=== PATIENT | female | born 1990 | race Two or more races ===

== ENCOUNTER 2020-03-03 06:37 | Outpatient (REF) | payer OTHER, SELFPAY | END 2020-03-03 06:38 | disposition home or self-care (01) | LOC: HO.LAB 06:37 | PROVIDERS: Visit Provider Internal Medicine | DX: Z20.828 Contact with and (suspected) exposure to other viral communicable diseases (principal) | CPT/HCPCS: C9803; U0003 ==

== ENCOUNTER 2020-03-18 21:46 | Emergency (ER) | payer OTHER, SELFPAY ==
[2020-03-18 21:47] VITALS: BP 175/100; PULSE 94; RESP 16; TEMP 37; O2SAT 99; BMI 45.8
--- NOTE | 2020-03-18 22:02 | PC.NURSE ---
PT HAS NO FACIAL DROOPING, SPEACH CLEAR, AND PT A+OX 3.
--- NOTE | 2020-03-18 22:12 | CT_ITS ---
EXAMINATION: CT CERVICAL SPINE WITHOUT CONTRAST CLINICAL INFORMATION: neck pain. arthritis? COMPARISON: None TECHNIQUE: Multidetector volumetric imaging was obtained through the cervical spine without contrast. Multiplanar reformatted images in coronal and sagittal orientations were submitted. This CT examination was performed using dose optimization techniques as appropriate, variously including the following: *Automated exposure control *Adjustment of mA and/or kV according to patient size (this includes techniques or standardized protocols for targeted exams where dose is matched to indication/reason for exam; i.e. extremities or head) *Use of iterative reconstruction technique DLP: 607 mGy-cm FINDINGS: No acute fracture or spondylolisthesis. Vertebral body heights are normal. There is slight reversal of the normal cervical lordosis which may be positional in nature. Atlantooccipital and craniocervical alignment appears normal. The vertebral disc heights appear well-preserved. No significant degenerative spondylosis. Facet joints are unremarkable. The central canal appears patent throughout the cervical spine without appreciable stenoses by CT. No evidence of epidural hematoma. No neural foraminal encroachment is identified. Paraspinal soft tissues are unremarkable. Thyroid gland is normal in appearance. No adenopathy. Imaged portions of the lung apices are normal. Imaged portion of the posterior fossa is unremarkable. CT/CT cervical spine wo con IMPRESSION: No acute abnormalities are identified in the cervical spine. The cervical spine appears relatively well-preserved without significant degenerative spondylosis.
[2020-03-18] MEDS: Ketorolac Tromethamine 30 MG/ML VIAL IM (22:24)
[2020-03-18] MEDS: Cyclobenzaprine HCl 10 MG TABLET PO (22:24)
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
[2020-03-18 23:17] VITALS: BP 135/73; PULSE 77; RESP 16; TEMP 37.2; O2SAT 98
== END 2020-03-18 23:45 | disposition home or self-care (01) ==
PROVIDERS: Emergency Provider Emergency Medicine Emergency Medical Services
DX: M62.830 Muscle spasm of back (principal); E11.9 Type 2 diabetes mellitus without complications
CPT/HCPCS: 72125; 99284; J1885

== ENCOUNTER 2020-06-08 10:02 | Outpatient (REF) | payer OTHER, SELFPAY | END 2020-06-08 10:03 | disposition home or self-care (01) | LOC: HO.LAB 10:02 | PROVIDERS: Visit Provider Internal Medicine | DX: Z20.822 Contact with and (suspected) exposure to COVID-19 (principal) | CPT/HCPCS: 36415; C9803; U0003; U0005 ==

== ENCOUNTER 2020-08-18 11:27 | Emergency (ER) | payer OTHER, SELFPAY ==
--- NOTE | ~2020-08-18 | CT_ITS ---
EXAMINATION: CT ABDOMEN AND PELVIS WITHOUT CONTRAST CLINICAL INFORMATION: Left flank pain. COMPARISON: CT abdomen and pelvis noncontrast 11/03/2017 TECHNIQUE: Multidetector volumetric imaging was performed from the superior aspect of the liver through the pubic symphysis. Sagittal and coronal reformatted images were obtained on the technologist's workstation. This CT examination was performed using dose optimization techniques as appropriate, variously including the following: *Automated exposure control *Adjustment of mA and/or kV according to patient size (this includes techniques or standardized protocols for targeted exams where dose is matched to indication/reason for exam; i.e. extremities or head) *Use of iterative reconstruction technique DLP: 1221 mGy-cm FINDINGS: LUNG BASES: The visualized lung bases are unremarkable. LIVER, GALLBLADDER, AND BILIARY TREE: The liver is normal in size, shape, and attenuation. No focal hepatic lesion or biliary ductal dilatation is present. The gallbladder is unremarkable with no evidence of radiopaque gallstones, gallbladder wall thickening, or obvious pericholecystic inflammatory changes. PANCREAS: Unremarkable. SPLEEN: Spleen is mildly enlarged similar to prior study, measuring 14.9 cm sagittal dimension. ADRENAL GLANDS: Unremarkable. KIDNEYS AND URETERS: There is mild left hydronephrosis secondary to a proximal ureteral calculus immediately beyond the ureterovesical junction at level L2-L3, measuring only 3 mm in diameter. There is no perinephric stranding. No other left urinary tract calculi are demonstrated. The right kidney has punctate nonobstructing calculus upper pole under 3 mm. No right hydronephrosis, hydroureter, or perinephric stranding. BLADDER: Unremarkable. GASTROINTESTINAL TRACT: No bowel obstruction or inflammatory changes in the bowel. The appendix is normal. There is no ascites or fluid collection. ABDOMINAL WALL: Small stable fat-containing umbilical hernia under 3 cm. LYMPH NODES: There are some stable right lower quadrant mesenteric nodes medial to the cecum measuring up to 0.7 cm short axis similar to prior CT. No retroperitoneal or pelvic or interval lymphadenopathy. VASCULAR: Unremarkable. PELVIC VISCERA: Unremarkable. OSSEOUS STRUCTURES: Unremarkable. CT/CT abdomen pelvis wo con IMPRESSION: 1. Mild left hydronephrosis secondary to a 3 mm calculus proximal ureter immediately beyond the ureterovesical junction at level L2-L3. No perinephric stranding. 2. Punctate nonobstructing right upper pole calculus under 3 mm. No right hydronephrosis. 3. Stable borderline splenomegaly and some stable right mesenteric nodes similar to CT 2018.
[2020-08-18 11:31] VITALS: PULSE 92; RESP 18; TEMP 36.7; O2SAT 98; BMI 45.4
[2020-08-18 11:37] VITALS: BP 174/115
[2020-08-18] MEDS: ondansetron HCL 4 MG/2 ML VIAL IVPUSH (12:26)
[2020-08-18] MEDS: 0.9 % Sodium Chloride 1,000 ML 999 ML IVCONT (12:26)
[2020-08-18] MEDS: Ketorolac Tromethamine 15 MG/ML VIAL 30 MG IV (12:26)
[2020-08-18] MEDS: Morphine Sulfate 4 MG/ML CARTRIDGE IVPUSH (12:26)
[2020-08-18 12:39] LABS: MANUAL DIFF FLAG NO
[2020-08-18 12:45] LABS: Basophils Percent Auto 0.2 % (0-2); Eosinophils Absolute Auto 0.2 X10*3/uL (0.0-0.4); Eosinophils Percent Auto 1.4 % (0-4); Imm Gran Abs Auto 0.04 X10*3/uL (0.00-0.03); Imm Gran Pct Auto 0.3 % (0.0-0.4); Lymphocytes Absolute Auto 1.6 X10*3/uL (1.2-4.9); Lymphocytes Percent Auto 12.6 % (20-40); Mean Corpuscular HGB Conc 32.5 g/dl (31.0-35.0); Mean Corpuscular Volume 83.2 fL (80-98); Mean Platelet Volume 11.3 fL (9.4-12.3); Monocytes Absolute Auto 0.5 X10*3/uL (0.1-1.2); Monocytes Percent Auto 4.1 % (2-11); Neutrophils Absolute Auto 10.4 X10*3/uL (2.0-8.3); Neutrophils Percent Auto 81.4 % (45-73); Platelet Count 370 X10*3/uL (160-400); Red Blood Count 4.81 X10*6/uL (4.20-5.50); White Blood Count 12.8 X10*3/uL (4.8-10.8)
[2020-08-18 12:50] LABS: INTERNATIONAL NORM RATIO 1.1 (0.9-1.1); Prothrombin Time 13.3 SEC (10.8-13.0)
[2020-08-18] MEDS: diphenhydrAMINE HCL 50 MG/ML VIAL IVPUSH (13:04)
[2020-08-18] MEDS: Metoclopramide HCl 10 MG/2 ML VIAL IVPUSH (13:04)
[2020-08-18] MEDS: HYDROmorphone HCl 0.5 MG/0.5 ML SYRINGE IVPUSH (13:07)
[2020-08-18 13:11] VITALS: BP 161/84; PULSE 74; RESP 19; O2SAT 99
[2020-08-18 13:20] LABS: Influenza A PCR NEGATIVE (Negative); Influenza B PCR NEGATIVE (Negative); Resp Syncy Virus RNA Qual PCR NEGATIVE (Negative); SARS COV2 PCR INHOUSE NEGATIVE (Negative)
[2020-08-18 13:27] VITALS: BP 151/83; PULSE 68; RESP 16
[2020-08-18 13:32] LABS: Alanine Aminotransferase 24 U/L (0-31); Albumin Level 4.4 g/dL (3.5-5.0); Alkaline Phosphatase 90 U/L (39-117); Anion Gap 17 (12-20); Aspartate Amino Transferase 19 U/L (5-31); Bilirubin Total 0.5 mg/dL (0.0-1.0); Blood Urea Nitrogen 15 mg/dL (9-16); Calcium 9.7 mg/dL (8.4-10.2); Carbon Dioxide 23 mmol/L (22-29); Chloride 105 mmol/L (96-108); Creatinine Clr Calc Pharmacy 142.6; Estimated Glomerular Filt Rate > 60; Glucose Random 176 mg/dL (60-115); Magnesium 1.6 mg/dL (1.6-2.6); Potassium 3.9 mmol/L (3.3-5.1); Sodium 141 mmol/L (135-145); Total Protein 7.2 g/dL (6.5-8.0)
[2020-08-18 13:34] LABS: HCG Quantitative < 2 mIU/mL
--- NOTE | 2020-08-18 13:47 | ED_ITS ---
HPI - Abdominal Pain General Chief Complaint: Abdominal Pain Stated Complaint: flank pain abd pain Time Seen by Provider: 08/18/20 12:09 Source: patient and family Mode of arrival: ambulatory Limitations: no limitations History of Present Illness HPI narrative: 30-year-old female with a past medical history of diabetes presenting to the ED with complaints of left back/flank pain with associated nausea/vomiting that started this morning. Reports she has never had this in the past. Denies any fevers, chills, dizziness, headaches, lightheadedness, black or bloody emesis, chest pain, shortness of breath, radiation of the abdominal pain, diarrhea, constipation, hematuria, abnormal vaginal discharge, dysuria or any other symptoms complaints or concerns at this time. Denies recent travel or sick contacts or bad food exposure. Denies being on any blood thinners. MD elicited complaint: abdominal pain and flank pain Onset (ago): hour(s) Pain Consistency: constant Location: L flank and other (Left back) Severity: severe Pain scale (0-10): 10 Quality: sharp Radiation: none Migration to: no migration Exacerbating factors: nothing Relieving factors: nothing Associated symptoms: nausea and vomiting Related Data Previous Rx's Medication Instructions Recorded cyclobenzaprine 10 mg PO TID PRN #15 tab 03/18/20 naproxen 500 mg PO BID PRN #20 tab 03/18/20 acetaminophen [Tylenol Extra 1,000 mg PO QID PRN #14 tab 08/18/20 Strength] ketorolac 10 mg PO Q8H PRN #15 tab 08/18/20 oxycodone 5 mg PO BID PRN #15 tab 08/18/20 prednisone 40 mg PO DAILY 5 Days #10 tab 08/18/20 tamsulosin [Flomax] 0.4 mg PO DAILY 5 Days #5 cap 08/18/20 Allergies Allergy/AdvReac Type Severity Reaction Status Date / Time No Known Allergies Allergy Verified 03/18/20 21:54 Review of Systems Review of Systems Constitutional : No Fever, No Chills, No Night Sweats, No Fatigue, No Malaise Cardiovascular : No Chest Pain, No SOB Respiratory : No Cough, No Sputum, No Wheezing, No Dyspnea Gastrointestinal : + Nausea, + Vomiting, No Diarrhea, + abdominal Pain, No He matochezia, No Melena Genitourinary : No irregular bleeding, No Dysuria, No Urinary Frequency, No He maturia,No Urinary Incontinence, No Urgency, No Flank Pain Musculoskeletal : No joint pain, No Myalgias, No Joint Swelling Skin : No Skin Lesions, No rash Neuro : No Weakness, No Numbness, No Paresthesias, No Loss of Consciousness, No Dizziness, No Headache Heme/Lymph: No Lymphadenopathy Endocrine : No Temperature Intolerance Yes all other systems are reviewed and are negative Physical Exam Vital Signs: Vital Signs: Last Vital Signs Temp 98.0 F 08/18/20 11:31 Pulse 68 08/18/20 13:27 Resp 16 08/18/20 13:27 BP 151/83 H 08/18/20 13:27 Pulse Ox 99 08/18/20 13:11 Body Mass Index 45.4 vital signs have been reviewed as normal and appeared to be correct. Blood pressure normal. Heart rate hypertensive at 174/115. Respiration rate normal. Temperature normal. Oxygen saturation normal. Appearance: Alert. Oriented X3. In severe pain with anxiety otherwise other No acute distress. Head: Normal external exam. Normocephalic. Eyes: PERRLA. EOMI. Conjunctiva and sclera normal. Eyelids normal. ENT: Pharynx normal. Uvula midline. Moist mucous membranes. No trismus noted. No drooling noted. No muffled voice noted. Neck: Normal inspection. Neck supple. FROM. No adenopathy. No meningeal signs. CVS: Normal heart rate and rhythm. Heart sound normal. No murmurs noted. Pulses normal throughout. Respiratory: No respiratory distress. Painless inspiration. Breath sounds normal. No wheezes/rales/rhonchi noted. Chest nontender. No accessory muscle usage noted or decreased air movement noted. Abdomen: Soft and moderate tenderness to palpation to left flank with guarding. Nondistended. No rigidity. Bowel sounds normal in all 4 quadrants. No distention noted. No organomegaly noted. No visible injury noted. No rebound tenderness. Negative Rovsing sign. Negative obturator's sign. Negative psoas sign. Negative Calix sign. Back: Positive left CVA tenderness. No right CVA tenderness Full range of motion noted. Skin: Skin warm and dry. Normal skin color. Normal skin turgor. No rashes/lesions/lacerations noted. Extremities: Extremities exhibit normal range of motion. Extremities nontender. Neuro: Oriented X 3. No motor deficit. No sensory deficit. Reflexes normal. Normal steady gait. Course Course Course Narrative: 15pm - labs reviewed and [place] [address]. Random glucose 176. Serum quant negative for . Otherwise all other labs are within normal limits. COVID/RSV/flu negative. - patient more comfortable with pain at this time. - patient is currently awaiting CT scan of abdomen and pelvis without contrast will continue to monitor. Reevaluation(s) Reevaluation #1: - CT scan of abdomen and pelvis revealed mild left hydr onephrosis with 3 mm calculus proximal ureter immediately beyond the UVJ. Patient also noted to have stable borderline splenomegaly and some stable right mesenteric nodes similar to CT scan in 2018. Therefore I printed this out and instructed her to follow up with her primary care provider regarding this. - otherwise patient is tolerating p.o. fluids/solid and her pain is controlled. Will DC home with symptomatic treatment antinausea medication with instructions follow-up with Urology and to return if any new or worsening symptoms. Patient and mother at bedside understand and agree with this plan. Time: 16:48 MDM - Abdominal Pain MDM Narrative Medical decision making narrative: 12:10am - 30-year-old female with a past medical history of diabetes presenting to the ED with complaints of left back/flank pain with associated nausea/vomiting that started this morning. - Plan: Labs, UA, UHCG, CT scan of abdomen and pelvis without contrast, COVID/RSV/flu swab. Provide a L of IV fluids with 30 mg of Toradol IV, 4 mg of Zofran and 4 mg of morphine then re-evaluate. Medical Records Attestation: I reviewed the patient's medical records. Lab Data Attestation: I reviewed the patient's lab results. Result diagrams: 08/18/20 12:30 08/18/20 12:30 Labs: Lab Results 08/18/20 08/18/20 08/18/20 Range/Units 12:30 12:30 12:30 WBC 12.8 H (4.8-10.8) X10*3/uL RBC 4.81 (4.20-5.50) X10*6/uL Hgb 13.0 (12.0-16.0) g/dl Hct 40.0 (37-47) % MCV 83.2 (80-98) fL MCH 27.0 (27.0-33.0) pg MCHC 32.5 (31.0-35.0) g/dl RDW 13.0 (11.0-16.0) % Plt Count 370 (160-400) X10*3/uL MPV 11.3 (9.4-12.3) fL Immature Gran % (Auto) 0.3 (0.0-0.4) % Neut % (Auto) 81.4 H (45-73) % Lymph % (Auto) 12.6 L (20-40) % [place] % (Auto) 4.1 (2-11) % Eos % (Auto) 1.4 (0-4) % Baso % (Auto) 0.2 (0-2) % Lymph # (Auto) 1.6 (1.2-4.9) X10*3/uL [place] # (Auto) 0.5 (0.1-1.2) X10*3/uL Eos # (Auto) 0.2 (0.0-0.4) X10*3/uL Baso # (Auto) 0.0 (0.0-0.2) X10*3/uL Abs Immat Gran (auto) 0.04 H (0.00-0.03) X10*3/uL Absolute Neuts (auto) 10.4 H (2.0-8.3) X10*3/uL Absolute Nucleated RBC 0.000 (0.0-0.012) X10*3/uL Nucleated RBC % (auto) 0.0 (0.0-0.2) /100WBC PT 13.3 H (10.8-13.0) SEC INR 1.1 (0.9-1.1) Sodium 141 (135-145) mmol/L Potassium 3.9 (3.3-5.1) mmol/L Chloride 105 (96-108) mmol/L Carbon Dioxide 23 (22-29) mmol/L Anion Gap 17 (12-20) BUN 15 (9-16) mg/dL Creatinine 0.83 (0.5-1.4) mg/dL Estim Creat Clear Calc 142.6 Estimated GFR > 60 Random Glucose 176 H (60-115) mg/dL Calcium 9.7 (8.4-10.2) mg/dL Magnesium 1.6 (1.6-2.6) mg/dL Total Bilirubin 0.5 (0.0-1.0) mg/dL AST 19 (5-31) U/L ALT 24 (0-31) U/L Alkaline Phosphatase 90 (39-117) U/L Total Protein 7.2 (6.5-8.0) g/dL Albumin 4.4 (3.5-5.0) g/dL Beta HCG, Quant < 2 mIU/mL Coronavirus (PCR) (Negative) Influenza Type A (PCR) (Negative) Influenza Type B (PCR) (Negative) RSV RNA Qual (PCR) (Negative) 08/18/20 Range/Units 12:32 WBC (4.8-10.8) X10*3/uL RBC (4.20-5.50) X10*6/uL Hgb (12.0-16.0) g/dl Hct (37-47) % MCV (80-98) fL MCH (27.0-33.0) pg MCHC (31.0-35.0) g/dl RDW (11.0-16.0) % Plt Count (160-400) X10*3/uL MPV (9.4-12.3) fL Immature Gran % (Auto) (0.0-0.4) % Neut % (Auto) (45-73) % Lymph % (Auto) (20-40) % [place] % (Auto) (2-11) % Eos % (Auto) (0-4) % Baso % (Auto) (0-2) % Lymph # (Auto) (1.2-4.9) X10*3/uL [place] # (Auto) (0.1-1.2) X10*3/uL Eos # (Auto) (0.0-0.4) X10*3/uL Baso # (Auto) (0.0-0.2) X10*3/uL Abs Immat Gran (auto) (0.00-0.03) X10*3/uL Absolute Neuts (auto) (2.0-8.3) X10*3/uL Absolute Nucleated RBC (0.0-0.012) X10*3/uL Nucleated RBC % (auto) (0.0-0.2) /100WBC PT (10.8-13.0) SEC INR (0.9-1.1) Sodium (135-145) mmol/L Potassium (3.3-5.1) mmol/L Chloride (96-108) mmol/L Carbon Dioxide (22-29) mmol/L Anion Gap (12-20) BUN (9-16) mg/dL Creatinine (0.5-1.4) mg/dL Estim Creat Clear Calc Estimated GFR Random Glucose (60-115) mg/dL Calcium (8.4-10.2) mg/dL Magnesium (1.6-2.6) mg/dL Total Bilirubin (0.0-1.0) mg/dL AST (5-31) U/L ALT (0-31) U/L Alkaline Phosphatase (39-117) U/L Total Protein (6.5-8.0) g/dL Albumin (3.5-5.0) g/dL Beta HCG, Quant mIU/mL Coronavirus (PCR) NEGATIVE (Negative) Influenza Type A (PCR) NEGATIVE (Negative) Influenza Type B (PCR) NEGATIVE (Negative) RSV RNA Qual (PCR) NEGATIVE (Negative) Imaging Data CT scan of abdomen and pelvis without IV contrast: Attestation: I personally reviewed and interpreted this imaging study as follows: Radiologist's impression: FINDINGS: LUNG BASES: The visualized lung bases are unremarkable. LIVER, GALLBLADDER, AND BILIARY TREE: The liver is normal in size, shape, and attenuation. No focal hepatic lesion or biliary ductal dilatation is present. The gallbladder is unremarkable with no evidence of radiopaque gallstones, gallbladder wall thickening, or obvious pericholecystic inflammatory changes. PANCREAS: Unremarkable. SPLEEN: Spleen is mildly enlarged similar to prior study, measuring 14.9 cm sagittal dimension. ADRENAL GLANDS: Unremarkable. KIDNEYS AND URETERS: There is mild left hydronephrosis secondary to a proximal ureteral calculus immediately beyond the ureterovesical junction at level L2-L3, measuring only 3 mm in diameter. There is no perinephric stranding. No other left urinary tract calculi are demonstrated. The right kidney has punctate nonobstructing calculus upper pole under 3 mm. No right hydronephrosis, hydroureter, or perinephric stranding. BLADDER: Unremarkable. GASTROINTESTINAL TRACT: No bowel obstruction or inflammatory changes in the bowel. The appendix is normal. There is no ascites or fluid collection. ABDOMINAL WALL: Small stable fat-containing umbilical hernia under 3 cm. LYMPH NODES: There are some stable right lower quadrant mesenteric nodes medial to the cecum measuring up to 0.7 cm short axis similar to prior CT. No retroperitoneal or pelvic or interval lymphadenopathy. VASCULAR: Unremarkable. PELVIC VISCERA: Unremarkable. OSSEOUS STRUCTURES: Unremarkable. CT/CT abdomen pelvis wo con IMPRESSION: 1. Mild left hydronephrosis secondary to a 3 mm calculus proximal ureter immediately beyond the ureterovesical junction at level L2-L3. No perinephric stranding. 2. Punctate nonobstructing right upper pole calculus under 3 mm. No right hydronephrosis. 3. Stable borderline splenomegaly and some stable right mesenteric nodes similar to CT 2018. Critical Care Time Critical Care Time Critical Care Time: Yes Total Critical Care Time: 60 Attestation: I personally attest to this time spent taking care of the patient Discharge Plan Discharge Clinical Impression: Ureterolithiasis, Hydronephrosis, Splenomegaly Patient Disposition: Home, Self-Care Instructions: Kidney Stones (ED), Ureteral Stones (ED) Prescriptions: New tamsulosin [Flomax] 0.4 mg capsule 0.4 mg PO DAILY 5 Days Qty: 5 RF: 0 prednisone 20 mg tablet 40 mg PO DAILY 5 Days Qty: 10 RF: 0 acetaminophen [Tylenol Extra Strength] 500 mg tablet 1,000 mg PO QID PRN (Reason: fever or pain) Qty: 14 RF: 0 ketorolac 10 mg tablet 10 mg PO Q8H PRN (Reason: pain) Qty: 15 RF: 0 oxycodone 5 mg tablet 5 mg PO BID PRN (Reason: pain) Qty: 15 RF: 0 No Action naproxen 500 mg tablet 500 mg PO BID PRN (Reason: pain) Qty: 20 RF: 0 cyclobenzaprine 10 mg tablet 10 mg PO TID PRN (Reason: muscle spasm) Qty: 15 RF: 0 Referrals: Simeon Palafox MD [Physician] - 2 days Benitez Stevens III, MD [Physician] - 2 days Stand Alone Forms: Work/School Release Print Language: [place] [facility] Past Medical History Attestation statement: The following information was validated with the patient. Medical History Diabetes Social History Social History Advance Directives: No Advance Directives Information Provided: No Patient : No
[2020-08-18] MEDS: Ibuprofen 800 MG TABLET PO (17:17)
[2020-08-18] MEDS: Acetaminophen 325 MG TABLET 975 MG PO (17:17)
[2020-08-18] MEDS: oxyCODONE HCl Immed Release 5 MG TABLET PO (17:17)
== END 2020-08-18 17:26 | disposition home or self-care (01) ==
PROVIDERS: Physician Assistant Medical; Emergency Provider Emergency Medicine Emergency Medical Services
DX: N20.1 Calculus of ureter (principal); N13.30 Unspecified hydronephrosis; R16.1 Splenomegaly, not elsewhere classified; Z20.822 Contact with and (suspected) exposure to COVID-19; Z79.899 Other long term (current) drug therapy
CPT/HCPCS: 0241U; 36415; 74176; 80053; 83735; 84702; 85025; 85610; 96365; 96375; 99284; J1170; J1200; J1885; J2270; J2405; J2765

== ENCOUNTER → 2020-08-25 14:03 | Outpatient (BNVA) | payer OTHER, SELFPAY | PROVIDERS: PCP Nurse Practitioner Family; Visit Provider Urology ==

== ENCOUNTER 2021-03-25 14:35 | Outpatient (REF) | payer OTHER, SELFPAY ==
--- NOTE | ~2021-03-25 | US_ITS ---
EXAMINATION: US RETROPERITONEAL LIMITED (RENAL ONLY) CLINICAL INFORMATION: Calculus of kidney. COMPARISON: CT abdomen and pelvis without contrast dated 08/18/2020. KUB dated 11/03/2017. TECHNIQUE: Real-time imaging of the kidneys. FINDINGS: RIGHT KIDNEY: 12.0 x 4.2 x 5.2 cm (SAG x AP x TRV). The kidney is normal in size, contour, and echogenicity. Renal cortical thickness is normal. No calculi or focal parenchymal lesions. No hydronephrosis. LEFT KIDNEY: 12.2 x 4.6 x 5.1 cm (SAG x AP x TRV). The kidney is normal in size, contour, and echogenicity. Renal cortical thickness is normal. No calculi or focal parenchymal lesions. No hydronephrosis. US/US renal BI IMPRESSION: Normal examination. No calculi demonstrated. No hydronephrosis.
== END 2021-03-25 14:36 | disposition home or self-care (01) ==
LOC: HO.HMGCX 14:35
PROVIDERS: Visit Provider Urology
DX: N20.0 Calculus of kidney (principal)
CPT/HCPCS: 76775

== ENCOUNTER 2022-08-30 18:49 | Emergency (ER) | payer OTHER, MEDICAID, SELFPAY ==
--- NOTE | ~2022-08-30 | CT_ITS ---
EXAMINATION: CT ABDOMEN AND PELVIS WITHOUT CONTRAST CLINICAL INFORMATION: Right flank pain and right lower quadrant pain, hematuria. COMPARISON: Renal ultrasound 03/25/2021. CT abdomen/pelvis 08/18/2020. TECHNIQUE: Multidetector volumetric imaging was performed from the superior aspect of the liver through the pubic symphysis. Sagittal and coronal reformatted images were obtained on the technologist's workstation. This CT examination was performed using dose optimization techniques as appropriate, variously including the following: *Automated exposure control *Adjustment of mA and/or kV according to patient size (this includes techniques or standardized protocols for targeted exams where dose is matched to indication/reason for exam; i.e. extremities or head) *Use of iterative reconstruction technique DLP: 984 mGy-cm FINDINGS: The lack of intravenous contrast limits evaluation of the solid visceral organs including the liver, spleen, pancreas, and kidneys. LUNG BASES: The visualized lung bases are unremarkable. LIVER, GALLBLADDER, AND BILIARY TREE: The liver is normal in size, shape, and attenuation. No focal hepatic lesion or biliary ductal dilatation is present. The gallbladder is unremarkable with no evidence of radiopaque gallstones, gallbladder wall thickening, or obvious pericholecystic inflammatory changes. PANCREAS: Limited noncontrast examination. Equivocal very subtle proximal peripancreatic fat stranding. SPLEEN: Unchanged mild splenomegaly. ADRENAL GLANDS: Unremarkable. KIDNEYS AND URETERS: Punctate nonobstructive calculus in the mid right kidney (6:55). No hydronephrosis. No significant perinephric fat stranding. BLADDER: Underdistended limiting its evaluation. No significant perivesical fat stranding. GASTROINTESTINAL TRACT: The stomach is mildly prominent with heterogeneous content, likely related with postprandial state. The small bowel is nondilated. Normal appendix. Mild colonic diverticulosis. No pericolonic fat stranding. No evidence of bowel obstruction. Moderate degree of stool in the colon and rectum. ABDOMINAL WALL: No significant hernia is appreciated. LYMPH NODES: Prominent sub-7 mm short axis right lower quadrant mesenteric lymph nodes, stable compared to 08/18/2020. VASCULAR: Normal caliber of the abdominal aorta. PELVIC VISCERA: No pelvic mass. OSSEOUS STRUCTURES: No acute or aggressive appearing osseous abnormalities. CT/CT abdomen pelvis wo IV con IMPRESSION: 1. Punctate nonobstructive calculus in the mid right kidney. 2. Equivocal very subtle proximal peripancreatic fat stranding, correlate with lipase/amylase for acute pancreatitis. 3. Mild colonic diverticulosis but no evidence of acute diverticulitis. 4. Moderate degree of stool burden in the colon and rectum suggesting constipation. 5. Unchanged mild splenomegaly. 6. Stable mildly prominent right lower quadrant mesenteric lymph nodes.
[2022-08-30 18:53] VITALS: BP 159/80; PULSE 89; RESP 18; TEMP 35.9; O2SAT 99; BMI 31.3
--- NOTE | 2022-08-30 18:54 | ED.ABDPAIN ---
HPI - Abdominal Pain General Chief Complaint: Urogenital-Female Stated Complaint: Back pain to stomach. Appendicitis? Kidney Stones? Time Seen by Provider: 08/30/22 21:00 Source: patient Mode of arrival: ambulatory Limitations: no limitations History of Present Illness HPI narrative: Patient history of kidney stone last attack was 2021 in which the stone came out of its own comes here for dull pain the right flank area for last 4 days now rated front nausea no vomiting patient noticed or slight blood in the urine also. Related Data Home Medications Medication Instructions Recorded Confirmed pen needle, diabetic 32 gauge x #50 ea 08/25/20 Previous Rx's Medication Instructions Recorded cyclobenzaprine 10 mg tablet 10 mg PO TID PRN muscle spasm #15 03/18/20 tabs naproxen 500 mg tablet 500 mg PO BID PRN pain #20 tabs 03/18/20 acetaminophen 500 mg tablet 1,000 mg PO QID PRN fever or pain 08/18/20 (Tylenol Extra Strength) #14 tabs ketorolac 10 mg tablet 10 mg PO Q8H PRN pain #15 tabs 08/18/20 oxycodone 5 mg tablet 5 mg PO BID PRN pain #15 tabs 08/18/20 prednisone 20 mg tablet 40 mg PO DAILY rash 5 days #10 tabs 08/18/20 tamsulosin 0.4 mg capsule (Flomax) 0.4 mg PO DAILY 5 days #5 caps 08/18/20 cefuroxime axetil 250 mg tablet 250 mg PO BID 7 days #14 tabs 08/31/22 tramadol 50 mg tablet 50 mg PO Q6H PRN pain #20 tabs 08/31/22 Allergies Allergy/AdvReac Type Severity Reaction Status Date / Time No Known Allergies Allergy Verified 08/25/20 13:01 Review of Systems Review of Systems Yes all other systems are reviewed and are negative [facility] Past Medical History Medical History Diabetes Social History Social History Advance Directives: No Advance Directives Information Provided: No Physical Exam ED Vital Signs: Vital Signs - 24 hr 08/30/22 18:53 08/30/22 21:44 08/30/22 22:29 Temperature 96.7 F L 98.3 F Pulse Rate 89 81 Respiratory Rate 18 18 14 Blood Pressure 159/80 H 136/76 Pulse Oximetry 99 98 Oxygen Delivery Method Room Air Room Air BMI result Body Mass Index 31.3 Appearance: Alert. Oriented X3. No acute distress. Eyes: PERRLA, No Nystagmus ENT: Pharynx normal. Oral Mucosa moist Neck: Normal inspection. Neck supple. CVS: Normal heart rate and rhythm. Pulses normal. Respiratory: No respiratory distress. Equal air entry bilateral, no wheezing/rales/rhonchi Abdomen: Soft and nontender. Bowel sounds are present, no mass palpable, R CVA tenderness Skin: Skin warm and dry. Normal skin color. Normal skin turgor. Extremities: No lower extremity edema. No calf tenderness Neuro: Oriented X 3. No motor deficit. No sensory deficit.No cerebellar signs , cranial nerves II-XII intact Course Course Course Narrative: RME: 32yo F w/PMHx renal stones, DM, sent at [employer] [employer], told had UTI and hematuria sent to ED to r/o appendicitis, pt c/o intermittent R sided low back pain radiating to lower abdomen x yesterday. Reports dysuria, urinary frequency. denies N/V, fever, chills +R CVAT noted with RUQ/RLQ ttp, no rebound labs, UA, CTAP ordered Full HPI, ROS and PE to be performed by primary ED provider. Medical Decision Making Medical Decision Making MDM Narrative: CT scan negative for kidney stone discharge patient home on [facility] Lab Data [facility] Lab Attestation statement: I reviewed the patient's lab results. 08/30/22 20:45 08/30/22 20:45 Labs: Lab Results 08/30/22 08/30/22 08/30/22 Range/Units 20:45 20:45 21:48 WBC 11.6 H (4.8-10.8) X10*3/uL RBC 4.56 (4.20-5.50) X10*6/uL Hgb 12.8 (12.0-16.0) g/dl Hct 39.3 (37.0-47.0) % MCV 86.2 (80.0-98.0) fL MCH 28.1 (27.0-33.0) pg MCHC 32.6 (31.0-35.0) g/dl RDW 13.2 (11.0-16.0) % Plt Count 349 (160-400) X10*3/uL MPV 10.9 (9.4-12.3) fL Immature Gran % (Auto) 0.3 (0.0-0.4) % Neut % (Auto) 69.0 (45-73) % Lymph % (Auto) 22.4 (20-40) % [place] % (Auto) 5.2 (2-11) % Eos % (Auto) 2.7 (0-4) % Baso % (Auto) 0.4 (0-2) % Lymph # (Auto) 2.6 (1.2-4.9) X10*3/uL [place] # (Auto) 0.6 (0.1-1.2) X10*3/uL Eos # (Auto) 0.3 (0.0-0.4) X10*3/uL Baso # (Auto) 0.1 (0.0-0.2) X10*3/uL Abs Immat Gran (auto) 0.03 (0.00-0.03) X10*3/uL Absolute Neuts (auto) 8.0 (2.0-8.3) x10*3/uL Absolute Nucleated RBC 0.000 (0.0-0.012) X10*3/uL Nucleated RBC % (auto) 0.0 (0.0-0.2) /100WBC Sodium 142 (135-145) mmol/L Potassium 4.2 (3.3-5.1) mmol/L Chloride 106 (96-108) mmol/L Carbon Dioxide 26 (22-29) mmol/L Anion Gap 14 (12-20) BUN 13 (9-16) mg/dL Creatinine 1.25 (0.5-1.4) mg/dL Estim Creat Clear Calc 76.1 Estimated GFR 50 Random Glucose 136 H (60-115) mg/dL Calcium 9.4 (8.4-10.2) mg/dL Magnesium 1.7 (1.6-2.6) mg/dL Total Bilirubin 0.3 (0.0-1.0) mg/dL Direct Bilirubin 0.1 (0.0-0.5) mg/dL AST 14 (5-31) U/L ALT 15 (0-31) U/L Alkaline Phosphatase 94 (39-117) U/L Total Protein 7.0 (6.5-8.0) g/dL Albumin 4.2 (3.5-5.0) g/dL Lipase 20 (8-78) U/L Beta HCG, Quant < 2 mIU/mL Urine Color Yellow Urine Appearance Cloudy Urine pH 7.5 (5.0-9.0) Ur Specific [place] >= 1.030 H (1.005-1.025) Urine Protein Trace (Neg-Trace) mg/dL Urine Glucose (UA) Negative (Negative) mg/dL Urine Ketones Trace (Negative) mg/dL Urine Blood Small (1+) H (Negative) Urine Nitrite Negative (Negative) Ur Leukocyte Esterase Moderate (2+) H (Negative) Urine RBC 0-2 (0-2) /HPF Urine WBC 21-50 H (0-5) /HPF Ur Squamous Epith Cells 11-20 (0-2) /HPF Urine Bacteria 4+ (None Seen) Hyaline Casts 0-2 (0-2) /LPF Medications Administered Discontinued Medications Generic Name Dose Route Start Last Admin Trade Name Freq PRN Reason Stop Dose Admin Sodium Chloride 1,000 mls @ 999 mls/hr 08/30/22 21:15 08/30/22 22:27 Ns IV 08/30/22 22:15 999 mls/hr .Q1H1M ONE Administration Ceftriaxone Sodium 1 gm/ 50 mls @ 100 mls/hr 08/30/22 22:58 08/30/22 23:08 Sodium Chloride IV 08/30/22 23:27 100 mls/hr ONCE ONE Administration Ketorolac Tromethamine 30 mg 08/30/22 21:15 08/30/22 22:29 Ketorolac Tromethamine 30 Mg/Ml Vial IVPUSH 08/30/22 21:16 30 mg ONCE ONE Administration Morphine Sulfate 4 mg 08/30/22 21:15 08/30/22 22:29 Morphine Sulfate 4 Mg/Ml Cartridge IVPUSH 08/30/22 21:16 4 mg ONCE ONE Administration Protocol Ondansetron HCl 4 mg 08/30/22 21:15 08/30/22 22:29 Ondansetron Hcl 4 Mg/2 Ml Vial IVPUSH 08/30/22 21:16 4 mg ONCE ONE Administration Discharge Plan Discharge Clinical Impression: Urinary tract infection Patient Disposition: Home, Self-Care Instructions: Urinary Tract Infection in Women (ED) Additional Instructions: Drink plenty of fluids No kidney stone seen at this time Pain in the flank areas likely from infection Take antibiotics and pain medication as prescribed Prescriptions: New cefuroxime axetil 250 mg tablet 250 mg PO BID 7 Days Qty: 14 0RF tramadol 50 mg tablet 50 mg PO Q6H PRN (Reason: pain) Qty: 20 0RF No Action naproxen 500 mg tablet 500 mg PO BID PRN (Reason: pain) Qty: 20 0RF cyclobenzaprine 10 mg tablet 10 mg PO TID PRN (Reason: muscle spasm) Qty: 15 0RF Rx Instructions: Side-effect his drowsiness. Do not take at work or driving. tamsulosin [Flomax] 0.4 mg capsule 0.4 mg PO DAILY 5 Days Qty: 5 0RF prednisone 20 mg tablet 40 mg PO DAILY 5 Days Qty: 10 0RF acetaminophen [Tylenol Extra Strength] 500 mg tablet 1,000 mg PO QID PRN (Reason: fever or pain) Qty: 14 0RF ketorolac 10 mg tablet 10 mg PO Q8H PRN (Reason: pain) Qty: 15 0RF Rx Instructions: Given 1st dose in the ED oxycodone 5 mg tablet 5 mg PO BID PRN (Reason: pain) Qty: 15 0RF Interventions: ED Discharge Assessment Last Done: 08/31/22 00:13 Discharge Date/Time: 08/31/22 00:19
[2022-08-30 20:49] LABS: MANUAL DIFF FLAG NO
[2022-08-30 20:51] LABS: Basophils Absolute Auto 0.1 X10*3/uL (0.0-0.2); Basophils Percent Auto 0.4 % (0-2); Eosinophils Absolute Auto 0.3 X10*3/uL (0.0-0.4); Eosinophils Percent Auto 2.7 % (0-4); Hematocrit 39.3 % (37.0-47.0); Hemoglobin 12.8 g/dl (12.0-16.0); Imm Gran Abs Auto 0.03 X10*3/uL (0.00-0.03); Imm Gran Pct Auto 0.3 % (0.0-0.4); Lymphocytes Absolute Auto 2.6 X10*3/uL (1.2-4.9); Lymphocytes Percent Auto 22.4 % (20-40); Mean Corpuscular HGB Conc 32.6 g/dl (31.0-35.0); Mean Corpuscular Hemoglobin 28.1 pg (27.0-33.0); Mean Corpuscular Volume 86.2 fL (80.0-98.0); Mean Platelet Volume 10.9 fL (9.4-12.3); Monocytes Absolute Auto 0.6 X10*3/uL (0.1-1.2); Monocytes Percent Auto 5.2 % (2-11); Platelet Count 349 X10*3/uL (160-400); Red Blood Count 4.56 X10*6/uL (4.20-5.50); Red Cell Distribution Width 13.2 % (11.0-16.0); White Blood Count 11.6 X10*3/uL (4.8-10.8)
[2022-08-30 21:19] LABS: Alanine Aminotransferase 15 U/L (0-31); Albumin Level 4.2 g/dL (3.5-5.0); Alkaline Phosphatase 94 U/L (39-117); Anion Gap 14 (12-20); Aspartate Amino Transferase 14 U/L (5-31); Bilirubin Direct 0.1 mg/dL (0.0-0.5); Bilirubin Total 0.3 mg/dL (0.0-1.0); Blood Urea Nitrogen 13 mg/dL (9-16); Calcium 9.4 mg/dL (8.4-10.2); Carbon Dioxide 26 mmol/L (22-29); Chloride 106 mmol/L (96-108); Creatinine Clr Calc Pharmacy 76.1; Estimated Glomerular Filt Rate 50; Glucose Random 136 mg/dL (60-115); Lipase 20 U/L (8-78); Magnesium 1.7 mg/dL (1.6-2.6); Potassium 4.2 mmol/L (3.3-5.1); Sodium 142 mmol/L (135-145)
[2022-08-30 21:21] LABS: HCG Quantitative < 2 mIU/mL
[2022-08-30 21:44] VITALS: BP 136/76; PULSE 81; RESP 18; TEMP 36.8; O2SAT 98
[2022-08-30 21:59] LABS: Appearance Urine Cloudy; Color Urine Yellow; Glucose Urine UA Negative (Negative); Leukocyte Esterase Urine Moderate (2+) (Negative); Nitrite Urine Negative (Negative); PH 7.5 (5.0-9.0); Specific Gravity - Urine >= 1.030 (1.005-1.025); UMIC TRIGGER UACC YES; Urine Blood Small (1+) (Negative); Urine Ketones Trace mg/dL (Negative); Urine Protein Trace mg/dL (Neg-Trace)
[2022-08-30 22:10] LABS: Bacteria Urine 4+ (None Seen); Hyaline Casts Urine 0-2 /LPF (0-2); RBC Urine 0-2 /HPF (0-2); UACC Culture Trigger YES; WBC Urine 21-50 /HPF (0-5)
--- OUTSIDE RECORDS SUMMARY | 2022-08-30 22:24 | XMS_ITS | Continuity of Care Document ---
Author Name Unknown Organization [facility] Address [address] [place] [id number]- Care Team Providers Care Research Leader Name Role Phone Jennifer No NP Primary Care Physician Encounter [facility] [place] Date(s): 07/27/20 - 08/26/20 [facility] [address] [place] [id number] Allergies, Adverse Reactions, Alerts Substance Reaction Severity Status NKA Active Immunizations Given and Recorded Vaccine Date Status Refusal Reason SARS-CoV-2 (COVID-19) mRNA BNT-162b2 vac 05/31/20 Recorded SARS-CoV-2 (COVID-19) mRNA BNT-162b2 vac 05/10/20 Recorded Influenza Virus Vaccine (oldterm) 1 01/25/20 Recor ded influenza virus vaccine, inactivated 03/06/18 Give n Hepatitis B Vaccine (old term) 2 11/04/09 Given Hepatitis B Vaccine (old term) 3 92 Given Hepatitis B Vaccine (old term) 4 92 Given Hepatitis B Vaccine (old term) 5 92 Given Varicella Virus Vaccine 6 10/25/09 Given Varicella Virus Vaccine 7 10/06/93 Given Meningococcal Conjugate Vaccine 8 10/15/09 Given Tet/Diphth/Acel, Pertussis (oldterm) 9 10/22/08 Gi tom Human Papillomavirus Vaccine 10 10/21/07 Given Human Papillomavirus Vaccine 11 06/21/07 Given Human Papillomavirus Vaccine 12 04/22/07 Given Miscellaneous Vaccine 13 01/27/98 Given Miscellaneous Vaccine 14 08/06/93 Given Miscellaneous Vaccine 15 92 Given Miscellaneous Vaccine 16 92 Given Diphth/Pertussis,Acel/Tetanus (oldterm) 01/27/98 G iven Diphth/Pertussis,Acel/Tetanus (oldterm) 17 08/06/93 Given Diphth/Pertussis,Acel/Tetanus (oldterm) 18 92 Given Diphth/Pertussis,Acel/Tetanus (oldterm) 19 92 Given Diphth/Pertussis,Acel/Tetanus (oldterm) 20 92 Given Measles/Mumps/Rubella Virus Vaccine 21 01/06/97 Gi tom Measles/Mumps/Rubella Virus Vaccine 22 04/07/93 Gi tom Haemophilus B Conj Vaccine (oldterm) 23 08/06/93 G iven Haemophilus B Conj Vaccine (oldterm) 24 92 G iven Haemophilus B Conj Vaccine (oldterm) 25 92 G iven Haemophilus B Conj Vaccine (oldterm) 26 92 G iven Not Given Vaccine Date Status Refusal Reason pneumococcal 23-valent vaccine 01/25/19 Not Given Parent Or Guardian Refuses 1Result Comment: von 2Admin Note: vis 10/24/2006 3Admin Note: DAY UNKNOWN 4Admin Note: DAY UNKNOWN 5Admin Note: DAY UNKNOWN 6Admin Note: VIS DATED 06/20/2007 GIVEN. 7Admin Note: DAY UNKNOWN 8Admin Note: VIS DATED 05/06/2007 9Admin Note: vis 11.18.08 given 10Admin Note: GARDASIL VIS 05/11/06 11Admin Note: BILL #2 VIS 05/11/06 12Admin Note: GARDASIL #1 13Admin Note: oral polio 14Admin Note: oral polio, DAY UNKNOWN 15Admin Note: oral polio, DAY UNKNOWN 16Admin Note: oral polio, DAY UNKNOWN 17Admin Note: DAY UNKNOWN 18Admin Note: DAY UNKNOWN 19Admin Note: DAY UNKNOWN 20Admin Note: DAY UNKNOWN 21Admin Note: DAY UNKNOWN 22Admin Note: DAY UNKNOWN 23Admin Note: DAY UNKNOWN 24Admin Note: DAY UNKNOWN 25Admin Note: DAY UNKNOWN 26Admin Note: DAY UNKNOWN Medications acetaminophen 500 mg oral capsule 2 capsule = 1,000 mg, By Mouth, Every 4 hours, PRN for fever, # 120 capsule, 0 Refills, Maintenance, 08/23/20 7:35:00 EDT, Capsule, Partial fill upon patient request if the prescription is for a schedule II opioid drug. Start Date: 08/23/20 Status: Ordered cyclobenzaprine 5 mg oral tablet See Instructions, Take 1 tablet every 8 hours as needed for muscle spasm, # 21 capsule, 0 Refills, Maintenance, 07/21/20 8:06:00 EDT, Tablet, [facility] #[id number], Partial fill upon patient request if the prescription is for a schedule II opioi... Start Date: 07/21/20 Status: Ordered Flomax 0.4 mg oral capsule 0.4 mg, 1, capsule, By Mouth, Daily, # 30 capsule, Refills 0, Tot. Refills 0, Maintenance, 217:54:00 EDT, Route to Pharmacy Electronically, [facility] #[id number], Partial fill upon patient request if the prescription is for a schedule II... Start Date: 08/23/20 Status: Ordered Free Style Lite Lancets Free Style Lite Lancets, See Instructions, # 1 each, Refills 50, Tot. Refills 50, Maintenance, Use to test 1 time daily and as needed. Dx: E11.9, 01/25/19 12:08:17 EDT, Compound Start Date: 01/25/19 Status: Ordered Freestyle Lite Monitor See Instructions, # 1 each, Maintenance, Check blood sugar in the morning, hold insulin if lower than 70, 01/25/19 12:27:01 EDT, Compound Start Date: 01/25/19 Status: Ordered Freestyle Lite Test Strips Freestyle Lite Test Strips, See Instructions, # 1 each, Refills 50, Tot. Refills 50, Maintenance, Use to test 1 time daily and as needed. Dx: E11.9, 01/25/19 12:08:17 EDT, Compound Start Date: 01/25/19 Status: Ordered Glucometer one device. Glucometer one device., See Instructions, # 1 box, Refills 0, Tot. Refills 0, Maintenance, Glucometer one device. Use the test 4 times a day. Free to change between brands., 01/25/19 12:09:16 EDT, Compound Start Date: 01/25/19 Status: Ordered ketorolac 10 mg oral tablet 1 tablet = 10 mg, By Mouth, 4 times a day, 0 Refills, Maintenance, 08/23/20 7:37:00 EDT, Partial fill upon patient request if the prescription is for a schedule II opioid drug. Start Date: 08/23/20 Status: Ordered Lantus Solostar Pen 100 units/mL subcutaneous solution = 20 units, Subcutaneous Injection, Daily, # 3 mL, 6 Refills, Maintenance, 11/24/20 8:17:00 EDT, Solution, [facility] #[id number], 170.18, cm, 08/23/20 7:31:00 EDT, Height, 129.7, kg, 01/24/19 18:43:00 EDT, Dry Weight Start Date: 11/24/20 Stop Date: 06/22/21 Status: Ordered Lantus Solostar Pen 100 units/mL subcutaneous solution = 20 units, Subcutaneous Injection, Daily, for 30 days, # 3 mL, 6 Refills, Hard Stop 11/24/20 8:17:00 EDT, 04/28/20 8:17:00 EST, Solution, [facility] #[id number], 170.18, cm, 03/17/20 15:55:00 EST, Height, 129.7, kg, 01/24/19 18:43:00 EDT, Dry We... Start Date: 04/28/20 Stop Date: 11/24/20 Status: Ordered MetFORMIN (Eqv-Glucophage XR) 500 mg oral tablet, extended release 1 tablet = 500 mg, By Mouth, 2 times a day, # 180 tablet, 1 Refills, Maintenance, 04/27/20 14:54:00EST, ER Tablet, [facility] #[id number], Partial fill upon patient request if the prescription is for a schedule II opioid drug., 170.18, cm, 03/17... Start Date: 04/27/20 Status: Ordered omeprazole 40 mg oral enteric coated capsule 1 capsule = 40 mg, By Mouth, Daily, # 30 capsule, 3 Refills, Maintenance, 05/18/20 9:41:00 EST, EC Capsule, [facility] #[id number], Partial fill upon patient request if the prescription is for aschedule II opioid drug., 170.18, cm, 05/10/20 9:01... Start Date: 05/18/20 Status: Ordered oxyCODONE 5 mg oral capsule 1 capsule = 5 mg, By Mouth, Every 6 hours, PRN as needed for pain, 0 Refills, Maintenance, :36:00 EDT, Capsule, Partial fill upon patient request if the prescription is for a schedule II opioid drug. Start Date: 08/23/20 Status: Ordered predniSONE 20 mg oral tablet 2 tablet = 40 mg, By Mouth, Once, # 2 tablet, 0 Refills, Maintenance, 08/23/20 7:35:00 EDT, Tablet,Partial fill upon patient request if the prescription is for a schedule II opioid drug. Start Date: 08/23/20 Status: Ordered riboflavin 400 mg oral capsule 1 capsule = 400 mg, By Mouth, Daily, # 100 capsule, 0 Refills, Maintenance, 07/22/20 12:07:00 EDT, Capsule, [facility] #[id number], Partial fill upon patient request, 170.18, cm, 07/21/20 7:47:00 EDT, Height, 129.7, kg, 01/24/19 18:43:00 EDT, Dry... Start Date: 07/22/20 Status: Ordered SUMAtriptan 25 mg oral tablet 1 tablet = 25 mg, By Mouth, Once, At onset of headache. May repeat in 2 hours, # 1 tablet, 0 Refills, Soft Stop, 03/08/20 14:57:00 EST, Tablet, [facility] #[id number], Partial fill upon patient request, 170.18, cm, 03/08/20 14:41:00 EST, Height,... Start Date: 03/08/20 Status: Ordered tamsulosin 0.4 mg oral capsule 0.4 mg, 1, capsule, By Mouth, Daily, # 30 capsule, Refills 0, Maintenance, 08/23/20 7:36:00 EDT, Partial fill upon patient request if the prescription is for a schedule II opioid drug. Start Date: 08/23/20 Status: Ordered Test strips 100 Test strips 100, See Instructions, # 1 box, Refills 0, Tot. Refills 0, Maintenance, Test strips 100test blood sugar 4 times a day change as need the device type, 01/25/19 12:10:59 EDT, Compound Start Date: 01/25/19 Status: Ordered Problem List Condition Effective Dates Status Health Status Inform ant Acne vulgaris(Confirmed) Active Acute low back pain(Confirmed) Active Anxiety(Confirmed) Active Morbid obesity with BMI of 4 5.0-49.9, adult(Confirmed) Active DKA (diabetic ketoacidosis)(Confirmed) Active Exogenous obesity(Confirmed)(Worsening) Active Migraine - infrequent(Confirmed)(Improving) Active Migraine headache(Confirmed) Active Myopia(Confirmed) 10/22/04 Active Cervicalgia(Confirmed) Active Neck pain(Confirmed) Active Encounter to establish care(Confirmed) Active Immunization counseling(Confirmed) Active Seasonal allergic conjunctiv itis and rhinitis(Confirmed) 10/07/08 Active Right shoulder pain(Confirmed) Active Type 2 diabetes mellitus(Confirmed) Active T2DM (type 2 diabetes mellitus)(Confirmed) Active Social History Social History Type Response Smoking Status Never smoker entered on: 08/23/15 Sex
--- OUTSIDE RECORDS SUMMARY | 2022-08-30 22:24 | XMS_ITS | Continuity of Care Document ---
Author Name Unknown Organization [facility] Address [address] [place] [address]- Care Team Providers Care Detector Car Operator Name Role Phone Jennifer No NP Primary Care Physician [phone] Encounter [facility] Date(s): 06/24/20 - 07/24/20 [facility] [address] [place] [address]- Allergies, Adverse Reactions, Alerts Substance Reaction Severity Status NKA Active Immunizations Given and Recorded Vaccine Date Status Refusal Reason Influenza Virus Vaccine (oldterm) 1 01/25/20 Recor [...] DAY UNKNOWN 26Admin Note: DAY UNKNOWN Medications cyclobenzaprine 5 mg oral tablet See Instructions, Take 1 tablet every 8 hours as needed for muscle spasm, # 21 capsule, 0 Refills, Maintenance, 07/21/20 8:06:00 EDT, Tablet, [facility] #[id number], Partial fill upon patient request if the prescription is for a schedule II opioi... Start Date: 07/21/20 Status: Ordered Free Style Lite Lancets Free [...] EDT, Compound Start Date: 01/25/19 Status: Ordered Lantus Solostar Pen 100 units/mL subcutaneous solution = 20 units, Subcutaneous Injection, Daily, # 3 mL, 6 Refills, Maintenance, 04/28/20 8:17:00 EST, Solution, [facility] #[id number], 170.18, cm, 03/17/20 15:55:00 EST, Height, 129.7, kg, 01/24/19 18:43:00 EDT, Dry Weight Start Date: 04/28/20 Stop Date: 11/24/20 Status: Ordered MetFORMIN (Eqv-Glucophage XR) 500 mg oral tablet, extended release 1 tablet = 500 mg, By Mouth, 2 times a day, # 180 tablet, 1 Refills, Maintenance, 04/27/20 14:54:00EST, ER Tablet, [facility] #[id number], Partial fill upon patient request if the prescription is for a schedule II opioid drug., 170.18, cm, 03/17... Start Date: 04/27/20 Status: Ordered omeprazole 40 mg oral enteric coated capsule 1 capsule = 40 mg, By Mouth, Daily, # 30 capsule, 3 Refills, Maintenance, 05/18/20 9:41:00 EST, EC Capsule, [facility] #[id number], Partial fill upon patient request if the prescription is for aschedule II opioid drug., 170.18, cm, 05/10/20 9:01... Start Date: 05/18/20 Status: Ordered riboflavin 400 mg oral capsule 1 capsule = 400 mg, By Mouth, Daily, # 100 capsule, 0 Refills, Maintenance, 07/22/20 12:07:00 EDT, Capsule, [facility] #[id number], Partial fill upon patient request, 170.18, cm, 07/21/20 7:47:00 EDT, Height, 129.7, kg, 01/24/19 18:43:00 EDT, Dry... Start Date: 07/22/20 Status: Ordered SUMAtriptan 25 mg oral tablet 1 tablet = 25 mg, By Mouth, Once, At onset of headache. May repeat in 2 hours, # 1 tablet, 0 Refills, Soft Stop, 03/08/20 14:57:00 EST, Tablet, [facility] #[id number], Partial fill upon patient request, 170.18, cm, 03/08/20 14:41:00 EST, Height,... Start Date: 03/08/20 Status: Ordered Test strips 100 Test strips [...]
--- OUTSIDE RECORDS SUMMARY | 2022-08-30 22:24 | XMS_ITS | Continuity of Care Document ---
Author Name Unknown Organization [facility] Cristofer lt Address [address] [place] [address]- Care Team Providers Care Breakfast Hostess Name Role Phone Marybel ONEAL, Jennifer Primary Care Physician Encounter [facility] Date(s): 02/23/21 - 03/25/21 [facility] Adult [address] [place] [address]- Allergies, Adverse Reactions, Alerts Substance Reaction Severity Status NKA Active Immunizations Given and Recorded Vaccine Date Status Refusal Reason tetanus/diphtheria/pertussis, acel(Tdap) 1 10/15/20 Given SARS-CoV-2 (COVID-19) mRNA BNT-162b2 vac 05/31/20 Recorded SARS-CoV-2 (COVID-19) mRNA BNT-162b2 vac 05/10/20 Recorded Influenza Virus Vaccine (oldterm) 2 01/25/20 Recor ded influenza virus vaccine, inactivated 03/06/18 Give n Hepatitis B Vaccine (old term) 3 11/04/09 Given Hepatitis B Vaccine (old term) 4 92 Given Hepatitis B Vaccine (old term) 5 92 Given Hepatitis B Vaccine (old term) 6 92 Given Varicella Virus Vaccine 7 10/25/09 Given Varicella Virus Vaccine 8 10/06/93 Given Meningococcal Conjugate Vaccine 9 10/15/09 Given Tet/Diphth/Acel, Pertussis (oldterm) 10 10/22/08 G iven Human Papillomavirus Vaccine 11 10/21/07 Given Human Papillomavirus Vaccine 12 06/21/07 Given Human Papillomavirus Vaccine 13 04/22/07 Given Miscellaneous Vaccine 14 01/27/98 Given Miscellaneous Vaccine 15 08/06/93 Given Miscellaneous Vaccine 16 92 Given Miscellaneous Vaccine 17 92 Given Diphth/Pertussis,Acel/Tetanus (oldterm) 01/27/98 G iven Diphth/Pertussis,Acel/Tetanus (oldterm) 18 08/06/93 Given Diphth/Pertussis,Acel/Tetanus (oldterm) 19 92 Given Diphth/Pertussis,Acel/Tetanus (oldterm) 20 92 Given Diphth/Pertussis,Acel/Tetanus (oldterm) 21 92 Given Measles/Mumps/Rubella Virus Vaccine 22 01/06/97 Gi tom Measles/Mumps/Rubella Virus Vaccine 23 04/07/93 Gi tom Haemophilus B Conj Vaccine (oldterm) 24 08/06/93 G iven Haemophilus B Conj Vaccine (oldterm) 25 92 G iven Haemophilus B Conj Vaccine (oldterm) 26 92 G iven Haemophilus B Conj Vaccine (oldterm) 27 92 G iven Not Given Vaccine Date Status Refusal Reason pneumococcal 23-valent vaccine 01/25/19 Not Given Parent Or Guardian Refuses 1Result Comment: [facility]: [id number] 2Result Comment: von 3Admin Note: vis 10/24/2006 4Admin Note: DAY UNKNOWN 5Admin Note: DAY UNKNOWN 6Admin Note: DAY UNKNOWN 7Admin Note: VIS DATED 06/20/2007 GIVEN. 8Admin Note: DAY UNKNOWN 9Admin Note: VIS DATED 05/06/2007 10Admin Note: vis 11.18.08 given 11Admin Note: GARDASIL VIS 05/11/06 12Admin Note: BILL #2 VIS 05/11/06 13Admin Note: GARDASIL #1 14Admin Note: oral polio 15Admin Note: oral polio, DAY UNKNOWN 16Admin Note: oral polio, DAY UNKNOWN 17Admin Note: oral polio, DAY UNKNOWN 18Admin Note: DAY UNKNOWN 19Admin Note: DAY UNKNOWN 20Admin Note: DAY UNKNOWN 21Admin Note: DAY UNKNOWN 22Admin Note: DAY UNKNOWN 23Admin Note: DAY UNKNOWN 24Admin Note: DAY UNKNOWN 25Admin Note: DAY UNKNOWN 26Admin Note: DAY UNKNOWN 27Admin Note: DAY UNKNOWN Medications acetaminophen 500 mg oral capsule 2 capsule = 1,000 mg, By Mouth, Every 4 hours, PRN for fever, # 120 capsule, 0 Refills, Maintenance, 08/23/20 7:35:00 EDT, Capsule, Partial fill upon patient request if the prescription is for a schedule II opioid drug. Start Date: 08/23/20 Status: Ordered betamethasone topical dipropionate 0.05% ointment 1 application, Topically, 2 times a day, # 15 Gm, 0 Refills, Maintenance, 12/22/20 9:42:00 EDT, [id number] Partial fill upon patient request if the prescription is for a schedule II opioid drug., 1 application Topically 2 t... Start Date: 12/22/20 Status: Ordered Free Style Lite Lancets Free Style Lite Lancets, See Instructions, # 1 each, Refills 50, Tot. Refills 50, Maintenance, Use to test 1 time daily and as needed. Dx: E11.9, 01/25/19 12:08:17 EDT, Compound Start Date: 01/25/19 Status: Ordered Freestyle Amrita 14 day sensor Freestyle Amrita 14 day sensor, See Instructions, # 2 each, Refills 11, Tot. Refills 11, Maintenance, Freestyle Amrita 14 day sensor, 10/22/20 11:37:00 EDT, Compound, 170.18, cm, 10/15/20 7:06:00 EDT, Height, 132.5, kg, 09/01/20 13:04:00 EDT, Dry Weight Start Date: 10/22/20 Status: Ordered Freestyle Lite Monitor See Instructions, [...] 6 Refills, Maintenance, 11/24/20 8:17:00 EDT, Solution, [facility] #[id number], 170.18, cm, 08/23/20 7:31:00 EDT, Height, 129.7, kg, 01/24/19 18:43:00 EDT, Dry Weight Start Date: 11/24/20 Stop Date: 06/22/21 Status: Ordered MetFORMIN (Eqv-Glucophage XR) 500 mg oral tablet, extended release 1 tablet = 500 mg, By Mouth, 2 times a day, # 180 tablet, 1 Refills, Maintenance, 11/09/20 14:32:00EDT, ER Tablet, [facility] #[id number], Partial fill upon patient request if the prescription is for a schedule II opioid drug., 170.18, cm, 10/15... Start Date: 11/09/20 Status: Ordered omeprazole 40 mg oral enteric coated capsule 1 capsule = 40 mg, By Mouth, Daily, further refills require an office visit. please call to schedule, # 30 capsule, 0 Refills, Maintenance, 10/04/20 15:49:00 EDT, EC Capsule, [facility] #[id number], Partial fill upon patient request if the prescr... Start Date: 10/04/20 Status: Ordered Ozempic 2 mg/1.5 mL (0.25 mg or 0.5 mg dose) subcutaneous solution See Instructions, Inject 0.5 mg once a week subquateneously, # 1 pack/packet, 1 Refills, Maintenance, 01/18/21 9:44:00 EDT, [facility] #[id number], Partial fill upon patient request if the prescription is for a schedule II opioid drug., Inject 0.... Start Date: 01/18/21 Status: Ordered riboflavin 400 mg oral capsule 1 capsule = 400 mg, By Mouth, Daily, # 100 capsule, 0 Refills, Maintenance, 07/22/20 12:07:00 EDT, Capsule, [facility] #[id number], Partial fill upon patient request, 170.18, cm, 07/21/20 7:47:00 EDT, Height, 129.7, kg, 01/24/19 18:43:00 EDT, Dry... Start Date: 07/22/20 Status: Ordered sertraline 25 mg oral tablet 1 tablet = 25 mg, By Mouth, Daily, # 30 tablet, 0 Refills, Maintenance, 12/22/20 8:00:00 EDT, Tablet, [facility] #[id number], Partial fill upon patient request if the prescription is for a schedule II opioid drug., 170.18, cm, 12/22/20 7:35:00 ED... Start Date: 12/22/20 Status: Ordered SUMAtriptan 25 mg oral tablet 1 tablet = 25 mg, By Mouth, Once, At onset of headache. May repeat in 2 hours, # 1 tablet, 0 Refills, Soft Stop, 03/08/20 14:57:00 EST, Tablet, [facility] #[id number], Partial fill upon patient request, 170.18, cm, [...] 5.0-49.9, adult(Confirmed) Active DKA (diabetic ketoacidosis)(Confirmed) Active Rash(Confirmed) Active Exogenous obesity(Confirmed)(Worsening) Active Heartburn symptom(Confirmed) Active Migraine - infrequent(Confirmed)(Improving) Active Migraine headache(Confirmed) Active Mild depression(Confirmed) Active Myopia(Confirmed) 10/22/04 Active Cervicalgia(Confirmed) Active Neck pain(Confirmed) Active Annual physical exam(Confirmed) Active Seasonal allergic conjunctiv itis and rhinitis(Confirmed) 10/07/08 Active Right shoulder pain(Confirmed) Active Type 2 diabetes mellitus(Confirmed) Active T2DM (type 2 diabetes mellitus)(Confirmed) Active Social History Social History Type Response Smoking Status Never smoker entered on: 08/23/15 Sex
--- OUTSIDE RECORDS SUMMARY | 2022-08-30 22:24 | XMS_ITS | Continuity of Care Document ---
Author Name Unknown Organization [facility] Address [address] [place] [address]- Care Team Providers Care Molder Offbearer Name Role Phone Art ONEAL, Fidelia Good Primary Care Physician [phone] Encounter [facility] Date(s): 06/09/22 - 07/09/22 [facility] [address] [place] [address] Allergies, Adverse Reactions, Alerts No Known Allergies Immunizations Given and Recorded Vaccine Date Status Refusal Reason [id number] 12y+ bivalent booster vax 12/16/21 Recorded influenza virus vaccine, inactivated 04/05/21 Keyur rded influenza virus vaccine, inactivated 03/06/18 Give n SARS-CoV-2 (COVID-19) mRNA BNT-162b2 vac 01/17/21 Recorded SARS-CoV-2 (COVID-19) mRNA BNT-162b2 vac 05/31/20 Recorded SARS-CoV-2 (COVID-19) mRNA BNT-162b2 vac 05/10/20 Recorded tetanus/diphtheria/pertussis, acel(Tdap) 1 10/15/20 Given tetanus/diphtheria/pertussis, acel(Tdap) 11/11/18 Recorded Influenza Virus Vaccine (oldterm) 2 01/25/20 Recor ded pneumococcal 23-valent vaccine 04/01/19 Recorded Hepatitis B Vaccine (old term) 3 11/04/09 [...] Given Parent Or Guardian Refuses 1Result Comment: [facility]: [id number] 2Result Comment: von 3Admin Note: vis 10/24/2006 [...] Note: DAY UNKNOWN 19Admin Note: DAY UNKNOWN Admin Note: DAY UNKNOWN Admin Note: DAY UNKNOWN Admin Note: DAY UNKNOWN Admin Note: DAY UNKNOWN Admin Note: DAY UNKNOWN Admin Note: DAY UNKNOWN Admin Note: DAY UNKNOWN Admin Note: DAY UNKNOWN Medications acetaminophen 500 mg oral capsule 2 capsule = 1,000 mg, By Mouth, Every 4 hours, PRN for fever, # 120 capsule, 0 Refills, Maintenance, 08/23/20 7:35:00 EDT, Capsule, Partial fill upon patient request if the prescription is for a schedule II opioid drug. Start Date: 08/23/20 Status: Ordered azithromycin 250 mg oral tablet See Instructions, Take 2 tablets on day 1 and 1 tablet daily for next 4 days, # 6 tablet, 0 Refills, Maintenance, 01/17/22 7:35:00 EDT, Tablet, [facility]/pharmacy #[id number], Partial fill upon patient request if the prescription is for a schedule II opioid drug.... Start Date: 01/17/22 Status: Ordered betamethasone topical dipropionate 0.05% ointment 1 application, Topically, 2 times a day, # 15 Gm, 0 Refills, Maintenance, 07/03/22 11:45:00 EDT, Ointment, [facility]/pharmacy #[id number], Partial fill upon patient request if the prescription is for a schedule II opioid drug., 1 application Topically 2 times a d... Start Date: 07/03/22 Status: Ordered escitalopram 5 mg oral tablet 1 tablet = 5 mg, By Mouth, Daily, # 30 tablet, 5 Refills, Maintenance, 08/22/21 7:58:00 EDT, Tablet, [facility]/pharmacy #[id number], Partial fill upon patient request if the prescription is for a schedule II opioid drug., 170.18, cm, 08/22/21 7:33:00 EDT, Height,... Start Date: 08/22/21 Status: Ordered Free Style Lite Lancets Free [...] 11, Maintenance, Freestyle Amrita 14 day sensor, 04/12/21 9:34:00 EST, Compound, 170.18, cm, 03/31/21 7:48:00 EST, Height, 132.5, kg, 09/01/20 13:04:00 EDT, Dry Weight Start Date: 04/12/21 Status: Ordered Freestyle amrita 2 CGM Freestyle amrita 2 CGM, See Instructions, # 1 pack/packet, Refills 0, Tot. Refills 0, Maintenance, Freestyle amrita 2 CGM reader, 10/27/21 13:59:00 EDT, Supply, 170.18, cm, 10/27/21 13:36:00 EDT, Height, 132.5, kg, 09/01/20 13:04:00 EDT, Dry Weight Start Date: 10/27/21 Status: Ordered Freestyle amrita 2 sensors Freestyle amrita 2 sensors, See Instructions, # 2 pack/packet, Refills 6, Tot. Refills 6, Maintenance, Please provide 30 days supple freestyle amrita 2 sensors to be changed every 14 days, 10/27/21 13:59:00 EDT, Supply, 170.18, cm, 10/27/21 13:36:00 EDT... Start Date: 10/27/21 Status: Ordered Freestyle Lite Monitor See Instructions, [...] EDT, Compound Start Date: 01/25/19 Status: Ordered MetFORMIN (Eqv-Glucophage XR) 500 mg oral tablet, extended release See Instructions, 1 tablet By Mouth 3 times a day 90 days supply, # 270 tablet, 3 Refills, Maintenance, 05/19/22 12:00:00 EST, ER Tablet, [facility]/pharmacy #[id number], Partial fill upon patient request if the prescription is for a schedule II opioid drug., 170.... Start Date: 05/19/22 Status: Ordered omeprazole 40 mg oral enteric coated capsule 1 capsule = 40 mg, By Mouth, Daily, # 30 capsule, 2 Refills, Maintenance, 12/09/21 12:05:00 EDT, ECCapsule, [facility]/pharmacy #[id number], Partial fill upon patient request if the prescription is for a schedule II opioid drug., 170.18, cm, 11/28/21 7:49:00 EDT,... Start Date: 12/09/21 Status: Ordered Ozempic (1 mg dose) 4 mg/3 mL subcutaneous solution = 1 mg, Subcutaneous Infusion, Every 7 days, rotate injection sites, # 3 mL, 6 Refills, Maintenance, 03/29/22 11:02:00 EST, [facility]/pharmacy #[id number], Partial fill upon patient request if the prescription is for a schedule II opioid drug., 170.18, cm, ... Start Date: 03/29/22 Stop Date: 10/11/22 Status: Ordered predniSONE 10 mg oral tablet 1 tablet = 10 mg, By Mouth, 2 times a day, # 10 tablet, 0 Refills, Maintenance, 01/17/22 7:35:00 EDT, Tablet, [facility]/pharmacy #[id number], Partial fill upon patient request if the prescription is for a schedule II opioid drug., 170.18, cm, 11/28/21 7:49:00 EDT... Start Date: 01/17/22 Status: Ordered propranolol 80 mg oral capsule, extended release 80 mg, 1, capsule, By Mouth, Daily, # 30 capsule, Refills 5, Tot. Refills 5, Maintenance, 08/22/21 8:04:00 EDT, Route to Pharmacy Electronically, [facility]/pharmacy #[id number], Partial fill upon patient requestif the prescription is for a schedule II opioid darian... Start Date: 08/22/21 Status: Ordered riboflavin 400 mg oral capsule 1 capsule = 400 mg, By Mouth, Daily, # 100 capsule, 0 Refills, Maintenance, 06/19/21 17:00:00 EDT, Capsule, [email or web address] #[id number], Partial fill upon patient request, 170.18, cm, 05/24/21 8:16:00 EST, Height, 132.5, kg, 09/01/20 13:04:00 EDT, Dry... Start Date: 06/19/21 Status: Ordered Test strips 100 Test strips 100, See Instructions, # 1 box, Refills 0, Tot. Refills 0, Maintenance, Test strips 100test blood sugar 4 times a day change as need the device type, 01/25/19 12:10:59 EDT, Compound Start Date: 01/25/19 Status: Ordered Trulicity Pen 1.5 mg/0.5 mL subcutaneous solution 0.5 mL = 1.5 mg, Subcutaneous Injection, Every week, rotate injection sites Dx E11.9, # 6.5 mL, 4 Refills, Maintenance, 06/13/22 16:46:00 EST, Solution, [facility] #[id number], Partial fill upon patient request if the prescription is for a schedule II... Start Date: 06/13/22 Stop Date: 09/06/23 Status: Ordered Problem List Condition Confirmation Course Effective Dates Status Health Status Informant Acne vulgaris Confirmed Active Acute low back pain Confirmed Active Anxiety Confirmed Active Morbid obesity with BMI of 45.0-49.9, adult Confirmed Active Carpal tunnel syndrome Confirmed Active DKA (diabetic ketoacidosis) Confirmed Active Rash Confirmed Active Exogenous obesity Confirmed Worsening Active Heartburn symptom Confirmed Active Migraine - infrequent Confirmed Improving Active Migraine headache Confirmed Active Mild depression Confirmed Active Myopia Confirmed 10/22/04 Active Cervicalgia Confirmed Active Neck pain Confirmed Active Annual physical exam Confirmed Active Seasonal allergic conjunctivitis and rhinitis Confirmed 10/07/08 Active Severe obesity Confirmed Active Right shoulder pain Confirmed Active Type 2 diabetes mellitus Confirmed Active T2DM (type 2 diabetes mellitus) Confirmed Active Social History Social History Type Response Smoking Status Never smoker entered on: 08/23/15 Sex Patient Care team information Care Team Personnel Name: Dru Bonilla RN Position: [facility] RN Member Role: Primary Care Nurse Name: Fidelia Cordova NP Position: [facility] PCO Associate Professional Member Role: PCP Address: Address: [address] [place] [address]- Care Team Related Persons Name: JUAN CARLOS RAYMOND Address: home [address] [place] [id number] Name: MEL RAYMOND Address: home [address] [place] [address]
--- OUTSIDE RECORDS SUMMARY | 2022-08-30 22:24 | XMS_ITS | Continuity of Care Document ---
Author Name Unknown Organization [facility] Ezio Cristofer lt Address [address] [place] [address]- Care Team Providers Care Weekend Caregiver Name Role Phone Fidelia Cordova NP Primary Care Physician Encounter [facility] Date(s): 03/22/22 - 04/21/22 [facility] Adult [address] [place] [address]- Attending Physician: Admtr, [id number] Admitting Physician: Admtr, ArLaurie Referring Physician: Admtr, [id number] Allergies, Adverse Reactions, Alerts No Known Allergies Immunizations Given and Recorded Vaccine Date Status Refusal Reason [id number] 12y+ bivalent booster vax 12/16/21 Recorded influenza [...] Given Parent Or Guardian Refuses 1Result Comment: [facility]: [id number] 2Result Comment: von 3Admin Note: vis 10/24/2006 [...] 0 Refills, Maintenance, 01/17/22 7:35:00 EDT, Tablet, [facility]/pharmacy #[id number], Partial fill upon patient request if the prescription is for a schedule II opioid drug.... Start Date: 01/17/22 Status: Ordered betamethasone topical dipropionate 0.05% ointment 1 application, Topically, 2 times a day, # 15 Gm, 0 Refills, Maintenance, 03/14/22 14:03:00 EST, Ointment, [facility]/pharmacy #[id number], Partial fill upon patient request if the prescription is for a schedule II opioid drug., 1 application Topically 2 times a d... Start Date: 03/14/22 Status: Ordered escitalopram 5 mg oral tablet 1 tablet = 5 mg, By Mouth, Daily, # 30 tablet, 5 Refills, Maintenance, 08/22/21 7:58:00 EDT, Tablet, [facility]/pharmacy #[id number], Partial fill upon patient request if the [...] supply, # 270 tablet, 3 Refills, Maintenance, 08/04/21 10:40:00 EDT, ER Tablet, [id number], Partial fill upon patient request if the prescription is for a schedule II opioid drug., 170.... Start Date: 08/04/21 Status: Ordered omeprazole 40 mg oral enteric coated capsule 1 capsule = 40 mg, By Mouth, Daily, # 30 capsule, 2 Refills, Maintenance, 12/09/21 12:05:00 EDT, ECCapsule, [id number], Partial fill upon patient request if the prescription is for a schedule II opioid drug., 170.18, cm, 11/28/21 7:49:00 EDT,... Start Date: 12/09/21 Status: Ordered Ozempic (1 mg dose) 4 mg/3 mL subcutaneous solution = 1 mg, Subcutaneous Infusion, Every 7 days, rotate injection sites, # 3 mL, 6 Refills, Maintenance, 03/29/22 11:02:00 EST, [id number], Partial fill upon patient request if the prescription is for a schedule II opioid drug., 170.18, cm, ... Start Date: 03/29/22 Stop Date: 10/11/22 Status: Ordered predniSONE 10 mg oral tablet 1 tablet = 10 mg, By Mouth, 2 times a day, # 10 tablet, 0 Refills, Maintenance, 01/17/22 7:35:00 EDT, Tablet, [id number], Partial fill upon patient request if the prescription is for a schedule II opioid drug., 170.18, cm, 11/28/21 7:49:00 EDT... Start Date: 01/17/22 Status: Ordered propranolol 80 mg oral capsule, extended release 80 mg, 1, capsule, By Mouth, Daily, # 30 capsule, Refills 5, Tot. Refills 5, Maintenance, 08/22/21 8:04:00 EDT, Route to Pharmacy Electronically, [facility]/pharmacy #[id number], Partial fill upon patient requestif the prescription is for a schedule II opioid darian... Start Date: 08/22/21 Status: Ordered riboflavin 400 mg oral capsule 1 capsule = 400 mg, By Mouth, Daily, # 100 capsule, 0 Refills, Maintenance, 06/19/21 17:00:00 EDT, Capsule, [facility] #[id number], Partial fill upon patient request, 170.18, cm, [...] week, rotate injection sites Dx E11.9, # 2 mL, 3 Refills, Maintenance, 04/06/22 16:00:00 EST, Solution, [facility]/pharmacy #[id number], Partial fill upon patient request if the prescription is for a schedule II op... Start Date: 04/06/22 Status: Ordered Problem List Condition Confirmation Course [...] Status Never smoker entered on: 08/23/15 Sex Note * Event Display: CT Scan Abdomen, Non- BH Authored Date: * Event Display: Ultrasound Pelvis, Non-BH Authored Date: * Event Display: Non BH Lab Results Authored Date: * Event Display: Non BH Lab Results Authored Date: Patient Care team information Care Team Personnel Name: Irene RNDru Position: S RN Member Role: Primary Care Nurse Name: Fidelia Cordova NP Position: [facility] PCO Associate Professional Member Role: PCP Address: Address: [address] [place] [address]- Care Team Related Persons Name: JUAN CARLOS RAYMOND Address: home [address] [place] [id number] Name: MEL RAMYOND Address: home [address] [place] [address]
--- OUTSIDE RECORDS SUMMARY | 2022-08-30 22:24 | XMS_ITS | Continuity of Care Document ---
Author Name Unknown Organization [facility] Shabbir Holguin Cristofer lt Address [address] [place] [address]- Care Team Providers Care Blueprint Reproducer Name Role Phone Jennifer No NP Primary Care Physician Encounter [facility] Date(s): 04/14/20 - 05/14/20 [facility] Adult [address] [place] [address]- Allergies, Adverse Reactions, Alerts Substance Reaction Severity [...] DAY UNKNOWN 26Admin Note: DAY UNKNOWN Medications Free Style Lite Lancets Free Style Lite [...] 6 Refills, Maintenance, 04/28/20 8:17:00 EST, Solution, [facility] #[id number], 170.18, cm, 03/17/20 15:55:00 EST, Height, 129.7, kg, 01/24/19 18:43:00 EDT, Dry Weight Start Date: 04/28/20 Stop Date: 11/24/20 Status: Ordered MetFORMIN (Eqv-Glucophage XR) 500 mg oral tablet, extended release 1 tablet = 500 mg, By Mouth, 2 times a day, # 180 tablet, 1 Refills, Maintenance, 04/27/20 14:54:00EST, ER Tablet, [facility] #[id number], Partial fill upon patient request if the prescription is for a schedule II opioid drug., 170.18, cm, 03/17... Start Date: 04/27/20 Status: Ordered omeprazole 40 mg oral enteric coated capsule 1 capsule = 40 mg, By Mouth, Daily, # 30 capsule, 0 Refills, Maintenance, 04/15/20 14:16:00 EST, ECCapsule, [facility] #[id number], Partial fill upon patient request if the prescription is for a schedule II opioid drug., 170.18, cm, 03/17/20 15:... Start Date: 04/15/20 Status: Ordered riboflavin 400 mg oral capsule 1 capsule = 400 mg, By Mouth, Daily, # 100 capsule, 0 Refills, Maintenance, 04/13/20 11:39:00 EST, Capsule, [facility] #[id number], Partial fill upon patient request, 170.18, cm, 03/17/20 15:55:00 EST, Height, 129.7, kg, 01/24/19 18:43:00 EDT, Start Date: 04/13/20 Status: Ordered SUMAtriptan 25 mg oral tablet 1 tablet = 25 mg, By Mouth, Once, At onset of headache. May repeat in 2 hours, # 1 tablet, 0 Refills, Soft Stop, 03/08/20 14:57:00 EST, Tablet, [facility] #[id number], Partial fill upon patient request, 170.18, cm, [...] Health Status Inform ant Acne vulgaris(Confirmed) Active Anxiety(Confirmed) Active Morbid obesity with BMI of 4 5.0-49.9, adult(Confirmed) Active DKA (diabetic ketoacidosis)(Confirmed) Active Exogenous obesity(Confirmed)(Worsening) Active Migraine - infrequent(Confirmed)(Improving) Active Migraine headache(Confirmed) Active Myopia(Confirmed) 10/22/04 Active Cervicalgia(Confirmed) Active Encounter to establish care(Confirmed) Active Immunization counseling(Confirmed) Active Seasonal allergic conjunctiv itis and rhinitis(Confirmed) 10/07/08 Active Right shoulder pain(Confirmed) Active Type 2 diabetes mellitus(Confirmed) Active T2DM (type 2 diabetes mellitus)(Confirmed) Active Social History Social History Type Response Smoking Status Never smoker entered on: 08/23/15 Sex
--- OUTSIDE RECORDS SUMMARY | 2022-08-30 22:24 | XMS_ITS | Continuity of Care Document ---
Author Name Unknown Organization [facility] Address [address] [facility] [place] [address]- Care Team Providers Care Tire Service Technician Name Role Phone Jennifer No NP Primary Care Physician Encounter [facility] Date(s): 09/01/20 - 10/01/20 [facility] [address] [place] [address]- Attending Physician: Katie Pineda Admitting Physician: AdmtrKatie Referring Physician: Admtr, Ar8 Allergies, Adverse Reactions, Alerts Substance Reaction Severity [...] 0 Refills, Maintenance, 07/21/20 8:06:00 EDT, Tablet, [facility] #[id number], Partial fill upon patient request if the prescription is for a schedule II opioi... Start Date: 07/21/20 Status: Ordered Flomax 0.4 mg oral capsule 0.4 mg, 1, capsule, By Mouth, Daily, # 30 capsule, Refills 1, Tot. Refills 1, Maintenance, 09/21/2113:27:00 EDT, Route to Pharmacy Electronically, [facility] #[id number], Partial fill upon patient request if the prescription is for a schedule II... Start Date: 09/21/20 Status: Ordered Free Style Lite Lancets Free [...] 6 Refills, Maintenance, 11/24/20 8:17:00 EDT, Solution, [facility] #[id number], 170.18, cm, 08/23/20 7:31:00 EDT, Height, 129.7, kg, 01/24/19 18:43:00 EDT, Dry Weight Start Date: 11/24/20 Stop Date: 06/22/21 Status: Ordered Lantus Solostar Pen 100 units/mL subcutaneous solution = 20 units, Subcutaneous Injection, Daily, for 30 days, # 3 mL, 6 Refills, Hard Stop 11/24/20 8:17:00 EDT, 04/28/20 8:17:00 EST, Solution, [facility] #[id number], 170.18, cm, 03/17/20 15:55:00 EST, Height, 129.7, kg, 01/24/19 18:43:00 EDT, Dry We... Start Date: 04/28/20 Stop Date: 11/24/20 Status: Ordered MetFORMIN (Eqv-Glucophage XR) 500 mg oral tablet, extended release 1 tablet = 500 mg, By Mouth, 2 times a day, # 180 tablet, 1 Refills, Maintenance, 04/27/20 14:54:00EST, ER Tablet, [facility] #[id number], Partial fill upon patient request if the prescription is for a schedule II opioid drug., 170.18, cm, 03/17... Start Date: 04/27/20 Status: Ordered omeprazole 40 mg oral enteric coated capsule 1 capsule = 40 mg, By Mouth, Daily, # 30 capsule, 3 Refills, Maintenance, 05/18/20 9:41:00 EST, EC Capsule, [facility] #[id number], Partial fill upon patient request if the prescription is for aschedule II opioid drug., 170.18, cm, 05/10/20 9:01... Start Date: 05/18/20 Status: Ordered oxyCODONE 5 mg oral capsule 1 capsule = 5 mg, By Mouth, Every 6 hours, PRN as needed for pain, 0 Refills, Maintenance, 217:36:00 EDT, Capsule, Partial fill upon patient request [...] 0 Refills, Maintenance, 07/22/20 12:07:00 EDT, Capsule, [facility] #[id number], Partial fill upon patient request, 170.18, cm, 07/21/20 7:47:00 EDT, Height, 129.7, kg, 01/24/19 18:43:00 EDT, Dry... Start Date: 07/22/20 Status: Ordered SUMAtriptan 25 mg oral tablet 1 tablet = 25 mg, By Mouth, Once, At onset of headache. May repeat in 2 hours, # 1 tablet, 0 Refills, Soft Stop, 03/08/20 14:57:00 EST, Tablet, [facility] #[id number], Partial fill upon patient request, 170.18, cm, [...]
--- OUTSIDE RECORDS SUMMARY | 2022-08-30 22:24 | XMS_ITS | Continuity of Care Document ---
Author Name Unknown Organization [facility] Address [address] [place] [address]- Care Team Providers Care Final Application Reviewer Name Role Phone Art ONEAL, Fidelia Good Primary Care Physician Encounter [facility] Date(s): 05/18/22 - 06/17/22 [facility] [address] [place] [address]- Allergies, Adverse Reactions, Alerts No Known Allergies Immunizations Given and Recorded Vaccine Date Status Refusal Reason [id number] 12y+ bivalent booster vax 12/16/21 Recorded influenza [...] Given Parent Or Guardian Refuses 1Result Comment: [facility]: [id number] 2Result Comment: von 3Admin Note: vis 10/24/2006 [...] Note: DAY UNKNOWN 22Admin Note: DAY UNKNOWN Admin Note: DAY UNKNOWN [...] 0 Refills, Maintenance, 01/17/22 7:35:00 EDT, Tablet, [facility]/pharmacy #[id number], Partial fill upon patient request if the prescription is for a schedule II opioid drug.... Start Date: 01/17/22 Status: Ordered betamethasone topical dipropionate 0.05% ointment 1 application, Topically, 2 times a day, # 15 Gm, 0 Refills, Maintenance, 03/14/22 14:03:00 EST, Ointment, [facility]/pharmacy #[id number], Partial fill upon patient request if the prescription is for a schedule II opioid drug., 1 application Topically 2 times a d... Start Date: 03/14/22 Status: Ordered escitalopram 5 mg oral tablet 1 tablet = 5 mg, By Mouth, Daily, # 30 tablet, 5 Refills, Maintenance, 08/22/21 7:58:00 EDT, Tablet, [facility]/pharmacy #[id number], Partial fill upon patient request if the [...] Refills, Maintenance, 05/19/22 12:00:00 EST, ER Tablet, [facility]/pharmacy #[id number], Partial fill upon patient request if the prescription is for a schedule II opioid drug., 170.... Start Date: 05/19/22 Status: Ordered omeprazole 40 mg oral enteric coated capsule 1 capsule = 40 mg, By Mouth, Daily, # 30 capsule, 2 Refills, Maintenance, 12/09/21 12:05:00 EDT, ECCapsule, [facility]/pharmacy #[id number], Partial fill upon patient request if the prescription is for a schedule II opioid drug., 170.18, cm, 11/28/21 7:49:00 EDT,... Start Date: 12/09/21 Status: Ordered Ozempic (1 mg dose) 4 mg/3 mL subcutaneous solution = 1 mg, Subcutaneous Infusion, Every 7 days, rotate injection sites, # 3 mL, 6 Refills, Maintenance, 03/29/22 11:02:00 EST, [facility]/pharmacy #[id number], Partial fill upon patient request if the prescription is for a schedule II opioid drug., 170.18, cm, ... Start Date: 03/29/22 Stop Date: 10/11/22 Status: Ordered predniSONE 10 mg oral tablet 1 tablet = 10 mg, By Mouth, 2 times a day, # 10 tablet, 0 Refills, Maintenance, 01/17/22 7:35:00 EDT, Tablet, [facility]/pharmacy #[id number], Partial fill upon patient request if the prescription is for a schedule II opioid drug., 170.18, cm, 11/28/21 7:49:00 EDT... Start Date: 01/17/22 Status: Ordered propranolol 80 mg oral capsule, extended release 80 mg, 1, capsule, By Mouth, Daily, # 30 capsule, Refills 5, Tot. Refills 5, Maintenance, 08/22/21 8:04:00 EDT, Route to Pharmacy Electronically, [facility]/pharmacy #[id number], Partial fill upon patient requestif the prescription is for a schedule II opioid darian... Start Date: 08/22/21 Status: Ordered riboflavin 400 mg oral capsule 1 capsule = 400 mg, By Mouth, Daily, # 100 capsule, 0 Refills, Maintenance, 06/19/21 17:00:00 EDT, Capsule, [facility] #[id number], Partial fill upon patient request, 170.18, cm, [...] Associate Professional Member Role: PCP Address: Address: [address] [place] [address]- Care Team Related Persons Name: JUAN CARLOS RAYMOND Address: home [address] [place] [id number] Name: MEL RAYMOND Address: home [address] [place] [address]
--- OUTSIDE RECORDS SUMMARY | 2022-08-30 22:24 | XMS_ITS | Continuity of Care Document ---
Author Name Unknown Organization [facility] Address [address] [place] [address]- Care Team Providers Care Metal Sprayer Protective Coating Name Role Phone Marybel ONEAL, Jennifer Primary Care Physician Encounter [facility] Date(s): 04/06/21 - 05/06/21 [facility] Adult [address] [place] [address]- Allergies, Adverse Reactions, Alerts No Known Allergies [...] Given Parent Or Guardian Refuses 1Result Comment: [facility]: [id number] 2Result Comment: von 3Admin Note: vis 10/24/2006 [...] 0 Refills, Maintenance, 12/22/20 9:42:00 EDT, Ointment, [facility] #[id number], Partial fill upon patient request if the [...] Weight Start Date: 04/12/21 Status: Ordered Freestyle Lite Monitor See Instructions, [...] 6 Refills, Maintenance, 11/24/20 8:17:00 EDT, Solution, [facility] #[id number], 170.18, cm, 08/23/20 7:31:00 EDT, Height, 129.7, kg, 01/24/19 18:43:00 EDT, Dry Weight Start Date: 11/24/20 Stop Date: 06/22/21 Status: Ordered MetFORMIN (Eqv-Glucophage XR) 500 mg oral tablet, extended release 1 tablet = 500 mg, By Mouth, 2 times a day, # 180 tablet, 1 Refills, Maintenance, 04/15/21 19:59:00EST, ER Tablet, [facility] #[id number], Partial fill upon patient request if the prescription is for a schedule II opioid drug., 170.18, cm, 03/31... Start Date: 04/15/21 Status: Ordered omeprazole 40 mg oral enteric coated capsule 1 capsule = 40 mg, By Mouth, Daily, # 30 capsule, 1 Refills, Maintenance, 04/07/21 10:58:00 EST, ECCapsule, [facility] #[id number], Partial fill upon patient request if the prescription is for a schedule II opioid drug., 170.18, cm, 03/31/21 7:4... Start Date: 04/07/21 Status: Ordered Ozempic 2 mg/1.5 mL (0.25 mg or 0.5 mg dose) subcutaneous solution See Instructions, Inject 0.5 mg once a week subquateneously, # 1 pack/packet, 1 Refills, Maintenance, 01/18/21 9:44:00 EDT, [facility] #[id number], Partial fill upon patient request if the prescription is for a schedule II opioid drug., Inject 0.... Start Date: 01/18/21 Status: Ordered riboflavin 400 mg oral capsule 1 capsule = 400 mg, By Mouth, Daily, # 100 capsule, 0 Refills, Maintenance, 07/22/20 12:07:00 EDT, Capsule, [facility] #[id number], Partial fill upon patient request, 170.18, cm, 07/21/20 7:47:00 EDT, Height, 129.7, kg, 01/24/19 18:43:00 EDT, Dry... Start Date: 07/22/20 Status: Ordered sertraline 25 mg oral tablet 1 tablet = 25 mg, By Mouth, Daily, # 30 tablet, 0 Refills, Maintenance, 12/22/20 8:00:00 EDT, Tablet, [facility] #[id number], Partial fill upon patient request if the prescription is for a schedule II opioid drug., 170.18, cm, 12/22/20 7:35:00 ED... Start Date: 12/22/20 Status: Ordered SUMAtriptan 25 mg oral tablet 1 tablet = 25 mg, By Mouth, Once, At onset of headache. May repeat in 2 hours, # 1 tablet, 0 Refills, Soft Stop, 03/08/20 14:57:00 EST, Tablet, [facility] #[id number], Partial fill upon patient request, 170.18, cm, [...] allergic conjunctiv itis and rhinitis(Confirmed) 10/07/08 Active Severe obesity(Confirmed) Active Right shoulder pain(Confirmed) Active Type 2 diabetes mellitus(Confirmed) Active T2DM (type 2 diabetes mellitus)(Confirmed) Active Social History Social History Type Response Smoking Status Never smoker entered on: 08/23/15 Sex
--- OUTSIDE RECORDS SUMMARY | 2022-08-30 22:25 | XMS_ITS | Continuity of Care Document ---
Author Name Unknown Organization [facility] Address [address] [place] [address]- Care Team Providers Care Survey Rodman Name Role Phone Fidelia Cordova NP Primary Care Physician [phone] Encounter [facility] Date(s): 05/24/21 - 06/23/21 [facility] [address] [place] [id number] Allergies, Adverse Reactions, Alerts No Known Allergies [...] Given Parent Or Guardian Refuses 1Result Comment: [facility]: [id number] 2Result Comment: von 3Admin Note: vis 10/24/2006 [...] day, # 15 Gm, 0 Refills, Maintenance, 05/11/21 10:06:00 EST, Ointment, [facility] #[id number], Partial fill upon patient request if the prescription is for a schedule II opioid drug., 1 application Topically 2... Start Date: 05/11/21 Status: Ordered Free Style Lite Lancets Free [...] 0, Maintenance, Freestyle amrita 2 CGM reader, 05/13/21 8:16:00 EST, Supply, 170.18, cm, 03/31/21 7:48:00 EST, Height,132.5, kg, 09/01/20 13:04:00 EDT, Dry Weight Start Date: 05/13/21 Status: Ordered Freestyle amrita 2 sensors Freestyle amrita 2 sensors, See Instructions, # 2 pack/packet, Refills 6, Tot. Refills 6, Maintenance, Please provide 30 days supple freestyle amrita 2 sensors to be changed every 14 days, 05/13/21 8:16:00 EST, Supply, 170.18, cm, 03/31/21 7:48:00 EST,... Start Date: 05/13/21 Status: Ordered Freestyle Lite Monitor See Instructions, [...] 1 Refills, Maintenance, 04/15/21 19:59:00EST, ER Tablet, [facility] #[id number], Partial fill upon patient request if the prescription is for a schedule II opioid drug., 170.18, cm, 03/31... Start Date: 04/15/21 Status: Ordered omeprazole 40 mg oral enteric coated capsule 1 capsule = 40 mg, By Mouth, Daily, # 30 capsule, 2 Refills, Maintenance, 05/31/21 14:22:00 EST, ECCapsule, [facility] #[id number], Partial fill upon patient request if the prescription is for a schedule II opioid drug., 170.18, cm, 05/24/21 8:1... Start Date: 05/31/21 Status: Ordered Ozempic (1 mg dose) 4 mg/3 mL subcutaneous solution = 1 mg, Subcutaneous Infusion, Every 7 days, # 1 pack/packet, 6 Refills, Maintenance, 05/13/21 15:01:00 EST, [facility] #[id number], Partial fill upon patient request if the prescription is for a schedule II opioid drug., 170.18, cm, 03/31/21 7:4... Start Date: 05/13/21 Stop Date: 11/25/21 Status: Ordered riboflavin 400 mg oral capsule 1 capsule = 400 mg, By Mouth, Daily, # 100 capsule, 0 Refills, Maintenance, 06/19/21 17:00:00 EDT, Capsule, [facility] #[id number], Partial fill upon patient request, 170.18, cm, 05/24/21 8:16:00 EST, Height, 132.5, kg, 09/01/20 13:04:00 EDT, Dry... Start Date: 06/19/21 Status: Ordered sertraline 25 mg oral tablet 1 tablet = 25 mg, By Mouth, Daily, # 90 tablet, 0 Refills, Maintenance, 05/24/21 8:33:00 EST, Tablet, [facility] #[id number], Partial fill upon patient request if the prescription is for a schedule II opioid drug., 170.18, cm, 05/24/21 8:16:00 ES... Start Date: 05/24/21 Status: Ordered SUMAtriptan 25 mg oral tablet 1 tablet = 25 mg, By Mouth, Once, At onset of headache. May repeat in 2 hours, # 1 tablet, 0 Refills, Soft Stop, 03/08/20 14:57:00 EST, Tablet, [facility] #[id number], Partial fill upon patient request, 170.18, cm, [...] with BMI of 4 5.0-49.9, adult(Confirmed) Active Carpal tunnel syndrome(Confirmed) Active DKA (diabetic ketoacidosis)(Confirmed) Active Rash(Confirmed) Active [...]
--- OUTSIDE RECORDS SUMMARY | 2022-08-30 22:25 | XMS_ITS | Continuity of Care Document ---
Author Name Unknown Organization [facility] Address [address] [place] [address]- Care Team Providers Care Cardiovascular Physician Assistant Name Role Phone Fidelia Cordova NP Primary Care Physician [phone] Encounter [facility] Date(s): 06/16/22 - 07/16/22 [facility] [address] [place] [id number] Attending Physician: AdmKatie vickers Admitting Physician: Admtr, Katie Referring Physician: Admtr, Ar8 Allergies, Adverse Reactions, Alerts No Known Allergies Immunizations Given and Recorded Vaccine Date Status Refusal Reason [id number] 12y+ bivalent booster vax 12/16/21 Recorded influenza [...] Given Measles/Mumps/Rubella Virus Vaccine 22 01/06/97 Gi otm Measles/Mumps/Rubella Virus Vaccine 23 04/07/93 Gi tom Haemophilus B Conj Vaccine (oldterm) 24 08/06/93 G iven Haemophilus B Conj Vaccine (oldterm) 25 92 G iven Haemophilus B Conj Vaccine (oldterm) 26 92 G iven Haemophilus B Conj Vaccine (oldterm) 27 92 G iven Not Given Vaccine Date Status Refusal Reason pneumococcal 23-valent vaccine 01/25/19 Not Given Parent Or Guardian Refuses 1Result Comment: [facility]: [id number] 2Result Comment: von 3Admin Note: vis 10/24/2006 [...] 0 Refills, Maintenance, 01/17/22 7:35:00 EDT, Tablet, [facility]/pharmacy #[id number], Partial fill upon patient request if the prescription is for a schedule II opioid drug.... Start Date: 01/17/22 Status: Ordered betamethasone topical dipropionate 0.05% ointment 1 application, Topically, 2 times a day, # 15 Gm, 0 Refills, Maintenance, 07/03/22 11:45:00 EDT, Ointment, [facility]/pharmacy #[id number], Partial fill upon patient request if the prescription is for a schedule II opioid drug., 1 application Topically 2 times a d... Start Date: 07/03/22 Status: Ordered escitalopram 5 mg oral tablet 1 tablet = 5 mg, By Mouth, Daily, # 30 tablet, 5 Refills, Maintenance, 08/22/21 7:58:00 EDT, Tablet, [facility]/pharmacy #[id number], Partial fill upon patient request if [...] Refills, Maintenance, 05/19/22 12:00:00 EST, ER Tablet, [facility]/pharmacy #[id number], Partial fill upon patient request if the prescription is for a schedule II opioid drug., 170.... Start Date: 05/19/22 Status: Ordered omeprazole 40 mg oral enteric coated capsule 1 capsule = 40 mg, By Mouth, Daily, # 30 capsule, 2 Refills, Maintenance, 12/09/21 12:05:00 EDT, ECCapsule, [facility]/pharmacy #[id number], Partial fill upon patient request if the prescription is for a schedule II opioid drug., 170.18, cm, 11/28/21 7:49:00 EDT,... Start Date: 12/09/21 Status: Ordered Ozempic (1 mg dose) 4 mg/3 mL subcutaneous solution = 1 mg, Subcutaneous Infusion, Every 7 days, rotate injection sites, # 3 mL, 6 Refills, Maintenance, 03/29/22 11:02:00 EST, [facility]/pharmacy #[id number], Partial fill upon patient request if the prescription is for a schedule II opioid drug., 170.18, cm, ... Start Date: 03/29/22 Stop Date: 10/11/22 Status: Ordered predniSONE 10 mg oral tablet 1 tablet = 10 mg, By Mouth, 2 times a day, # 10 tablet, 0 Refills, Maintenance, 01/17/22 7:35:00 EDT, Tablet, [facility]/pharmacy #[id number], Partial fill upon patient request if the prescription is for a schedule II opioid drug., 170.18, cm, 11/28/21 7:49:00 EDT... Start Date: 01/17/22 Status: Ordered propranolol 80 mg oral capsule, extended release 80 mg, 1, capsule, By Mouth, Daily, # 30 capsule, Refills 5, Tot. Refills 5, Maintenance, 08/22/21 8:04:00 EDT, Route to Pharmacy Electronically, [facility]/pharmacy #[id number], Partial fill upon patient requestif the prescription is for a schedule II opioid darian... Start Date: 08/22/21 Status: Ordered riboflavin 400 mg oral capsule 1 capsule = 400 mg, By Mouth, Daily, # 100 capsule, 0 Refills, Maintenance, 06/19/21 17:00:00 EDT, Capsule, [facility] #[id number], Partial fill upon patient request, 170.18, cm, [...] 4 Refills, Maintenance, 06/13/22 16:46:00 EST, Solution, [facility]/pharmacy #[id number], Partial fill upon patient request if the [...] team information Care Team Personnel Name: Irene RN, Dru Position: S RN Member Role: Primary Care Nurse Name: Fidelia Cordova NP Position: [facility] PCO Associate Professional Member Role: PCP Address: Address: [address] [place] [address]- Care Team Related Persons Name: JUAN CARLOS RAYMOND Address: home [address] [place] [id number] Name: MEL R[place] Address: [place] [address]
--- OUTSIDE RECORDS SUMMARY | 2022-08-30 22:25 | XMS_ITS | Continuity of Care Document ---
Author Name Unknown Organization [facility] Address [address] [place] [address]- Care Team Providers Care Security Field Supervisor Name Role Phone Fidelia Cordova NP Primary Care Physician [phone] Encounter [facility] Date(s): 08/29/21 - 09/28/21 [facility] Adult [address] [place] [address]- Allergies, Adverse Reactions, Alerts No Known Allergies [...] Given Parent Or Guardian Refuses 1Result Comment: [facility]: [id number] 2Result Comment: von 3Admin Note: vis 10/24/2006 [...] 0 Refills, Maintenance, 05/11/21 10:06:00 EST, Ointment, [facility] #[id number], Partial fill upon patient request if the prescription is for a schedule II opioid drug., 1 application Topically 2... Start Date: 05/11/21 Status: Ordered escitalopram 5 mg oral tablet 1 tablet = 5 mg, By Mouth, Daily, # 30 tablet, 5 Refills, Maintenance, 08/22/21 7:58:00 EDT, Tablet, [facility]/pharmacy #[id number], Partial fill upon patient request if the [...] Refills, Maintenance, 08/04/21 10:40:00 EDT, ER Tablet, [facility]/pharmacy #[id number], Partial fill upon patient request if the prescription is for a schedule II opioid drug., 170.... Start Date: 08/04/21 Status: Ordered omeprazole 40 mg oral enteric coated capsule 1 capsule = 40 mg, By Mouth, Daily, # 30 capsule, 2 Refills, Maintenance, 05/31/21 14:22:00 EST, ECCapsule, [facility] #[id number], Partial fill upon patient request if the prescription is for a schedule II opioid drug., 170.18, cm, 05/24/21 8:1... Start Date: 05/31/21 Status: Ordered Ozempic (1 mg dose) 4 mg/3 mL subcutaneous solution = 1 mg, Subcutaneous Infusion, Every 7 days, # 3 pack/packet, 4 Refills, Maintenance, 09/16/21 14:38:00 EDT, [facility]/pharmacy #[id number], Partial fill upon patient request if the prescription is for a schedule II opioid drug., 170.18, cm, 08/22/21 7:33:00 EDT,... Start Date: 09/16/21 Stop Date: 02/03/22 Status: Ordered propranolol 80 mg oral capsule, extended release 80 mg, 1, capsule, By Mouth, Daily, # 30 capsule, Refills 5, Tot. Refills 5, Maintenance, 08/22/21 8:04:00 EDT, Route to Pharmacy Electronically, [facility]/pharmacy #[id number], Partial fill upon patient requestif the prescription is for a schedule II opioid darian... Start Date: 08/22/21 Status: Ordered riboflavin 400 mg oral capsule 1 capsule = 400 mg, By Mouth, Daily, # 100 capsule, 0 Refills, Maintenance, 06/19/21 17:00:00 EDT, Capsule, [facility] #[id number], Partial fill upon patient request, 170.18, cm, [...]
--- OUTSIDE RECORDS SUMMARY | 2022-08-30 22:25 | XMS_ITS | Continuity of Care Document ---
Author Name Unknown Organization [facility] Cristofer lt Address [address] [place] [address]- Care Team Providers Care Water And Sewer Systems Superintendent Name Role Phone Art ONEAL, Fidelia Good Primary Care Physician [place] [facility] [place] 01/17/22 - 02/16/22 [facility] Adult [address] [place] [address]- Attending Physician: Katie Pineda Admitting Physician: AdmKatie vickers Referring Physician: AdmtrKatie Allergies, Adverse Reactions, Alerts No Known Allergies [...] Or Guardian Refuses 1Result Comment: [facility]: [id number] 2Result Comment: von 3Admin Note: vis 10/24/2006 [...] 0 Refills, Maintenance, 01/17/22 7:35:00 EDT, Tablet, [facility]/pharmacy #[id number], Partial fill upon patient request if the prescription is for a schedule II opioid drug.... Start Date: 01/17/22 Status: Ordered betamethasone topical dipropionate 0.05% ointment 1 application, Topically, 2 times a day, # 15 Gm, 0 Refills, Maintenance, 10/04/21 14:28:00 EDT, Ointment, [facility]/pharmacy #[id number], Partial fill upon patient request if the prescription is for a schedule II opioid drug., 1 application Topically 2 times a d... Start Date: 10/04/21 Status: Ordered escitalopram 5 mg oral tablet 1 tablet = 5 mg, By Mouth, Daily, # 30 tablet, 5 Refills, Maintenance, 08/22/21 7:58:00 EDT, Tablet, [id number], Partial fill upon patient request if [...] Refills, Maintenance, 08/04/21 10:40:00 EDT, ER Tablet, [facility]/pharmacy #[id number], Partial fill upon patient request if the prescription is for a schedule II opioid drug., 170.... Start Date: 08/04/21 Status: Ordered omeprazole 40 mg oral enteric coated capsule 1 capsule = 40 mg, By Mouth, Daily, # 30 capsule, 2 Refills, Maintenance, 12/09/21 12:05:00 EDT, ECCapsule, [facility]/pharmacy #[id number], Partial fill upon patient request if the prescription is for a schedule II opioid drug., 170.18, cm, 11/28/21 7:49:00 EDT,... Start Date: 12/09/21 Status: Ordered Ozempic (1 mg dose) 4 mg/3 mL subcutaneous solution = 1 mg, Subcutaneous Infusion, Every 7 days, # 3 pack/packet, 4 Refills, Maintenance, 09/16/21 14:38:00 EDT, [facility]/pharmacy #[id number], Partial fill upon patient request if the prescription is for a schedule II opioid drug., 170.18, cm, 08/22/21 7:33:00 EDT,... Start Date: 09/16/21 Stop Date: 02/03/22 Status: Ordered predniSONE 10 mg oral tablet 1 tablet = 10 mg, By Mouth, 2 times a day, # 10 tablet, 0 Refills, Maintenance, 01/17/22 7:35:00 EDT, Tablet, [facility]/pharmacy #[id number], Partial fill upon patient request if the prescription is for a schedule II opioid drug., 170.18, cm, 11/28/21 7:49:00 EDT... Start Date: 01/17/22 Status: Ordered propranolol 80 mg oral capsule, extended release 80 mg, 1, capsule, By Mouth, Daily, # 30 capsule, Refills 5, Tot. Refills 5, Maintenance, 08/22/21 8:04:00 EDT, Route to Pharmacy Electronically, [facility]/pharmacy #[id number], Partial fill upon patient requestif the prescription is for a schedule II opioid darian... Start Date: 08/22/21 Status: Ordered riboflavin 400 mg oral capsule 1 capsule = 400 mg, By Mouth, Daily, # 100 capsule, 0 Refills, Maintenance, 06/19/21 17:00:00 EDT, Capsule, [facility] #[id number], Partial fill upon patient request, 170.18, cm, [...] Date: 01/25/19 Status: Ordered Problem List Condition Confirmation Course [...] * Event Display: CT Scan Abdomen, Non- Authored Date: * Event Display: Ultrasound Pelvis, Non- Authored Date: * Event Display: Non Lab Results Authored Date: * Event Display: Non Lab Results Authored Date: Patient Care team information Care Team Personnel Name: Dru Bonilla RN Position: S RN Member Role: Primary Care Nurse Name: Fidelia Cordova NP Position: [facility] PCO Associate Professional Member Role: PCP Address: Address: [address] [place] [address]- Care Team Related Persons Name: JUAN CARLOS RAYMOND Address: [address] [address] Name: MEL RAYMOND Address: [address] [address]
--- OUTSIDE RECORDS SUMMARY | 2022-08-30 22:25 | XMS_ITS | Continuity of Care Document ---
Author Name Unknown Organization [facility] Ezio Cristofer lt Address [address] [place] [address]- Care Team Providers Care Commercial Sales Consultant Name Role Phone Art ONEAL, Fidelia Good Primary Care Physician [phone] Encounter [facility] [place] Date(s): 08/22/21 - 08/29/21 [facility] Adult [address] [place] [address]- Encounter Diagnosis Encounter to establish care(Discharge Diagnosis) - 08/22/21 Attending Physician: Fidelia Cordova NP Referring Physician: Miguel Arrieta MD Allergies, Adverse Reactions, Alerts No Known Allergies [...] Given Parent Or Guardian Refuses 1Result Comment: [facility]: [id number] 2Result Comment: von 3Admin Note: vis 10/24/2006 [...] 0 Refills, Maintenance, 05/11/21 10:06:00 EST, Ointment, [facility] #[id number], Partial fill upon patient request if the prescription is for a schedule II opioid drug., 1 application Topically 2... Start Date: 05/11/21 Status: Ordered escitalopram 5 mg oral tablet 1 tablet = 5 mg, By Mouth, Daily, # 30 tablet, 5 Refills, Maintenance, 08/22/21 7:58:00 EDT, Tablet, [facility]/pharmacy #[id number], Partial fill upon patient request if the [...] Refills, Maintenance, 08/04/21 10:40:00 EDT, ER Tablet, [facility]/pharmacy #[id number], Partial fill upon patient request if the prescription is for a schedule II opioid drug., 170.... Start Date: 08/04/21 Status: Ordered omeprazole 40 mg oral enteric coated capsule 1 capsule = 40 mg, By Mouth, Daily, # 30 capsule, 2 Refills, Maintenance, 05/31/21 14:22:00 EST, ECCapsule, [facility] #[id number], Partial fill upon patient request if the prescription is for a schedule II opioid drug., 170.18, cm, 05/24/21 8:1... Start Date: 05/31/21 Status: Ordered Ozempic (1 mg dose) 4 mg/3 mL subcutaneous solution = 1 mg, Subcutaneous Infusion, Every 7 days, # 3 pack/packet, 1 Refills, Maintenance, 08/04/21 13:38:00 EDT, [facility]/pharmacy #[id number], Partial fill upon patient request if the prescription is for a schedule II opioid drug., 170.18, cm, 05/24/21 8:16:00 EST,... Start Date: 08/04/21 Stop Date: 09/29/21 Status: Ordered propranolol 80 mg oral capsule, extended release 80 mg, 1, capsule, By Mouth, Daily, # 30 capsule, Refills 5, Tot. Refills 5, Maintenance, 08/22/21 8:04:00 EDT, Route to Pharmacy Electronically, [facility]/pharmacy #[id number], Partial fill upon patient requestif the prescription is for a schedule II opioid darian... Start Date: 08/22/21 Status: Ordered riboflavin 400 mg oral capsule 1 capsule = 400 mg, By Mouth, Daily, # 100 capsule, 0 Refills, Maintenance, 06/19/21 17:00:00 EDT, Capsule, [facility] #[id number], Partial fill upon patient request, 170.18, cm, [...] Active T2DM (type 2 diabetes mellitus)(Confirmed) Active Diagnosis Diagnosis Type Effective Dates Health Status Cl inical Service Informant Encounter to establish care Discharge Diagnosis 08/22/21 Vital Signs Most recent to oldest [Reference Range]: 1 Height 170.18 cm (08/22/21 7:33 AM) Weight 124.4 kg (08/22/21 7:33 AM) Oxygen Saturation [94-100 %] 100 % (08/22/21 7:33 AM) Pulse Rate [55-90 bpm] 84 bpm (08/22/21 7:33 AM) Body Mass Index [18.5-24.99] 42.95 *>HHI* (08/22/21 7:33 AM) Blood Pressure [90-138/55-84 mm Hg] 138/ 66mm Hg (08/22/21 7:33 AM) Blood pressure sites Arm, right (08/22/21 7:33 AM) Weight Obtained Via Standing scale (08/22/21 7:33 AM) Social History Social History Type Response Smoking Status Never smoker entered on: 08/23/15 Sex
--- OUTSIDE RECORDS SUMMARY | 2022-08-30 22:25 | XMS_ITS | Continuity of Care Document ---
Author Name Unknown Organization [facility] Address [address] [place] [address]- Care Team Providers Care Rn Outpatient Surgery Name Role Phone Jennifer No NP Primary Care Physician [place] [facility] [place] 09/03/20 - 01/01/21 [facility] [address] [place] [address] Attending Physician: Eugenio Cai MD Admitting Physician: Eugenio Cai MD Referring Physician: Jennifer No NP Allergies, Adverse Reactions, Alerts Substance Reaction Severity [...] Given Parent Or Guardian Refuses 1Result Comment: [facility]: [id number] 2Result Comment: von 3Admin Note: vis 10/24/2006 [...] 0 Refills, Maintenance, 12/22/20 9:42:00 EDT, Ointment, [facility] #[id number], Partial fill upon patient request if the [...] 6 Refills, Maintenance, 11/24/20 8:17:00 EDT, Solution, [facility] #[id number], 170.18, cm, 08/23/20 7:31:00 EDT, Height, 129.7, kg, 01/24/19 18:43:00 EDT, Dry Weight Start Date: 11/24/20 Stop Date: 06/22/21 Status: Ordered MetFORMIN (Eqv-Glucophage XR) 500 mg oral tablet, extended release 1 tablet = 500 mg, By Mouth, 2 times a day, # 180 tablet, 1 Refills, Maintenance, 11/09/20 14:32:00EDT, ER Tablet, [facility] #[id number], Partial fill upon patient request if the prescription is for a schedule II opioid drug., 170.18, cm, 10/15... Start Date: 11/09/20 Status: Ordered omeprazole 40 mg oral enteric coated capsule 1 capsule = 40 mg, By Mouth, Daily, further refills require an office visit. please call to schedule, # 30 capsule, 0 Refills, Maintenance, 10/04/20 15:49:00 EDT, EC Capsule, [facility] #[id number], Partial fill upon patient request if the prescr... Start Date: 10/04/20 Status: Ordered Ozempic 2 mg/1.5 mL (0.25 mg or 0.5 mg dose) subcutaneous solution See Instructions, 0.25 subcutaneous once weekly for 4 weeks, then 0.5 mg subcutaneous once weekly, # 1 pack/packet, 0 Refills, Maintenance, 10/15/20 7:38:00 EDT, [facility] #[id number], Partial fill upon patient request if the prescription is for... Start Date: 10/15/20 Status: Ordered riboflavin 400 mg oral capsule 1 capsule = 400 mg, By Mouth, Daily, # 100 capsule, 0 Refills, Maintenance, 07/22/20 12:07:00 EDT, Capsule, [facility] #[id number], Partial fill upon patient request, 170.18, cm, 07/21/20 7:47:00 EDT, Height, 129.7, kg, 01/24/19 18:43:00 EDT, Dry... Start Date: 07/22/20 Status: Ordered sertraline 25 mg oral tablet 1 tablet = 25 mg, By Mouth, Daily, # 30 tablet, 0 Refills, Maintenance, 12/22/20 8:00:00 EDT, Tablet, [facility] #[id number], Partial fill upon patient request if the prescription is for a schedule II opioid drug., 170.18, cm, 12/22/20 7:35:00 ED... Start Date: 12/22/20 Status: Ordered SUMAtriptan 25 mg oral tablet 1 tablet = 25 mg, By Mouth, Once, At onset of headache. May repeat in 2 hours, # 1 tablet, 0 Refills, Soft Stop, 03/08/20 14:57:00 EST, Tablet, [facility] #[id number], Partial fill upon patient request, 170.18, cm, [...]
--- OUTSIDE RECORDS SUMMARY | 2022-08-30 22:25 | XMS_ITS | Continuity of Care Document ---
Author Name Unknown Organization [facility] Cristofer lt Address [address] [place] [address]- Care Team Providers Care Software Release Manager Name Role Phone Marybel ONEAL, Jennifer Primary Care Physician Encounter [facility] Date(s): 11/01/20 - 12/01/20 [facility] Adult [address] [place] [address]- Allergies, Adverse Reactions, Alerts Substance Reaction Severity [...] Given Parent Or Guardian Refuses 1Result Comment: [facility]: [id number] 2Result Comment: von 3Admin Note: vis 10/24/2006 [...] opioid drug. Start Date: 08/23/20 Status: Ordered Free Style [...] 6 Refills, Maintenance, 11/24/20 8:17:00 EDT, Solution, [email or web address] #[id number], 170.18, cm, 08/23/20 7:31:00 EDT, Height, 129.7, kg, 01/24/19 18:43:00 EDT, Dry Weight Start Date: 11/24/20 Stop Date: 06/22/21 Status: Ordered MetFORMIN (Eqv-Glucophage XR) 500 mg oral tablet, extended release 1 tablet = 500 mg, By Mouth, 2 times a day, # 180 tablet, 1 Refills, Maintenance, 11/09/20 14:32:00EDT, ER Tablet, [facility] #[id number], Partial fill upon patient request if the prescription is for a schedule II opioid drug., 170.18, cm, 10/15... Start Date: 11/09/20 Status: Ordered omeprazole 40 mg oral enteric coated capsule 1 capsule = 40 mg, By Mouth, Daily, further refills require an office visit. please call to schedule, # 30 capsule, 0 Refills, Maintenance, 10/04/20 15:49:00 [id number] fill upon patient request if the prescr... Start Date: 10/04/20 Status: Ordered Ozempic 2 mg/1.5 mL (0.25 mg or 0.5 mg dose) subcutaneous solution See Instructions, 0.25 subcutaneous once weekly for 4 weeks, then 0.5 mg subcutaneous once weekly, # 1 pack/packet, 0 Refills, Maintenance, 10/15/20 7:38:00 EDT, [facility] #[id number], Partial fill upon patient request if the prescription is for... Start Date: 10/15/20 Status: Ordered riboflavin 400 mg oral capsule 1 capsule = 400 mg, By Mouth, Daily, # 100 capsule, 0 Refills, Maintenance, 07/22/20 12:07:00 ED[facility], [id number], Partial fill upon patient request, 170.18, cm, 07/21/20 7:47:00 EDT, Height, 129.7, kg, 01/24/19 18:43:00 EDT, Dry... Start Date: 07/22/20 Status: Ordered SUMAtriptan 25 mg oral tablet 1 tablet = 25 mg, By Mouth, Once, At onset of headache. May repeat in 2 hours, # 1 tablet, 0 Refills, Soft Stop, 03/08/20 14:57:00 EST, Tablet, [email or web address] #[id number], Partial fill upon patient request, 170.18, cm, [...] DKA (diabetic ketoacidosis)(Confirmed) Active Exogenous obesity(Confirmed)(Worsening) Active Heartburn symptom(Confirmed) Active [...]
--- OUTSIDE RECORDS SUMMARY | 2022-08-30 22:25 | XMS_ITS | Continuity of Care Document ---
Author Name Unknown Organization [facility] Cristofer lt Address [address] [place] [address]- Care Team Providers Care Cocoa Powder Mixer Operator Name Role Phone Marybel ONEAL, Jennifer Primary Care Physician [phone] Encounter [facility] Date(s): 11/16/20 - 12/16/20 [facility] Adult [address] [place] [address]- Allergies, Adverse Reactions, Alerts Substance Reaction Severity [...] Given Parent Or Guardian Refuses 1Result Comment: [facility]: [id number] 2Result Comment: von 3Admin Note: vis 10/24/2006 [...] 6 Refills, Maintenance, 11/24/20 8:17:00 EDT, Solution, [facility] #[id number], 170.18, cm, 08/23/20 7:31:00 EDT, Height, 129.7, kg, 01/24/19 18:43:00 EDT, Dry Weight Start Date: 11/24/20 Stop Date: 06/22/21 Status: Ordered MetFORMIN (Eqv-Glucophage XR) 500 mg oral tablet, extended release 1 tablet = 500 mg, By Mouth, 2 times a day, # 180 tablet, 1 Refills, Maintenance, 11/09/20 14:32:00EDT, ER Tablet, [facility] #[id number], Partial fill upon patient request if the prescription is for a schedule II opioid drug., 170.18, cm, 10/15... Start Date: 11/09/20 Status: Ordered omeprazole 40 mg oral enteric coated capsule 1 capsule = 40 mg, By Mouth, Daily, further refills require an office visit. please call to schedule, # 30 capsule, 0 Refills, Maintenance, 10/04/20 15:49:00 EDT, [id number], Partial fill upon patient request if the prescr... Start Date: 10/04/20 Status: Ordered Ozempic 2 mg/1.5 mL (0.25 mg or 0.5 mg dose) subcutaneous solution See Instructions, 0.25 subcutaneous once weekly for 4 weeks, then 0.5 mg subcutaneous once weekly, # 1 pack/packet, 0 Refills, Maintenance, 10/15/20 7:38:00 EDT, [facility] #[id number], Partial fill upon patient request if the prescription is for... Start Date: 10/15/20 Status: Ordered riboflavin 400 mg oral capsule 1 capsule = 400 mg, By Mouth, Daily, # 100 capsule, 0 Refills, Maintenance, 07/22/20 12:07:00 EDT, [id number], Partial fill upon patient request, 170.18, cm, 07/21/20 7:47:00 EDT, Height, 129.7, kg, 01/24/19 18:43:00 EDT, Dry... Start Date: 07/22/20 Status: Ordered SUMAtriptan 25 mg oral tablet 1 tablet = 25 mg, By Mouth, Once, At onset of headache. May repeat in 2 hours, # 1 tablet, 0 Refills, Soft Stop, 03/08/20 14:57:00 EST, Tablet, [facility] #[id number], Partial fill upon patient request, 170.18, cm, [...]
--- OUTSIDE RECORDS SUMMARY | 2022-08-30 22:25 | XMS_ITS | Continuity of Care Document ---
Author Name Unknown Organization [facility] Shabbir Holguin Cristofer lt Address [address] [place] [address]- Care Team Providers Care Die Operator Name Role Phone Jennifer No NP Primary Care Physician Encounter [facility] Date(s): 04/27/20 - 05/27/20 [facility] [place] Adult [address] [place] [address]- Allergies, Adverse Reactions, Alerts Substance Reaction Severity [...] 6 Refills, Maintenance, 04/28/20 8:17:00 EST, Solution, [facility] #[id number], 170.18, cm, 03/17/20 15:55:00 EST, Height, 129.7, kg, 01/24/19 18:43:00 EDT, Dry Weight Start Date: 04/28/20 Stop Date: 11/24/20 Status: Ordered MetFORMIN (Eqv-Glucophage XR) 500 mg oral tablet, extended release 1 tablet = 500 mg, By Mouth, 2 times a day, # 180 tablet, 1 Refills, Maintenance, 04/27/20 14:54:00EST, ER Tablet, [facility] #[id number], Partial fill upon patient request if the prescription is for a schedule II opioid drug., 170.18, cm, 03/17... Start Date: 04/27/20 Status: Ordered omeprazole 40 mg oral enteric coated capsule 1 capsule = 40 mg, By Mouth, Daily, # 30 capsule, 3 Refills, Maintenance, 05/18/20 9:41:00 EST, EC Capsule, [facility] #[id number], Partial fill upon patient request if the prescription is for aschedule II opioid drug., 170.18, cm, 05/10/20 9:01... Start Date: 05/18/20 Status: Ordered riboflavin 400 mg oral capsule 1 capsule = 400 mg, By Mouth, Daily, # 100 capsule, 0 Refills, Maintenance, 04/13/20 11:39:00 EST, Capsule, [facility] #[id number], Partial fill upon patient request, 170.18, cm, 03/17/20 15:55:00 EST, Height, 129.7, kg, 01/24/19 18:43:00 EDT, Start Date: 04/13/20 Status: Ordered SUMAtriptan 25 mg oral tablet 1 tablet = 25 mg, By Mouth, Once, At onset of headache. May repeat in 2 hours, # 1 tablet, 0 Refills, Soft Stop, 03/08/20 14:57:00 EST, Tablet, [facility] #[id number], Partial fill upon patient request, 170.18, cm, [...]
--- OUTSIDE RECORDS SUMMARY | 2022-08-30 22:25 | XMS_ITS | Continuity of Care Document ---
Author Name Unknown Organization [facility] Cristofer lt Address [address] [place] [address]- Care Team Providers Care Card Doffer Name Role Phone Fidelia Cordova NP Primary Care Physician [phone] Encounter [facility] [place] Date(s): 03/10/22 - 04/21/22 [facility] Adult [address] [place] [address]- Attending Physician: Not on Staff, Attending MD Referring Physician: Fidelia Cordova NP Allergies, Adverse Reactions, Alerts No Known Allergies Immunizations Given and Recorded Vaccine Date Status Refusal Reason [id number] 12y+ bivalent booster vax 12/16/21 Recorded influenza [...] Parent Or Guardian Refuses 1Result Comment: [facility]: [id number] 2Result Comment: von 3Admin Note: vis 10/24/2006 [...] 0 Refills, Maintenance, 01/17/22 7:35:00 EDT, Tablet, [facility]/pharmacy #[id number], Partial fill upon patient request if the prescription is for a schedule II opioid drug.... Start Date: 01/17/22 Status: Ordered betamethasone topical dipropionate 0.05% ointment 1 application, Topically, 2 times a day, # 15 Gm, 0 Refills, Maintenance, 03/14/22 14:03:00 EST, Ointment, [facility]/pharmacy #[id number], Partial fill upon patient request if the prescription is for a schedule II opioid drug., 1 application Topically 2 times a d... Start Date: 03/14/22 Status: Ordered escitalopram 5 mg oral tablet 1 tablet = 5 mg, By Mouth, Daily, # 30 tablet, 5 Refills, Maintenance, 08/22/21 7:58:00 EDT, Tablet, [facility]/pharmacy #[id number], Partial fill upon patient request if the [...] 08/22/21 8:04:00 EDT, Route to Pharmacy Electronically, [facility]/pharmacy #[id number], Partial fill upon patient requestif the prescription is for a schedule II opioid darian... Start Date: 08/22/21 Status: Ordered riboflavin 400 mg oral capsule 1 capsule = 400 mg, By Mouth, Daily, # 100 capsule, 0 Refills, Maintenance, 06/19/21 17:00:00 EDT, Capsule, [facility] #[id number], Partial fill upon patient request, 170.18, cm, [...] 3 Refills, Maintenance, 04/06/22 16:00:00 EST, Solution, [facility]/pharmacy #[id number], Partial fill upon patient request if the [...] team information Care Team Personnel Name: Irene WALTON, Dru Position: [facility] RN Member Role: Primary Care Nurse Name: Fidelia Cordova NP Position: [facility] PCO Associate Professional Member Role: PCP Address: Address: [address] [place] [address]- Care Team Related Persons Name: JUAN CARLOS RAYMOND Address: home [address] [place] [address] Name: MEL RAYMOND Address: home [address] [place] [address]
--- OUTSIDE RECORDS SUMMARY | 2022-08-30 22:25 | XMS_ITS | Continuity of Care Document ---
Author Name Unknown Organization [facility] Cristofer lt Address [address] [place] [address]- Care Team Providers Care Heel Sprayer Name Role Phone Art ONEAL, Fidelia Good Primary Care Physician Encounter [facility] Date(s): 01/16/22 - 02/15/22 [facility] Adult [address] [place] [address]- Allergies, Adverse Reactions, Alerts No Known Allergies [...] Given Parent Or Guardian Refuses 1Result Comment: [facility]: [id number] 2Result Comment: von 3Admin Note: vis 10/24/2006 [...] Maintenance, 01/17/22 7:35:00 EDT, Tablet, [facility]/pharmacy #[id number], Partial fill upon patient request if the prescription is for a schedule II opioid drug.... Start Date: 01/17/22 Status: Ordered betamethasone topical dipropionate 0.05% ointment 1 application, Topically, 2 times a day, # 15 Gm, 0 Refills, Maintenance, 10/04/21 14:28:00 EDT, Ointment, [facility]/pharmacy #[id number], Partial fill upon patient request if the prescription is for a schedule II opioid drug., 1 application Topically 2 times a d... Start Date: 10/04/21 Status: Ordered escitalopram 5 mg oral tablet 1 tablet = 5 mg, By Mouth, Daily, # 30 tablet, 5 Refills, Maintenance, 08/22/21 7:58:00 EDT, Tablet, [facility]/pharmacy #[id number], Partial fill upon patient [...] Maintenance, 12/09/21 12:05:00 EDT, ECCapsule, [facility]/pharmacy #[id number], Partial fill upon patient request if the prescription is for a schedule II opioid drug., 170.18, cm, 11/28/21 7:49:00 EDT,... Start Date: 12/09/21 Status: Ordered Ozempic (1 mg dose) 4 mg/3 mL subcutaneous solution = 1 mg, Subcutaneous Infusion, Every 7 days, # 3 pack/packet, 4 Refills, Maintenance, 09/16/21 14:38:00 EDT, [facility]/pharmacy #[id number], Partial fill upon patient request if the prescription is for a schedule II opioid drug., 170.18, cm, 08/22/21 7:33:00 EDT,... Start Date: 09/16/21 Stop Date: 02/03/22 Status: Ordered predniSONE 10 mg oral tablet 1 tablet = 10 mg, By Mouth, 2 times a day, # 10 tablet, 0 Refills, Maintenance, 01/17/22 7:35:00 EDT, Tablet, [facility]/pharmacy #[id number], Partial fill upon patient request if the prescription is for a schedule II opioid drug., 170.18, cm, 11/28/21 7:49:00 EDT... Start Date: 01/17/22 Status: Ordered propranolol 80 mg oral capsule, extended release 80 mg, 1, capsule, By Mouth, Daily, # 30 capsule, Refills 5, Tot. Refills 5, Maintenance, 08/22/21 8:04:00 EDT, Route to Pharmacy Electronically, [facility]/pharmacy #[id number], Partial fill upon patient requestif the prescription is for a schedule II opioid darian... Start Date: 08/22/21 Status: Ordered riboflavin 400 mg oral capsule 1 capsule = 400 mg, By Mouth, Daily, # 100 capsule, 0 Refills, Maintenance, 06/19/21 17:00:00 EDT, Capsule, [facility] #[id number], Partial fill upon patient request, 170.18, cm, [...] Team Personnel Name: Dru Bonilla RN Position: [facility] RN Member Role: Primary Care Nurse Name: Fidelia Cordova NP Position: [facility] PCO Associate Professional Member Role: PCP Address: Address: [address] [place] [id number] Care Team Related Persons Name: JUAN CARLOS RAYMOND Address: home [address] [place] [id number] Name: MEL RAYMOND Address: home [address] [place] [id number]
--- OUTSIDE RECORDS SUMMARY | 2022-08-30 22:25 | XMS_ITS | Continuity of Care Document ---
Author Name Unknown Organization [facility] Cristofer lt Address [address] [place] [address]- Care Team Providers Care Nike Athlete Name Role Phone Jennifer No NP Primary Care Physician Encounter [facility] Date(s): 10/15/20 - 10/22/20 [facility] Adult [address] [place] [address]- Encounter Diagnosis Annual physical exam(Discharge Diagnosis) - 10/15/20 T2DM (type 2 diabetes mellitus)(Discharge Diagnosis) - 10/15/20 Heartburn symptom(Discharge Diagnosis) - 10/19/20 Attending Physician: Jennifer No NP Allergies, Adverse Reactions, [...] 11 10/21/07 Given Human Papillomavirus Vaccine 12 3/14/08 Given Human Papillomavirus Vaccine 13 04/22/07 Given [...] Given Parent Or Guardian Refuses 1Result Comment: [facility]: [id number] 2Result Comment: von 3Admin Note: vis 10/24/2006 [...] Note: DAY UNKNOWN 24Admin Note: DAY UNKNOWN Admin Note: DAY UNKNOWN 26Admin Note: DAY UNKNOWN [...] 6 Refills, Maintenance, 11/24/20 8:17:00 EDT, Solution, [facility] #[id number], 170.18, cm, 08/23/20 7:31:00 EDT, Height, 129.7, kg, 01/24/19 18:43:00 EDT, Dry Weight Start Date: 11/24/20 Stop Date: 06/22/21 Status: Ordered Lantus Solostar Pen 100 units/mL subcutaneous solution = 20 units, Subcutaneous Injection, Daily, for 30 days, # 3 mL, 6 Refills, Hard Stop 11/24/20 8:17:00 EDT, 04/28/20 8:17:00 EST, Solution, [facility] #[id number], 170.18, cm, 03/17/20 15:55:00 EST, Height, 129.7, kg, 01/24/19 18:43:00 EDT, Dry We... Start Date: 04/28/20 Stop Date: 11/24/20 Status: Ordered MetFORMIN (Eqv-Glucophage XR) 500 mg oral tablet, extended release 1 tablet = 500 mg, By Mouth, 2 times a day, # 180 tablet, 1 Refills, Maintenance, 04/27/20 14:54:00EST, ER Tablet, [facility] #[id number], Partial fill upon patient request if the prescription is for a schedule II opioid drug., 170.18, cm, 03/17... Start Date: 04/27/20 Status: Ordered omeprazole 40 mg oral enteric coated capsule 1 capsule = 40 mg, By Mouth, Daily, further refills require an office visit. please call to schedule, # 30 capsule, 0 Refills, Maintenance, 10/04/20 15:49:00 EDT, EC Capsule, [facility] #[id number], Partial fill upon patient request if the prescr... Start Date: 10/04/20 Status: Ordered Ozempic 2 mg/1.5 mL (0.25 mg or 0.5 mg dose) subcutaneous solution See Instructions, 0.25 subcutaneous once weekly for 4 weeks, then 0.5 mg subcutaneous once weekly, # 1 pack/packet, 0 Refills, Maintenance, 10/15/20 7:38:00 EDT, [facility] #[id number], Partial fill upon patient request if the prescription is for... Start Date: 10/15/20 Status: Ordered riboflavin 400 mg oral capsule 1 capsule = 400 mg, By Mouth, Daily, # 100 capsule, 0 Refills, Maintenance, 07/22/20 12:07:00 EDT, Capsule, [facility] #[id number], Partial fill upon patient request, 170.18, cm, 07/21/20 7:47:00 EDT, Height, 129.7, kg, 01/24/19 18:43:00 EDT, Dry... Start Date: 07/22/20 Status: Ordered SUMAtriptan 25 mg oral tablet 1 tablet = 25 mg, By Mouth, Once, At onset of headache. May repeat in 2 hours, # 1 tablet, 0 Refills, Soft Stop, 03/08/20 14:57:00 EST, Tablet, [facility] #[id number], Partial fill upon patient request, 170.18, cm, [...] Dates Health Status Cl inical Service Informant T2DM (type 2 diabetes mellitus) Discharge Diagnosis 10/15/20 Annual physical exam Discharge Diagnosis 10/15/20 Heartburn symptom Discharge Diagnosis 10/19/20 Vital Signs Most recent to oldest [Reference Range]: 1 Height 170.18 cm (10/15/20 7:06 AM) Weight 133.1 kg (10/15/20 7:06 AM) Oxygen Saturation [94-100 %] 98 % (10/15/20 7:06 AM) Pulse Rate [55-90 bpm] 90 bpm (10/15/20 7:06 AM) Body Mass Index [18.5-24.99] 45.96 *>HHI* (10/15/20 7:06 AM) Blood Pressure [90-138/55-84 mm Hg] 128/ 70mm Hg (10/15/20 7:06 AM) Respiratory Rate [16-30 br/min] 18 br/mi n (10/15/20 7:06 AM) Temperature [96.8-100.4 DegF] 98.1 DegF (10/15/20 7:06 AM) Mode of Delivery (Oxygen) Room air (10/15/20 7:06 AM) Blood pressure sites Arm, right (10/15/20 7:06 AM) Temperature Route Oral (10/15/20 7:06 AM) Weight Obtained Via Standing scale (10/15/20 7:06 AM) Social History Social History Type Response Smoking Status Never smoker entered on: 08/23/15 Sex
--- OUTSIDE RECORDS SUMMARY | 2022-08-30 22:25 | XMS_ITS | Continuity of Care Document ---
Author Name Unknown Organization [facility] Shabbir Holguin Cristofer lt Address [address] [place] [address]- Care Team Providers Care Mat Cleaning Machine Operator Name Role Phone Jennifer No NP Primary Care Physician [phone] Encounter [facility] Date(s): 05/07/20 - 06/06/20 [facility] Adult [address] [place] [address]- Allergies, Adverse Reactions, Alerts Substance Reaction Severity [...] 6 Refills, Maintenance, 04/28/20 8:17:00 EST, Solution, [facility] #[id number], 170.18, cm, 03/17/20 15:55:00 EST, Height, 129.7, kg, 01/24/19 18:43:00 EDT, Dry Weight Start Date: 04/28/20 Stop Date: 11/24/20 Status: Ordered MetFORMIN (Eqv-Glucophage XR) 500 mg oral tablet, extended release 1 tablet = 500 mg, By Mouth, 2 times a day, # 180 tablet, 1 Refills, Maintenance, 04/27/20 14:54:00EST, ER Tablet, [facility] #[id number], Partial fill upon patient request if the prescription is for a schedule II opioid drug., 170.18, cm, 03/17... Start Date: 04/27/20 Status: Ordered omeprazole 40 mg oral enteric coated capsule 1 capsule = 40 mg, By Mouth, Daily, # 30 capsule, 3 Refills, Maintenance, 05/18/20 9:41:00 EST, EC Capsule, [facility] #[id number], Partial fill upon patient request if the prescription is for aschedule II opioid drug., 170.18, cm, 05/10/20 9:01... Start Date: 05/18/20 Status: Ordered riboflavin 400 mg oral capsule 1 capsule = 400 mg, By Mouth, Daily, # 100 capsule, 0 Refills, Maintenance, 04/13/20 11:39:00 EST, Capsule, [facility] #[id number], Partial fill upon patient request, 170.18, cm, 03/17/20 15:55:00 EST, Height, 129.7, kg, 01/24/19 18:43:00 EDT, Start Date: 04/13/20 Status: Ordered SUMAtriptan 25 mg oral tablet 1 tablet = 25 mg, By Mouth, Once, At onset of headache. May repeat in 2 hours, # 1 tablet, 0 Refills, Soft Stop, 03/08/20 14:57:00 EST, Tablet, [facility] #[id number], Partial fill upon patient request, 170.18, cm, [...]
--- OUTSIDE RECORDS SUMMARY | 2022-08-30 22:25 | XMS_ITS | Continuity of Care Document ---
Author Name Unknown Organization [facility] Cristofer lt Address [address] [place] [address]- Care Team Providers Care Window Systems Administrator Name Role Phone Art ONEAL, Fidelia Good Primary Care Physician [phone] [facility] Date(s): 01/17/22 - 01/24/22 [facility] [place] Adult [address] [place] [address]- Encounter Diagnosis Acute bronchitis(Discharge Diagnosis) - 01/17/22 Attending Physician: Fidelia oCrdova NP Allergies, Adverse Reactions, Alerts No Known [...] Given Parent Or Guardian Refuses 1Result Comment: [facility]: [id number] 2Result Comment: von 3Admin Note: vis 10/24/2006 [...] 0 Refills, Maintenance, 01/17/22 7:35:00 EDT, Tablet, [facility]/pharmacy #[id number], Partial fill upon patient request if the prescription is for a schedule II opioid drug.... Start Date: 01/17/22 Status: Ordered betamethasone topical dipropionate 0.05% ointment 1 application, Topically, 2 times a day, # 15 Gm, 0 Refills, Maintenance, 10/04/21 14:28:00 EDT, Ointment, [facility]/pharmacy #[id number], Partial fill upon patient request if the prescription is for a schedule II opioid drug., 1 application Topically 2 times a d... Start Date: 10/04/21 Status: Ordered escitalopram 5 mg oral tablet 1 tablet = 5 mg, By Mouth, Daily, # 30 tablet, 5 Refills, Maintenance, 08/22/21 7:58:00 EDT, Tablet, [facility]/pharmacy #[id number], Partial fill upon patient request [...] Refills, Maintenance, 08/04/21 10:40:00 EDT, ER Tablet, [facility]/pharmacy #[id number], Partial fill upon patient request if the prescription is for a schedule II opioid drug., 170.... Start Date: 08/04/21 Status: Ordered omeprazole 40 mg oral enteric coated capsule 1 capsule = 40 mg, By Mouth, Daily, # 30 capsule, 2 Refills, Maintenance, 12/09/21 12:05:00 EDT, ECCapsule, [facility]/pharmacy #[id number], Partial fill upon patient request if the prescription is for a schedule II opioid drug., 170.18, cm, 11/28/21 7:49:00 EDT,... Start Date: 12/09/21 Status: Ordered Ozempic (1 mg dose) 4 mg/3 mL subcutaneous solution = 1 mg, Subcutaneous Infusion, Every 7 days, # 3 pack/packet, 4 Refills, Maintenance, 09/16/21 14:38:00 EDT, [facility]/pharmacy #[id number], Partial fill upon patient request if the prescription is for a schedule II opioid drug., 170.18, cm, 08/22/21 7:33:00 EDT,... Start Date: 09/16/21 Stop Date: 02/03/22 Status: Ordered predniSONE 10 mg oral tablet 1 tablet = 10 mg, By Mouth, 2 times a day, # 10 tablet, 0 Refills, Maintenance, 01/17/22 7:35:00 EDT, Tablet, [facility]/pharmacy #[id number], Partial fill upon patient request if the prescription is for a schedule II opioid drug., 170.18, cm, 11/28/21 7:49:00 EDT... Start Date: 01/17/22 Status: Ordered propranolol 80 mg oral capsule, extended release 80 mg, 1, capsule, By Mouth, Daily, # 30 capsule, Refills 5, Tot. Refills 5, Maintenance, 08/22/21 8:04:00 EDT, Route to Pharmacy Electronically, [facility]/pharmacy #[id number], Partial fill upon patient requestif the prescription is for a schedule II opioid darian... Start Date: 08/22/21 Status: Ordered riboflavin 400 mg oral capsule 1 capsule = 400 mg, By Mouth, Daily, # 100 capsule, 0 Refills, Maintenance, 06/19/21 17:00:00 EDT, Capsule, [facility] #[id number], Partial fill upon patient request, 170.18, cm, [...] T2DM (type 2 diabetes mellitus) Confirmed Active Diagnosis Diagnosis Type Effective Dates Health Status Clinical Service Informant Acute bronchitis Discharge Diagnosis 01/17/22 Vital Signs Most recent to oldest [Reference Range]: 1 Height 170.18 cm (01/17/22 7:38 AM) Social History Social History Type Response Smoking Status Never smoker entered on: 08/23/15 Sex Patient Care team information Personnel Name: Fidelia Cordova NP Address: Address: [address] [place] [id number]
--- OUTSIDE RECORDS SUMMARY | 2022-08-30 22:25 | XMS_ITS | Continuity of Care Document ---
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 Name Role Phone Jennifer No NP Primary Care Physician [phone] Encounter [facility] Date(s): 05/10/20 - 06/09/20 [facility] Adult [address] [place] [address]- Attending Physician: AdmKatie vickers Admitting Physician: AdmtrKatie Referring Physician: Admtr, [id number] [...] 6 Refills, Maintenance, 04/28/20 8:17:00 EST, Solution, [facility] #[id number], 170.18, cm, 03/17/20 15:55:00 EST, Height, 129.7, kg, 01/24/19 18:43:00 EDT, Dry Weight Start Date: 04/28/20 Stop Date: 11/24/20 Status: Ordered MetFORMIN (Eqv-Glucophage XR) 500 mg oral tablet, extended release 1 tablet = 500 mg, By Mouth, 2 times a day, # 180 tablet, 1 Refills, Maintenance, 04/27/20 14:54:00EST, ER Tablet, [facility] #[id number], Partial fill upon patient request if the prescription is for a schedule II opioid drug., 170.18, cm, 03/17... Start Date: 04/27/20 Status: Ordered omeprazole 40 mg oral enteric coated capsule 1 capsule = 40 mg, By Mouth, Daily, # 30 capsule, 3 Refills, Maintenance, 05/18/20 9:41:00 EST, EC Capsule, [facility] #[id number], Partial fill upon patient request if the prescription is for aschedule II opioid drug., 170.18, cm, 02/01/21 9:01... Start Date: 05/18/20 Status: Ordered riboflavin 400 mg oral capsule 1 capsule = 400 mg, By Mouth, Daily, # 100 capsule, 0 Refills, Maintenance, 04/13/20 11:39:00 EST, Capsule, [facility] #[id number], Partial fill upon patient request, 170.18, cm, 03/17/20 15:55:00 EST, Height, 129.7, kg, 01/24/19 18:43:00 EDT, . Start Date: 04/13/20 Status: Ordered SUMAtriptan 25 mg oral tablet 1 tablet = 25 mg, By Mouth, Once, At onset of headache. May repeat in 2 hours, # 1 tablet, 0 Refills, Soft Stop, 03/08/20 14:57:00 EST, Tablet, [facility] #[id number], Partial fill upon patient request, 170.18, cm, [...]
--- OUTSIDE RECORDS SUMMARY | 2022-08-30 22:25 | XMS_ITS | Continuity of Care Document ---
Author Name Unknown Organization [facility] Address [address] [place] [address]- Care Team Providers Care Dining Room Maid Name Role Phone Jennifer No NP Primary Care Physician [facility] Date(s): 04/12/20 - 05/12/20 [facility] [address] [place] [id number] Attending Physician: Katie Pineda Admitting Physician: Admtr, Katie Referring Physician: Admtr, [...] 6 Refills, Maintenance, 04/28/20 8:17:00 EST, Solution, [facility] #[id number], 170.18, cm, 03/17/20 15:55:00 EST, Height, 129.7, kg, 01/24/19 18:43:00 EDT, Dry Weight Start Date: 04/28/20 Stop Date: 11/24/20 Status: Ordered MetFORMIN (Eqv-Glucophage XR) 500 mg oral tablet, extended release 1 tablet = 500 mg, By Mouth, 2 times a day, # 180 tablet, 1 Refills, Maintenance, 04/27/20 14:54:00EST, ER Tablet, [facility] #[id number], Partial fill upon patient request if the prescription is for a schedule II opioid drug., 170.18, cm, 03/17... Start Date: 04/27/20 Status: Ordered omeprazole 40 mg oral enteric coated capsule 1 capsule = 40 mg, By Mouth, Daily, # 30 capsule, 0 Refills, Maintenance, 04/15/20 14:16:00 EST, ECCapsule, [facility] #[id number], Partial fill upon patient request if the prescription is for a schedule II opioid drug., 170.18, cm, 03/17/20 15:... Start Date: 04/15/20 Status: Ordered riboflavin 400 mg oral capsule 1 capsule = 400 mg, By Mouth, Daily, # 100 capsule, 0 Refills, Maintenance, 04/13/20 11:39:00 EST, Capsule, [facility] #[id number], Partial fill upon patient request, 170.18, cm, 03/17/20 15:55:00 EST, Height, 129.7, kg, 01/24/19 18:43:00 EDT, . Start Date: 04/13/20 Status: Ordered SUMAtriptan 25 mg oral tablet 1 tablet = 25 mg, By Mouth, Once, At onset of headache. May repeat in 2 hours, # 1 tablet, 0 Refills, Soft Stop, 03/08/20 14:57:00 EST, Tablet, [facility] #[id number], Partial fill upon patient request, 170.18, cm, [...]
--- OUTSIDE RECORDS SUMMARY | 2022-08-30 22:25 | XMS_ITS | Continuity of Care Document ---
Author Name Unknown Organization [facility] Shabbir Holguin Cristofer lt Address [address] [place] [address]- Care Team Providers Care Parts Room Clerk Name Role Phone Marybel ONEAL, Jennifer Primary Care Physician Encounter [facility] Date(s): 03/08/20 - 05/19/20 [facility] Adult [address] [place] [address]- Attending Physician: Jennifer No NP Referring Physician: Cherrie OLEARY, Ga Matias Allergies, Adverse Reactions, Alerts Substance Reaction Severity [...] 6 Refills, Maintenance, 04/28/20 8:17:00 EST, Solution, [facility] #[id number], 170.18, cm, 03/17/20 15:55:00 EST, Height, 129.7, kg, 01/24/19 18:43:00 EDT, Dry Weight Start Date: 04/28/20 Stop Date: 11/24/20 Status: Ordered MetFORMIN (Eqv-Glucophage XR) 500 mg oral tablet, extended release 1 tablet = 500 mg, By Mouth, 2 times a day, # 180 tablet, 1 Refills, Maintenance, 04/27/20 14:54:00EST, ER Tablet, [facility] #[id number], Partial fill upon patient request if the prescription is for a schedule II opioid drug., 170.18, cm, 03/17... Start Date: 04/27/20 Status: Ordered omeprazole 40 mg oral enteric coated capsule 1 capsule = 40 mg, By Mouth, Daily, # 30 capsule, 3 Refills, Maintenance, 05/18/20 9:41:00 EST, EC Capsule, [facility] #[id number], Partial fill upon patient request if the prescription is for aschedule II opioid drug., 170.18, cm, 05/10/20 9:01... Start Date: 05/18/20 Status: Ordered riboflavin 400 mg oral capsule 1 capsule = 400 mg, By Mouth, Daily, # 100 capsule, 0 Refills, Maintenance, 04/13/20 11:39:00 EST, Capsule, [facility] #[id number], Partial fill upon patient request, 170.18, cm, 03/17/20 15:55:00 EST, Height, 129.7, kg, 01/24/19 18:43:00 EDT, . Start Date: 04/13/20 Status: Ordered SUMAtriptan 25 mg oral tablet 1 tablet = 25 mg, By Mouth, Once, At onset of headache. May repeat in 2 hours, # 1 tablet, 0 Refills, Soft Stop, 03/08/20 14:57:00 EST, Tablet, [facility] #[id number], Partial fill upon patient request, 170.18, cm, [...]
--- OUTSIDE RECORDS SUMMARY | 2022-08-30 22:25 | XMS_ITS | Continuity of Care Document ---
Author Name Unknown Organization [facility] Cristofer lt Address [address] [place] [address]- Care Team Providers Care Interactive Media Specialist Name Role Phone Jennifer No NP Primary Care Physician Encounter [facility] Date(s): 03/17/20 - 03/24/20 [facility] Adult [address] [place] [address]- Encounter Diagnosis Type 2 diabetes mellitus(Discharge Diagnosis) - 03/17/20 Attending Physician: Jennifer No NP Allergies, Adverse [...] units, Subcutaneous Injection, Daily, # 3 mL, 0 Refills, Maintenance, 01/25/19 12:01:44 EDT, Solution Start Date: 01/25/19 Stop Date: 02/24/19 Status: Ordered MetFORMIN (Eqv-Glucophage XR) 500 mg oral tablet, extended release 0 Refills, Maintenance, 03/08/20 14:44:00 EST, Partial fill upon patient request Start Date: 03/08/20 Status: Ordered riboflavin 400 mg oral capsule 1 capsule = 400 mg, By Mouth, Daily, # 100 capsule, 0 Refills, Maintenance, 02/23/20 16:26:00 EST, Capsule, [facility], Partial fill upon patient request, 170.18, cm, 02/23/20 15:12:00 EST, Height, 129.7, kg, 01/24/19 18:43:00 EDT, Dry W... Start Date: 02/23/20 Status: Ordered SUMAtriptan 25 mg oral tablet 1 tablet = 25 mg, By Mouth, Once, At onset of headache. May repeat in 2 hours, # 1 tablet, 0 Refills, Soft Stop, 03/08/20 14:57:00 EST, Tablet, [facility] #[id number], Partial fill upon patient request, 170.18, cm, [...] Cervicalgia(Confirmed) Active Encounter to establish care(Confirmed) Active Seasonal allergic conjunctiv itis and rhinitis(Confirmed) 10/07/08 Active Right shoulder pain(Confirmed) Active Type 2 diabetes mellitus(Confirmed) Active Diagnosis Diagnosis Type Effective Dates Health Status Cl inical Service Informant Type 2 diabetes mellitus Discharge Diagnosis 03/17/20 Vital Signs Most recent to oldest [Reference Range]: 1 Height 170.18 cm (03/17/20 3:55 PM) Social History Social History Type Response Smoking Status Never smoker entered on: 08/23/15 Sex
--- OUTSIDE RECORDS SUMMARY | 2022-08-30 22:25 | XMS_ITS | Continuity of Care Document ---
Author Name Unknown Organization [facility] Address [address] [place] [id number]- Care Team Providers Care Rip Machine Operator Name Role Phone Art ONEAL, Fidelia Good Primary Care Physician [phone] Encounter [facility] Date(s): 06/13/22 - 07/13/22 [facility] [address] [place] [id number] Allergies, Adverse Reactions, Alerts No Known Allergies Immunizations Given and Recorded Vaccine Date Status Refusal Reason [id number] 12y+ bivalent booster vax 12/16/21 Recorded influenza [...] 1Result Comment: [facility]: [id number] 2Result Comment: von 3Admin Note: vis 10/24/2006 [...] 0 Refills, Maintenance, 01/17/22 7:35:00 EDT, Tablet, [facility]/pharmacy #[id number], Partial fill upon patient request if the prescription is for a schedule II opioid drug.... Start Date: 01/17/22 Status: Ordered betamethasone topical dipropionate 0.05% ointment 1 application, Topically, 2 times a day, # 15 Gm, 0 Refills, Maintenance, 07/03/22 11:45:00 EDT, Ointment, [facility]/pharmacy #[id number], Partial fill upon patient request if the prescription is for a schedule II opioid drug., 1 application Topically 2 times a d... Start Date: 07/03/22 Status: Ordered escitalopram 5 mg oral tablet 1 tablet = 5 mg, By Mouth, Daily, # 30 tablet, 5 Refills, Maintenance, 08/22/21 7:58:00 EDT, Tablet, [facility]/pharmacy #[id number], Partial fill upon patient request if [...] Refills, Maintenance, 05/19/22 12:00:00 EST, ER Tablet, [facility]/pharmacy #[id number], Partial fill upon patient request if the prescription is for a schedule II opioid drug., 170.... Start Date: 05/19/22 Status: Ordered omeprazole 40 mg oral enteric coated capsule 1 capsule = 40 mg, By Mouth, Daily, # 30 capsule, 2 Refills, Maintenance, 12/09/21 12:05:00 EDT, ECCapsule, [facility]/pharmacy #[id number], Partial fill upon patient request if the prescription is for a schedule II opioid drug., 170.18, cm, 11/28/21 7:49:00 EDT,... Start Date: 12/09/21 Status: Ordered Ozempic (1 mg dose) 4 mg/3 mL subcutaneous solution = 1 mg, Subcutaneous Infusion, Every 7 days, rotate injection sites, # 3 mL, 6 Refills, Maintenance, 03/29/22 11:02:00 EST, [facility]/pharmacy #[id number], Partial fill upon patient request if the prescription is for a schedule II opioid drug., 170.18, cm, ... Start Date: 03/29/22 Stop Date: 10/11/22 Status: Ordered predniSONE 10 mg oral tablet 1 tablet = 10 mg, By Mouth, 2 times a day, # 10 tablet, 0 Refills, Maintenance, 01/17/22 7:35:00 EDT, Tablet, [facility]/pharmacy #[id number], Partial fill upon patient request if the prescription is for a schedule II opioid drug., 170.18, cm, 11/28/21 7:49:00 EDT... Start Date: 01/17/22 Status: Ordered propranolol 80 mg oral capsule, extended release 80 mg, 1, capsule, By Mouth, Daily, # 30 capsule, Refills 5, Tot. Refills 5, Maintenance, 08/22/21 8:04:00 EDT, Route to Pharmacy Electronically, [facility]/pharmacy #[id number], Partial fill upon patient requestif the prescription is for a schedule II opioid darian... Start Date: 08/22/21 Status: Ordered riboflavin 400 mg oral capsule 1 capsule = 400 mg, By Mouth, Daily, # 100 capsule, 0 Refills, Maintenance, 06/19/21 17:00:00 EDT, Capsule, [facility] #[id number], Partial fill upon patient request, 170.18, cm, [...] Associate Professional Member Role: PCP Address: Address: [address] [place] [id number]- Care Team Related Persons Name: JUAN CARLOS RAYMOND Address: home [address] [place] [id number] Name: MEL RAYMOND Address: home [address] [place] [address]
--- OUTSIDE RECORDS SUMMARY | 2022-08-30 22:25 | XMS_ITS | Continuity of Care Document ---
Author Name Unknown Organization [facility] Cristofer lt Address [address] [place] [address]- Care Team Providers Care Tanning Consultant Name Role Phone Marybel ONEAL, Jennifer Primary Care Physician [facility]counter [facility] Date(s): 12/17/20 - 01/16/21 [facility] [address] [place] [address]- Allergies, Adverse Reactions, Alerts Substance Reaction Severity [...] Refuses 1Result Comment: [facility]: [id number] 2Result Comment: von 3Admin Note: vis 10/24/2006 [...] 0 Refills, Maintenance, 12/22/20 9:42:00 EDT, [facility], [id number], Partial fill upon patient request if the [...] 6 Refills, Maintenance, 11/24/20 8:17:00 EDT, Solution, [facility] #[id number], 170.18, cm, 08/23/20 7:31:00 EDT, Height, 129.7, kg, 01/24/19 18:43:00 EDT, Dry Weight Start Date: 11/24/20 Stop Date: 06/22/21 Status: Ordered MetFORMIN (Eqv-Glucophage XR) 500 mg oral tablet, extended release 1 tablet = 500 mg, By Mouth, 2 times a day, # 180 tablet, 1 Refills, Maintenance, 11/09/20 14:32:00EDT, ER Tablet, [facility] #[id number], Partial fill upon patient request if the prescription is for a schedule II opioid drug., 170.18, cm, 10/15... Start Date: 11/09/20 Status: Ordered omeprazole 40 mg oral enteric coated capsule 1 capsule = 40 mg, By Mouth, Daily, further refills require an office visit. please call to schedule, # 30 capsule, 0 Refills, Maintenance, 10/04/20 15:49:00 EDT, EC Capsule, [facility] #[id number], Partial fill upon patient request if the prescr... Start Date: 10/04/20 Status: Ordered Ozempic 2 mg/1.5 mL (0.25 mg or 0.5 mg dose) subcutaneous solution See Instructions, 0.25 subcutaneous once weekly for 4 weeks, then 0.5 mg subcutaneous once weekly, # 1 pack/packet, 0 Refills, Maintenance, 10/15/20 7:38:00 EDT, [facility] #[id number], Partial fill upon patient request if the prescription is for... Start Date: 10/15/20 Status: Ordered riboflavin 400 mg oral capsule 1 capsule = 400 mg, By Mouth, Daily, # 100 capsule, 0 Refills, Maintenance, 07/22/20 12:07:00 EDT, Capsule, [facility] #[id number], Partial fill upon patient request, 170.18, cm, 07/21/20 7:47:00 EDT, Height, 129.7, kg, 01/24/19 18:43:00 EDT, Dry... Start Date: 07/22/20 Status: Ordered sertraline 25 mg oral tablet 1 tablet = 25 mg, By Mouth, Daily, # 30 tablet, 0 Refills, Maintenance, 12/22/20 8:00:00 EDT, Tablet, [facility] #[id number], Partial fill upon patient request if the prescription is for a schedule II opioid drug., 170.18, cm, 12/22/20 7:35:00 ED... Start Date: 12/22/20 Status: Ordered SUMAtriptan 25 mg oral tablet 1 tablet = 25 mg, By Mouth, Once, At onset of headache. May repeat in 2 hours, # 1 tablet, 0 Refills, Soft Stop, 03/08/20 14:57:00 EST, Tablet, [facility] #[id number], Partial fill upon patient request, 170.18, cm, [...]
--- OUTSIDE RECORDS SUMMARY | 2022-08-30 22:25 | XMS_ITS | Continuity of Care Document ---
Author Name Unknown Organization [facility] Address [address] [place] [address]- Care Team Providers Care Cnc Machine Setter Name Role Phone Jennifer No NP Primary Care Physician [phone] Encounter [facility] Date(s): 07/26/20 - 08/25/20 [facility] [address] [place] [id number] Allergies, Adverse Reactions, Alerts Substance Reaction Severity [...] 0 Refills, Maintenance, 07/21/20 8:06:00 EDT, Tablet, [facility] #[id number], Partial fill upon patient request if the prescription is for a schedule II opioi... Start Date: 07/21/20 Status: Ordered Flomax 0.4 mg oral capsule 0.4 mg, 1, capsule, By Mouth, Daily, # 30 capsule, Refills 0, Tot. Refills 0, Maintenance, 217:54:00 EDT, Route to Pharmacy Electronically, [facility] #[id number], Partial fill upon patient request if the [...] 6 Refills, Maintenance, 11/24/20 8:17:00 EDT, Solution, [facility] #[id number], 170.18, cm, 08/23/20 7:31:00 EDT, Height, 129.7, kg, 01/24/19 18:43:00 EDT, Dry Weight Start Date: 11/24/20 Stop Date: 06/22/21 Status: Ordered Lantus Solostar Pen 100 units/mL subcutaneous solution = 20 units, Subcutaneous Injection, Daily, for 30 days, # 3 mL, 6 Refills, Hard Stop 11/24/20 8:17:00 EDT, 04/28/20 8:17:00 EST, Solution, [facility] #[id number], 170.18, cm, 03/17/20 15:55:00 EST, Height, 129.7, kg, 01/24/19 18:43:00 EDT, Dry We... Start Date: 04/28/20 Stop Date: 11/24/20 Status: Ordered MetFORMIN (Eqv-Glucophage XR) 500 mg oral tablet, extended release 1 tablet = 500 mg, By Mouth, 2 times a day, # 180 tablet, 1 Refills, Maintenance, 04/27/20 14:54:00EST, ER Tablet, [facility] #[id number], Partial fill upon patient request if the prescription is for a schedule II opioid drug., 170.18, cm, 03/17... Start Date: 04/27/20 Status: Ordered omeprazole 40 mg oral enteric coated capsule 1 capsule = 40 mg, By Mouth, Daily, # 30 capsule, 3 Refills, Maintenance, 05/18/20 9:41:00 EST, EC Capsule, [facility] #[id number], Partial fill upon patient request if the [...] 0 Refills, Maintenance, 07/22/20 12:07:00 EDT, Capsule, [facility] #[id number], Partial fill upon patient request, 170.18, cm, 07/21/20 7:47:00 EDT, Height, 129.7, kg, 01/24/19 18:43:00 EDT, Dry... Start Date: 07/22/20 Status: Ordered SUMAtriptan 25 mg oral tablet 1 tablet = 25 mg, By Mouth, Once, At onset of headache. May repeat in 2 hours, # 1 tablet, 0 Refills, Soft Stop, 03/08/20 14:57:00 EST, Tablet, [facility] #[id number], Partial fill upon patient request, 170.18, cm, [...]
--- OUTSIDE RECORDS SUMMARY | 2022-08-30 22:26 | XMS_ITS | Continuity of Care Document ---
Author Name Unknown Organization [facility] Address [address] [place] [address]- Care Team Providers Care Loading Unit Operator Crimping Name Role Phone Jennifer No NP Primary Care Physician [phone] Encounter [facility] Date(s): 07/26/20 - 08/25/20 [facility] [address] [place] [address] Allergies, Adverse Reactions, Alerts Substance Reaction [...] 0 Refills, Maintenance, 07/21/20 8:06:00 EDT, Tablet, [facility] #[id number], Partial fill upon patient request if the prescription is for a schedule II opioi... Start Date: 07/21/20 Status: Ordered Flomax 0.4 mg oral capsule 0.4 mg, 1, capsule, By Mouth, Daily, # 30 capsule, Refills 0, Tot. Refills 0, Maintenance, 217:54:00 EDT, Route to Pharmacy Electronically, [facility] #[id number], Partial fill upon patient request if the [...] 6 Refills, Maintenance, 11/24/20 8:17:00 EDT, Solution, [facility] #[id number], 170.18, cm, 08/23/20 7:31:00 EDT, Height, 129.7, kg, 01/24/19 18:43:00 EDT, Dry Weight Start Date: 11/24/20 Stop Date: 06/22/21 Status: Ordered Lantus Solostar Pen 100 units/mL subcutaneous solution = 20 units, Subcutaneous Injection, Daily, for 30 days, # 3 mL, 6 Refills, Hard Stop 11/24/20 8:17:00 EDT, 04/28/20 8:17:00 EST, Solution, [facility] #[id number], 170.18, cm, 03/17/20 15:55:00 EST, Height, 129.7, kg, 01/24/19 18:43:00 EDT, Dry We... Start Date: 04/28/20 Stop Date: 11/24/20 Status: Ordered MetFORMIN (Eqv-Glucophage XR) 500 mg oral tablet, extended release 1 tablet = 500 mg, By Mouth, 2 times a day, # 180 tablet, 1 Refills, Maintenance, 04/27/20 14:54:00EST, ER Tablet, [facility] #[id number], Partial fill upon patient request if the prescription is for a schedule II opioid drug., 170.18, cm, 03/17... Start Date: 04/27/20 Status: Ordered omeprazole 40 mg oral enteric coated capsule 1 capsule = 40 mg, By Mouth, Daily, # 30 capsule, 3 Refills, Maintenance, 05/18/20 9:41:00 EST, EC Capsule, [facility] #[id number], Partial fill upon patient request if the [...] 0 Refills, Maintenance, 07/22/20 12:07:00 EDT, Capsule, [facility] #[id number], Partial fill upon patient request, 170.18, cm, 07/21/20 7:47:00 EDT, Height, 129.7, kg, 01/24/19 18:43:00 EDT, Dry... Start Date: 07/22/20 Status: Ordered SUMAtriptan 25 mg oral tablet 1 tablet = 25 mg, By Mouth, Once, At onset of headache. May repeat in 2 hours, # 1 tablet, 0 Refills, Soft Stop, 03/08/20 14:57:00 EST, Tablet, [facility] #[id number], Partial fill upon patient request, 170.18, cm, [...]
--- OUTSIDE RECORDS SUMMARY | 2022-08-30 22:26 | XMS_ITS | Continuity of Care Document ---
Author Name Unknown Organization [facility] Cristofer lt Address [address] [place] [address]- Care Team Providers Care Theatre Professor Name Role Phone Jennifer No NP Primary Care Physician Encounter [facility] Date(s): 10/19/20 - 11/18/20 [facility] [address] [place] [address]- Allergies, Adverse Reactions, Alerts Substance Reaction Severity [...] Parent Or Guardian Refuses 1Result Comment: [facility]: [id number] 2Result Comment: von 3Admin Note: vis 10/24/2006 [...] 6 Refills, Maintenance, 11/24/20 8:17:00 EDT, Solution, [facility] #[id number], 170.18, cm, 08/23/20 7:31:00 EDT, Height, 129.7, kg, 01/24/19 18:43:00 EDT, Dry Weight Start Date: 11/24/20 Stop Date: 06/22/21 Status: Ordered Lantus Solostar Pen 100 units/mL subcutaneous solution = 20 units, Subcutaneous Injection, Daily, for 30 days, # 3 mL, 6 Refills, Hard Stop 11/24/20 8:17:00 EDT, 04/28/20 8:17:00 EST, Solution, [facility] #[id number], 170.18, cm, 03/17/20 15:55:00 EST, Height, 129.7, kg, 01/24/19 18:43:00 EDT, Dry We... Start Date: 04/28/20 Stop Date: 11/24/20 Status: Ordered MetFORMIN (Eqv-Glucophage XR) 500 mg oral tablet, extended release 1 tablet = 500 mg, By Mouth, 2 times a day, # 180 tablet, 1 Refills, Maintenance, 11/09/20 14:32:00EDT, ER Tablet, [facility] #[id number], Partial fill upon patient request if the prescription is for a schedule II opioid drug., 170.18, cm, 10/15... Start Date: 11/09/20 Status: Ordered omeprazole 40 mg oral enteric coated capsule 1 capsule = 40 mg, By Mouth, Daily, further refills require an office visit. please call to schedule, # 30 capsule, 0 Refills, Maintenance, 10/04/20 15:49:00 EDT, EC Capsule, [facility] #[id number], Partial fill upon patient request if the prescr... Start Date: 10/04/20 Status: Ordered Ozempic 2 mg/1.5 mL (0.25 mg or 0.5 mg dose) subcutaneous solution See Instructions, 0.25 subcutaneous once weekly for 4 weeks, then 0.5 mg subcutaneous once weekly, # 1 pack/packet, 0 Refills, Maintenance, 10/15/20 7:38:00 EDT, [facility] #[id number], Partial fill upon patient request if the prescription is for... Start Date: 10/15/20 Status: Ordered riboflavin 400 mg oral capsule 1 capsule = 400 mg, By Mouth, Daily, # 100 capsule, 0 Refills, Maintenance, 07/22/20 12:07:00 EDT, Capsule, [facility] #[id number], Partial fill upon patient request, 170.18, cm, 07/21/20 7:47:00 EDT, Height, 129.7, kg, 01/24/19 18:43:00 EDT, Dry... Start Date: 07/22/20 Status: Ordered SUMAtriptan 25 mg oral tablet 1 tablet = 25 mg, By Mouth, Once, At onset of headache. May repeat in 2 hours, # 1 tablet, 0 Refills, Soft Stop, 03/08/20 14:57:00 EST, Tablet, [facility] #[id number], Partial fill upon patient request, 170.18, cm, [...]
--- OUTSIDE RECORDS SUMMARY | 2022-08-30 22:26 | XMS_ITS | Continuity of Care Document ---
Author Name Unknown Organization [facility] Holguin Cristofer lt Address [address] [place] [address]- Care Team Providers Care Contractor Buyer Name Role Phone Jennifer No NP Primary Care Physician Encounter [facility] Date(s): 03/16/20 - 04/15/20 [facility] [address] [place] [address]- Allergies, Adverse Reactions, Alerts Substance Reaction Severity [...] patient request Start Date: 03/08/20 Status: Ordered omeprazole 40 mg oral enteric coated capsule 1 capsule = 40 mg, By Mouth, Daily, # 30 capsule, 0 Refills, Maintenance, 04/15/20 14:16:00 EST, ECCapsule, [facility] #[id number], Partial fill upon patient request if the prescription is for a schedule II opioid drug., 170.18, cm, 03/17/20 15:... Start Date: 04/15/20 Status: Ordered riboflavin 400 mg oral capsule 1 capsule = 400 mg, By Mouth, Daily, # 100 capsule, 0 Refills, Maintenance, 04/13/20 11:39:00 EST, Capsule, [facility] #[id number], Partial fill upon patient request, 170.18, cm, 03/17/20 15:55:00 EST, Height, 129.7, kg, 01/24/19 18:43:00 EDT, Start Date: 04/13/20 Status: Ordered SUMAtriptan 25 mg oral tablet 1 tablet = 25 mg, By Mouth, Once, At onset of headache. May repeat in 2 hours, # 1 tablet, 0 Refills, Soft Stop, 03/08/20 14:57:00 EST, Tablet, [facility] #[id number], Partial fill upon patient request, 170.18, cm, [...]
--- OUTSIDE RECORDS SUMMARY | 2022-08-30 22:26 | XMS_ITS | Continuity of Care Document ---
Author Name Unknown Organization [facility] Cristofer lt Address [address] [place] [address]- Care Team Providers Care Asset Protection Associate Name Role Phone Marybel ONEAL, Jennifer Primary Care Physician [facility]counter [facility] Date(s): 04/07/21 - 05/07/21 [facility] Adult [address] [place] [address]- Allergies, Adverse Reactions, Alerts No Known Allergies [...] Given Parent Or Guardian Refuses 1Result Comment: [facility]: [id number] 2Result Comment: von 3Admin Note: vis 10/24/2006 [...] 0 Refills, Maintenance, 12/22/20 9:42:00 EDT, Ointment, [facility] #[id number], Partial fill upon patient request if the [...] 6 Refills, Maintenance, 11/24/20 8:17:00 EDT, Solution, [facility] #[id number], 170.18, cm, 08/23/20 7:31:00 EDT, Height, 129.7, kg, 01/24/19 18:43:00 EDT, Dry Weight Start Date: 11/24/20 Stop Date: 06/22/21 Status: Ordered MetFORMIN (Eqv-Glucophage XR) 500 mg oral tablet, extended release 1 tablet = 500 mg, By Mouth, 2 times a day, # 180 tablet, 1 Refills, Maintenance, 04/15/21 19:59:00EST, ER Tablet, [facility] #[id number], Partial fill upon patient request if the prescription is for a schedule II opioid drug., 170.18, cm, 03/31... Start Date: 04/15/21 Status: Ordered omeprazole 40 mg oral enteric coated capsule 1 capsule = 40 mg, By Mouth, Daily, # 30 capsule, 1 Refills, Maintenance, 04/07/21 10:58:00 EST, ECCapsule, [facility] #[id number], Partial fill upon patient request if the prescription is for a schedule II opioid drug., 170.18, cm, 03/31/21 7:4... Start Date: 04/07/21 Status: Ordered Ozempic 2 mg/1.5 mL (0.25 mg or 0.5 mg dose) subcutaneous solution See Instructions, Inject 0.5 mg once a week subquateneously, # 1 pack/packet, 1 Refills, Maintenance, 01/18/21 9:44:00 EDT, [facility] #[id number], Partial fill upon patient request if the prescription is for a schedule II opioid drug., Inject 0.... Start Date: 01/18/21 Status: Ordered riboflavin 400 mg oral capsule 1 capsule = 400 mg, By Mouth, Daily, # 100 capsule, 0 Refills, Maintenance, 07/22/20 12:07:00 EDT, Capsule, [facility] #[id number], Partial fill upon patient request, 170.18, cm, 07/21/20 7:47:00 EDT, Height, 129.7, kg, 01/24/19 18:43:00 EDT, Dry... Start Date: 07/22/20 Status: Ordered sertraline 25 mg oral tablet 1 tablet = 25 mg, By Mouth, Daily, # 30 tablet, 0 Refills, Maintenance, 12/22/20 8:00:00 EDT, Tablet, [facility] #[id number], Partial fill upon patient request if the prescription is for a schedule II opioid drug., 170.18, cm, 12/22/20 7:35:00 ED... Start Date: 12/22/20 Status: Ordered SUMAtriptan 25 mg oral tablet 1 tablet = 25 mg, By Mouth, Once, At onset of headache. May repeat in 2 hours, # 1 tablet, 0 Refills, Soft Stop, 03/08/20 14:57:00 EST, Tablet, [facility] #[id number], Partial fill upon patient request, 170.18, cm, [...]
--- OUTSIDE RECORDS SUMMARY | 2022-08-30 22:26 | XMS_ITS | Continuity of Care Document ---
Author Name Unknown Organization [facility] Cristofer lt Address [address] [place] [address]- Care Team Providers Care Manager Client Name Role Phone Marybel ONEAL, Jennifer Primary Care Physician [phone] Encounter [facility] Date(s): 12/17/20 - 01/16/21 [facility] [address] [place] [address]- Allergies, Adverse Reactions, Alerts Substance Reaction Severity [...] Given Parent Or Guardian Refuses 1Result Comment: [facility]: [id number] 2Result Comment: von 3Admin Note: vis 10/24/2006 [...] 0 Refills, Maintenance, 12/22/20 9:42:00 EDT, [id number], Partial fill upon patient request if the [...] 6 Refills, Maintenance, 11/24/20 8:17:00 EDT, Solution, [facility] #[id number], 170.18, cm, 08/23/20 7:31:00 EDT, Height, 129.7, kg, 01/24/19 18:43:00 EDT, Dry Weight Start Date: 11/24/20 Stop Date: 06/22/21 Status: Ordered MetFORMIN (Eqv-Glucophage XR) 500 mg oral tablet, extended release 1 tablet = 500 mg, By Mouth, 2 times a day, # 180 tablet, 1 Refills, Maintenance, 11/09/20 14:32:00EDT, ER Tablet, [facility] #[id number], Partial fill upon patient request if the prescription is for a schedule II opioid drug., 170.18, cm, 10/15... Start Date: 11/09/20 Status: Ordered omeprazole 40 mg oral enteric coated capsule 1 capsule = 40 mg, By Mouth, Daily, further refills require an office visit. please call to schedule, # 30 capsule, 0 Refills, Maintenance, 10/04/20 15:49:00 EDT, EC Capsule, [facility] #[id number], Partial fill upon patient request if the prescr... Start Date: 10/04/20 Status: Ordered Ozempic 2 mg/1.5 mL (0.25 mg or 0.5 mg dose) subcutaneous solution See Instructions, 0.25 subcutaneous once weekly for 4 weeks, then 0.5 mg subcutaneous once weekly, # 1 pack/packet, 0 Refills, Maintenance, 10/15/20 7:38:00 EDT, [facility] #[id number], Partial fill upon patient request if the prescription is for... Start Date: 10/15/20 Status: Ordered riboflavin 400 mg oral capsule 1 capsule = 400 mg, By Mouth, Daily, # 100 capsule, 0 Refills, Maintenance, 07/22/20 12:07:00 EDT, Capsule, [facility] #[id number], Partial fill upon patient request, 170.18, cm, 07/21/20 7:47:00 EDT, Height, 129.7, kg, 01/24/19 18:43:00 EDT, Dry... Start Date: 07/22/20 Status: Ordered sertraline 25 mg oral tablet 1 tablet = 25 mg, By Mouth, Daily, # 30 tablet, 0 Refills, Maintenance, 12/22/20 8:00:00 EDT, Tablet, [facility] #[id number], Partial fill upon patient request if the prescription is for a schedule II opioid drug., 170.18, cm, 12/22/20 7:35:00 ED... Start Date: 12/22/20 Status: Ordered SUMAtriptan 25 mg oral tablet 1 tablet = 25 mg, By Mouth, Once, At onset of headache. May repeat in 2 hours, # 1 tablet, 0 Refills, Soft Stop, 03/08/20 14:57:00 EST, Tablet, [facility] #[id number], Partial fill upon patient request, 170.18, cm, [...]
--- OUTSIDE RECORDS SUMMARY | 2022-08-30 22:26 | XMS_ITS | Continuity of Care Document ---
Author Name Unknown Organization [facility] Cristofer lt Address [address] [place] [address]- Care Team Providers Care Learning Consultant Name Role Phone Marybel ONEAL, Jennifer Primary Care Physician Encounter [facility] Date(s): 04/18/21 - 05/18/21 [facility] Adult [address] [place] [address]- Encounter Diagnosis Rash(Discharge Diagnosis) - 05/11/21 Allergies, Adverse Reactions, Alerts No Known Allergies [...] Given Parent Or Guardian Refuses 1Result Comment: [facility]: 48768-419-03 2Result Comment: von 3Admin Note: vis 10/24/2006 [...] 0 Refills, Maintenance, 05/11/21 10:06:00 EST, Ointment, [facility] #[id number], Partial fill upon patient request if the [...] Status: Ordered Freestyle amrita 2 sensors Freestyle marita 2 sensors, See Instructions, # 2 pack/packet, [...] 1 Refills, Maintenance, 04/15/21 19:59:00EST, ER Tablet, [facility] #[id number], Partial fill upon patient request if the prescription is for a schedule II opioid drug., 170.18, cm, 03/31... Start Date: 04/15/21 Status: Ordered omeprazole 40 mg oral enteric coated capsule 1 capsule = 40 mg, By Mouth, Daily, # 30 capsule, 1 Refills, Maintenance, 04/07/21 10:58:00 EST, ECCapsule, [facility] #[id number], Partial fill upon patient request if the prescription is for a schedule II opioid drug., 170.18, cm, 03/31/21 7:4... Start Date: 04/07/21 Status: Ordered Ozempic (1 mg dose) 4 mg/3 mL subcutaneous solution = 1 mg, Subcutaneous Infusion, Every 7 days, # 1 pack/packet, 6 Refills, Maintenance, 05/13/21 15:01:00 EST, [facility] #[id number], Partial fill upon patient request if the prescription is for a schedule II opioid drug., 170.18, cm, 03/31/21 7:4... Start Date: 05/13/21 Stop Date: 11/25/21 Status: Ordered riboflavin 400 mg oral capsule 1 capsule = 400 mg, By Mouth, Daily, # 100 capsule, 0 Refills, Maintenance, 07/22/20 12:07:00 EDT, Capsule, [facility] #[id number], Partial fill upon patient request, 170.18, cm, 07/21/20 7:47:00 EDT, Height, 129.7, kg, 01/24/19 18:43:00 EDT, Dry... Start Date: 07/22/20 Status: Ordered sertraline 25 mg oral tablet 1 tablet = 25 mg, By Mouth, Daily, # 30 tablet, 0 Refills, Maintenance, 12/22/20 8:00:00 EDT, Tablet, [facility] #[id number], Partial fill upon patient request if the prescription is for a schedule II opioid drug., 170.18, cm, 12/22/20 7:35:00 ED... Start Date: 12/22/20 Status: Ordered SUMAtriptan 25 mg oral tablet 1 tablet = 25 mg, By Mouth, Once, At onset of headache. May repeat in 2 hours, # 1 tablet, 0 Refills, Soft Stop, 03/08/20 14:57:00 EST, Tablet, [facility] #[id number], Partial fill upon patient request, 170.18, cm, [...] Diagnosis Diagnosis Type Effective Dates Health Status Clini ji Service Informant Rash Discharge Diagnosis 05/11/21 Non-Specified Social History Social History Type Response Smoking Status Never smoker entered on: 08/23/15 Sex
--- OUTSIDE RECORDS SUMMARY | 2022-08-30 22:26 | XMS_ITS | Continuity of Care Document ---
Author Name Unknown Organization [facility] Address [address] [place] [address]- Care Team Providers Care Command And Control Systems Integrator Name Role Phone Art ONEAL, Fidelia Good Primary Care Physician Encounter [facility] [place] Date(s): 05/18/22 - 06/17/22 [facility] [address] [place] [id number] Allergies, Adverse Reactions, Alerts No Known Allergies Immunizations Given and Recorded Vaccine Date Status Refusal Reason [id number] 12y+ bivalent booster vax 12/16/21 Recorded influenza [...] Refuses 1Result Comment: [facility]: 58329-933-57 2Result Comment: von 3Admin Note: vis 10/24/2006 [...] Note: DAY UNKNOWN 20Admin Note: DAY UNKNOWN Admin Note: DAY UNKNOWN Admin Note: DAY UNKNOWN 23Admin Note: DAY UNKNOWN Admin Note: DAY UNKNOWN [...] 0 Refills, Maintenance, 01/17/22 7:35:00 EDT, Tablet, [facility]/pharmacy #[id number], Partial fill upon patient request if the prescription is for a schedule II opioid drug.... Start Date: 01/17/22 Status: Ordered betamethasone topical dipropionate 0.05% ointment 1 application, Topically, 2 times a day, # 15 Gm, 0 Refills, Maintenance, 03/14/22 14:03:00 EST, Ointment, [facility]/pharmacy #[id number], Partial fill upon patient request if the prescription is for a schedule II opioid drug., 1 application Topically 2 times a d... Start Date: 03/14/22 Status: Ordered escitalopram 5 mg oral tablet 1 tablet = 5 mg, By Mouth, Daily, # 30 tablet, 5 Refills, Maintenance, 08/22/21 7:58:00 EDT, Tablet, [facility]/pharmacy #[id number], Partial fill upon patient request if the [...] Refills, Maintenance, 05/19/22 12:00:00 EST, ER Tablet, [facility]/pharmacy #[id number], Partial fill upon patient request if the prescription is for a schedule II opioid drug., 170.... Start Date: 05/19/22 Status: Ordered omeprazole 40 mg oral enteric coated capsule 1 capsule = 40 mg, By Mouth, Daily, # 30 capsule, 2 Refills, Maintenance, 12/09/21 12:05:00 EDT, ECCapsule, [facility]/pharmacy #[id number], Partial fill upon patient request if the prescription is for a schedule II opioid drug., 170.18, cm, 11/28/21 7:49:00 EDT,... Start Date: 12/09/21 Status: Ordered Ozempic (1 mg dose) 4 mg/3 mL subcutaneous solution = 1 mg, Subcutaneous Infusion, Every 7 days, rotate injection sites, # 3 mL, 6 Refills, Maintenance, 03/29/22 11:02:00 EST, [facility]/pharmacy #[id number], Partial fill upon patient request if the prescription is for a schedule II opioid drug., 170.18, cm, ... Start Date: 03/29/22 Stop Date: 10/11/22 Status: Ordered predniSONE 10 mg oral tablet 1 tablet = 10 mg, By Mouth, 2 times a day, # 10 tablet, 0 Refills, Maintenance, 01/17/22 7:35:00 EDT, Tablet, [facility]/pharmacy #[id number], Partial fill upon patient request if the prescription is for a schedule II opioid drug., 170.18, cm, 11/28/21 7:49:00 EDT... Start Date: 01/17/22 Status: Ordered propranolol 80 mg oral capsule, extended release 80 mg, 1, capsule, By Mouth, Daily, # 30 capsule, Refills 5, Tot. Refills 5, Maintenance, 08/22/21 8:04:00 EDT, Route to Pharmacy Electronically, [facility]/pharmacy #[id number], Partial fill upon patient requestif the prescription is for a schedule II opioid darian... Start Date: 08/22/21 Status: Ordered riboflavin 400 mg oral capsule 1 capsule = 400 mg, By Mouth, Daily, # 100 capsule, 0 Refills, Maintenance, 06/19/21 17:00:00 EDT, Capsule, [facility] #[id number], Partial fill upon patient request, 170.18, cm, [...] 4 Refills, Maintenance, 06/13/22 16:46:00 EST, Solution, [facility]/pharmacy #[id number], Partial fill upon patient request if the [...] Associate Professional Member Role: PCP Address: Address: [address] [place] [address] [place] [address]- Care Team Related Persons Name: JUAN CARLOS RAYMOND Address: [address] [place] [address] Name: MEL RAYMOND Address: [address] [place] [address]
--- OUTSIDE RECORDS SUMMARY | 2022-08-30 22:26 | XMS_ITS | Continuity of Care Document ---
Author Name Unknown Organization [facility] Cristofer lt Address [address] [place] [address]- Care Team Providers Care Gas Producer Name Role Phone Jennifer No NP Primary Care Physician [phone] [place] [facility] [place] 03/15/20 [facility] Adult [address] [place] [address]- Encounter Diagnosis Type 2 diabetes mellitus(Discharge Diagnosis) - 03/08/20 Migraine headache(Discharge Diagnosis) - 03/08/20 Cervicalgia(Discharge Diagnosis) - 03/08/20 Exogenous obesity(Discharge Diagnosis) - 03/08/20 Anxiety(Discharge Diagnosis) - 03/08/20 Right shoulder pain(Discharge Diagnosis) - 03/08/20 Hypertriglyceridemia(Discharge Diagnosis) - 03/08/20 Attending Physician: Jennifer No NP Allergies, Adverse [...] 0 Refills, Maintenance, 02/23/20 16:26:00 EST, Capsule, [facility], Partial fill upon patient request, 170.18, cm, 02/23/20 15:12:00 EST, Height, 129.7, kg, 01/24/19 18:43:00 EDT, Dry W... Start Date: 02/23/20 Status: Ordered SUMAtriptan 25 mg oral tablet 1 tablet = 25 mg, By Mouth, Once, At onset of headache. May repeat in 2 hours, # 1 tablet, 0 Refills, Soft Stop, 03/08/20 14:57:00 EST, Tablet, [facility] #[id number], Partial fill upon patient request, 170.18, cm, [...] Effective Dates Health Status Clinical Service Informant Right shoulder pain Discharge Diagnosis 03/08/20 Anxiety Discharge Diagnosis 03/08/20 Cervicalgia Discharge Diagnosis 03/08/20 Exogenous obesity Discharge Diagnosis 03/08/20 Migraine headache Discharge Diagnosis 03/08/20 Type 2 diabetes mellitus Discharge Diagnosis 03/08/20 Hypertriglyceridemia Discharge Diagnosis 03/08/20 Vital Signs Most recent to oldest [Reference Range]: 1 Height 170.18 cm (03/08/20 2:41 PM) Weight 133.1 kg (03/08/20 2:41 PM) Oxygen Saturation [94-100 %] 98 % (03/08/20 2:41 PM) Pulse Rate [55-90 bpm] 89 bpm (03/08/20 2:41 PM) Body Mass Index [18.5-24.99] 45.96 *>HHI* (03/08/20 2:41 PM) Blood Pressure [90-138/55-84 mm Hg] 134/ 80mm Hg (03/08/20 2:41 PM) Respiratory Rate [16-30 br/min] 16 br/mi n (03/08/20 2:41 PM) Temperature [96.8-100.4 DegF] 98.2 DegF (03/08/20 2:41 PM) Mode of Delivery (Oxygen) Room air (03/08/20 2:41 PM) Blood pressure sites Arm, right (03/08/20 2:41 PM) Temperature Route Oral (03/08/20 2:41 PM) Weight Obtained Via Standing scale (03/08/20 2:41 PM) Social History Social History Type Response Smoking Status Never smoker entered on: 08/23/15 Sex
--- OUTSIDE RECORDS SUMMARY | 2022-08-30 22:26 | XMS_ITS | Continuity of Care Document ---
Author Name Unknown Organization [facility] Cristofer lt Address [address] [place] [address]- Care Team Providers Care Gang Plank Workman Name Role Phone Marybel ONEAL, Jennifer Primary Care Physician Encounter [facility] Date(s): 12/30/20 - 01/29/21 [facility] Adult [address] [place] [address]- Allergies, Adverse Reactions, Alerts Substance Reaction Severity [...] Comment: [facility]: 19571-130-95 2Result Comment: von 3Admin Note: vis 10/24/2006 [...] 0 Refills, Maintenance, 12/22/20 9:42:00 EDT, [facility]intment, [facility][id number], Partial fill upon patient request if the [...] 6 Refills, Maintenance, 11/24/20 8:17:00 EDT, Solution, [facility] #[id number], 170.18, cm, 08/23/20 7:31:00 EDT, Height, 129.7, kg, 01/24/19 18:43:00 EDT, Dry Weight Start Date: 11/24/20 Stop Date: 06/22/21 Status: Ordered MetFORMIN (Eqv-Glucophage XR) 500 mg oral tablet, extended release 1 tablet = 500 mg, By Mouth, 2 times a day, # 180 tablet, 1 Refills, Maintenance, 11/09/20 14:32:00EDT, ER Tablet, [facility] #[id number], Partial fill upon patient request if the prescription is for a schedule II opioid drug., 170.18, cm, 10/15... Start Date: 11/09/20 Status: Ordered omeprazole 40 mg oral enteric coated capsule 1 capsule = 40 mg, By Mouth, Daily, further refills require an office visit. please call to schedule, # 30 capsule, 0 Refills, Maintenance, 10/04/20 15:49:00 EDT, EC Capsule, [facility] #[id number], Partial fill upon patient request if the prescr... Start Date: 10/04/20 Status: Ordered Ozempic 2 mg/1.5 mL (0.25 mg or 0.5 mg dose) subcutaneous solution See Instructions, Inject 0.5 mg once a week subquateneously, # 1 pack/packet, 1 Refills, Maintenance, 01/18/21 9:44:00 EDT, [facility] #[id number], Partial fill upon patient request if the prescription is for a schedule II opioid drug., Inject 0.... Start Date: 01/18/21 Status: Ordered riboflavin 400 mg oral capsule 1 capsule = 400 mg, By Mouth, Daily, # 100 capsule, 0 Refills, Maintenance, 07/22/20 12:07:00 EDT, Capsule, [facility] #[id number], Partial fill upon patient request, 170.18, cm, 07/21/20 7:47:00 EDT, Height, 129.7, kg, 01/24/19 18:43:00 EDT, Dry... Start Date: 07/22/20 Status: Ordered sertraline 25 mg oral tablet 1 tablet = 25 mg, By Mouth, Daily, # 30 tablet, 0 Refills, Maintenance, 12/22/20 8:00:00 EDT, Tablet, [facility] #[id number], Partial fill upon patient request if the prescription is for a schedule II opioid drug., 170.18, cm, 12/22/20 7:35:00 ED... Start Date: 12/22/20 Status: Ordered SUMAtriptan 25 mg oral tablet 1 tablet = 25 mg, By Mouth, Once, At onset of headache. May repeat in 2 hours, # 1 tablet, 0 Refills, Soft Stop, 03/08/20 14:57:00 EST, Tablet, [facility] #[id number], Partial fill upon patient request, 170.18, cm, [...]
--- OUTSIDE RECORDS SUMMARY | 2022-08-30 22:26 | XMS_ITS | Continuity of Care Document ---
Author Name Unknown Organization [facility] Cristofer lt Address [address] [place] [address]- Care Team Providers Care Franchise Broker Name Role Phone Jennifer No NP Primary Care Physician Encounter [facility] [place] Date(s): 08/23/20 - 08/30/20 [facility] Adult [address] [place] [address]- Encounter Diagnosis Bilateral nephrolithiasis(Discharge Diagnosis) - 08/23/20 Attending Physician: Jennifer No NP Allergies, Adverse [...] 0 Refills, Maintenance, 07/21/20 8:06:00 EDT, Tablet, [facility] #[id number], Partial fill upon patient request if the prescription is for a schedule II opioi... Start Date: 07/21/20 Status: Ordered Flomax 0.4 mg oral capsule 0.4 mg, 1, capsule, By Mouth, Daily, # 30 capsule, Refills 0, Tot. Refills 0, Maintenance, 217:54:00 EDT, Route to Pharmacy Electronically, [facility] #[id number], Partial fill upon patient request if the [...] 6 Refills, Maintenance, 11/24/20 8:17:00 EDT, Solution, [facility] #[id number], 170.18, cm, 08/23/20 7:31:00 EDT, Height, 129.7, kg, 01/24/19 18:43:00 EDT, Dry Weight Start Date: 11/24/20 Stop Date: 06/22/21 Status: Ordered Lantus Solostar Pen 100 units/mL subcutaneous solution = 20 units, Subcutaneous Injection, Daily, for 30 days, # 3 mL, 6 Refills, Hard Stop 11/24/20 8:17:00 EDT, 04/28/20 8:17:00 EST, Solution, [facility] #[id number], 170.18, cm, 03/17/20 15:55:00 EST, Height, 129.7, kg, 01/24/19 18:43:00 EDT, Dry We... Start Date: 04/28/20 Stop Date: 11/24/20 Status: Ordered MetFORMIN (Eqv-Glucophage XR) 500 mg oral tablet, extended release 1 tablet = 500 mg, By Mouth, 2 times a day, # 180 tablet, 1 Refills, Maintenance, 04/27/20 14:54:00EST, ER Tablet, [facility] #[id number], Partial fill upon patient request if the prescription is for a schedule II opioid drug., 170.18, cm, 03/17... Start Date: 04/27/20 Status: Ordered omeprazole 40 mg oral enteric coated capsule 1 capsule = 40 mg, By Mouth, Daily, # 30 capsule, 3 Refills, Maintenance, 05/18/20 9:41:00 EST, EC Capsule, [facility] #[id number], Partial fill upon patient request if the [...] 0 Refills, Maintenance, 07/22/20 12:07:00 EDT, Capsule, [facility] #[id number], Partial fill upon patient request, 170.18, cm, 07/21/20 7:47:00 EDT, Height, 129.7, kg, 01/24/19 18:43:00 EDT, Dry... Start Date: 07/22/20 Status: Ordered SUMAtriptan 25 mg oral tablet 1 tablet = 25 mg, By Mouth, Once, At onset of headache. May repeat in 2 hours, # 1 tablet, 0 Refills, Soft Stop, 03/08/20 14:57:00 EST, Tablet, [facility] #[id number], Partial fill upon patient request, 170.18, cm, [...] Effective Dates Health Status Clinical Service Informant Bilateral nephrolithiasis Discharge Diagnosis 08/23/20 Procedures Procedure Date Related Diagnosis Body Site Status CT of abdomen and pelvis 1 08/18/[address] of abdomen and pelvis shows1. Mild left hydronephrosis secondary to 3 mm calculus proximal to ureter immediately beyond the ureteral vesicle junction stable L2-L3 2. Punctate nonobstructing right upper pole calculus 1 to 3 mm. No right hydronephrosis. 3. Stable borderline splenomegaly and some stable right mesenteric nodule similar to CT 2018 Vital Signs Most recent to oldest [Reference Range]: 1 Height 170.18 cm (08/23/20 7:31 AM) Weight 136.5 kg (08/23/20 7:31 AM) Oxygen Saturation [94-100 %] 97 % (08/23/20 7:31 AM) Pulse Rate [55-90 bpm] 70 bpm (08/23/20 7:31 AM) Body Mass Index [18.5-24.99] 47.13 *>HHI* (08/23/20 7:31 AM) Blood Pressure [90-138/55-84 mm Hg] 120/ 78mm Hg (08/23/20 7:31 AM) Temperature [96.8-100.4 DegF] 98.1 DegF (08/23/20 7:31 AM) Blood pressure sites Arm, right (08/23/20 7:31 AM) Temperature Route Oral (08/23/20 7:31 AM) Social History Social History Type Response Smoking Status Never smoker entered on: 08/23/15 Sex
--- OUTSIDE RECORDS SUMMARY | 2022-08-30 22:26 | XMS_ITS | Continuity of Care Document ---
Author Name Unknown Organization [facility] Cristofer lt Address [address] [place] [address]- Care Team Providers Care Wealth Management Consultant Name Role Phone Jennifer No NP Primary Care Physician [place] [facility] [place] 11/19[place]20 [place] 11/26/20 [facility] Adult [address] [place] [address]- Encounter Diagnosis Right foot pain(Discharge Diagnosis) - 11/19/20 Attending Physician: Jennifer No NP Allergies, Adverse [...] Refuses 1Result Comment: [facility]: 39504-816-28 2Result Comment: von 3Admin Note: vis 10/24/2006 [...] 6 Refills, Maintenance, 11/24/20 8:17:00 EDT, Solution, [facility] #[id number], 170.18, cm, 08/23/20 7:31:00 EDT, Height, 129.7, kg, 01/24/19 18:43:00 EDT, Dry Weight Start Date: 11/24/20 Stop Date: 06/22/21 Status: Ordered MetFORMIN (Eqv-Glucophage XR) 500 mg oral tablet, extended release 1 tablet = 500 mg, By Mouth, 2 times a day, # 180 tablet, 1 Refills, Maintenance, 11/09/20 14:32:00EDT, ER Tablet, [facility] #[id number], Partial fill upon patient request if the prescription is for a schedule II opioid drug., 170.18, cm, 10/15... Start Date: 11/09/20 Status: Ordered omeprazole 40 mg oral enteric coated capsule 1 capsule = 40 mg, By Mouth, Daily, further refills require an office visit. please call to schedule, # 30 capsule, 0 Refills, Maintenance, 10/04/20 15:49:00 EDT, EC Capsule, [facility] #[id number], Partial fill upon patient request if the prescr... Start Date: 10/04/20 Status: Ordered Ozempic 2 mg/1.5 mL (0.25 mg or 0.5 mg dose) subcutaneous solution See Instructions, 0.25 subcutaneous once weekly for 4 weeks, then 0.5 mg subcutaneous once weekly, # 1 pack/packet, 0 Refills, Maintenance, 10/15/20 7:38:00 EDT, [facility] #[id number], Partial fill upon patient request if the prescription is for... Start Date: 10/15/20 Status: Ordered riboflavin 400 mg oral capsule 1 capsule = 400 mg, By Mouth, Daily, # 100 capsule, 0 Refills, Maintenance, 07/22/20 12:07:00 EDT, Capsule, [facility] #[id number], Partial fill upon patient request, 170.18, cm, 07/21/20 7:47:00 EDT, Height, 129.7, kg, 01/24/19 18:43:00 EDT, Dry... Start Date: 07/22/20 Status: Ordered SUMAtriptan 25 mg oral tablet 1 tablet = 25 mg, By Mouth, Once, At onset of headache. May repeat in 2 hours, # 1 tablet, 0 Refills, Soft Stop, 03/08/20 14:57:00 EST, Tablet, [facility] #[id number], Partial fill upon patient request, 170.18, cm, [...] Dates Health Status Cl inical Service Informant Right foot pain Discharge Diagnosis 11/19/20 Vital Signs Most recent to oldest [Reference Range]: 1 Height 170.18 cm (11/19/20 8:45 AM) Weight 132.5 kg (11/19/20 8:45 AM) Oxygen Saturation [94-100 %] 98 % (11/19/20 8:45 AM) Pulse Rate [55-90 bpm] 72 bpm (11/19/20 8:45 AM) Body Mass Index [18.5-24.99] 45.75 *>HHI* (11/19/20 8:45 AM) Blood Pressure [90-138/55-84 mm Hg] 118/ 72mm Hg (11/19/20 8:45 AM) Temperature [96.8-100.4 DegF] 98.4 DegF (11/19/20 8:45 AM) Blood pressure sites Arm, right (11/19/20 8:45 AM) Social History Social History Type Response Smoking Status Never smoker entered on: 08/23/15 Sex
--- OUTSIDE RECORDS SUMMARY | 2022-08-30 22:26 | XMS_ITS | Continuity of Care Document ---
Author Name Unknown Organization [facility] Cristofer lt Address [address] [place] [address]- Care Team Providers Care Cop Examiner Name Role Phone Nenita Smith Primary Care Physician Encounter [facility] Date(s): 01/12/20 - 02/11/20 [facility] Adult [address] [place] [address]- [facility] Allergies, Adverse Reactions, Alerts Substance Reaction Severity Status NKA Active Immunizations Given and Recorded Vaccine Date Status Refusal Reason influenza virus vaccine, inactivated 03/06/18 Give n Hepatitis B Vaccine (old term) 1 11/04/09 Given Hepatitis B Vaccine (old term) 2 92 Given Hepatitis B Vaccine (old term) 3 92 Given Hepatitis B Vaccine (old term) 4 92 Given Varicella Virus Vaccine 5 10/25/09 Given Varicella Virus Vaccine 6 10/06/93 Given Meningococcal Conjugate Vaccine 7 10/15/09 Given Tet/Diphth/Acel, Pertussis (oldterm) 8 10/22/08 Gi tom Human Papillomavirus Vaccine 9 10/21/07 Given Human Papillomavirus Vaccine 10 06/21/07 Given Human Papillomavirus Vaccine 11 04/22/07 Given Miscellaneous Vaccine 12 01/27/98 Given Miscellaneous Vaccine 13 08/06/93 Given Miscellaneous Vaccine 14 92 Given Miscellaneous Vaccine 15 92 Given Diphth/Pertussis,Acel/Tetanus (oldterm) 01/27/98 G iven Diphth/Pertussis,Acel/Tetanus (oldterm) 16 08/06/93 Given Diphth/Pertussis,Acel/Tetanus (oldterm) 17 92 Given Diphth/Pertussis,Acel/Tetanus (oldterm) 18 92 Given Diphth/Pertussis,Acel/Tetanus (oldterm) 19 92 Given Measles/Mumps/Rubella Virus Vaccine 20 01/06/97 Gi tom Measles/Mumps/Rubella Virus Vaccine 21 04/07/93 Gi tom Haemophilus B Conj Vaccine (oldterm) 22 08/06/93 G iven Haemophilus B Conj Vaccine (oldterm) 23 92 G iven Haemophilus B Conj Vaccine (oldterm) 24 92 G iven Haemophilus B Conj Vaccine (oldterm) 25 92 G iven Not Given Vaccine Date Status Refusal Reason pneumococcal 23-valent vaccine 01/25/19 Not Given Parent Or Guardian Refuses 1Admin Note: vis 10/24/2006 2Admin Note: DAY UNKNOWN 3Admin Note: DAY UNKNOWN 4Admin Note: DAY UNKNOWN 5Admin Note: VIS DATED 06/20/2007 GIVEN. 6Admin Note: DAY UNKNOWN 7Admin Note: VIS DATED 05/06/2007 8Admin Note: vis 11.18.08 given 9Admin Note: GARDASIL VIS 05/11/06 10Admin Note: BILL #2 VIS 05/11/06 11Admin Note: GARDASIL #1 12Admin Note: oral polio 13Admin Note: oral polio, DAY UNKNOWN 14Admin Note: oral polio, DAY UNKNOWN 15Admin Note: oral polio, DAY UNKNOWN 16Admin Note: DAY UNKNOWN 17Admin Note: DAY UNKNOWN 18Admin Note: DAY UNKNOWN 19Admin Note: DAY UNKNOWN 20Admin Note: DAY UNKNOWN 21Admin Note: DAY UNKNOWN 22Admin Note: DAY UNKNOWN 23Admin Note: DAY UNKNOWN 24Admin Note: DAY UNKNOWN 25Admin Note: DAY UNKNOWN Medications Free Style Lite [...] Date: 01/25/19 Stop Date: 02/24/19 Status: Ordered Test strips 100 Test strips 100, See Instructions, # 1 box, Refills 0, Tot. Refills 0, Maintenance, Test strips 100test blood sugar 4 times a day change as need the device type, 01/25/19 12:10:59 EDT, Compound Start Date: 01/25/19 Status: Ordered Problem List Condition Effective Dates Status Health Status Inform ant Acne vulgaris(Confirmed) Active DKA (diabetic ketoacidosis)(Confirmed) Active Exogenous obesity(Confirmed)(Worsening) Active Migraine - infrequent(Confirmed)(Improving) Active Myopia(Confirmed) 10/22/04 Active Seasonal allergic conjunctiv itis and rhinitis(Confirmed) 10/07/08 Active Social History Social History Type Response Smoking Status Never smoker entered on: 08/23/15 Sex
--- OUTSIDE RECORDS SUMMARY | 2022-08-30 22:26 | XMS_ITS | Continuity of Care Document ---
Author Name Unknown Organization [facility] Cristofer lt Address [address] [place] [address]- Care Team Providers Care Pound Keeper Name Role Phone Fidelia Cordova NP Primary Care Physician [place] [facility] [place](s): 11/28/21 - 12/05/21 [facility] Adult [address] [place] [address]- Attending Physician: Not on Staff, Attending MD Allergies, Adverse Reactions, Alerts No Known [...] Refuses 1Result Comment: [facility]: [id number] 2Result Comment: von 3Admin Note: vis 10/24/2006 [...] 0 Refills, Maintenance, 10/04/21 14:28:00 EDT, Ointment, [facility]/pharmacy #[id number], Partial fill upon patient request if the prescription is for a schedule II opioid drug., 1 application Topically 2 times a d... Start Date: 10/04/21 Status: Ordered escitalopram 5 mg oral tablet 1 tablet = 5 mg, By Mouth, Daily, # 30 tablet, 5 Refills, Maintenance, 08/22/21 7:58:00 EDT, Tablet, [facility]/pharmacy #[id number], Partial fill upon patient request [...] Refills, Maintenance, 08/04/21 10:40:00 EDT, ER Tablet, [facility]/pharmacy #[id number], Partial fill upon patient request if the prescription is for a schedule II opioid drug., 170.... Start Date: 08/04/21 Status: Ordered omeprazole 40 mg oral enteric coated capsule 1 capsule = 40 mg, By Mouth, Daily, # 30 capsule, 2 Refills, Maintenance, 05/31/21 14:22:00 EST, ECCapsule, [facility] #[id number], Partial fill upon patient request if the prescription is for a schedule II opioid drug., 170.18, cm, 05/24/21 8:1... Start Date: 05/31/21 Status: Ordered Ozempic (1 mg dose) 4 mg/3 mL subcutaneous solution = 1 mg, Subcutaneous Infusion, Every 7 days, # 3 pack/packet, 4 Refills, Maintenance, 09/16/21 14:38:00 EDT, [facility]/pharmacy #[id number], Partial fill upon patient request if the prescription is for a schedule II opioid drug., 170.18, cm, 08/22/21 7:33:00 EDT,... Start Date: 09/16/21 Stop Date: 02/03/22 Status: Ordered propranolol 80 mg oral capsule, extended release 80 mg, 1, capsule, By Mouth, Daily, # 30 capsule, Refills 5, Tot. Refills 5, Maintenance, 08/22/21 8:04:00 EDT, Route to Pharmacy Electronically, [facility]/pharmacy #[id number], Partial fill upon patient requestif the prescription is for a schedule II opioid darian... Start Date: 08/22/21 Status: Ordered riboflavin 400 mg oral capsule 1 capsule = 400 mg, By Mouth, Daily, # 100 capsule, 0 Refills, Maintenance, 06/19/21 17:00:00 EDT, Capsule, [facility] #[id number], Partial fill upon patient request, 170.18, cm, [...] Active T2DM (type 2 diabetes mellitus)(Confirmed) Active Vital Signs Most recent to oldest [Reference Range]: 1 Height 170.18 cm (11/28/21 7:49 AM) Weight 125.8 kg (11/28/21 7:49 AM) Oxygen Saturation [94-100 %] 100 % (11/28/21 7:49 AM) Pulse Rate [55-90 bpm] 83 bpm (11/28/21 7:49 AM) Body Mass Index [18.5-24.99] 43.44 *>HHI* (11/28/21 7:49 AM) Blood Pressure [90-138/55-84 mm Hg] 123/ 65mm Hg (11/28/21 7:49 AM) Blood pressure sites Arm, right (11/28/21 7:49 AM) Weight Obtained Via Standing scale (11/28/21 7:49 AM) Social History Social History Type Response Smoking Status Never smoker entered on: 08/23/15 Sex Care Team Personnel Name: Fidelia Cordova NP Address: [address] [place] [address] [place], [place] [address]
--- OUTSIDE RECORDS SUMMARY | 2022-08-30 22:26 | XMS_ITS | Continuity of Care Document ---
Author Name Unknown Organization [facility] Cristofer lt Address [address] [place] [address]- Care Team Providers Care Grips Name Role Phone Marybel ONEAL, Jennifer Primary Care Physician Encounter [facility] Date(s): 12/08/20 - 01/07/21 [facility] Adult [address] [place] [address]- Allergies, Adverse Reactions, Alerts Substance Reaction Severity [...] Given Parent Or Guardian Refuses 1Result Comment: [facility]: [id number] 2Result Comment: von 3Admin Note: vis 10/24/2006 [...] 0 Refills, Maintenance, 12/22/20 9:42:00 EDT, [id number], Partial fill upon patient request if the [...] 6 Refills, Maintenance, 11/24/20 8:17:00 EDT, Solution, [facility] #[id number], 170.18, cm, 08/23/20 7:31:00 EDT, Height, 129.7, kg, 01/24/19 18:43:00 EDT, Dry Weight Start Date: 11/24/20 Stop Date: 06/22/21 Status: Ordered MetFORMIN (Eqv-Glucophage XR) 500 mg oral tablet, extended release 1 tablet = 500 mg, By Mouth, 2 times a day, # 180 tablet, 1 Refills, Maintenance, 11/09/20 14:32:00EDT, ER Tablet, [facility] #[id number], Partial fill upon patient request if the prescription is for a schedule II opioid drug., 170.18, cm, 10/15... Start Date: 11/09/20 Status: Ordered omeprazole 40 mg oral enteric coated capsule 1 capsule = 40 mg, By Mouth, Daily, further refills require an office visit. please call to schedule, # 30 capsule, 0 Refills, Maintenance, 10/04/20 15:49:00 EDT, EC Capsule, [facility] #[id number], Partial fill upon patient request if the prescr... Start Date: 10/04/20 Status: Ordered Ozempic 2 mg/1.5 mL (0.25 mg or 0.5 mg dose) subcutaneous solution See Instructions, 0.25 subcutaneous once weekly for 4 weeks, then 0.5 mg subcutaneous once weekly, # 1 pack/packet, 0 Refills, Maintenance, 10/15/20 7:38:00 EDT, [facility] #[id number], Partial fill upon patient request if the prescription is for... Start Date: 10/15/20 Status: Ordered riboflavin 400 mg oral capsule 1 capsule = 400 mg, By Mouth, Daily, # 100 capsule, 0 Refills, Maintenance, 07/22/20 12:07:00 EDT, Capsule, [facility] #[id number], Partial fill upon patient request, 170.18, cm, 07/21/20 7:47:00 EDT, Height, 129.7, kg, 01/24/19 18:43:00 EDT, Dry... Start Date: 07/22/20 Status: Ordered sertraline 25 mg oral tablet 1 tablet = 25 mg, By Mouth, Daily, # 30 tablet, 0 Refills, Maintenance, 12/22/20 8:00:00 EDT, Tablet, [facility] #[id number], Partial fill upon patient request if the prescription is for a schedule II opioid drug., 170.18, cm, 12/22/20 7:35:00 ED... Start Date: 12/22/20 Status: Ordered SUMAtriptan 25 mg oral tablet 1 tablet = 25 mg, By Mouth, Once, At onset of headache. May repeat in 2 hours, # 1 tablet, 0 Refills, Soft Stop, 03/08/20 14:57:00 EST, Tablet, [facility] #[id number], Partial fill upon patient request, 170.18, cm, [...]
--- OUTSIDE RECORDS SUMMARY | 2022-08-30 22:26 | XMS_ITS | Continuity of Care Document ---
Author Name Unknown Organization [facility] Cristofer lt Address [address] [place] [address]- Care Team Providers Care Merchandise Presentation Manager Name Role Phone Art ONEAL, Fidelia Good Primary Care Physician [phone] Encounter [facility] Date(s): 10/06/21 - 12/07/21 [facility] Adult [address] [place] [address]- Attending Physician: Fidelia Cordova NP Referring Physician: Meenakshi OLEARY, Miguel Bowser Allergies, Adverse Reactions, Alerts No Known Allergies [...] Parent Or Guardian Refuses 1Result Comment: [facility]: [id number] 2Result Comment: von 3Admin Note: vis 10/24/2006 [...] 0 Refills, Maintenance, 10/04/21 14:28:00 EDT, Ointment, [facility]/pharmacy #[id number], Partial fill upon patient request if the prescription is for a schedule II opioid drug., 1 application Topically 2 times a d... Start Date: 10/04/21 Status: Ordered escitalopram 5 mg oral tablet 1 tablet = 5 mg, By Mouth, Daily, # 30 tablet, 5 Refills, Maintenance, 08/22/21 7:58:00 EDT, Tablet, [facility]/pharmacy #[id number], Partial fill upon patient [...] Refills, Maintenance, 08/04/21 10:40:00 EDT, ER Tablet, [facility]/pharmacy #[id number], Partial fill upon patient request if the prescription is for a schedule II opioid drug., 170.... Start Date: 08/04/21 Status: Ordered omeprazole 40 mg oral enteric coated capsule 1 capsule = 40 mg, By Mouth, Daily, # 30 capsule, 2 Refills, Maintenance, 05/31/21 14:22:00 EST, ECCapsule, [facility] #[id number], Partial fill upon patient request if the prescription is for a schedule II opioid drug., 170.18, cm, 05/24/21 8:1... Start Date: 05/31/21 Status: Ordered Ozempic (1 mg dose) 4 mg/3 mL subcutaneous solution = 1 mg, Subcutaneous Infusion, Every 7 days, # 3 pack/packet, 4 Refills, Maintenance, 09/16/21 14:38:00 EDT, [facility]/pharmacy #[id number], Partial fill upon patient request if the prescription is for a schedule II opioid drug., 170.18, cm, 08/22/21 7:33:00 EDT,... Start Date: 09/16/21 Stop Date: 02/03/22 Status: Ordered propranolol 80 mg oral capsule, extended release 80 mg, 1, capsule, By Mouth, Daily, # 30 capsule, Refills 5, Tot. Refills 5, Maintenance, 08/22/21 8:04:00 EDT, Route to Pharmacy Electronically, [facility]/pharmacy #[id number], Partial fill upon patient requestif the prescription is for a schedule II opioid darian... Start Date: 08/22/21 Status: Ordered riboflavin 400 mg oral capsule 1 capsule = 400 mg, By Mouth, Daily, # 100 capsule, 0 Refills, Maintenance, 06/19/21 17:00:00 EDT, Capsule, [facility] #[id number], Partial fill upon patient request, 170.18, cm, [...] Team Personnel Name: Fidelia Cordova NP Address: [address] [place] [id number]
--- OUTSIDE RECORDS SUMMARY | 2022-08-30 22:26 | XMS_ITS | Continuity of Care Document ---
Author Name Unknown Organization [facility] Shabbir Holguin Cristofer lt Address [address] [place] [address]- Care Team Providers Care Bi Application Developer Name Role Phone Marybel ONEAL, Jennifer Primary Care Physician Encounter [facility] [place] Date(s): 05/10/20 - 05/17/20 [facility] Adult [address] [place] [address]- Encounter Diagnosis Immunization counseling(Discharge Diagnosis) - 05/10/20 Attending Physician: Jennifer No NP Allergies, Adverse [...] 6 Refills, Maintenance, 04/28/20 8:17:00 EST, Solution, [facility] #[id number], 170.18, cm, 03/17/20 15:55:00 EST, Height, 129.7, kg, 01/24/19 18:43:00 EDT, Dry Weight Start Date: 04/28/20 Stop Date: 11/24/20 Status: Ordered MetFORMIN (Eqv-Glucophage XR) 500 mg oral tablet, extended release 1 tablet = 500 mg, By Mouth, 2 times a day, # 180 tablet, 1 Refills, Maintenance, 04/27/20 14:54:00EST, ER Tablet, [facility] #[id number], Partial fill upon patient request if the prescription is for a schedule II opioid drug., 170.18, cm, 03/17... Start Date: 04/27/20 Status: Ordered omeprazole 40 mg oral enteric coated capsule 1 capsule = 40 mg, By Mouth, Daily, # 30 capsule, 0 Refills, Maintenance, 04/15/20 14:16:00 EST, ECCapsule, [facility] #[id number], Partial fill upon patient request if the prescription is for a schedule II opioid drug., 170.18, cm, 03/17/20 15:... Start Date: 04/15/20 Status: Ordered riboflavin 400 mg oral capsule 1 capsule = 400 mg, By Mouth, Daily, # 100 capsule, 0 Refills, Maintenance, 04/13/20 11:39:00 EST, Capsule, [facility] #[id number], Partial fill upon patient request, 170.18, cm, 03/17/20 15:55:00 EST, Height, 129.7, kg, 01/24/19 18:43:00 EDT, . Start Date: 04/13/20 Status: Ordered SUMAtriptan 25 mg oral tablet 1 tablet = 25 mg, By Mouth, Once, At onset of headache. May repeat in 2 hours, # 1 tablet, 0 Refills, Soft Stop, 03/08/20 14:57:00 EST, Tablet, [facility] #[id number], Partial fill upon patient request, 170.18, cm, [...] Effective Dates Health Status Clinical Service Informant Immunization counseling Discharge Diagnosis 05/10/20 Vital Signs Most recent to oldest [Reference Range]: 1 Height 170.18 cm (05/10/20 9:01 AM) Social History Social History Type Response Smoking Status Never smoker entered on: 08/23/15 Sex
--- OUTSIDE RECORDS SUMMARY | 2022-08-30 22:26 | XMS_ITS | Continuity of Care Document ---
Author Name Unknown Organization [facility] Address [address] [place] [address]- Care Team Providers Care Tongue Carrier Name Role Phone Art ONEAL, Fidelia Good Primary Care Physician [place] [facility] [place] Date(s): 05/26/21 - 06/25/[address] [address] Attending Physician: Katie Pineda Admitting Physician: AdmtrKatie Referring Physician: Admtr, ArLaurie Allergies, Adverse Reactions, Alerts No Known Allergies [...] Given Parent Or Guardian Refuses 1Result Comment: [facility]: [id number] 2Result Comment: von 3Admin Note: vis 10/24/2006 [...] 0 Refills, Maintenance, 05/11/21 10:06:00 EST, Ointment, [facility] #[id number], Partial fill upon patient request if the [...] 1 Refills, Maintenance, 04/15/21 19:59:00EST, ER Tablet, [facility] #[id number], Partial fill upon patient request if the prescription is for a schedule II opioid drug., 170.18, cm, 03/31... Start Date: 04/15/21 Status: Ordered omeprazole 40 mg oral enteric coated capsule 1 capsule = 40 mg, By Mouth, Daily, # 30 capsule, 2 Refills, Maintenance, 05/31/21 14:22:00 EST, ECCapsule, [facility] #[id number], Partial fill upon patient request if the prescription is for a schedule II opioid drug., 170.18, cm, 05/24/21 8:1... Start Date: 05/31/21 Status: Ordered Ozempic (1 mg dose) 4 mg/3 mL subcutaneous solution = 1 mg, Subcutaneous Infusion, Every 7 days, # 1 pack/packet, 6 Refills, Maintenance, 05/13/21 15:01:00 EST, [facility] #[id number], Partial fill upon patient request if the prescription is for a schedule II opioid drug., 170.18, cm, 03/31/21 7:4... Start Date: 05/13/21 Stop Date: 11/25/21 Status: Ordered riboflavin 400 mg oral capsule 1 capsule = 400 mg, By Mouth, Daily, # 100 capsule, 0 Refills, Maintenance, 06/19/21 17:00:00 EDT, Capsule, [facility] #[id number], Partial fill upon patient request, 170.18, cm, 05/24/21 8:16:00 EST, Height, 132.5, kg, 09/01/20 13:04:00 EDT, Dry... Start Date: 06/19/21 Status: Ordered sertraline 25 mg oral tablet 1 tablet = 25 mg, By Mouth, Daily, # 90 tablet, 0 Refills, Maintenance, 05/24/21 8:33:00 EST, Tablet, [facility] #[id number], Partial fill upon patient request if the prescription is for a schedule II opioid drug., 170.18, cm, 05/24/21 8:16:00 ES... Start Date: 05/24/21 Status: Ordered SUMAtriptan 25 mg oral tablet 1 tablet = 25 mg, By Mouth, Once, At onset of headache. May repeat in 2 hours, # 1 tablet, 0 Refills, Soft Stop, 03/08/20 14:57:00 EST, Tablet, [facility] #[id number], Partial fill upon patient request, 170.18, cm, [...]
--- OUTSIDE RECORDS SUMMARY | 2022-08-30 22:26 | XMS_ITS | Continuity of Care Document ---
Author Name Unknown Organization [facility] Cristofer lt Address [address] [place] [address]- Care Team Providers Care Flat Folding Machine Operator Name Role Phone Jennifer No NP Primary Care Physician Encounter [facility] [place] Date(s): 03/31/21 - 04/07/21 [facility] Adult [address] [place] [address]- Encounter Diagnosis Bilateral wrist pain(Discharge Diagnosis) - 03/31/21 Attending Physician: Not on Staff, Attending MD Allergies, Adverse Reactions, Alerts Substance Reaction Severity [...] Parent Or Guardian Refuses 1Result Comment: [facility]: [id number] 2Result Comment: von 3Admin Note: vis 10/24/2006 [...] 0 Refills, Maintenance, 12/22/20 9:42:00 EDT, Ointment, [facility] #[id number], Partial fill upon patient request if the [...] 6 Refills, Maintenance, 11/24/20 8:17:00 EDT, Solution, [facility] #[id number], 170.18, cm, 08/23/20 7:31:00 EDT, Height, 129.7, kg, 01/24/19 18:43:00 EDT, Dry Weight Start Date: 11/24/20 Stop Date: 06/22/21 Status: Ordered MetFORMIN (Eqv-Glucophage XR) 500 mg oral tablet, extended release 1 tablet = 500 mg, By Mouth, 2 times a day, # 180 tablet, 1 Refills, Maintenance, 11/09/20 14:32:00EDT, ER Tablet, [facility] #[id number], Partial fill upon patient request if the prescription is for a schedule II opioid drug., 170.18, cm, 10/15... Start Date: 11/09/20 Status: Ordered omeprazole 40 mg oral enteric coated capsule 1 capsule = 40 mg, By Mouth, Daily, # 30 capsule, 1 Refills, Maintenance, 04/07/21 10:58:00 EST, ECCapsule, [facility] #[id number], Partial fill upon patient request if the prescription is for a schedule II opioid drug., 170.18, cm, 03/31/21 7:4... Start Date: 04/07/21 Status: Ordered Ozempic 2 mg/1.5 mL (0.25 mg or 0.5 mg dose) subcutaneous solution See Instructions, Inject 0.5 mg once a week subquateneously, # 1 pack/packet, 1 Refills, Maintenance, 01/18/21 9:44:00 EDT, [facility] #[id number], Partial fill upon patient request if the prescription is for a schedule II opioid drug., Inject 0.... Start Date: 01/18/21 Status: Ordered riboflavin 400 mg oral capsule 1 capsule = 400 mg, By Mouth, Daily, # 100 capsule, 0 Refills, Maintenance, 07/22/20 12:07:00 EDT, Capsule, [facility] #[id number], Partial fill upon patient request, 170.18, cm, 07/21/20 7:47:00 EDT, Height, 129.7, kg, 01/24/19 18:43:00 EDT, Dry... Start Date: 07/22/20 Status: Ordered sertraline 25 mg oral tablet 1 tablet = 25 mg, By Mouth, Daily, # 30 tablet, 0 Refills, Maintenance, 12/22/20 8:00:00 EDT, Tablet, [facility] #[id number], Partial fill upon patient request if the prescription is for a schedule II opioid drug., 170.18, cm, 12/22/20 7:35:00 ED... Start Date: 12/22/20 Status: Ordered SUMAtriptan 25 mg oral tablet 1 tablet = 25 mg, By Mouth, Once, At onset of headache. May repeat in 2 hours, # 1 tablet, 0 Refills, Soft Stop, 03/08/20 14:57:00 EST, Tablet, [facility] #[id number], Partial fill upon patient request, 170.18, cm, [...] Dates Health Status Cl inical Service Informant Bilateral wrist pain Discharge Diagnosis 03/31/21 Vital Signs Most recent to oldest [Reference Range]: 1 Height 170.18 cm (03/31/21 7:48 AM) Weight 128.2 kg (03/31/21 7:48 AM) Oxygen Saturation [94-100 %] 99 % (03/31/21 7:48 AM) Pulse Rate [55-90 bpm] 93 bpm *H* (03/31/21 7:48 AM) Body Mass Index [18.5-24.99] 44.27 *>HHI* (03/31/21 7:48 AM) Blood Pressure [90-138/55-84 mm Hg] 122/ 68mm Hg (03/31/21 7:48 AM) Temperature [96.8-100.4 DegF] 97.8 DegF (03/31/21 7:48 AM) Mode of Delivery (Oxygen) Room air (03/31/21 7:48 AM) Blood pressure sites Arm, right (03/31/21 7:48 AM) Temperature Route Oral (03/31/21 7:48 AM) Weight Obtained Via Standing scale (03/31/21 7:48 AM) Social History Social History Type Response Smoking Status Never smoker entered on: 08/23/15 Sex
--- OUTSIDE RECORDS SUMMARY | 2022-08-30 22:26 | XMS_ITS | Continuity of Care Document ---
Author Name Unknown Organization [facility] Cristofer lt Address [address] [place] [address]- Care Team Providers Care Dramatic Coach Name Role Phone Marybel ONEAL, Jennifer Primary Care Physician Encounter [facility] Date(s): 10/21/20 - 11/20/20 [facility] Adult [address] [place] [address]- Allergies, Adverse Reactions, Alerts Substance Reaction Severity [...] Given Parent Or Guardian Refuses 1Result Comment: [facility]: [id number] 2Result Comment: von 3Admin Note: vis 10/24/2006 [...] 6 Refills, Maintenance, 11/24/20 8:17:00 EDT, Solution, [facility] #[id number], 170.18, cm, 08/23/20 7:31:00 EDT, Height, 129.7, kg, 01/24/19 18:43:00 EDT, Dry Weight Start Date: 11/24/20 Stop Date: 06/22/21 Status: Ordered Lantus Solostar Pen 100 units/mL subcutaneous solution = 20 units, Subcutaneous Injection, Daily, for 30 days, # 3 mL, 6 Refills, Hard Stop 11/24/20 8:17:00 EDT, 04/28/20 8:17:00 EST, Solution, [facility] #[id number], 170.18, cm, 03/17/20 15:55:00 EST, Height, 129.7, kg, 01/24/19 18:43:00 EDT, Dry We... Start Date: 04/28/20 Stop Date: 11/24/20 Status: Ordered MetFORMIN (Eqv-Glucophage XR) 500 mg oral tablet, extended release 1 tablet = 500 mg, By Mouth, 2 times a day, # 180 tablet, 1 Refills, Maintenance, 11/09/20 14:32:00EDT, ER Tablet, [facility] #[id number], Partial fill upon patient request if the prescription is for a schedule II opioid drug., 170.18, cm, 10/15... Start Date: 11/09/20 Status: Ordered omeprazole 40 mg oral enteric coated capsule 1 capsule = 40 mg, By Mouth, Daily, further refills require an office visit. please call to schedule, # 30 capsule, 0 Refills, Maintenance, 10/04/20 15:49:00 EDT, EC Capsule, [facility] #[id number], Partial fill upon patient request if the prescr... Start Date: 10/04/20 Status: Ordered Ozempic 2 mg/1.5 mL (0.25 mg or 0.5 mg dose) subcutaneous solution See Instructions, 0.25 subcutaneous once weekly for 4 weeks, then 0.5 mg subcutaneous once weekly, # 1 pack/packet, 0 Refills, Maintenance, 10/15/20 7:38:00 EDT, [facility] #[id number], Partial fill upon patient request if the prescription is for... Start Date: 10/15/20 Status: Ordered riboflavin 400 mg oral capsule 1 capsule = 400 mg, By Mouth, Daily, # 100 capsule, 0 Refills, Maintenance, 07/22/20 12:07:00 EDT, Capsule, [facility] #[id number], Partial fill upon patient request, 170.18, cm, 07/21/20 7:47:00 EDT, Height, 129.7, kg, 01/24/19 18:43:00 EDT, Dry... Start Date: 07/22/20 Status: Ordered SUMAtriptan 25 mg oral tablet 1 tablet = 25 mg, By Mouth, Once, At onset of headache. May repeat in 2 hours, # 1 tablet, 0 Refills, Soft Stop, 03/08/20 14:57:00 EST, Tablet, [facility] #[id number], Partial fill upon patient request, 170.18, cm, [...]
--- OUTSIDE RECORDS SUMMARY | 2022-08-30 22:26 | XMS_ITS | Continuity of Care Document ---
Author Name Unknown Organization [facility] Address [address] [place] [address]- Care Team Providers Care Product Safety Technician Name Role Phone Jennifer No NP Primary Care Physician Encounter [facility] [place] Date(s): 09/01/20 - 09/08/20 [facility] [address] [place] [address]- Attending Physician: Mickey Hendrix DO Admitting Physician: Mickey Hendrix DO Referring Physician: Jennifer No NP Allergies, Adverse [...] 0 Refills, Maintenance, 07/21/20 8:06:00 EDT, Tablet, [facility] #[id number], Partial fill upon patient request if the prescription is for a schedule II opioi... Start Date: 07/21/20 Status: Ordered Flomax 0.4 mg oral capsule 0.4 mg, 1, capsule, By Mouth, Daily, # 30 capsule, Refills 0, Tot. Refills 0, Maintenance, 217:54:00 EDT, Route to Pharmacy Electronically, [facility] #[id number], Partial fill upon patient request if the [...] 6 Refills, Maintenance, 11/24/20 8:17:00 EDT, Solution, [facility] #[id number], 170.18, cm, 08/23/20 7:31:00 EDT, Height, 129.7, kg, 01/24/19 18:43:00 EDT, Dry Weight Start Date: 11/24/20 Stop Date: 06/22/21 Status: Ordered Lantus Solostar Pen 100 units/mL subcutaneous solution = 20 units, Subcutaneous Injection, Daily, for 30 days, # 3 mL, 6 Refills, Hard Stop 11/24/20 8:17:00 EDT, 04/28/20 8:17:00 EST, Solution, [facility] #[id number], 170.18, cm, 03/17/20 15:55:00 EST, Height, 129.7, kg, 01/24/19 18:43:00 EDT, Dry We... Start Date: 04/28/20 Stop Date: 11/24/20 Status: Ordered MetFORMIN (Eqv-Glucophage XR) 500 mg oral tablet, extended release 1 tablet = 500 mg, By Mouth, 2 times a day, # 180 tablet, 1 Refills, Maintenance, 04/27/20 14:54:00EST, ER Tablet, [facility] #[id number], Partial fill upon patient request if the prescription is for a schedule II opioid drug., 170.18, cm, 03/17... Start Date: 04/27/20 Status: Ordered omeprazole 40 mg oral enteric coated capsule 1 capsule = 40 mg, By Mouth, Daily, # 30 capsule, 3 Refills, Maintenance, 05/18/20 9:41:00 EST, EC Capsule, [facility] #[id number], Partial fill upon patient request if the [...] 0 Refills, Maintenance, 07/22/20 12:07:00 EDT, Capsule, [facility] #[id number], Partial fill upon patient request, 170.18, cm, 07/21/20 7:47:00 EDT, Height, 129.7, kg, 01/24/19 18:43:00 EDT, Dry... Start Date: 07/22/20 Status: Ordered SUMAtriptan 25 mg oral tablet 1 tablet = 25 mg, By Mouth, Once, At onset of headache. May repeat in 2 hours, # 1 tablet, 0 Refills, Soft Stop, 03/08/20 14:57:00 EST, Tablet, [facility] #[id number], Partial fill upon patient request, 170.18, cm, [...] oldest [Reference Range]: 1 Height 170.18 cm (09/01/20 1:04 PM) Weight 132.5 kg (09/01/20 1:04 PM) Oxygen Saturation [94-100 %] 97 % (09/01/20 1:04 PM) Pulse Rate [55-90 bpm] 87 bpm (09/01/20 1:04 PM) Body Mass Index [18.5-24.99] 45.75 *>HHI* (09/01/20 1:04 PM) Blood Pressure [90-138/55-84 mm Hg] 143/ 89mm Hg *H* (09/01/20 1:04 PM) Temperature [96.8-100.4 DegF] 98.1 DegF (09/01/20 1:04 PM) Blood pressure sites Arm, right (09/01/20 1:04 PM) Temperature Route Temporal (09/01/20 1:04 PM) Dry Weight 132.5 kg (09/01/20 1:04 PM) Weight Obtained Via Standing scale (09/01/20 1:04 PM) Dry Weight Obtained Via Standing scale (09/01/20 1:04 PM) Social History Social History Type Response Smoking Status Never smoker entered on: 08/23/15 Sex
--- OUTSIDE RECORDS SUMMARY | 2022-08-30 22:26 | XMS_ITS | Continuity of Care Document ---
Author Name Unknown Organization [facility] Address [address] [place] [address]- Care Team Providers Care Ham Pumper Name Role Phone Marybel ONEAL, Jennifer Primary Care Physician Encounter [facility] Date(s): 03/30/21 - 04/29/21 [facility] Adult [address] [place] [address]- Allergies, Adverse Reactions, Alerts No Known Allergies [...] Given Parent Or Guardian Refuses 1Result Comment: [facility]: [id number] 2Result Comment: von 3Admin Note: vis 10/24/2006 [...] 0 Refills, Maintenance, 12/22/20 9:42:00 EDT, Ointment, [facility] #[id number], Partial fill upon patient request if the [...] 6 Refills, Maintenance, 11/24/20 8:17:00 EDT, Solution, [facility] #[id number], 170.18, cm, 08/23/20 7:31:00 EDT, Height, 129.7, kg, 01/24/19 18:43:00 EDT, Dry Weight Start Date: 11/24/20 Stop Date: 06/22/21 Status: Ordered MetFORMIN (Eqv-Glucophage XR) 500 mg oral tablet, extended release 1 tablet = 500 mg, By Mouth, 2 times a day, # 180 tablet, 1 Refills, Maintenance, 04/15/21 19:59:00EST, ER Tablet, [facility] #[id number], Partial fill upon patient request if the prescription is for a schedule II opioid drug., 170.18, cm, 03/31... Start Date: 04/15/21 Status: Ordered omeprazole 40 mg oral enteric coated capsule 1 capsule = 40 mg, By Mouth, Daily, # 30 capsule, 1 Refills, Maintenance, 04/07/21 10:58:00 EST, ECCapsule, [facility] #[id number], Partial fill upon patient request if the prescription is for a schedule II opioid drug., 170.18, cm, 03/31/21 7:4... Start Date: 04/07/21 Status: Ordered Ozempic 2 mg/1.5 mL (0.25 mg or 0.5 mg dose) subcutaneous solution See Instructions, Inject 0.5 mg once a week subquateneously, # 1 pack/packet, 1 Refills, Maintenance, 01/18/21 9:44:00 EDT, [facility] #[id number], Partial fill upon patient request if the prescription is for a schedule II opioid drug., Inject 0.... Start Date: 01/18/21 Status: Ordered riboflavin 400 mg oral capsule 1 capsule = 400 mg, By Mouth, Daily, # 100 capsule, 0 Refills, Maintenance, 07/22/20 12:07:00 EDT, Capsule, [facility] #[id number], Partial fill upon patient request, 170.18, cm, 07/21/20 7:47:00 EDT, Height, 129.7, kg, 01/24/19 18:43:00 EDT, Dry... Start Date: 07/22/20 Status: Ordered sertraline 25 mg oral tablet 1 tablet = 25 mg, By Mouth, Daily, # 30 tablet, 0 Refills, Maintenance, 12/22/20 8:00:00 EDT, Tablet, [facility] #[id number], Partial fill upon patient request if the prescription is for a schedule II opioid drug., 170.18, cm, 12/22/20 7:35:00 ED... Start Date: 12/22/20 Status: Ordered SUMAtriptan 25 mg oral tablet 1 tablet = 25 mg, By Mouth, Once, At onset of headache. May repeat in 2 hours, # 1 tablet, 0 Refills, Soft Stop, 03/08/20 14:57:00 EST, Tablet, [facility] #[id number], Partial fill upon patient request, 170.18, cm, [...]
--- OUTSIDE RECORDS SUMMARY | 2022-08-30 22:26 | XMS_ITS | Continuity of Care Document ---
Author Name Unknown Organization [facility]of[facility] Address [address] [place] [address]- Care Team Providers Care Technology Sales Representative Name Role Phone Jennifer No NP Primary Care Physician Encounter [facility] [place] Date(s): 07/22/20 - 08/21/20 [facility] Adult [address] [place] [address]- Allergies, Adverse Reactions, Alerts Substance Reaction Severity [...] capsule, 0 Refills, Maintenance, 07/21/20 8:06:00 EDT, [place], [facility] #[id number], Partial fill upon patient request if the [...] 6 Refills, Maintenance, 04/28/20 8:17:00 EST, Solution, [facility] #[id number], 170.18, cm, 03/17/20 15:55:00 EST, Height, 129.7, kg, 01/24/19 18:43:00 EDT, Dry Weight Start Date: 04/28/20 Stop Date: 11/24/20 Status: Ordered MetFORMIN (Eqv-Glucophage XR) 500 mg oral tablet, extended release 1 tablet = 500 mg, By Mouth, 2 times a day, # 180 tablet, 1 Refills, Maintenance, 04/27/20 14:54:00EST, ER Tablet, [email or web address] #[id number], Partial fill upon patient request if the prescription is for a schedule II opioid drug., 170.18, cm, 03/17... Start Date: 04/27/20 Status: Ordered omeprazole 40 mg oral enteric coated capsule 1 capsule = 40 mg, By Mouth, Daily, # 30 capsule, 3 Refills, Maintenance, 05/18/20 9:41:00 EST, EC Capsule, [email or web address] #[id number], Partial fill upon patient request if the prescription is for aschedule II opioid drug., 170.18, cm, 05/10/20 9:01... Start Date: 05/18/20 Status: Ordered riboflavin 400 mg oral capsule 1 capsule = 400 mg, By Mouth, Daily, # 100 capsule, 0 Refills, Maintenance, 07/22/20 12:07:00 EDT, Capsule, [facility] #[id number], Partial fill upon patient request, 170.18, cm, 07/21/20 7:47:00 EDT, Height, 129.7, kg, 01/24/19 18:43:00 EDT, Dry... Start Date: 07/22/20 Status: Ordered SUMAtriptan 25 mg oral tablet 1 tablet = 25 mg, By Mouth, Once, At onset of headache. May repeat in 2 hours, # 1 tablet, 0 Refills, Soft Stop, 03/08/20 14:57:00 EST, Tablet, [email or web address] #[id number], Partial fill upon patient request, 170.18, cm, [...]
[2022-08-30] MEDS: 0.9 % Sodium Chloride 1,000 ML 999 ML IV (22:27)
--- OUTSIDE RECORDS SUMMARY | 2022-08-30 22:27 | XMS_ITS | Continuity of Care Document ---
Author Name Unknown Organization [facility] lt Address [address] [place] [address]- Care Team Providers Care Hospice Chaplain Name Role Phone Marybel ONEAL, Jennifer Primary Care Physician Encounter [facility] Date(s): 03/30/21 - 04/29/21 [facility] Adult [address] [place] [address]- Allergies, Adverse Reactions, Alerts No Known Allergies [...] Given Parent Or Guardian Refuses 1Result Comment: [facility]: [id number] 2Result Comment: von 3Admin Note: vis 10/24/2006 [...] 0 Refills, Maintenance, 12/22/20 9:42:00 EDT, Ointment, [facility] #[id number], Partial fill upon patient request if the [...] 6 Refills, Maintenance, 11/24/20 8:17:00 EDT, Solution, [facility] #[id number], 170.18, cm, 08/23/20 7:31:00 EDT, Height, 129.7, kg, 01/24/19 18:43:00 EDT, Dry Weight Start Date: 11/24/20 Stop Date: 06/22/21 Status: Ordered MetFORMIN (Eqv-Glucophage XR) 500 mg oral tablet, extended release 1 tablet = 500 mg, By Mouth, 2 times a day, # 180 tablet, 1 Refills, Maintenance, 04/15/21 19:59:00EST, ER Tablet, [facility] #[id number], Partial fill upon patient request if the prescription is for a schedule II opioid drug., 170.18, cm, 03/31... Start Date: 04/15/21 Status: Ordered omeprazole 40 mg oral enteric coated capsule 1 capsule = 40 mg, By Mouth, Daily, # 30 capsule, 1 Refills, Maintenance, 04/07/21 10:58:00 EST, ECCapsule, [facility] #[id number], Partial fill upon patient request if the prescription is for a schedule II opioid drug., 170.18, cm, 03/31/21 7:4... Start Date: 04/07/21 Status: Ordered Ozempic 2 mg/1.5 mL (0.25 mg or 0.5 mg dose) subcutaneous solution See Instructions, Inject 0.5 mg once a week subquateneously, # 1 pack/packet, 1 Refills, Maintenance, 01/18/21 9:44:00 EDT, [facility] #[id number], Partial fill upon patient request if the prescription is for a schedule II opioid drug., Inject 0.... Start Date: 01/18/21 Status: Ordered riboflavin 400 mg oral capsule 1 capsule = 400 mg, By Mouth, Daily, # 100 capsule, 0 Refills, Maintenance, 07/22/20 12:07:00 EDT, Capsule, [facility] #[id number], Partial fill upon patient request, 170.18, cm, 07/21/20 7:47:00 EDT, Height, 129.7, kg, 01/24/19 18:43:00 EDT, Dry... Start Date: 07/22/20 Status: Ordered sertraline 25 mg oral tablet 1 tablet = 25 mg, By Mouth, Daily, # 30 tablet, 0 Refills, Maintenance, 12/22/20 8:00:00 EDT, Tablet, [facility] #[id number], Partial fill upon patient request if the prescription is for a schedule II opioid drug., 170.18, cm, 12/22/20 7:35:00 ED... Start Date: 12/22/20 Status: Ordered SUMAtriptan 25 mg oral tablet 1 tablet = 25 mg, By Mouth, Once, At onset of headache. May repeat in 2 hours, # 1 tablet, 0 Refills, Soft Stop, 03/08/20 14:57:00 EST, Tablet, [facility] #[id number], Partial fill upon patient request, 170.18, cm, [...]
--- OUTSIDE RECORDS SUMMARY | 2022-08-30 22:27 | XMS_ITS | Continuity of Care Document ---
Author Name Unknown Organization [facility] Cristof[facility] lt Address [address] [place] [address]- Care Team Providers Care Marketing Coordinator Name Role Phone Art ONEAL, Fidelia Good Primary Care Physician [phone] Encounter [facility] [place] Date(s): 05/24/21 - 05/31/21 [facility] Adult [address] [place] [address]- Encounter Diagnosis Anxiety(Discharge Diagnosis) - 05/24/21 Attending Physician: Jennifer No NP Allergies, Adverse Reactions, Alerts No Known [...] Given Parent Or Guardian Refuses 1Result Comment: [facility]: [id number] 2Result Comment: von 3Admin Note: vis 10/24/2006 [...] 0 Refills, Maintenance, 05/11/21 10:06:00 EST, Ointment, [facility] #[id number], Partial fill upon patient request if the [...] Compound Start Date: 01/25/19 Status: Ordered Freestyle Marita 14 day sensor Freestyle Amrita 14 day [...] 1 Refills, Maintenance, 04/15/21 19:59:00EST, ER Tablet, [facility] #[id number], Partial fill upon patient request if the prescription is for a schedule II opioid drug., 170.18, cm, 03/31... Start Date: 04/15/21 Status: Ordered omeprazole 40 mg oral enteric coated capsule 1 capsule = 40 mg, By Mouth, Daily, # 30 capsule, 2 Refills, Maintenance, 05/31/21 14:22:00 EST, ECCapsule, [facility] #[id number], Partial fill upon patient request if the prescription is for a schedule II opioid drug., 170.18, cm, 05/24/21 8:1... Start Date: 05/31/21 Status: Ordered Ozempic (1 mg dose) 4 mg/3 mL subcutaneous solution = 1 mg, Subcutaneous Infusion, Every 7 days, # 1 pack/packet, 6 Refills, Maintenance, 05/13/21 15:01:00 EST, [facility] #[id number], Partial fill upon patient request if the prescription is for a schedule II opioid drug., 170.18, cm, 03/31/21 7:4... Start Date: 05/13/21 Stop Date: 11/25/21 Status: Ordered riboflavin 400 mg oral capsule 1 capsule = 400 mg, By Mouth, Daily, # 100 capsule, 0 Refills, Maintenance, 07/22/20 12:07:00 EDT, Capsule, [facility] #[id number], Partial fill upon patient request, 170.18, cm, 07/21/20 7:47:00 EDT, Height, 129.7, kg, 01/24/19 18:43:00 EDT, Dry... Start Date: 07/22/20 Status: Ordered sertraline 25 mg oral tablet 1 tablet = 25 mg, By Mouth, Daily, # 90 tablet, 0 Refills, Maintenance, 05/24/21 8:33:00 EST, Tablet, [facility] #[id number], Partial fill upon patient request if the prescription is for a schedule II opioid drug., 170.18, cm, 05/24/21 8:16:00 ES... Start Date: 05/24/21 Status: Ordered SUMAtriptan 25 mg oral tablet 1 tablet = 25 mg, By Mouth, Once, At onset of headache. May repeat in 2 hours, # 1 tablet, 0 Refills, Soft Stop, 03/08/20 14:57:00 EST, Tablet, [facility] #[id number], Partial fill upon patient request, 170.18, cm, [...] Dates Health Status Clini ji Service Informant Anxiety Discharge Diagnosis 05/24/21 Non-Specified Vital Signs Most recent to oldest [Reference Range]: 1 Height 170.18 cm (05/24/21 8:16 AM) Weight 128.7 kg (05/24/21 8:16 AM) Oxygen Saturation [94-100 %] 100 % (05/24/21 8:16 AM) Pulse Rate [55-90 bpm] 82 bpm (05/24/21 8:16 AM) Body Mass Index [18.5-24.99] 44.44 *>HHI* (05/24/21 8:16 AM) Blood Pressure [90-138/55-84 mm Hg] 137/ 66mm Hg (05/24/21 8:16 AM) Blood pressure sites Arm, left (05/24/21 8:16 AM) Social History Social History Type Response Smoking Status Never smoker entered on: 08/23/15 Sex
--- OUTSIDE RECORDS SUMMARY | 2022-08-30 22:27 | XMS_ITS | Continuity of Care Document ---
Author Name Unknown Organization [facility] Cristofer lt Address [address] [place] [address]- Care Team Providers Care Bit Grinder Name Role Phone Art ONEAL, Fidelia Good Primary Care Physician [place] [facility] [place](s): 10/06/21 - 10/13/21 [facility] Adult [address] [place] [address]- Encounter Diagnosis Migraine headache(Discharge Diagnosis) - 10/06/21 Anxiety and depression(Discharge Diagnosis) - 10/06/21 Swelling of extremity(Discharge Diagnosis) - 10/06/21 Attending Physician: Fidelia Cordova NP Referring Physician: [...] Given Parent Or Guardian Refuses 1Result Comment: [facility]: [id number] 2Result Comment: von 3Admin Note: vis 10/24/2006 [...] 0 Refills, Maintenance, 10/04/21 14:28:00 EDT, Ointment, [facility]/pharmacy #[id number], Partial fill upon patient request if the prescription is for a schedule II opioid drug., 1 application Topically 2 times a d... Start Date: 10/04/21 Status: Ordered escitalopram 5 mg oral tablet 1 tablet = 5 mg, By Mouth, Daily, # 30 tablet, 5 Refills, Maintenance, 08/22/21 7:58:00 EDT, Tablet, [facility]/pharmacy #[id number], Partial fill upon patient request if [...] Refills, Maintenance, 08/04/21 10:40:00 EDT, ER Tablet, [facility]/pharmacy #[id number], Partial fill upon patient request if the prescription is for a schedule II opioid drug., 170.... Start Date: 08/04/21 Status: Ordered omeprazole 40 mg oral enteric coated capsule 1 capsule = 40 mg, By Mouth, Daily, # 30 capsule, 2 Refills, Maintenance, 05/31/21 14:22:00 EST, ECCapsule, [facility] #[id number], Partial fill upon patient request if the prescription is for a schedule II opioid drug., 170.18, cm, 05/24/21 8:1... Start Date: 05/31/21 Status: Ordered Ozempic (1 mg dose) 4 mg/3 mL subcutaneous solution = 1 mg, Subcutaneous Infusion, Every 7 days, # 3 pack/packet, 4 Refills, Maintenance, 09/16/21 14:38:00 EDT, [facility]/pharmacy #[id number], Partial fill upon patient request if the prescription is for a schedule II opioid drug., 170.18, cm, 08/22/21 7:33:00 EDT,... Start Date: 09/16/21 Stop Date: 02/03/22 Status: Ordered propranolol 80 mg oral capsule, extended release 80 mg, 1, capsule, By Mouth, Daily, # 30 capsule, Refills 5, Tot. Refills 5, Maintenance, 08/22/21 8:04:00 EDT, Route to Pharmacy Electronically, [facility]/pharmacy #[id number], Partial fill upon patient requestif the prescription is for a schedule II opioid darian... Start Date: 08/22/21 Status: Ordered riboflavin 400 mg oral capsule 1 capsule = 400 mg, By Mouth, Daily, # 100 capsule, 0 Refills, Maintenance, 06/19/21 17:00:00 EDT, Capsule, [facility] #[id number], Partial fill upon patient request, 170.18, cm, [...] Effective Dates Health Status Clinical Service Informant Migraine headache Discharge Diagnosis 10/06/21 Anxiety and depression Discharge Diagnosis 10/06/21 Swelling of extremity Discharge Diagnosis 10/06/21 Vital Signs Most recent to oldest [Reference Range]: 1 Height 170.18 cm (10/06/21 6:57 AM) Weight 126.2 kg (10/06/21 6:57 AM) Oxygen Saturation [94-100 %] 100 % (10/06/21 6:57 AM) Pulse Rate [55-90 bpm] 83 bpm (10/06/21 6:57 AM) Body Mass Index [18.5-24.99] 43.58 *>HHI* (10/06/21 6:57 AM) Blood Pressure [90-138/55-84 mm Hg] 137/ 69mm Hg (10/06/21 6:57 AM) Blood pressure sites Arm, right (10/06/21 6:57 AM) Weight Obtained Via Standing scale (10/06/21 6:57 AM) Social History Social History Type Response Smoking Status Never smoker entered on: 08/23/15 Sex
--- OUTSIDE RECORDS SUMMARY | 2022-08-30 22:27 | XMS_ITS | Continuity of Care Document ---
Author Name Unknown Organization [facility] Cristofer lt Address [address] [place] [address]- Care Team Providers Care Customer Program Manager Name Role Phone Marybel ONEAL, Jennifer Primary Care Physician Encounter [facility] Date(s): 01/12/21 - 02/11/21 [facility] Adult [address] [place] [address]- Allergies, Adverse Reactions, Alerts Substance Reaction Severity [...] Given Parent Or Guardian Refuses 1Result Comment: [facility] [place]: [id number] 2Result Comment: von 3Admin Note: vis 10/24/2006 [...] 0 Refills, Maintenance, 12/22/20 9:42:00 EDT, [id number], Partial fill upon patient request if the [...] 6 Refills, Maintenance, 11/24/20 8:17:00 EDT, Solution, [facility] #[id number], 170.18, cm, 08/23/20 7:31:00 EDT, Height, 129.7, kg, 01/24/19 18:43:00 EDT, Dry Weight Start Date: 11/24/20 Stop Date: 06/22/21 Status: Ordered MetFORMIN (Eqv-Glucophage XR) 500 mg oral tablet, extended release 1 tablet = 500 mg, By Mouth, 2 times a day, # 180 tablet, 1 Refills, Maintenance, 11/09/20 14:32:00EDT, ER Tablet, [facility] #[id number], Partial fill upon patient request if the prescription is for a schedule II opioid drug., 170.18, cm, 10/15... Start Date: 11/09/20 Status: Ordered omeprazole 40 mg oral enteric coated capsule 1 capsule = 40 mg, By Mouth, Daily, further refills require an office visit. please call to schedule, # 30 capsule, 0 Refills, Maintenance, 10/04/20 15:49:00 EDT, EC Capsule, [facility] #[id number], Partial fill upon patient request if the prescr... Start Date: 10/04/20 Status: Ordered Ozempic 2 mg/1.5 mL (0.25 mg or 0.5 mg dose) subcutaneous solution See Instructions, Inject 0.5 mg once a week subquateneously, # 1 pack/packet, 1 Refills, Maintenance, 01/18/21 9:44:00 EDT, [facility] #[id number], Partial fill upon patient request if the prescription is for a schedule II opioid drug., Inject 0.... Start Date: 01/18/21 Status: Ordered riboflavin 400 mg oral capsule 1 capsule = 400 mg, By Mouth, Daily, # 100 capsule, 0 Refills, Maintenance, 07/22/20 12:07:00 EDT, Capsule, [facility] #[id number], Partial fill upon patient request, 170.18, cm, 07/21/20 7:47:00 EDT, Height, 129.7, kg, 01/24/19 18:43:00 EDT, Dry... Start Date: 07/22/20 Status: Ordered sertraline 25 mg oral tablet 1 tablet = 25 mg, By Mouth, Daily, # 30 tablet, 0 Refills, Maintenance, 12/22/20 8:00:00 EDT, Tablet, [facility] #[id number], Partial fill upon patient request if the prescription is for a schedule II opioid drug., 170.18, cm, 12/22/20 7:35:00 ED... Start Date: 12/22/20 Status: Ordered SUMAtriptan 25 mg oral tablet 1 tablet = 25 mg, By Mouth, Once, At onset of headache. May repeat in 2 hours, # 1 tablet, 0 Refills, Soft Stop, 03/08/20 14:57:00 EST, Tablet, [facility] #[id number], Partial fill upon patient request, 170.18, cm, [...]
--- OUTSIDE RECORDS SUMMARY | 2022-08-30 22:27 | XMS_ITS | Continuity of Care Document ---
Author Name Unknown Organization [facility] Cristofer lt Address [address] [place] [address]- Care Team Providers Care Clinical Trial Coordinator Name Role Phone Art ONEAL, Fidelia Good Primary Care Physician Encounter [facility] [place] Date(s): 03/08/22 - 04/07/22 [facility] Adult [address] [place] [address]- Encounter Diagnosis Rash(Discharge Diagnosis) - 03/14/22 Allergies, Adverse Reactions, Alerts No Known Allergies Immunizations Given and Recorded Vaccine Date Status Refusal Reason [id number] 12y+ bivalent booster vax 12/16/21 Recorded influenza [...] Or Guardian Refuses 1Result Comment: [facility]: [id number] 2Result Comment: von 3Admin Note: vis 10/24/2006 [...] 0 Refills, Maintenance, 01/17/22 7:35:00 EDT, Tablet, [facility]/pharmacy #[id number], Partial fill upon patient request if the prescription is for a schedule II opioid drug.... Start Date: 01/17/22 Status: Ordered betamethasone topical dipropionate 0.05% ointment 1 application, Topically, 2 times a day, # 15 Gm, 0 Refills, Maintenance, 03/14/22 14:03:00 EST, Ointment, [id number], Partial fill upon patient request if the prescription is for a schedule II opioid drug., 1 application Topically 2 times a d... Start Date: 03/14/22 Status: Ordered escitalopram 5 mg oral tablet 1 tablet = 5 mg, By Mouth, Daily, # 30 tablet, 5 Refills, Maintenance, 08/22/21 7:58:00 EDT, Tablet, [facility]/pharmacy #[id number], Partial fill upon patient [...] 08/22/21 8:04:00 EDT, Route to Pharmacy Electronically, [facility]/pharmacy #[id number], Partial fill upon patient requestif the prescription is for a schedule II opioid darian... Start Date: 08/22/21 Status: Ordered riboflavin 400 mg oral capsule 1 capsule = 400 mg, By Mouth, Daily, # 100 capsule, 0 Refills, Maintenance, 06/19/21 17:00:00 EDT, Capsule, [facility] #[id number], Partial fill upon patient request, 170.18, cm, [...] 3 Refills, Maintenance, 04/06/22 16:00:00 EST, Solution, [facility]/pharmacy #[id number], Partial fill upon patient request if the [...] Clini ji Service Informant Rash Discharge Diagnosis 03/14/22 Non-Specified Social History Social History Type Response Smoking Status Never smoker entered on: 08/23/15 Sex Patient Care team information Care Team Personnel Name: Irene RN, Dru Position: S RN Member Role: Primary Care Nurse Name: Fidelia Cordova NP Position: [facility] Associate Professional Member Role: PCP Address: Address: [address] [place] [address]- Care Team Related Persons Name: JUAN CARLOS RAYMOND Address: home [address] [place] [id number] Name: MEL RAYMOND Address: [place] [address]
--- OUTSIDE RECORDS SUMMARY | 2022-08-30 22:27 | XMS_ITS | Continuity of Care Document ---
Author Name Unknown Organization [facility] Cristofer lt Address [address] [place] [address]- Care Team Providers Care Clerical Order Filler Name Role Phone Marybel ONEAL, Jennifer Primary Care Physician [phone] Encounter [facility] Date(s): 03/30/21 - 04/29/21 [facility] Adult [address] [place] [address]- Allergies, Adverse Reactions, Alerts No Known Allergies [...] Parent Or Guardian Refuses 1Result Comment: [facility]: [id number] 2Result Comment: von 3Admin Note: vis 10/24/2006 [...] 0 Refills, Maintenance, 12/22/20 9:42:00 EDT, Ointment, [facility] #[id number], Partial fill upon patient request if the [...] 6 Refills, Maintenance, 11/24/20 8:17:00 EDT, Solution, [facility] #[id number], 170.18, cm, 08/23/20 7:31:00 EDT, Height, 129.7, kg, 01/24/19 18:43:00 EDT, Dry Weight Start Date: 11/24/20 Stop Date: 06/22/21 Status: Ordered MetFORMIN (Eqv-Glucophage XR) 500 mg oral tablet, extended release 1 tablet = 500 mg, By Mouth, 2 times a day, # 180 tablet, 1 Refills, Maintenance, 04/15/21 19:59:00EST, ER Tablet, [facility] #[id number], Partial fill upon patient request if the prescription is for a schedule II opioid drug., 170.18, cm, 03/31... Start Date: 04/15/21 Status: Ordered omeprazole 40 mg oral enteric coated capsule 1 capsule = 40 mg, By Mouth, Daily, # 30 capsule, 1 Refills, Maintenance, 04/07/21 10:58:00 EST, ECCapsule, [facility] #[id number], Partial fill upon patient request if the prescription is for a schedule II opioid drug., 170.18, cm, 03/31/21 7:4... Start Date: 04/07/21 Status: Ordered Ozempic 2 mg/1.5 mL (0.25 mg or 0.5 mg dose) subcutaneous solution See Instructions, Inject 0.5 mg once a week subquateneously, # 1 pack/packet, 1 Refills, Maintenance, 01/18/21 9:44:00 EDT, [facility] #[id number], Partial fill upon patient request if the prescription is for a schedule II opioid drug., Inject 0.... Start Date: 01/18/21 Status: Ordered riboflavin 400 mg oral capsule 1 capsule = 400 mg, By Mouth, Daily, # 100 capsule, 0 Refills, Maintenance, 07/22/20 12:07:00 EDT, Capsule, [facility] #[id number], Partial fill upon patient request, 170.18, cm, 07/21/20 7:47:00 EDT, Height, 129.7, kg, 01/24/19 18:43:00 EDT, Dry... Start Date: 07/22/20 Status: Ordered sertraline 25 mg oral tablet 1 tablet = 25 mg, By Mouth, Daily, # 30 tablet, 0 Refills, Maintenance, 12/22/20 8:00:00 EDT, Tablet, [facility] #[id number], Partial fill upon patient request if the prescription is for a schedule II opioid drug., 170.18, cm, 12/22/20 7:35:00 ED... Start Date: 12/22/20 Status: Ordered SUMAtriptan 25 mg oral tablet 1 tablet = 25 mg, By Mouth, Once, At onset of headache. May repeat in 2 hours, # 1 tablet, 0 Refills, Soft Stop, 03/08/20 14:57:00 EST, Tablet, [facility] #[id number], Partial fill upon patient request, 170.18, cm, [...]
--- OUTSIDE RECORDS SUMMARY | 2022-08-30 22:27 | XMS_ITS | Continuity of Care Document ---
Author Name Unknown Organization [facility] Cristofer lt Address [address] [place] [address]- Care Team Providers Care Corporate Statistical Financial Analyst Name Role Phone Jennifer No NP Primary Care Physician Encounter [facility] [place] Date(s): 03/17/20 - 04/16/20 [facility] Adult [address] [place] [address]- Attending Physician: AdmKatie vickers Admitting Physician: AdmtrKatie [...] 0 Refills, Maintenance, 04/15/20 14:16:00 EST, ECCapsule, [facility] #[id number], Partial fill upon patient request if the prescription is for a schedule II opioid drug., 170.18, cm, 03/17/20 15:... Start Date: 04/15/20 Status: Ordered riboflavin 400 mg oral capsule 1 capsule = 400 mg, By Mouth, Daily, # 100 capsule, 0 Refills, Maintenance, 04/13/20 11:39:00 EST, Capsule, [facility] #[id number], Partial fill upon patient request, 170.18, cm, 03/17/20 15:55:00 EST, Height, 129.7, kg, 01/24/19 18:43:00 EDT, Dr... Start Date: 04/13/20 Status: Ordered SUMAtriptan 25 mg oral tablet 1 tablet = 25 mg, By Mouth, Once, At onset of headache. May repeat in 2 hours, # 1 tablet, 0 Refills, Soft Stop, 03/08/20 14:57:00 EST, Tablet, [facility] #[id number], Partial fill upon patient request, 170.18, cm, [...]
--- OUTSIDE RECORDS SUMMARY | 2022-08-30 22:27 | XMS_ITS | Continuity of Care Document ---
Author Name Unknown Organization [facility] Cristofer lt Address [address] [place] [address]- Care Team Providers Care Band Head Saw Operator Name Role Phone Marybel ONEAL, Jennifer Primary Care Physician [place] [facility] [place](s[place] 12/22/20 - 01/21/21 [facility] Adult [address] [place] [address]- Attending Physician: Admtr, Ar8 Admitting Physician: Admtr, Ar8 Referring Physician: Admtr, Ar8 Allergies, Adverse Reactions, [...] Refuses 1Result Comment: [facility]: [id number] 2Result Comment: von 3Admin Note: vis 10/24/2006 [...] Note: DAY UNKNOWN 26Admin Note: DAY UNKNOWN Admin Note: DAY UNKNOWN [...] 0 Refills, Maintenance, 12/22/20 9:42:00 EDT, Ointment, [facility] #[id number], Partial fill upon patient request if the [...] 6 Refills, Maintenance, 11/24/20 8:17:00 EDT, Solution, [facility] #[id number], 170.18, cm, 08/23/20 7:31:00 EDT, Height, 129.7, kg, 01/24/19 18:43:00 EDT, Dry Weight Start Date: 11/24/20 Stop Date: 06/22/21 Status: Ordered MetFORMIN (Eqv-Glucophage XR) 500 mg oral tablet, extended release 1 tablet = 500 mg, By Mouth, 2 times a day, # 180 tablet, 1 Refills, Maintenance, 11/09/20 14:32:00EDT, ER Tablet, [facility] #[id number], Partial fill upon patient request if the prescription is for a schedule II opioid drug., 170.18, cm, 10/15... Start Date: 11/09/20 Status: Ordered omeprazole 40 mg oral enteric coated capsule 1 capsule = 40 mg, By Mouth, Daily, further refills require an office visit. please call to schedule, # 30 capsule, 0 Refills, Maintenance, 10/04/20 15:49:00 EDT, EC Capsule, [facility] #[id number], Partial fill upon patient request if the prescr... Start Date: 10/04/20 Status: Ordered Ozempic 2 mg/1.5 mL (0.25 mg or 0.5 mg dose) subcutaneous solution See Instructions, Inject 0.5 mg once a week subquateneously, # 1 pack/packet, 1 Refills, Maintenance, 01/18/21 9:44:00 EDT, [facility] #[id number], Partial fill upon patient request if the prescription is for a schedule II opioid drug., Inject 0.... Start Date: 01/18/21 Status: Ordered riboflavin 400 mg oral capsule 1 capsule = 400 mg, By Mouth, Daily, # 100 capsule, 0 Refills, Maintenance, 07/22/20 12:07:00 EDT, Capsule, [facility] #[id number], Partial fill upon patient request, 170.18, cm, 07/21/20 7:47:00 EDT, Height, 129.7, kg, 01/24/19 18:43:00 EDT, Dry... Start Date: 07/22/20 Status: Ordered sertraline 25 mg oral tablet 1 tablet = 25 mg, By Mouth, Daily, # 30 tablet, 0 Refills, Maintenance, 12/22/20 8:00:00 EDT, Tablet, [facility] #[id number], Partial fill upon patient request if the prescription is for a schedule II opioid drug., 170.18, cm, 12/22/20 7:35:00 ED... Start Date: 12/22/20 Status: Ordered SUMAtriptan 25 mg oral tablet 1 tablet = 25 mg, By Mouth, Once, At onset of headache. May repeat in 2 hours, # 1 tablet, 0 Refills, Soft Stop, 03/08/20 14:57:00 EST, Tablet, [facility] #[id number], Partial fill upon patient request, 170.18, cm, [...]
--- OUTSIDE RECORDS SUMMARY | 2022-08-30 22:27 | XMS_ITS | Continuity of Care Document ---
Author Name Unknown Organization [facility] Cristofer lt Address [address] [place] [address]- Care Team Providers Care Planning Rn Name Role Phone Art ONEAL, Fidelia Good Primary Care Physician Encounter [facility] [place] Date(s): 03/08/22 - 04/07/22 [facility] Adult [address] [place] [address]- Allergies, Adverse Reactions, Alerts No Known Allergies Immunizations Given and Recorded Vaccine Date Status Refusal Reason [id number] 12y+ bivalent booster vax 12/16/21 Recorded influenza [...] Given Parent Or Guardian Refuses 1Result Comment: [facility]: [id number] 2Result Comment: von 3Admin Note: vis 10/24/2006 [...] 7:58:00 EDT, Tablet, [facility]/pharmacy #[id number], Partial fill upon patient request if the [...] Refills, Maintenance, 08/04/21 10:40:00 EDT, ER Tablet, [facility]/pharmacy #[id number], [...] to Pharmacy Electronically, [facility]/pharmacy #[id number], Partial fill upon patient requestif the prescription is for a schedule II opioid darian... Start Date: 08/22/21 Status: Ordered riboflavin 400 mg oral capsule 1 capsule = 400 mg, By Mouth, Daily, # 100 capsule, 0 Refills, Maintenance, 06/19/21 17:00:00 EDT, Capsule, [facility] #[id number], Partial fill upon patient request, 170.18, cm, [...] 3 Refills, Maintenance, 04/06/22 16:00:00 EST, Solution, [facility]/pharmacy #[id number], Partial fill upon patient request if the [...] Care Nurse Name: Fidelia Cordova NP Position: [facility] Associate Professional Member Role: PCP Address: Address: [address] [place] [address]- Care Team Related Persons Name: JUAN CARLOS RAYMOND Address: home [address] [place] [address] Name: MEL RAYMOND Address: home [address] [place] [address]
--- OUTSIDE RECORDS SUMMARY | 2022-08-30 22:27 | XMS_ITS | Continuity of Care Document ---
Author Name Unknown Organization [facility] Address [address] [place] [address]- Care Team Providers Care Peritoneal Dialysis Registered Nurse Name Role Phone Fidelia Cordova NP Primary Care Physician [phone] Encounter [facility] [place] Date(s): 05/26/21 - 06/25/21 [facility] [address] [place] [address] Allergies, Adverse Reactions, Alerts [...] Miscellaneous Vaccine 17 92 Given Diphth/Pertussis,Acel/Tetanus (oldterm) 10/21/98 G iven Diphth/Pertussis,Acel/Tetanus (oldterm) 18 08/06/93 Given [...] Refuses 1Result Comment: [facility]: [id number] 2Result Comment: von 3Admin Note: vis 10/24/2006 [...] 0 Refills, Maintenance, 05/11/21 10:06:00 EST, Ointment, [facility] #[id number], Partial fill upon patient request if the [...] 1 Refills, Maintenance, 04/15/21 19:59:00EST, ER Tablet, [facility] #[id number], Partial fill upon patient request if the prescription is for a schedule II opioid drug., 170.18, cm, 03/31... Start Date: 04/15/21 Status: Ordered omeprazole 40 mg oral enteric coated capsule 1 capsule = 40 mg, By Mouth, Daily, # 30 capsule, 2 Refills, Maintenance, 05/31/21 14:22:00 EST, ECCapsule, [facility] #[id number], Partial fill upon patient request if the prescription is for a schedule II opioid drug., 170.18, cm, 05/24/21 8:1... Start Date: 05/31/21 Status: Ordered Ozempic (1 mg dose) 4 mg/3 mL subcutaneous solution = 1 mg, Subcutaneous Infusion, Every 7 days, # 1 pack/packet, 6 Refills, Maintenance, 05/13/21 15:01:00 EST, [facility] #[id number], Partial fill upon patient request if the prescription is for a schedule II opioid drug., 170.18, cm, 03/31/21 7:4... Start Date: 05/13/21 Stop Date: 11/25/21 Status: Ordered riboflavin 400 mg oral capsule 1 capsule = 400 mg, By Mouth, Daily, # 100 capsule, 0 Refills, Maintenance, 06/19/21 17:00:00 EDT, Capsule, [facility] #[id number], Partial fill upon patient request, 170.18, cm, 05/24/21 8:16:00 EST, Height, 132.5, kg, 09/01/20 13:04:00 EDT, Dry... Start Date: 06/19/21 Status: Ordered sertraline 25 mg oral tablet 1 tablet = 25 mg, By Mouth, Daily, # 90 tablet, 0 Refills, Maintenance, 05/24/21 8:33:00 EST, Tablet, [facility] #[id number], Partial fill upon patient request if the prescription is for a schedule II opioid drug., 170.18, cm, 05/24/21 8:16:00 ES... Start Date: 05/24/21 Status: Ordered SUMAtriptan 25 mg oral tablet 1 tablet = 25 mg, By Mouth, Once, At onset of headache. May repeat in 2 hours, # 1 tablet, 0 Refills, Soft Stop, 03/08/20 14:57:00 EST, Tablet, [facility] #[id number], Partial fill upon patient request, 170.18, cm, [...]
--- OUTSIDE RECORDS SUMMARY | 2022-08-30 22:27 | XMS_ITS | Continuity of Care Document ---
Author Name Unknown Organization [facility] Cristofer Address [address] [place] [address]- Care Team Providers Care Last Scourer Name Role Phone Jennifer No NP Primary Care Physician [phone] Encounter [facility] [place] Date(s): 12/22/20 - 12/29/20 [facility] Adult [address] [place] [address]- Encounter Diagnosis Anxiety(Discharge Diagnosis) - 12/22/20 Mild depression(Discharge Diagnosis) - 12/22/20 Rash(Discharge Diagnosis) - 12/22/20 Attending Physician: Jennifer No NP Allergies, Adverse [...] 1Result Comment: [facility]: [id number] 2Result Comment: von 3Admin Note: vis 10/24/2006 [...] Note: DAY UNKNOWN Admin Note: DAY UNKNOWN 27Admin Note: DAY UNKNOWN [...] 0 Refills, Maintenance, 12/22/20 9:42:00 EDT, Ointment, [facility] #[id number], Partial fill upon patient request if the [...] 6 Refills, Maintenance, 11/24/20 8:17:00 EDT, Solution, [facility] #[id number], 170.18, cm, 08/23/20 7:31:00 EDT, Height, 129.7, kg, 01/24/19 18:43:00 EDT, Dry Weight Start Date: 11/24/20 Stop Date: 06/22/21 Status: Ordered MetFORMIN (Eqv-Glucophage XR) 500 mg oral tablet, extended release 1 tablet = 500 mg, By Mouth, 2 times a day, # 180 tablet, 1 Refills, Maintenance, 11/09/20 14:32:00EDT, ER Tablet, [facility] #[id number], Partial fill upon patient request if the prescription is for a schedule II opioid drug., 170.18, cm, 10/15... Start Date: 11/09/20 Status: Ordered omeprazole 40 mg oral enteric coated capsule 1 capsule = 40 mg, By Mouth, Daily, further refills require an office visit. please call to schedule, # 30 capsule, 0 Refills, Maintenance, 10/04/20 15:49:00 EDT, EC Capsule, [facility] #[id number], Partial fill upon patient request if the prescr... Start Date: 10/04/20 Status: Ordered Ozempic 2 mg/1.5 mL (0.25 mg or 0.5 mg dose) subcutaneous solution See Instructions, 0.25 subcutaneous once weekly for 4 weeks, then 0.5 mg subcutaneous once weekly, # 1 pack/packet, 0 Refills, Maintenance, 10/15/20 7:38:00 EDT, [facility] #[id number], Partial fill upon patient request if the prescription is for... Start Date: 10/15/20 Status: Ordered riboflavin 400 mg oral capsule 1 capsule = 400 mg, By Mouth, Daily, # 100 capsule, 0 Refills, Maintenance, 07/22/20 12:07:00 EDT, Capsule, [facility] #[id number], Partial fill upon patient request, 170.18, cm, 07/21/20 7:47:00 EDT, Height, 129.7, kg, 01/24/19 18:43:00 EDT, Dry... Start Date: 07/22/20 Status: Ordered sertraline 25 mg oral tablet 1 tablet = 25 mg, By Mouth, Daily, # 30 tablet, 0 Refills, Maintenance, 12/22/20 8:00:00 EDT, Tablet, [facility] #[id number], Partial fill upon patient request if the prescription is for a schedule II opioid drug., 170.18, cm, 12/22/20 7:35:00 ED... Start Date: 12/22/20 Status: Ordered SUMAtriptan 25 mg oral tablet 1 tablet = 25 mg, By Mouth, Once, At onset of headache. May repeat in 2 hours, # 1 tablet, 0 Refills, Soft Stop, 03/08/20 14:57:00 EST, Tablet, [facility] #[id number], Partial fill upon patient request, 170.18, cm, [...] Dates Health Status Cl inical Service Informant Anxiety Discharge Diagnosis 12/22/20 Rash Discharge Diagnosis 12/22/20 Mild depression Discharge Diagnosis 12/22/20 Vital Signs Most recent to oldest [Reference Range]: 1 Height 170.18 cm (12/22/20 7:35 AM) Weight 130.2 kg (12/22/20 7:35 AM) Oxygen Saturation [94-100 %] 99 % (12/22/20 7:35 AM) Pulse Rate [55-90 bpm] 93 bpm *H* (12/22/20 7:35 AM) Body Mass Index [18.5-24.99] 44.96 *>HHI* (12/22/20 7:35 AM) Blood Pressure [90-138/55-84 mm Hg] 122/ 77mm Hg (12/22/20 7:35 AM) Temperature [96.8-100.4 DegF] 97.3 DegF (12/22/20 7:35 AM) Blood pressure sites Arm, right (12/22/20 7:35 AM) Temperature Route Oral (12/22/20 7:35 AM) Weight Obtained Via Standing scale (12/22/20 7:35 AM) Social History Social History Type Response Smoking Status Never smoker entered on: 08/23/15 Sex
--- OUTSIDE RECORDS SUMMARY | 2022-08-30 22:27 | XMS_ITS | Continuity of Care Document ---
Author Name Unknown Organization [facility] Cristofer lt Address [address] [place] [address]- Care Team Providers Care Corporate General Manager Name Role Phone Art ONEAL, Fidelia Good Primary Care Physician Encounter [facility] Date(s): 10/03/21 - 11/02/21 [facility] Adult [address] [place] [address]- Encounter Diagnosis Rash(Discharge Diagnosis) - 10/04/21 Allergies, Adverse Reactions, Alerts No Known Allergies [...] Guardian Refuses 1Result Comment: [facility]: [id number] 2Result Comment: von 3Admin Note: vis 10/24/2006 [...] 0 Refills, Maintenance, 10/04/21 14:28:00 EDT, Ointment, [facility]/pharmacy #[id number], Partial fill upon [...] Refills, Maintenance, 08/04/21 10:40:00 EDT, ER Tablet, [facility]/pharmacy #[id number], Partial fill upon patient request if the prescription is for a schedule II opioid drug., 170.... Start Date: 08/04/21 Status: Ordered omeprazole 40 mg oral enteric coated capsule 1 capsule = 40 mg, By Mouth, Daily, # 30 capsule, 2 Refills, Maintenance, 05/31/21 14:22:00 EST, ECCapsule, [facility] #[id number], Partial fill upon patient request if the prescription is for a schedule II opioid drug., 170.18, cm, 05/24/21 8:1... Start Date: 05/31/21 Status: Ordered Ozempic (1 mg dose) 4 mg/3 mL subcutaneous solution = 1 mg, Subcutaneous Infusion, Every 7 days, # 3 pack/packet, 4 Refills, Maintenance, 09/16/21 14:38:00 EDT, [facility]/pharmacy #[id number], Partial fill upon [...] Route to Pharmacy Electronically, [facility]/pharmacy #[id number], Partial fill upon patient requestif the prescription is for a schedule II opioid darian... Start Date: 08/22/21 Status: Ordered riboflavin 400 mg oral capsule 1 capsule = 400 mg, By Mouth, Daily, # 100 capsule, 0 Refills, Maintenance, 06/19/21 17:00:00 EDT, Capsule, [facility] #[id number], Partial fill upon patient request, 170.18, cm, [...] Clini ji Service Informant Rash Discharge Diagnosis 10/04/21 Non-Specified Social History Social History Type Response Smoking Status Never smoker entered on: 08/23/15 Sex
--- OUTSIDE RECORDS SUMMARY | 2022-08-30 22:27 | XMS_ITS | Continuity of Care Document ---
Author Name Unknown Organization [facility] Address [address] [place] [address]- Care Team Providers Care Truck Despatcher Name Role Phone Fidelia Cordova NP Primary Care Physician [phone] [place] [facility] [place] - 11/26/21 [facility] [address] [place] [address]- Attending Physician: AdmKatie vickers Admitting Physician: Admtr, [...] Or Guardian Refuses 1Result Comment: [facility]: [id number] 2Result Comment: von 3Admin Note: vis 10/24/2006 [...] 0 Refills, Maintenance, 10/04/21 14:28:00 EDT, Ointment, [facility]/pharmacy #[id number], Partial fill upon patient request if the prescription is for a schedule II opioid drug., 1 application Topically 2 times a d... Start Date: 10/04/21 Status: Ordered escitalopram 5 mg oral tablet 1 tablet = 5 mg, By Mouth, Daily, # 30 tablet, 5 Refills, Maintenance, 08/22/21 7:58:00 EDT, Tablet, [facility]/pharmacy #[id number], Partial fill upon patient request [...] Refills, Maintenance, 08/04/21 10:40:00 EDT, ER Tablet, [facility]/pharmacy #[id number], Partial fill upon patient request if the prescription is for a schedule II opioid drug., 170.... Start Date: 08/04/21 Status: Ordered omeprazole 40 mg oral enteric coated capsule 1 capsule = 40 mg, By Mouth, Daily, # 30 capsule, 2 Refills, Maintenance, 05/31/21 14:22:00 EST, ECCapsule, [facility] #[id number], Partial fill upon patient request if the prescription is for a schedule II opioid drug., 170.18, cm, 05/24/21 8:1... Start Date: 05/31/21 Status: Ordered Ozempic (1 mg dose) 4 mg/3 mL subcutaneous solution = 1 mg, Subcutaneous Infusion, Every 7 days, # 3 pack/packet, 4 Refills, Maintenance, 09/16/21 14:38:00 EDT, [facility]/pharmacy #[id number], Partial fill upon patient request if the prescription is for a schedule II opioid drug., 170.18, cm, 08/22/21 7:33:00 EDT,... Start Date: 09/16/21 Stop Date: 02/03/22 Status: Ordered propranolol 80 mg oral capsule, extended release 80 mg, 1, capsule, By Mouth, Daily, # 30 capsule, Refills 5, Tot. Refills 5, Maintenance, 08/22/21 8:04:00 EDT, Route to Pharmacy Electronically, [facility]/pharmacy #[id number], Partial fill upon patient requestif the prescription is for a schedule II opioid darian... Start Date: 08/22/21 Status: Ordered riboflavin 400 mg oral capsule 1 capsule = 400 mg, By Mouth, Daily, # 100 capsule, 0 Refills, Maintenance, 06/19/21 17:00:00 EDT, Capsule, [facility] #[id number], Partial fill upon patient request, 170.18, cm, [...]
--- OUTSIDE RECORDS SUMMARY | 2022-08-30 22:27 | XMS_ITS | Continuity of Care Document ---
Author Name Unknown Organization [facility] Cristofer lt Address [address] [place] [address]- Care Team Providers Care Retail Pharmacy Manager Name Role Phone Art ONEAL, Fidelia Good Primary Care Physician [place] [facility] [place]22 [facility] Adult [address] [place] [address]- Attending Physician: Fidelia Cordova NP Allergies, Adverse Reactions, Alerts No Known Allergies Immunizations Given and Recorded Vaccine Date Status Refusal Reason [id number] 12y+ bivalent booster vax 12/16/21 Recorded influenza [...] Refuses 1Result Comment: [facility]: 93635-467-05 2Result Comment: von 3Admin Note: vis 10/24/2006 [...] 0 Refills, Maintenance, 01/17/22 7:35:00 EDT, Tablet, [facility]/pharmacy #[id number], Partial fill upon patient request if the prescription is for a schedule II opioid drug.... Start Date: 01/17/22 Status: Ordered betamethasone topical dipropionate 0.05% ointment 1 application, Topically, 2 times a day, # 15 Gm, 0 Refills, Maintenance, 03/14/22 14:03:00 EST, Ointment, [facility]/pharmacy #[id number], Partial fill upon patient request if the prescription is for a schedule II opioid drug., 1 application Topically 2 times a d... Start Date: 03/14/22 Status: Ordered escitalopram 5 mg oral tablet 1 tablet = 5 mg, By Mouth, Daily, # 30 tablet, 5 Refills, Maintenance, 08/22/21 7:58:00 EDT, Tablet, [facility]/pharmacy #[id number], Partial fill upon patient request if [...] Refills, Maintenance, 08/04/21 10:40:00 EDT, ER Tablet, [facility]/pharmacy #[id number], Partial fill upon patient request if the prescription is for a schedule II opioid drug., 170.... Start Date: 08/04/21 Status: Ordered omeprazole 40 mg oral enteric coated capsule 1 capsule = 40 mg, By Mouth, Daily, # 30 capsule, 2 Refills, Maintenance, 12/09/21 12:05:00 EDT, ECCapsule, [facility]/pharmacy #[id number], Partial fill upon patient request if the prescription is for a schedule II opioid drug., 170.18, cm, 11/28/21 7:49:00 EDT,... Start Date: 12/09/21 Status: Ordered Ozempic (1 mg dose) 4 mg/3 mL subcutaneous solution = 1 mg, Subcutaneous Infusion, Every 7 days, rotate injection sites, # 3 mL, 6 Refills, Maintenance, 03/29/22 11:02:00 EST, [facility]/pharmacy #[id number], Partial fill upon patient request if the prescription is for a schedule II opioid drug., 170.18, cm, ... Start Date: 03/29/22 Stop Date: 10/11/22 Status: Ordered predniSONE 10 mg oral tablet 1 tablet = 10 mg, By Mouth, 2 times a day, # 10 tablet, 0 Refills, Maintenance, 01/17/22 7:35:00 EDT, Tablet, [facility]/pharmacy #[id number], Partial fill upon patient request if the prescription is for a schedule II opioid drug., 170.18, cm, 11/28/21 7:49:00 EDT... Start Date: 01/17/22 Status: Ordered propranolol 80 mg oral capsule, extended release 80 mg, 1, capsule, By Mouth, Daily, # 30 capsule, Refills 5, Tot. Refills 5, Maintenance, 08/22/21 8:04:00 EDT, Route to Pharmacy Electronically, [facility]/pharmacy #[id number], Partial fill upon patient requestif the prescription is for a schedule II opioid darian... Start Date: 08/22/21 Status: Ordered riboflavin 400 mg oral capsule 1 capsule = 400 mg, By Mouth, Daily, # 100 capsule, 0 Refills, Maintenance, 06/19/21 17:00:00 EDT, Capsule, [facility] #[id number], Partial fill upon patient request, 170.18, cm, [...] 3 Refills, Maintenance, 04/06/22 16:00:00 EST, Solution, [facility]/pharmacy #[id number], Partial fill upon patient request if [...] Team Personnel Name: Dru Bonilla RN Position: [facility] RN Member Role: Primary Care Nurse Name: Fidelia Cordova NP Position: [facility] PCO Associate Professional Member Role: PCP Address: Address: [address] [place] [address]- Care Team Related Persons Name: JUAN CARLOS RAYMOND Address: home [address] [place] [id number] Name: MEL RAYMOND Address: home [address] [place] [address]
--- OUTSIDE RECORDS SUMMARY | 2022-08-30 22:27 | XMS_ITS | Continuity of Care Document ---
Author Name Unknown Organization [facility] Address [address] [place] [address]- Care Team Providers Care Roustabout Crew Leader Name Role Phone Art ONEAL, Fidelia Good Primary Care Physician [phone] Encounter [facility] Date(s): 08/04/21 - 09/03/21 [facility] [address] [place] [id number] Allergies, Adverse Reactions, Alerts No Known Allergies [...] Given Parent Or Guardian Refuses 1Result Comment: [facility]: [id number] 2Result Comment: von 3Admin Note: vis 10/24/2006 [...] 0 Refills, Maintenance, 05/11/21 10:06:00 EST, Ointment, [facility] #[id number], Partial fill upon patient request if the prescription is for a schedule II opioid drug., 1 application Topically 2... Start Date: 05/11/21 Status: Ordered escitalopram 5 mg oral tablet 1 tablet = 5 mg, By Mouth, Daily, # 30 tablet, 5 Refills, Maintenance, 08/22/21 7:58:00 EDT, Tablet, [facility]/pharmacy #[id number], Partial fill upon patient request if the [...] Refills 0, Tot. Refills 0, Maintenance, [facility] 2 [facility] reader, 05/13/21 8:16:00 EST, Supply, [...] Refills, Maintenance, 08/04/21 10:40:00 EDT, ER Tablet, [facility]/pharmacy #[id number], Partial fill upon patient request if the prescription is for a schedule II opioid drug., 170.... Start Date: 08/04/21 Status: Ordered omeprazole 40 mg oral enteric coated capsule 1 capsule = 40 mg, By Mouth, Daily, # 30 capsule, 2 Refills, Maintenance, 05/31/21 14:22:00 EST, [facility] #[id number], Partial fill upon patient request if the prescription is for a schedule II opioid drug., 170.18, cm, 05/24/21 8:1... Start Date: 05/31/21 Status: Ordered Ozempic (1 mg dose) 4 mg/3 mL subcutaneous solution = 1 mg, Subcutaneous Infusion, Every 7 days, # 3 pack/packet, 1 Refills, Maintenance, 08/04/21 13:38:00 EDT, [facility]/pharmacy #[id number], Partial fill upon patient request if the prescription is for a schedule II opioid drug., 170.18, cm, 05/24/21 8:16:00 EST,... Start Date: 08/04/21 Stop Date: 09/29/21 Status: Ordered propranolol 80 mg oral capsule, extended release 80 mg, 1, capsule, By Mouth, Daily, # 30 capsule, Refills 5, Tot. Refills 5, Maintenance, 08/22/21 8:04:00 EDT, Route to Pharmacy Electronically, [facility]/pharmacy #[id number], Partial fill upon patient requestif the prescription is for a schedule II opioid darian... Start Date: 08/22/21 Status: Ordered riboflavin 400 mg oral capsule 1 capsule = 400 mg, By Mouth, Daily, # 100 capsule, 0 Refills, Maintenance, 06/19/21 17:00:00 EDT, Capsule, [facility] #[id number], Partial fill upon patient request, 170.18, cm, [...]
--- OUTSIDE RECORDS SUMMARY | 2022-08-30 22:27 | XMS_ITS | Continuity of Care Document ---
Author Name Unknown Organization [facility] Cristofer lt Address [address] [place] [address]- Care Team Providers Care Shellac Polisher Name Role Phone Marybel ONEAL, Jennifer Primary Care Physician [phone] Encounter [facility] [place] Date(s): 03/31/21 - 04/30/21 [facility] Adult [address] [place] [address]- Attending Physician: Admalee, Hector8 Admitting Physician: Admtr, Katie Referring Physician: Admtr, [...] [facility]: 34680-823-55 2Result Comment: von 3Admin Note: vis 10/24/2006 [...] 0 Refills, Maintenance, 12/22/20 9:42:00 EDT, Ointment, [facility] #[id number], Partial fill upon patient request if the [...] 6 Refills, Maintenance, 11/24/20 8:17:00 EDT, Solution, [facility] #[id number], 170.18, cm, 08/23/20 7:31:00 EDT, Height, 129.7, kg, 01/24/19 18:43:00 EDT, Dry Weight Start Date: 11/24/20 Stop Date: 06/22/21 Status: Ordered MetFORMIN (Eqv-Glucophage XR) 500 mg oral tablet, extended release 1 tablet = 500 mg, By Mouth, 2 times a day, # 180 tablet, 1 Refills, Maintenance, 04/15/21 19:59:00EST, ER Tablet, [facility] #[id number], Partial fill upon patient request if the prescription is for a schedule II opioid drug., 170.18, cm, 03/31... Start Date: 04/15/21 Status: Ordered omeprazole 40 mg oral enteric coated capsule 1 capsule = 40 mg, By Mouth, Daily, # 30 capsule, 1 Refills, Maintenance, 04/07/21 10:58:00 EST, ECCapsule, [facility] #[id number], Partial fill upon patient request if the prescription is for a schedule II opioid drug., 170.18, cm, 03/31/21 7:4... Start Date: 04/07/21 Status: Ordered Ozempic 2 mg/1.5 mL (0.25 mg or 0.5 mg dose) subcutaneous solution See Instructions, Inject 0.5 mg once a week subquateneously, # 1 pack/packet, 1 Refills, Maintenance, 01/18/21 9:44:00 EDT, [facility] #[id number], Partial fill upon patient request if the prescription is for a schedule II opioid drug., Inject 0.... Start Date: 01/18/21 Status: Ordered riboflavin 400 mg oral capsule 1 capsule = 400 mg, By Mouth, Daily, # 100 capsule, 0 Refills, Maintenance, 07/22/20 12:07:00 EDT, Capsule, [facility] #[id number], Partial fill upon patient request, 170.18, cm, 07/21/20 7:47:00 EDT, Height, 129.7, kg, 01/24/19 18:43:00 EDT, Dry... Start Date: 07/22/20 Status: Ordered sertraline 25 mg oral tablet 1 tablet = 25 mg, By Mouth, Daily, # 30 tablet, 0 Refills, Maintenance, 12/22/20 8:00:00 EDT, Tablet, [facility] #[id number], Partial fill upon patient request if the prescription is for a schedule II opioid drug., 170.18, cm, 12/22/20 7:35:00 ED... Start Date: 12/22/20 Status: Ordered SUMAtriptan 25 mg oral tablet 1 tablet = 25 mg, By Mouth, Once, At onset of headache. May repeat in 2 hours, # 1 tablet, 0 Refills, Soft Stop, 03/08/20 14:57:00 EST, Tablet, [facility] #[id number], Partial fill upon patient request, 170.18, cm, [...]
--- OUTSIDE RECORDS SUMMARY | 2022-08-30 22:27 | XMS_ITS | Continuity of Care Document ---
Author Name Unknown Organization [facility] Address [address] [place] [address]- Care Team Providers Care Food Management Aide Name Role Phone Art ONEAL, Fidelia Good Primary Care Physician [phone] Encounter [facility] [place] Date(s): 04/12/21 - 07/26/[address] [address]- Discharge Disposition: A-D/C Home Attending Physician: Jennifer No NP Admitting Physician: Jennifer No NP Referring Physician: Jennifer No NP Allergies, Adverse [...] Given Parent Or Guardian Refuses 1Result Comment: [facility]: [id number] 2Result Comment: von 3Admin Note: vis 10/24/2006 [...] 0 Refills, Maintenance, 05/11/21 10:06:00 EST, Ointment, [facility] #[id number], Partial fill upon patient request if the [...] 1 Refills, Maintenance, 04/15/21 19:59:00EST, ER Tablet, [facility] #[id number], Partial fill upon patient request if the prescription is for a schedule II opioid drug., 170.18, cm, 03/31... Start Date: 04/15/21 Status: Ordered omeprazole 40 mg oral enteric coated capsule 1 capsule = 40 mg, By Mouth, Daily, # 30 capsule, 2 Refills, Maintenance, 05/31/21 14:22:00 EST, ECCapsule, [facility] #[id number], Partial fill upon patient request if the prescription is for a schedule II opioid drug., 170.18, cm, 05/24/21 8:1... Start Date: 05/31/21 Status: Ordered Ozempic (1 mg dose) 4 mg/3 mL subcutaneous solution = 1 mg, Subcutaneous Infusion, Every 7 days, # 1 pack/packet, 6 Refills, Maintenance, 05/13/21 15:01:00 EST, [email or web address] #[id number], Partial fill upon patient request if the prescription is for a schedule II opioid drug., 170.18, cm, 03/31/21 7:4... Start Date: 05/13/21 Stop Date: 11/25/21 Status: Ordered riboflavin 400 mg oral capsule 1 capsule = 400 mg, By Mouth, Daily, # 100 capsule, 0 Refills, Maintenance, 06/19/21 17:00:00 EDT, Capsule, [email or web address] #[id number], Partial fill upon patient request, 170.18, cm, 05/24/21 8:16:00 EST, Height, 132.5, kg, 09/01/20 13:04:00 EDT, Dry... Start Date: 06/19/21 Status: Ordered sertraline 25 mg oral tablet 1 tablet = 25 mg, By Mouth, Daily, # 90 tablet, 0 Refills, Maintenance, 05/24/21 8:33:00 EST, Tablet, [facility] #[id number], Partial fill upon patient request if the prescription is for a schedule II opioid drug., 170.18, cm, 05/24/21 8:16:00 ES... Start Date: 05/24/21 Status: Ordered SUMAtriptan 25 mg oral tablet 1 tablet = 25 mg, By Mouth, Once, At onset of headache. May repeat in 2 hours, # 1 tablet, 0 Refills, Soft Stop, 03/08/20 14:57:00 EST, Tablet, [email or web address] #[id number], Partial fill upon patient request, 170.18, cm, [...]
--- OUTSIDE RECORDS SUMMARY | 2022-08-30 22:27 | XMS_ITS | Continuity of Care Document ---
Author Name Unknown Organization [facility]abb[facility] Holguin Cristofer lt Address [address] [place] [address]- Care Team Providers Care Steel Wheel Engraver Name Role Phone Marybel ONEAL, Jennifer Primary Care Physician [place] [facility] [place] 04/13/20 - 05/13/20 [facility] Adult [address] [place] [address]- Allergies, Adverse Reactions, Alerts Substance Reaction Severity [...] 6 Refills, Maintenance, 04/28/20 8:17:00 EST, Solution, [facility] #[id number], 170.18, cm, 03/17/20 15:55:00 EST, Height, 129.7, kg, 01/24/19 18:43:00 EDT, Dry Weight Start Date: 04/28/20 Stop Date: 11/24/20 Status: Ordered MetFORMIN (Eqv-Glucophage XR) 500 mg oral tablet, extended release 1 tablet = 500 mg, By Mouth, 2 times a day, # 180 tablet, 1 Refills, Maintenance, 04/27/20 14:54:00EST, ER Tablet, [facility] #[id number], Partial fill upon patient request if the prescription is for a schedule II opioid drug., 170.18, cm, 03/17... Start Date: 04/27/20 Status: Ordered omeprazole 40 mg oral enteric coated capsule 1 capsule = 40 mg, By Mouth, Daily, # 30 capsule, 0 Refills, Maintenance, 04/15/20 14:16:00 EST, ECCapsule, [facility] #[id number], Partial fill upon patient request if the prescription is for a schedule II opioid drug., 170.18, cm, 03/17/20 15:... Start Date: 04/15/20 Status: Ordered riboflavin 400 mg oral capsule 1 capsule = 400 mg, By Mouth, Daily, # 100 capsule, 0 Refills, Maintenance, 04/13/20 11:39:00 EST, Capsule, [facility] #[id number], Partial fill upon patient request, 170.18, cm, 03/17/20 15:55:00 EST, Height, 129.7, kg, 01/24/19 18:43:00 EDT, Start Date: 04/13/20 Status: Ordered SUMAtriptan 25 mg oral tablet 1 tablet = 25 mg, By Mouth, Once, At onset of headache. May repeat in 2 hours, # 1 tablet, 0 Refills, Soft Stop, 03/08/20 14:57:00 EST, Tablet, [facility] #[id number], Partial fill upon patient request, 170.18, cm, [...]
--- OUTSIDE RECORDS SUMMARY | 2022-08-30 22:27 | XMS_ITS | Continuity of Care Document ---
Author Name Unknown Organization [facility] Cristofer lt Address [address] [place] [address]- Care Team Providers Care Nailer Machine Name Role Phone Art ONEAL, Fidelia Good Primary Care Physician [place] [facility] [place] 11[place] 01/28[place]22 [facility] Adult [address] [place] [address]- Attending Physician: Fidelia Cordova NP Allergies, Adverse [...] Parent Or Guardian Refuses 1Result Comment: [facility]: [id number] 2Result Comment: von 3Admin Note: vis 10/24/2006 [...] 0 Refills, Maintenance, 01/17/22 7:35:00 EDT, Tablet, [facility]/pharmacy #[id number], Partial fill upon patient request if the prescription is for a schedule II opioid drug.... Start Date: 01/17/22 Status: Ordered betamethasone topical dipropionate 0.05% ointment 1 application, Topically, 2 times a day, # 15 Gm, 0 Refills, Maintenance, 10/04/21 14:28:00 EDT, Ointment, [facility]/pharmacy #[id number], Partial fill upon patient request if the prescription is for a schedule II opioid drug., 1 application Topically 2 times a d... Start Date: 10/04/21 Status: Ordered escitalopram 5 mg oral tablet 1 tablet = 5 mg, By Mouth, Daily, # 30 tablet, 5 Refills, Maintenance, 08/22/21 7:58:00 EDT, Tablet, [facility]/pharmacy #[id number], Partial fill upon patient request if [...] 2 Refills, Maintenance, 12/09/21 12:05:00 EDT, ECCapsule, [facility]/pharmacy #[id number], Partial fill upon patient request if the prescription is for a schedule II opioid drug., 170.18, cm, 11/28/21 7:49:00 EDT,... Start Date: 12/09/21 Status: Ordered Ozempic (1 mg dose) 4 mg/3 mL subcutaneous solution = 1 mg, Subcutaneous Infusion, Every 7 days, # 3 pack/packet, 4 Refills, Maintenance, 09/16/21 14:38:00 EDT, [facility]/pharmacy #[id number], Partial fill upon patient request if the prescription is for a schedule II opioid drug., 170.18, cm, 08/22/21 7:33:00 EDT,... Start Date: 09/16/21 Stop Date: 02/03/22 Status: Ordered predniSONE 10 mg oral tablet 1 tablet = 10 mg, By Mouth, 2 times a day, # 10 tablet, 0 Refills, Maintenance, 01/17/22 7:35:00 EDT, Tablet, [facility]/pharmacy #[id number], Partial fill upon patient request if the prescription is for a schedule II opioid drug., 170.18, cm, 11/28/21 7:49:00 EDT... Start Date: 01/17/22 Status: Ordered propranolol 80 mg oral capsule, extended release 80 mg, 1, capsule, By Mouth, Daily, # 30 capsule, Refills 5, Tot. Refills 5, Maintenance, 08/22/21 8:04:00 EDT, Route to Pharmacy Electronically, [facility]/pharmacy #[id number], Partial fill upon patient requestif the prescription is for a schedule II opioid darian... Start Date: 08/22/21 Status: Ordered riboflavin 400 mg oral capsule 1 capsule = 400 mg, By Mouth, Daily, # 100 capsule, 0 Refills, Maintenance, 06/19/21 17:00:00 EDT, Capsule, [facility] #[id number], Partial fill upon patient request, 170.18, cm, [...] Personnel Name: Fidelia Cordova NP Address: Address: [address] [place] [id number]
--- OUTSIDE RECORDS SUMMARY | 2022-08-30 22:27 | XMS_ITS | Continuity of Care Document ---
Author Name Unknown Organization [facility] Cristofer lt Address [address] [place] [address]- Care Team Providers Care Toll Gate Tender Name Role Phone Marybel ONEAL, Jennifer Primary Care Physician Encounter [facility] [place] Date(s): 10/15/20 - 12/15/20 [facility] Adult [address] [place] [address]- Attending Physician: Jennifer No NP Referring Physician: [...] Parent Or Guardian Refuses 1Result Comment: [facility]: [id number] 2Result Comment: von 3Admin Note: vis 10/24/2006 [...] 6 Refills, Maintenance, 11/24/20 8:17:00 EDT, Solution, [facility] #[id number], 170.18, cm, 08/23/20 7:31:00 EDT, Height, 129.7, kg, 01/24/19 18:43:00 EDT, Dry Weight Start Date: 11/24/20 Stop Date: 06/22/21 Status: Ordered MetFORMIN (Eqv-Glucophage XR) 500 mg oral tablet, extended release 1 tablet = 500 mg, By Mouth, 2 times a day, # 180 tablet, 1 Refills, Maintenance, 11/09/20 14:32:00EDT, ER Tablet, [facility] #[id number], Partial fill upon patient request if the prescription is for a schedule II opioid drug., 170.18, cm, 10/15... Start Date: 11/09/20 Status: Ordered omeprazole 40 mg oral enteric coated capsule 1 capsule = 40 mg, By Mouth, Daily, further refills require an office visit. please call to schedule, # 30 capsule, 0 Refills, Maintenance, 10/04/20 15:49:00 EDT, EC Capsule, [facility] #[id number], Partial fill upon patient request if the prescr... Start Date: 10/04/20 Status: Ordered Ozempic 2 mg/1.5 mL (0.25 mg or 0.5 mg dose) subcutaneous solution See Instructions, 0.25 subcutaneous once weekly for 4 weeks, then 0.5 mg subcutaneous once weekly, # 1 pack/packet, 0 Refills, Maintenance, 10/15/20 7:38:00 EDT, [facility] #[id number], Partial fill upon patient request if the prescription is for... Start Date: 10/15/20 Status: Ordered riboflavin 400 mg oral capsule 1 capsule = 400 mg, By Mouth, Daily, # 100 capsule, 0 Refills, Maintenance, 07/22/20 12:07:00 EDT, Capsule, [facility] #[id number], Partial fill upon patient request, 170.18, cm, 07/21/20 7:47:00 EDT, Height, 129.7, kg, 01/24/19 18:43:00 EDT, Dry... Start Date: 07/22/20 Status: Ordered SUMAtriptan 25 mg oral tablet 1 tablet = 25 mg, By Mouth, Once, At onset of headache. May repeat in 2 hours, # 1 tablet, 0 Refills, Soft Stop, 03/08/20 14:57:00 EST, Tablet, [facility] #[id number], Partial fill upon patient request, 170.18, cm, [...]
--- OUTSIDE RECORDS SUMMARY | 2022-08-30 22:27 | XMS_ITS | Continuity of Care Document ---
Author Name Unknown Organization [facility] Cristofer lt Address [address] [place] [address]- Care Team Providers Care Applied Psychology Chair Name Role Phone Marybel ONEAL, Jennifer Primary Care Physician [phone] Encounter [facility] Date(s): 04/04/21 - 05/04/21 [facility] Adult [address] [place] [address]- Allergies, Adverse Reactions, Alerts No Known Allergies [...] Refuses 1Result Comment: [facility]: [id number] 2Result Comment: von 3Admin Note: vis 10/24/2006 [...] 0 Refills, Maintenance, 12/22/20 9:42:00 EDT, Ointment, [facility] #[id number], Partial fill upon patient request if the [...] 6 Refills, Maintenance, 11/24/20 8:17:00 EDT, Solution, [facility] #[id number], 170.18, cm, 08/23/20 7:31:00 EDT, Height, 129.7, kg, 01/24/19 18:43:00 EDT, Dry Weight Start Date: 11/24/20 Stop Date: 06/22/21 Status: Ordered MetFORMIN (Eqv-Glucophage XR) 500 mg oral tablet, extended release 1 tablet = 500 mg, By Mouth, 2 times a day, # 180 tablet, 1 Refills, Maintenance, 04/15/21 19:59:00EST, ER Tablet, [facility] #[id number], Partial fill upon patient request if the prescription is for a schedule II opioid drug., 170.18, cm, 03/31... Start Date: 04/15/21 Status: Ordered omeprazole 40 mg oral enteric coated capsule 1 capsule = 40 mg, By Mouth, Daily, # 30 capsule, 1 Refills, Maintenance, 04/07/21 10:58:00 EST, ECCapsule, [facility] #[id number], Partial fill upon patient request if the prescription is for a schedule II opioid drug., 170.18, cm, 03/31/21 7:4... Start Date: 04/07/21 Status: Ordered Ozempic 2 mg/1.5 mL (0.25 mg or 0.5 mg dose) subcutaneous solution See Instructions, Inject 0.5 mg once a week subquateneously, # 1 pack/packet, 1 Refills, Maintenance, 01/18/21 9:44:00 EDT, [facility] #[id number], Partial fill upon patient request if the prescription is for a schedule II opioid drug., Inject 0.... Start Date: 01/18/21 Status: Ordered riboflavin 400 mg oral capsule 1 capsule = 400 mg, By Mouth, Daily, # 100 capsule, 0 Refills, Maintenance, 07/22/20 12:07:00 EDT, Capsule, [facility] #[id number], Partial fill upon patient request, 170.18, cm, 07/21/20 7:47:00 EDT, Height, 129.7, kg, 01/24/19 18:43:00 EDT, Dry... Start Date: 07/22/20 Status: Ordered sertraline 25 mg oral tablet 1 tablet = 25 mg, By Mouth, Daily, # 30 tablet, 0 Refills, Maintenance, 12/22/20 8:00:00 EDT, Tablet, [facility] #[id number], Partial fill upon patient request if the prescription is for a schedule II opioid drug., 170.18, cm, 12/22/20 7:35:00 ED... Start Date: 12/22/20 Status: Ordered SUMAtriptan 25 mg oral tablet 1 tablet = 25 mg, By Mouth, Once, At onset of headache. May repeat in 2 hours, # 1 tablet, 0 Refills, Soft Stop, 03/08/20 14:57:00 EST, Tablet, [facility] #[id number], Partial fill upon patient request, 170.18, cm, [...]
--- OUTSIDE RECORDS SUMMARY | 2022-08-30 22:27 | XMS_ITS | Continuity of Care Document ---
Author Name Unknown Organization [facility] Cristofer lt Address [address] [place] [address]- Care Team Providers Care Print Cutter Name Role Phone Marybel ONEAL, Jennifer Primary Care Physician [phone] [facility] Date[facility] - 12/09/20 [facility] [address] [place] [address]- Allergies, Adverse Reactions, Alerts Substance Reaction Severity [...] Refuses 1Result Comment: [facility]: [id number] 2Result Comment: von 3Admin Note: vis 10/24/2006 [...] 6 Refills, Maintenance, 11/24/20 8:17:00 EDT, Solution, [facility] #[id number], 170.18, cm, 08/23/20 7:31:00 EDT, Height, 129.7, kg, 01/24/19 18:43:00 EDT, Dry Weight Start Date: 11/24/20 Stop Date: 06/22/21 Status: Ordered MetFORMIN (Eqv-Glucophage XR) 500 mg oral tablet, extended release 1 tablet = 500 mg, By Mouth, 2 times a day, # 180 tablet, 1 Refills, Maintenance, 11/09/20 14:32:00EDT, ER Tablet, [facility] #[id number], Partial fill upon patient request if the prescription is for a schedule II opioid drug., 170.18, cm, 10/15... Start Date: 11/09/20 Status: Ordered omeprazole 40 mg oral enteric coated capsule 1 capsule = 40 mg, By Mouth, Daily, further refills require an office visit. please call to schedule, # 30 capsule, 0 Refills, Maintenance, 10/04/20 15:49:00 EDT, [facility][id number], Partial fill upon patient request if the prescr... Start Date: 10/04/20 Status: Ordered Ozempic 2 mg/1.5 mL (0.25 mg or 0.5 mg dose) subcutaneous solution See Instructions, 0.25 subcutaneous once weekly for 4 weeks, then 0.5 mg subcutaneous once weekly, # 1 pack/packet, 0 Refills, Maintenance, 10/15/20 7:38:00 EDT, [facility] #[id number], Partial fill upon patient request if the prescription is for... Start Date: 10/15/20 Status: Ordered riboflavin 400 mg oral capsule 1 capsule = 400 mg, By Mouth, Daily, # 100 capsule, 0 Refills, Maintenance, 07/22/20 12:07:00 EDT, [facility] #[id number], Partial fill upon patient request, 170.18, cm, 07/21/20 7:47:00 EDT, Height, 129.7, kg, 01/24/19 18:43:00 EDT, Dry... Start Date: 07/22/20 Status: Ordered SUMAtriptan 25 mg oral tablet 1 tablet = 25 mg, By Mouth, Once, At onset of headache. May repeat in 2 hours, # 1 tablet, 0 Refills, Soft Stop, 03/08/20 14:57:00 EST, Tablet, [facility] #[id number], Partial fill upon patient request, 170.18, cm, [...]
--- OUTSIDE RECORDS SUMMARY | 2022-08-30 22:28 | XMS_ITS | Continuity of Care Document ---
Author Name Unknown Organization [facility] Cristofer lt Address [address] [place] [address]- Care Team Providers Care Furniture Cleaner Name Role Phone Jennifer No NP Primary Care Physician [facility] Date[facility]): 07/21/20 - 07/28/20 [facility] Adult [address] [place] [address]- Encounter Diagnosis Neck pain(Discharge Diagnosis) - 07/21/20 Type 2 diabetes mellitus(Discharge Diagnosis) - 07/21/20 Acute low back pain(Discharge Diagnosis) - 07/21/20 Migraine - infrequent(Discharge Diagnosis) - 07/22/20 Attending Physician: Jennifer No NP Allergies, Adverse [...] 0 Refills, Maintenance, 07/21/20 8:06:00 EDT, Tablet, [facility] #[id number], Partial fill upon patient request if the [...] 6 Refills, Maintenance, 04/28/20 8:17:00 EST, Solution, [facility] #[id number], 170.18, cm, 03/17/20 15:55:00 EST, Height, 129.7, kg, 01/24/19 18:43:00 EDT, Dry Weight Start Date: 04/28/20 Stop Date: 11/24/20 Status: Ordered MetFORMIN (Eqv-Glucophage XR) 500 mg oral tablet, extended release 1 tablet = 500 mg, By Mouth, 2 times a day, # 180 tablet, 1 Refills, Maintenance, 04/27/20 14:54:00EST, ER Tablet, [facility] #[id number], Partial fill upon patient request if the prescription is for a schedule II opioid drug., 170.18, cm, 03/17... Start Date: 04/27/20 Status: Ordered omeprazole 40 mg oral enteric coated capsule 1 capsule = 40 mg, By Mouth, Daily, # 30 capsule, 3 Refills, Maintenance, 05/18/20 9:41:00 EST, EC Capsule, [facility] #[id number], Partial fill upon patient request if the prescription is for aschedule II opioid drug., 170.18, cm, 05/10/20 9:01... Start Date: 05/18/20 Status: Ordered riboflavin 400 mg oral capsule 1 capsule = 400 mg, By Mouth, Daily, # 100 capsule, 0 Refills, Maintenance, 07/22/20 12:07:00 EDT, Capsule, [facility] #[id number], Partial fill upon patient request, 170.18, cm, 07/21/20 7:47:00 EDT, Height, 129.7, kg, 01/24/19 18:43:00 EDT, Dry... Start Date: 07/22/20 Status: Ordered SUMAtriptan 25 mg oral tablet 1 tablet = 25 mg, By Mouth, Once, At onset of headache. May repeat in 2 hours, # 1 tablet, 0 Refills, Soft Stop, 03/08/20 14:57:00 EST, Tablet, [facility] #[id number], Partial fill upon patient request, 170.18, cm, [...] Effective Dates Health Status Clinical Service Informant Type 2 diabetes mellitus Discharge Diagnosis 07/21/20 Neck pain Discharge Diagnosis 07/21/20 Acute low back pain Discharge Diagnosis 07/21/20 Migraine - infrequent Discharge Diagnosis 07/22/20 Vital Signs Most recent to oldest [Reference Range]: 1 Height 170.18 cm (07/21/20 7:47 AM) Weight 135.6 kg (07/21/20 7:47 AM) Oxygen Saturation [94-100 %] 98 % (07/21/20 7:47 AM) Pulse Rate [55-90 bpm] 94 bpm *H* (07/21/20 7:47 AM) Body Mass Index [18.5-24.99] 46.82 *>HHI* (07/21/20 7:47 AM) Blood Pressure [90-138/55-84 mm Hg] 122/ 84mm Hg (07/21/20 7:47 AM) Respiratory Rate [16-30 br/min] 16 br/mi n (07/21/20 7:47 AM) Temperature [96.8-100.4 DegF] 98.1 DegF (07/21/20 7:47 AM) Mode of Delivery (Oxygen) Room air (07/21/20 7:47 AM) Blood pressure sites Arm, right (07/21/20 7:47 AM) Temperature Route Oral (07/21/20 7:47 AM) Weight Obtained Via Standing scale (07/21/20 7:47 AM) Social History Social History Type Response Smoking Status Never smoker entered on: 08/23/15 Sex
--- OUTSIDE RECORDS SUMMARY | 2022-08-30 22:28 | XMS_ITS | Continuity of Care Document ---
Author Name Unknown Organization [facility] Address [address] [place] [address]- Care Team Providers Care Supervisor Nurse Name Role Phone Art ONEAL, Fidelia Good Primary Care Physician [phone] Encounter [facility] Date(s): 05/13/21 - 06/12/21 [facility] [address] [place] [id number] Allergies, Adverse Reactions, Alerts [...] Given Parent Or Guardian Refuses 1Result Comment: [facility]: [id number] 2Result Comment: von 3Admin Note: vis 10/24/2006 [...] 0 Refills, Maintenance, 05/11/21 10:06:00 EST, Ointment, [facility] #[id number], Partial fill upon patient request if the [...] 1 Refills, Maintenance, 04/15/21 19:59:00EST, ER Tablet, [facility] #[id number], Partial fill upon patient request if the prescription is for a schedule II opioid drug., 170.18, cm, 03/31... Start Date: 04/15/21 Status: Ordered omeprazole 40 mg oral enteric coated capsule 1 capsule = 40 mg, By Mouth, Daily, # 30 capsule, 2 Refills, Maintenance, 05/31/21 14:22:00 EST, ECCapsule, [facility] #[id number], Partial fill upon patient request if the prescription is for a schedule II opioid drug., 170.18, cm, 05/24/21 8:1... Start Date: 05/31/21 Status: Ordered Ozempic (1 mg dose) 4 mg/3 mL subcutaneous solution = 1 mg, Subcutaneous Infusion, Every 7 days, # 1 pack/packet, 6 Refills, Maintenance, 05/13/21 15:01:00 EST, [facility] #[id number], Partial fill upon patient request if the prescription is for a schedule II opioid drug., 170.18, cm, 03/31/21 7:4... Start Date: 05/13/21 Stop Date: 11/25/21 Status: Ordered riboflavin 400 mg oral capsule 1 capsule = 400 mg, By Mouth, Daily, # 100 capsule, 0 Refills, Maintenance, 07/22/20 12:07:00 EDT, Capsule, [facility] #[id number], Partial fill upon patient request, 170.18, cm, 07/21/20 7:47:00 EDT, Height, 129.7, kg, 01/24/19 18:43:00 EDT, Dry... Start Date: 07/22/20 Status: Ordered sertraline 25 mg oral tablet 1 tablet = 25 mg, By Mouth, Daily, # 90 tablet, 0 Refills, Maintenance, 05/24/21 8:33:00 EST, Tablet, [facility] #[id number], Partial fill upon patient request if the prescription is for a schedule II opioid drug., 170.18, cm, 05/24/21 8:16:00 ES... Start Date: 05/24/21 Status: Ordered SUMAtriptan 25 mg oral tablet 1 tablet = 25 mg, By Mouth, Once, At onset of headache. May repeat in 2 hours, # 1 tablet, 0 Refills, Soft Stop, 03/08/20 14:57:00 EST, Tablet, [facility] #[id number], Partial fill upon patient request, 170.18, cm, [...]
--- OUTSIDE RECORDS SUMMARY | 2022-08-30 22:28 | XMS_ITS | Continuity of Care Document ---
Author Name Unknown Organization [facility] Shabbir Holguin Cristofer lt Address [address] [place] [address]- Care Team Providers Care License Inspector Name Role Phone Jennifer No NP Primary Care Physician [facility]s): 04/27/20 - 05/27/20 [facility] Adult [address] [place] [address]- Allergies, Adverse Reactions, Alerts Substance Reaction Severity [...] 6 Refills, Maintenance, 04/28/20 8:17:00 EST, Solution, [facility] #[id number], 170.18, cm, 03/17/20 15:55:00 EST, Height, 129.7, kg, 01/24/19 18:43:00 EDT, Dry Weight Start Date: 04/28/20 Stop Date: 11/24/20 Status: Ordered MetFORMIN (Eqv-Glucophage XR) 500 mg oral tablet, extended release 1 tablet = 500 mg, By Mouth, 2 times a day, # 180 tablet, 1 Refills, Maintenance, 04/27/20 14:54:00EST, ER Tablet, [facility] #[id number], Partial fill upon patient request if the prescription is for a schedule II opioid drug., 170.18, cm, 03/17... Start Date: 04/27/20 Status: Ordered omeprazole 40 mg oral enteric coated capsule 1 capsule = 40 mg, By Mouth, Daily, # 30 capsule, 3 Refills, Maintenance, 05/18/20 9:41:00 EST, EC Capsule, [facility] #[id number], Partial fill upon patient request if the prescription is for aschedule II opioid drug., 170.18, cm, 05/10/20 9:01... Start Date: 05/18/20 Status: Ordered riboflavin 400 mg oral capsule 1 capsule = 400 mg, By Mouth, Daily, # 100 capsule, 0 Refills, Maintenance, 04/13/20 11:39:00 EST, Capsule, [facility] #[id number], Partial fill upon patient request, 170.18, cm, 03/17/20 15:55:00 EST, Height, 129.7, kg, 01/24/19 18:43:00 EDT, Start Date: 04/13/20 Status: Ordered SUMAtriptan 25 mg oral tablet 1 tablet = 25 mg, By Mouth, Once, At onset of headache. May repeat in 2 hours, # 1 tablet, 0 Refills, Soft Stop, 03/08/20 14:57:00 EST, Tablet, [facility] #[id number], Partial fill upon patient request, 170.18, cm, [...]
--- OUTSIDE RECORDS SUMMARY | 2022-08-30 22:28 | XMS_ITS | Continuity of Care Document ---
Author Name Unknown Organization [facility] Cristofer lt Address [address] [place] [address]- Care Team Providers Care Technology Recruiter Name Role Phone Marybel ONEAL, Jennifer Primary Care Physician [facility] Date[facility]s): 11/09/20 - 12/09/20 [facility] Adult [address] [place] [address]- Allergies, Adverse Reactions, Alerts Substance Reaction Severity [...] Given Parent Or Guardian Refuses 1Result Comment: [facility]: [id number] 2Result Comment: von 3Admin Note: vis 10/24/2006 [...] 6 Refills, Maintenance, 11/24/20 8:17:00 EDT, Solution, [facility] #[id number], 170.18, cm, 08/23/20 7:31:00 EDT, Height, 129.7, kg, 01/24/19 18:43:00 EDT, Dry Weight Start Date: 11/24/20 Stop Date: 06/22/21 Status: Ordered MetFORMIN (Eqv-Glucophage XR) 500 mg oral tablet, extended release 1 tablet = 500 mg, By Mouth, 2 times a day, # 180 tablet, 1 Refills, Maintenance, 11/09/20 14:32:00EDT, ER Tablet, [facility] #[id number], Partial fill upon patient request if the prescription is for a schedule II opioid drug., 170.18, cm, 10/15... Start Date: 11/09/20 Status: Ordered omeprazole 40 mg oral enteric coated capsule 1 capsule = 40 mg, By Mouth, Daily, further refills require an office visit. please call to schedule, # 30 capsule, 0 Refills, Maintenance, 10/04/20 15:49:00 EDT, [facility] #[id number], Partial fill upon patient request if the prescr... Start Date: 10/04/20 Status: Ordered Ozempic 2 mg/1.5 mL (0.25 mg or 0.5 mg dose) subcutaneous solution See Instructions, 0.25 subcutaneous once weekly for 4 weeks, then 0.5 mg subcutaneous once weekly, # 1 pack/packet, 0 Refills, Maintenance, 10/15/20 7:38:00 EDT, [facility] #[id number], Partial fill upon patient request if the prescription is for... Start Date: 10/15/20 Status: Ordered riboflavin 400 mg oral capsule 1 capsule = 400 mg, By Mouth, Daily, # 100 capsule, 0 Refills, Maintenance, 07/22/20 12:07:00 EDT, [facility] #[id number], Partial fill upon patient request, 170.18, cm, 07/21/20 7:47:00 EDT, Height, 129.7, kg, 01/24/19 18:43:00 EDT, Dry... Start Date: 07/22/20 Status: Ordered SUMAtriptan 25 mg oral tablet 1 tablet = 25 mg, By Mouth, Once, At onset of headache. May repeat in 2 hours, # 1 tablet, 0 Refills, Soft Stop, 03/08/20 14:57:00 EST, Tablet, [facility] #[id number], Partial fill upon patient request, 170.18, cm, [...]
--- OUTSIDE RECORDS SUMMARY | 2022-08-30 22:28 | XMS_ITS | Continuity of Care Document ---
Author Name Unknown Organization [facility] Address [address] [place] [address]- Care Team Providers Care Electrical Technician Name Role Phone rAt ONEAL, Fidelia Good Primary Care Physician [phone] Encounter [facility] Date(s): 03/29/22 - 04/28/22 [facility] [address] [place] [id number] Allergies, Adverse Reactions, Alerts No Known Allergies Immunizations Given and Recorded Vaccine Date Status Refusal Reason [id number] 12y+ bivalent booster vax 12/16/21 Recorded influenza [...] Parent Or Guardian Refuses 1Result Comment: [facility]: [id number] 2Result Comment: von 3Admin Note: vis 10/24/2006 [...] 0 Refills, Maintenance, 01/17/22 7:35:00 EDT, Tablet, [facility]/pharmacy #[id number], Partial fill upon patient request if the prescription is for a schedule II opioid drug.... Start Date: 01/17/22 Status: Ordered betamethasone topical dipropionate 0.05% ointment 1 application, Topically, 2 times a day, # 15 Gm, 0 Refills, Maintenance, 03/14/22 14:03:00 EST, Ointment, [facility]/pharmacy #[id number], Partial fill upon patient request if the prescription is for a schedule II opioid drug., 1 application Topically 2 times a d... Start Date: 03/14/22 Status: Ordered escitalopram 5 mg oral tablet 1 tablet = 5 mg, By Mouth, Daily, # 30 tablet, 5 Refills, Maintenance, 08/22/21 7:58:00 EDT, Tablet, [facility]/pharmacy #[id number], Partial fill upon patient request [...] Compound Start Date: 01/25/19 Status: Ordered Freestyle Armita 14 day sensor Freestyle Amrita 14 day [...] Maintenance, 08/04/21 10:40:00 EDT, ER Tablet, [facility]/pharmacy #[id number], Partial fill upon patient request if the prescription is for a schedule II opioid drug., 170.... Start Date: 08/04/21 Status: Ordered omeprazole 40 mg oral enteric coated capsule 1 capsule = 40 mg, By Mouth, Daily, # 30 capsule, 2 Refills, Maintenance, 12/09/21 12:05:00 EDT, ECCapsule, [facility]/pharmacy #[id number], Partial fill upon patient request [...] 0 Refills, Maintenance, 01/17/22 7:35:00 EDT, Tablet, [facility]/pharmacy #[id number], Partial fill upon patient request if the prescription is for a schedule II opioid drug., 170.18, cm, 11/28/21 7:49:00 EDT... Start Date: 01/17/22 Status: Ordered propranolol 80 mg oral capsule, extended release 80 mg, 1, capsule, By Mouth, Daily, # 30 capsule, Refills 5, Tot. Refills 5, Maintenance, 08/22/21 8:04:00 EDT, Route to Pharmacy Electronically, [facility]/pharmacy #[id number], Partial fill upon patient requestif the prescription is for a schedule II opioid darian... Start Date: 08/22/21 Status: Ordered riboflavin 400 mg oral capsule 1 capsule = 400 mg, By Mouth, Daily, # 100 capsule, 0 Refills, Maintenance, 06/19/21 17:00:00 EDT, Capsule, [facility] #[id number], Partial fill upon patient request, 170.18, cm, [...] 3 Refills, Maintenance, 04/06/22 16:00:00 EST, Solution, [facility] #[id number], Partial fill upon [...] Team Personnel Name: Dru Bonilla RN Position: [facility]OR[facility] RN Member Role: Primary Care Nurse Name: Fidelia Cordova NP Position: [facility] Associate Professional Member Role: PCP Address: Address: [address] [place] [address] [place] [address]- Care Team Related Persons Name: JUAN CARLOS RAYMOND Address: home [address] [place] [address] Name: MEL RAYMOND Address: home [address] [place] [id number]
[2022-08-30 22:29] VITALS: RESP 14
[2022-08-30] MEDS: Ketorolac Tromethamine 30 MG/ML VIAL IVPUSH (22:29)
[2022-08-30] MEDS: Morphine Sulfate 4 MG/ML CARTRIDGE IVPUSH (22:29)
[2022-08-30] MEDS: ondansetron HCL 4 MG/2 ML VIAL IVPUSH (22:29)
[2022-08-30] MEDS: cefTRIAXone sodium 1 GM in 0.9 % Sodium Chloride 50 ML IV (23:08)
--- NOTE | 2022-08-30 23:08 | PC.NURSE ---
Per Dr. Valladares Blood Cultures and Lactic Acid not needed to be drawn at this time.
--- NOTE | 2022-08-30 23:39 | PC.NURSE ---
Patient alert and oriented. IV access in Right AC. Patient medicated per JUN. 1L of saline currently infusing. Will continue to follow plan of care.
== END 2022-08-31 00:19 | disposition home or self-care (01) ==
PROVIDERS: Physician Assistant; Emergency Provider Internal Medicine; PCP Nurse Practitioner Family
DX: N39.0 Urinary tract infection, site not specified (principal); R10.9 Unspecified abdominal pain; E11.9 Type 2 diabetes mellitus without complications; Z79.899 Other long term (current) drug therapy; Z87.442 Personal history of urinary calculi
CPT/HCPCS: 36415; 74176; 80048; 80076; 81001; 83690; 83735; 84702; 85025; 87086; 96374; 96375; 99284; J0696; J1885; J2270; J2405

== ENCOUNTER 2022-12-22 12:15 | Outpatient (AMB) | payer OTHER, SELFPAY ==
--- OUTSIDE RECORDS SUMMARY | 2022-12-22 12:17 | XMS_ITS | Continuity of Care Document ---
Author Name Unknown Organization [facility] Cristofer lt Address [address] [place] [address]- Care Team Providers Care Delivery Director Name Role Phone Art ONEAL, Fidelia Good Primary Care Physician [facility] Date(s): 08/30/22 - 09/29/22 [facility] Adult [address] [place] [address]- Allergies, Adverse Reactions, Alerts No Known Allergies Immunizations Given and Recorded Vaccine Date Status Refusal Reason [id number] 12y+ bivalent booster vax 12/16/21 Recorded influenza [...] Guardian Refuses 1Result Comment: [facility]: [id number] 2Result Comment: von 3Admin Note: vis 10/24/2006 [...] 0 Refills, Maintenance, 01/17/22 7:35:00 EDT, Tablet, [facility]/pharmacy #[id number], Partial fill upon patient request if the prescription is for a schedule II opioid drug.... Start Date: 01/17/22 Status: Ordered betamethasone topical dipropionate 0.05% ointment 1 application, Topically, 2 times a day, # 15 Gm, 0 Refills, Maintenance, 07/03/22 11:45:00 EDT, Ointment, [id number], Partial fill upon patient request if the prescription is for a schedule II opioid drug., 1 application Topically 2 times a d... Start Date: 07/03/22 Status: Ordered Dulcolax 5 mg oral enteric coated tablet See Instructions, PRN as needed for constipation, 1 tablet By Mouth Daily as needed for constipation, # 15 tablet, 0 Refills, Maintenance, 09/15/22 14:42:00 EDT, CR Tablet, [id number], Partial fill upon patient request if the prescription is f... Start Date: 09/15/22 Status: Ordered escitalopram 5 mg oral tablet 1 tablet = 5 mg, By Mouth, Daily, # 30 tablet, 5 Refills, Maintenance, 08/22/21 7:58:00 EDT, Tablet, [id number], Partial fill upon patient request if the [...] Weight Start Date: 04/12/21 Status: Ordered Freestyle amrtia 2 CGM Freestyle amrita 2 CGM, See [...] Refills, Maintenance, 05/19/22 12:00:00 EST, ER Tablet, [id number], Partial fill upon [...] 08/22/21 8:04:00 EDT, Route to Pharmacy Electronically, [facility]/pharmacy #[id number], Partial fill upon patient requestif the prescription is for a schedule II opioid darian... Start Date: 08/22/21 Status: Ordered riboflavin 400 mg oral capsule 1 capsule = 400 mg, By Mouth, Daily, # 100 capsule, 0 Refills, Maintenance, 06/19/21 17:00:00 EDT, Capsule, [facility] #[id number], Partial fill upon patient request, 170.18, cm, [...] 4 Refills, Maintenance, 06/13/22 16:46:00 EST, Solution, [facility]/pharmacy #[id number], Partial fill upon patient request if the prescription is for a schedule II... Start Date: 06/13/22 Stop Date: 09/06/23 Status: Ordered Problem List Condition Confirmation Course Effective Dates Status Health Status Informant Acne vulgaris Confirmed Active Acute low back pain Confirmed Active Anxiety Confirmed Active Morbid obesity with BMI of 45.0-49.9, adult Confirmed Active Carpal tunnel syndrome Confirmed Active Constipation Confirmed Active DKA (diabetic ketoacidosis) Confirmed Active [...] Associate Professional Member Role: PCP Address: Address: [address] [place] [address]- Care Team Related Persons Name: JUAN CARLOS RAYMOND Address: home [address] [place] [id number] Name: MEL RAYMOND Address: [address] [address]
--- OUTSIDE RECORDS SUMMARY | 2022-12-22 12:17 | XMS_ITS | Continuity of Care Document ---
Author Name Unknown Organization [facility] Wyola Cristofer lt Address [address] [place] [address]- Care Team Providers Care Supervisor Shipfitters Name Role Phone Art ONEAL, Fidelia Good Primary Care Physician Encounter [facility] Date(s): 08/30/22 - 09/29/22 [facility] Adult [address] [place] [address]- Allergies, Adverse Reactions, Alerts No Known Allergies Immunizations Given and Recorded Vaccine Date Status Refusal Reason [id number] 12y+ bivalent booster vax 12/16/21 Recorded influenza [...] Guardian Refuses 1Result Comment: [facility]: [id number] 2Result Comment: von 3Admin Note: vis 10/24/2006 [...] 0 Refills, Maintenance, 01/17/22 7:35:00 EDT, Tablet, [facility]/pharmacy #[id number], Partial fill upon patient [...] Refills, Maintenance, 08/22/21 7:58:00 EDT, Tablet, [id number], Partial fill upon patient request if the [...] 08/22/21 8:04:00 EDT, Route to Pharmacy Electronically, [facility]/pharmacy #[id number], Partial fill upon patient requestif the prescription is for a schedule II opioid darian... Start Date: 08/22/21 Status: Ordered riboflavin 400 mg oral capsule 1 capsule = 400 mg, By Mouth, Daily, # 100 capsule, 0 Refills, Maintenance, 06/19/21 17:00:00 EDT, Capsule, [facility][id number], Partial fill upon patient request, 170.18, [...] 4 Refills, Maintenance, 06/13/22 16:46:00 EST, Solution, [facility]/pharmacy #[id number], Partial fill upon patient [...] Team Personnel Name: Dru Bonilla RN Position: [facility] RN Member Role: Primary Care Nurse Name: Fidelia Cordova NP Position: [facility] PCO Associate Professional Member Role: PCP Address: Address: [address] [place] [phone]- Care Team Related Persons Name: JUAN CARLOS RAYMOND Address: home [address] [place] [id number] Name: MEL RAYMOND Address: [address] [address]
--- OUTSIDE RECORDS SUMMARY | 2022-12-22 12:18 | XMS_ITS | Continuity of Care Document ---
Author Name Unknown Organization [facility] Ezio Cristofer lt Address [address] [place] [address]- Care Team Providers Care Pig Farm Manager Name Role Phone Art ONEAL, Fidelia Good Primary Care Physician Encounter [facility] Date(s): 09/15/22 - 10/15/[address] [facility] Adult [address] [place] [address]- Attending Physician: AdmKatie vickers Admitting Physician: AdmKatie vickers Referring Physician: Admtr, ArLaurie Allergies, Adverse Reactions, Alerts No Known Allergies Immunizations Given and Recorded Vaccine Date Status Refusal Reason [id number] 12y+ bivalent booster vax 12/16/21 Recorded influenza [...] Parent Or Guardian Refuses 1Result Comment: [facility] [facility]: [id number] 2Result Comment: von 3Admin Note: vis 10/24/2006 [...] 0 Refills, Maintenance, 01/17/22 7:35:00 EDT, Tablet, [facility]/pharmacy #[id number], Partial fill upon patient request [...] Refills, Maintenance, 05/19/22 12:00:00 EST, ER Tablet, [facility]/pharmacy #[id number], Partial fill upon patient request if the prescription is for a schedule II opioid drug., 170.... Start Date: 05/19/22 Status: Ordered omeprazole 40 mg oral enteric coated capsule 1 capsule = 40 mg, By Mouth, Daily, # 30 capsule, 2 Refills, Maintenance, 12/09/21 12:05:00 EDT, ECCapsule, [facility]/pharmacy #[id number], Partial fill upon patient request if the prescription is for a schedule II opioid drug., 170.18, cm, 11/28/21 7:49:00 EDT,... Start Date: 12/09/21 Status: Ordered Ozempic (1 mg dose) 4 mg/3 mL subcutaneous solution = 1 mg, Subcutaneous Infusion, Every 7 days, rotate injection sites, # 3 mL, 6 Refills, Maintenance, 03/29/22 11:02:00 EST, [facility]/pharmacy #[id number], Partial fill upon patient request if the prescription is for a schedule II opioid drug., 170.18, cm, ... Start Date: 03/29/22 Stop Date: 10/11/22 Status: Ordered predniSONE 10 mg oral tablet 1 tablet = 10 mg, By Mouth, 2 times a day, # 10 tablet, 0 Refills, Maintenance, 01/17/22 7:35:00 EDT, Tablet, [facility]/pharmacy #[id number], Partial fill upon patient request if the prescription is for a schedule II opioid drug., 170.18, cm, 11/28/21 7:49:00 EDT... Start Date: 01/17/22 Status: Ordered propranolol 80 mg oral capsule, extended release 80 mg, 1, capsule, By Mouth, Daily, # 30 capsule, Refills 5, Tot. Refills 5, Maintenance, 08/22/21 8:04:00 EDT, Route to Pharmacy Electronically, [facility]/pharmacy #[id number], Partial fill upon patient requestif the prescription is for a schedule II opioid darian... Start Date: 08/22/21 Status: Ordered riboflavin 400 mg oral capsule 1 capsule = 400 mg, By Mouth, Daily, # 100 capsule, 0 Refills, Maintenance, 06/19/21 17:00:00 EDT, Capsule, [facility] #[id number], Partial fill upon patient request, 170.18, cm, [...] 4 Refills, Maintenance, 06/13/22 16:46:00 EST, Solution, [facility]/pharmacy #[id number], Partial fill upon patient request [...] Status Never smoker entered on: 08/23/15 Sex Laboratory * Event Display: Non Lab Results Authored Date: * Event Display: Non Lab Results Authored Date: Radiology * Event Display: CT Scan Abdomen, Non- Authored Date: * Event Display: Ultrasound Pelvis, [facility]- Authored Date: Patient Care team information Care Team Personnel Name: Dru Bonilla RN Position: [facility] RN Member Role: Primary Care Nurse Name: Fidelia Cordova NP Position: [facility] PCO Associate Professional Member Role: PCP Address: Address: [address] [place] [phone]- Care Team Related Persons Name: JUAN CARLOS RAYMOND Address: home [address] [place] [id number] Name: MEL RAYMOND Address: [address] [address]
--- OUTSIDE RECORDS SUMMARY | 2022-12-22 12:20 | XMS_ITS | Continuity of Care Document ---
Author Name Unknown Organization [facility] [place] Cristofer lt Address [address] [place] [address]- Care Team Providers Care Bomb Squad Officer Name Role Phone Art ONEAL, Fidelia Good Primary Care Physician [place] [facility] Date(s): 09/15/22 - 09/22/22 [facility] Adult [address] [place] [address]- Encounter Diagnosis Constipation(Discharge Diagnosis) - 09/15/22 Attending Physician: Marybel RINCON-AIR SAMPLING AND MONITORINGJennifer Weeks Referring Physician: Fidelia Cordova NP Allergies, Adverse Reactions, Alerts No Known Allergies Immunizations Given and Recorded Vaccine Date Status Refusal Reason [id number] 12y+ bivalent booster vax 12/16/21 Recorded influenza [...] 1Result Comment: [facility]: [id number] 2Result Comment: von 3Admin Note: vis 10/24/2006 [...] 0 Refills, Maintenance, 01/17/22 7:35:00 EDT, Tablet, [facility]/pharmacy #[id number], Partial fill upon patient request if the prescription is for a schedule II opioid drug.... Start Date: 01/17/22 Status: Ordered betamethasone topical dipropionate 0.05% ointment 1 application, Topically, 2 times a day, # 15 Gm, 0 Refills, Maintenance, 07/03/22 11:45:00 EDT, Ointment, [facility]/pharmacy #[id number], Partial fill upon patient request [...] Refills, Maintenance, 08/22/21 7:58:00 EDT, Tablet, [facility]/pharmacy #[id number], Partial fill upon patient request [...] Refills, Maintenance, 05/19/22 12:00:00 EST, ER Tablet, [facility]/pharmacy #[id number], Partial fill upon patient request if the prescription is for a schedule II opioid drug., 170.... Start Date: 05/19/22 Status: Ordered omeprazole 40 mg oral enteric coated capsule 1 capsule = 40 mg, By Mouth, Daily, # 30 capsule, 2 Refills, Maintenance, 12/09/21 12:05:00 EDT, ECCapsule, [facility]/pharmacy #[id number], Partial fill upon patient request if the prescription is for a schedule II opioid drug., 170.18, cm, 11/28/21 7:49:00 EDT,... Start Date: 12/09/21 Status: Ordered Ozempic (1 mg dose) 4 mg/3 mL subcutaneous solution = 1 mg, Subcutaneous Infusion, Every 7 days, rotate injection sites, # 3 mL, 6 Refills, Maintenance, 03/29/22 11:02:00 EST, [facility]/pharmacy #[id number], Partial fill upon patient request if the prescription is for a schedule II opioid drug., 170.18, cm, ... Start Date: 03/29/22 Stop Date: 10/11/22 Status: Ordered predniSONE 10 mg oral tablet 1 tablet = 10 mg, By Mouth, 2 times a day, # 10 tablet, 0 Refills, Maintenance, 01/17/22 7:35:00 EDT, Tablet, [facility]/pharmacy #[id number], Partial fill upon patient request if the prescription is for a schedule II opioid drug., 170.18, cm, 11/28/21 7:49:00 EDT... Start Date: 01/17/22 Status: Ordered propranolol 80 mg oral capsule, extended release 80 mg, 1, capsule, By Mouth, Daily, # 30 capsule, Refills 5, Tot. Refills 5, Maintenance, 08/22/21 8:04:00 EDT, Route to Pharmacy Electronically, [facility]/pharmacy #[id number], Partial fill upon patient requestif the prescription is for a schedule II opioid darian... Start Date: 08/22/21 Status: Ordered riboflavin 400 mg oral capsule 1 capsule = 400 mg, By Mouth, Daily, # 100 capsule, 0 Refills, Maintenance, 06/19/21 17:00:00 EDT, Capsule, [facility] #[id number], Partial fill upon patient request, 170.18, cm, [...] 4 Refills, Maintenance, 06/13/22 16:46:00 EST, Solution, [facility]/pharmacy #[id number], Partial fill upon patient request [...] Dates Health Status Cl inical Service Informant Constipation Discharge Diagnosis 09/15/22 Vital Signs Most recent to oldest [Reference Range]: 1 Height 170.18 cm (09/15/22 2:56 PM) Social History Social History Type Response Smoking Status Never smoker entered on: 08/23/15 Sex Patient Care team information Care Team Personnel Name: Dru Bonilla RN Position: [facility] RN Member Role: Primary Care Nurse Name: Fidelia Cordova NP Position: [facility] PCO Associate Professional Member Role: PCP Address: Address: [address] [place] [id number] Care Team Related Persons Name: JUAN CARLOS RAYMOND Address: [address] [place] [address] Name: MEL RAYMOND Address: [address] [place] [address]
[2022-12-22 12:22] VITALS: BP 124/70; PULSE 80; TEMP 36.3; O2SAT 97; BMI 44.0
--- NOTE | 2022-12-22 12:22 | MHC.OFFWIV ---
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 Patient Tobacco Use Status: Never used Tobacco Allergies No Known Allergies Allergy (Verified 12/22/22 12:26) HPI HPI Comments History of Present Illness Details This is a 32-year-old female who presents to the office today for sick visit. Patient complaining of atraumatic neck pain/stiffness x1 day. She reports some very mild tingling in her left pinky but otherwise denies any numbness/weakness/paresthesias of her upper extremity. She denies any fevers or chills. She denies any abdominal pain or nausea/vomiting/diarrhea. She denies any facial asymmetry, slurred speech, visual disturbances, or seizure-like activity. [facility] Medical History Diabetes Social History Patient Tobacco Use Status: Never used Tobacco Review of Systems Const All systems reviewed & are unremarkable except as noted in HPI and below Reports no additional complaints Eyes Reports no additional complaints ENT Reports no additional complaints Card Reports no additional complaints Resp Reports no additional complaints GI Reports no additional complaints Reports no additional complaints Musc Reports no additional complaints Skin/Breast Reports system reviewed and no additional complaints, except as documented Neuro Reports no additional complaints Psych Reports no additional complaints Endo Reports no additional complaints Obed/Lymph Reports no additional complaints Aller/Immun Reports no additional complaints Physical Exam Vital Signs: Last Vital Signs Temp 97.3 F 12/22/22 12:22 Pulse 80 12/22/22 12:22 BP 124/70 12/22/22 12:22 Pulse Ox 97 12/22/22 12:22 Oxygen Delivery Method Room Air 12/22/22 12:22 BMI result Body Mass Index 44.0 Const General: cooperative, healthy appearing, no acute distress and well developed Orientation/consciousness: patient oriented x3 HEENT Head: Yes normal to inspection Ears: hearing grossly normal bilaterally General nose exam: Normal external nose present Face and sinus: Yes normal facial exam Mouth: Normal oral and palatal mucosa present Eyes General: appearance normal, both eyes and all related structures Pupils: Equal, round and reactive pupils present EOM: EOMs intact bilaterally Resp Effort & Inspection: normal respiratory effort and no respiratory distress Auscultation: clear to auscultation bilaterally Cardio Rate: regular rate Rhythm: regular rhythm Heart sounds: no gallops, no murmurs and no rubs Peripheral pulses: Peripheral pulses 2+ throughout GI Inspection: No distended Palpation (GI): Soft to palpation and nontender Auscultation: normal bowel sounds Back/Spine/Pelvis Other: Positive midline tenderness to palpation of the cervical spine in the upper thoracic spine. Palpable muscle spasms of the right paraspinal musculature as well as the right trapezius. Decreased range of motion of the neck with flexion and lateral rotation. Skin General skin exam: no rashes or lesions noted Neuro General: patient oriented x3 Cranial nerves: Yes CN's II-XII intact bilaterally and Yes Equal, round and reactive pupils present Gait exam (Neuro): Normal gait present Motor exam (neuro): 5/5 motor strength present throughout Extrem General: Yes normal to inspection, Yes full ROM and Yes no clubbing, cyanosis or edema Psych Appearance: grossly normal Mental Status: mental status grossly normal Assessment & Plan Assessment & Plan (1) Neck pain: Code(s): M54.2 - Cervicalgia Plan: This is a 32-year-old female presenting to the office complaining of atraumatic neck pain/stiffness x1 day. On physical examination, patient has mild midline tenderness to palpation of the cervical spine with palpable muscle spasms of the right paraspinal musculature and trapezius. Patient some evidence of radiculopathy with mild tingling of the left pinky. Patient has no fevers or chills and no systemic symptoms. She is overall nontoxic appearing. A comprehensive neurological exam is within normal limits without focal deficits with the exception of subjective mild sensory deficit of the left 5th finger. Differential diagnoses include cervical radiculopathy versus cervical paraspinal spasm/sprain/strain versus less likely meningitis/encephalitis versus less likely epidural abscess. I have very low suspicion for meningitis versus epidural abscess given no fevers or chills and no systemic symptoms, patient has palpable muscle spasms on physical examination, and she is neurologically intact. Her history and physical appears to be more consistent with muscle spasm versus sprain/strain versus radiculopathy. X-ray of the cervical spine obtained given mild tenderness to palpation of the midline cervical spine. I have encouraged patient to follow-up with her primary care physician in 3 days to possibly obtain a CT of the cervical spine to evaluate for radiculopathy. I have sent prescriptions for p.o. methocarbamol 500 mg 3 times daily as needed for muscle spasms, p.o. gabapentin 300 mg twice daily as needed, and 5% lidocaine patches daily. Recommend rest/activity modification, ice/heat to the area, and continue with acetaminophen/ibuprofen for pain management as long as patient has no medical contraindications. Patient was educated on signs/symptoms of meningitis and epidural abscess including fever/chills and neurological symptoms. She was instructed to proceed directly to the emergency room if she were to develop any of these symptoms. Patient verbalized understanding and is agreeable with the plan. She is comfortable with discharge home at this time. Orders: Orders XR cervical spine 2V Today M54.2 - Cervicalgia Medications: New methocarbamol 500 mg PO TID PRN 10 tabs 0RF muscle spasm lidocaine 5% leave on most painful area for up to 12 hrs 1 patch topical DAILY 15 ea 0RF gabapentin 300 mg PO BID PRN 14 caps 0RF pain Coding Level of Care Code New Pt Level 3 (30440) Diagnoses Neck pain M54.2
== END 2022-12-22 13:26 | disposition home or self-care (01) ==
PROVIDERS: PCP Nurse Practitioner Family; Visit Provider Physician Assistant Medical
DX: M54.2 Cervicalgia (principal)
CPT/HCPCS: 99203

== ENCOUNTER 2023-05-22 16:29 | Outpatient (AMB) | payer OTHER, SELFPAY ==
[2023-05-22 16:29] VITALS: BP 128/74; PULSE 87; O2SAT 98; BMI 43.9
--- NOTE | 2023-05-22 16:29 | MHC.OFFWIV ---
Intake Vital Signs 05/22/23 16:29 Height 5 ft 7 in Weight 280 lb 4 oz BMI 43.9 BP 128/74 Blood Pressure Location Lt brachial Position Sitting Pulse 87 Pulse Source Pulse Oximeter Pulse Oximetry (%) 98 Oxygen Delivery Method Room Air Intake Visit Reasons: EST/sore troat(lobby) Intake Note: pt is here for c.o sore throat Patient Tobacco Use Status: Never used Tobacco Allergies No Known Allergies Allergy (Verified 05/22/23 16:47) Medication List - Last Reconciled 05/22/23 by Reed Lomas MD acetaminophen (Tylenol Extra Strength) 1,000 mg (2 x 500 mg) PO QID PRN betamethasone dipropionate 0.05% topical DAILY dulaglutide (Trulicity) mg subcut etonogestrel (Nexplanon) subdermal omeprazole 40 mg PO DAILY pen needle, diabetic As directed Do you need a note to return to daycare/school/sports/work: Yes HPI EST/sore troat(lobby) HPI Details Patient presents for a sick visit. Reporting symptoms of sinus congestion, sore throat and difficulty swallowing. Low-grade fever. No family member is sick. No recent travel. Patient reports symptoms of malaise and fatigue. [facility] Medical History Diabetes Social History Patient Tobacco Use Status: Never used Tobacco Physical Exam Vital Signs: Last Vital Signs Pulse 87 05/22/23 16:29 BP 128/74 05/22/23 16:29 Pulse Ox 98 05/22/23 16:29 Oxygen Delivery Method Room Air 05/22/23 16:29 BMI result Body Mass Index 43.9 Const General: cooperative and healthy appearing Nutritional Appearance: well nourished Orientation/consciousness: patient oriented x3 Limitations: no limitations HEENT Head: Yes normal to inspection Eyes General: appearance normal, both eyes and all related structures Neck Neck: Yes normal visual inspection Chest Chest palpation & inspection: normal palpation of entire chest wall Resp Effort & Inspection: normal respiratory effort Neuro General: patient oriented x3 Results AMB Rapid Strep AMB Rapid Strep Negative Last Edit by Parrish Kumari CMA on 05/22/23 16:43 Results Reviewed Results Reviewed: Laboratory Last Values Strep Scn [facility] Negative 05/22/23 16:43 Assessment & Plan Assessment & Plan (1) Upper respiratory tract infection: Code(s): J06.9 - Acute upper respiratory infection, unspecified Plan: Antibiotics ordered. Increase fluid intake. Tylenol for aches and pains. If symptoms worsen, follow-up here for a recheck. Orders: Orders AMB Rapid Strep Screen Today Z13.9 - Encounter for screening, unspecified Coding Level of Care Code Est Pt Level 3 (25107) Diagnoses Upper respiratory tract infection J06.9
--- OUTSIDE RECORDS SUMMARY | 2023-05-22 16:30 | XMS_ITS | Continuity of Care Document ---
Author Name Unknown Organization [facility] Primary [facility] Address [address] [place] [address]- Care Team Providers Care Legal Entity Controller Name Role Phone Fidelia Cordova NP Primary Care Physician Encounter [facility] Date(s): 01/12/23 - 02/11/23 [facility] Yusuf [address], [place] [address] Allergies, Adverse Reactions, Alerts No Known Allergies Immunizations Given and Recorded Vaccine Date Status Refusal Reason [id number] 12y+ bivalent booster vax 12/16/21 Recorded influenza [...] Conj Vaccine (oldterm) 27 92 G iven 1Result Comment: [facility]: 31370-046-13 2Result Comment: von 3Admin Note: vis 10/24/2006 [...] Note: DAY UNKNOWN Admin Note: DAY UNKNOWN 24Admin Note: DAY UNKNOWN [...] opioid drug. Start Date: 08/23/20 Status: Ordered Basaglar KwikPen 100 units/mL subcutaneous solution See Instructions, Subcutaneous Infusion Daily rotate injection sites. Start with 10 units insulin, inject subcutaneously daily at bedtime. Increase by 2 units every 3 days until fasting blood sugar is under 120. Do not exceed 80 units., # 15 mL,... Start Date: 01/11/23 Status: Ordered betamethasone topical dipropionate 0.05% ointment See Instructions, APPLY TO AFFECTED AREA TWICE A DAY, # 15 Gm, 0 Refills, Maintenance, 02/06/23 12:58:00 EDT, [facility] STORE [id number], 15, APPLY TO AFFECTED AREA TWICE A DAY, 170.18, cm, 01/11/23 6:51:00 EDT, Height Start Date: 02/06/23 Status: Ordered Dulcolax 5 mg oral enteric coated tablet See Instructions, PRN as needed for constipation, 1 tablet By Mouth Daily as needed for constipation, # 15 tablet, 0 Refills, Maintenance, 09/15/22 14:42:00 EDT, CR Tablet, [facility]/pharmacy #[id number], Partial fill upon patient request if the prescription is f... Start Date: 09/15/22 Status: Ordered escitalopram 5 mg oral tablet 1 tablet = 5 mg, By Mouth, Daily, # 30 tablet, 5 Refills, Maintenance, 01/11/23 7:04:00 EDT, Tablet, [facility] #[id number], Partial fill upon patient request if the prescription is for a schedule II opioid drug., 170.18, cm, 01/11/23 6:51:00 EDT... Start Date: 01/11/23 Status: Ordered Free Style Lite Lancets Free [...] Dry Weight Start Date: 10/27/21 Status: Ordered FREESTYLE AMRITA 2 SENSOR FREESTYLE AMRITA 2 SENSOR, See Instructions, # 2 each, 0 Refills, Maintenance, USE TO CHECK SUGAR FOUR TIMES DAILY TO FIVE TIMES DAILY, 01/16/23 9:05:00 EDT, 170.18, cm, 01/11/23 6:51:00 EDT, Height Start Date: 01/16/23 Status: Ordered FreeStyle Amrita 2 Sensors See Instructions, # 2 each, Refills 11, Tot. Refills 11, Maintenance, Dx E.65 Check blood sugar 4-5times a day., 01/10/23 15:58:00 EDT, Supply, 170.18, cm, 01/09/23 14:59:00 EDT, Height Start Date: 01/10/23 Status: Ordered Freestyle amrita 2 sensors Freestyle [...] Freestyle Lite Test Strips, See Instructions, # 200 each, Refills 5, Tot. Refills 5, Maintenance, Use to test 1 time daily and as needed. Dx: E11.9, 02/06/23 18:09:00 EDT, Compound, 170.18, cm, 01/11/23 6:51:00 EDT, Height Start Date: 02/06/23 Status: Ordered Glucometer one device. Glucometer one device., See Instructions, # 1 box, Refills 0, Tot. Refills 0, Maintenance, Glucometer one device. Use the test 4 times a day. Free to change between brands., 01/25/19 12:09:16 EDT, Compound Start Date: 01/25/19 Status: Ordered Lantus Solostar Pen 100 units/mL subcutaneous solution See Instructions, Start with 10 units Subcutaneous Injection Daily for three days. Then, increase by 2 unites every three days until fasting blood sugar is less than 120. Do not exceed 80 units daily., # 15 mL, 11 Refills, Maintenance, 01/09/23 15:... Start Date: 01/09/23 Status: Ordered MetFORMIN (Eqv-Glucophage XR) 500 mg oral tablet, extended release See Instructions, 1 tablet By Mouth 3 times a day 90 days supply, # 270 tablet, 3 Refills, Maintenance, 01/08/23 12:02:00 EDT, ER Tablet, [facility] #[id number], Partial fill upon patient request if the prescription is for a schedule II opioid . Start Date: 01/08/23 Status: Ordered nabumetone 750 mg oral tablet 1 tablet = 750 mg, By Mouth, 2 times a day, with food, # 28 tablet, 0 Refills, Maintenance, 12/25/22 13:07:00 EDT, Tablet, [facility] #[id number], Partial fill upon patient request if the prescription is for a schedule II opioid drug., 170.18, cm... Start Date: 12/25/22 Stop Date: 01/08/23 Status: Ordered nabumetone 750 mg oral tablet See Instructions, TAKE 1 TABLET BY MOUTH TWICE DAILY FOR 14 DAYS WITH FOOD, # 28 tablet, 0 Refills,Maintenance, 01/08/23 11:58:00 EDT, [facility] #[id number], 170.18, cm, 12/25/22 12:55:00 EDT,Height Start Date: 01/08/23 Status: Ordered omeprazole 40 mg oral enteric coated capsule See Instructions, TAKE 1 CAPSULE BY MOUTH DAILY, # 30 capsule, 11 Refills, Maintenance, 02/06/23 18:08:00 EDT, [facility]/pharmacy #[id number], 170.18, cm, 01/11/23 6:51:00 EDT, Height Start Date: 02/06/23 Status: Ordered riboflavin 400 mg oral capsule 1 capsule = 400 mg, By Mouth, Daily, # 100 capsule, 0 Refills, Maintenance, 06/19/21 17:00:00 EDT, Capsule, [facility] #[id number], Partial fill upon patient request, 170.18, cm, 05/24/21 8:16:00 EST, Height, 132.5, kg, 09/01/20 13:04:00 EDT, Dry... Start Date: 06/19/21 Status: Ordered rizatriptan 10 mg oral tablet 1 tablet = 10 mg, By Mouth, Daily, PRN for migraine headache, may repeat dose every 2 hours up to amaximum of 3, # 12 tablet, 0 Refills, Acute 03/13/23 21:00:00 EST, 01/11/23 7:03:00 EDT, Tablet, [facility] #[id number], Partial fill upon patient... Start Date: 01/11/23 Stop Date: 03/13/23 Status: Ordered Test strips 100 Test strips 100, See Instructions, # 1 box, Refills 0, Tot. Refills 0, Maintenance, Test strips 100test blood sugar 4 times a day change as need the device type, 01/25/19 12:10:59 EDT, Compound Start Date: 01/25/19 Status: Ordered Trulicity Pen 0.75 mg/0.5 mL subcutaneous solution 0.5 mL = 0.75 mg, Subcutaneous Injection, Every week, rotate injection sites, # 2 mL, 11 Refills, Maintenance, 01/05/23 9:38:00 EDT, Solution, [facility]/pharmacy #[id number], Partial fill upon patient request ifthe prescription is for a schedule II opioid drug.,... Start Date: 01/05/23 Status: Ordered Problem List Condition Confirmation Course [...] Team Personnel Name: Dru Bonilla RN Position: [facility] RN Member Role: Primary Care Nurse Name: Fidelia Cordova NP Position: [facility] PCO Associate Professional Member Role: PCP Address: Address: [address] [place] [address]- Care Team Related Persons Name: JUAN CARLOS RAYMOND Address: home [address] [place] [address] Name: MEL RAYMOND Address: home [address] [place] [address]
--- OUTSIDE RECORDS SUMMARY | 2023-05-22 16:30 | XMS_ITS | Continuity of Care Document ---
Author Name Unknown Organization [facility] Ezio Cristofer lt Address [address] [place] [address]- Care Team Providers Care Director Motion Picture Name Role Phone Art ONEAL, Fidelia Good Primary Care Physician [phone] Encounter [facility] Date(s): 01/11/23 - 01/18/23 [facility] Adult [address] [place] [address]- Encounter Diagnosis Annual physical exam(Discharge Diagnosis) - 01/11/23 T2DM (type 2 diabetes mellitus)(Discharge Diagnosis) - 01/11/23 Morbid obesity with BMI of 45.0-49.9, adult(Discharge Diagnosis) - 01/11/23 Attending Physician: Not on Staff, Attending MD Allergies, Adverse Reactions, Alerts No Known Allergies Immunizations Given and Recorded Vaccine Date Status Refusal Reason [id number] 12y+ bivalent booster vax 12/16/21 Recorded influenza [...] (oldterm) 27 92 G iven 1Result Comment: [facility]: 35442-628-13 2Result Comment: von 3Admin Note: vis 10/24/2006 [...] DAY, # 15 Gm, 0 Refills, Maintenance, 10/24/22 8:42:00 EDT, [facility] STORE [id number], 15, APPLY TO AFFECTED AREA TWICE A DAY, 170.18, cm, 09/15/22 14:56:00 EDT, Height Start Date: 10/24/22 Status: Ordered Dulcolax 5 mg oral enteric coated tablet See Instructions, PRN as needed for constipation, 1 tablet By Mouth Daily as needed for constipation, # 15 tablet, 0 Refills, Maintenance, 09/15/22 14:42:00 EDT, CR Tablet, [facility]/pharmacy #[id number], Partial fill upon patient request if the prescription is f... Start Date: 09/15/22 Status: Ordered escitalopram 5 mg oral tablet 1 tablet = 5 mg, By Mouth, Daily, # 30 tablet, 5 Refills, Maintenance, 01/11/23 7:04:00 EDT, Tablet, [facility] #[id number], Partial fill upon patient request if the [...] Refills, Maintenance, 01/08/23 12:02:00 EDT, ER Tablet, [facility] #[id number], Partial fill upon patient request if the prescription is for a schedule II opioid . Start Date: 01/08/23 Status: Ordered nabumetone 750 mg oral tablet 1 tablet = 750 mg, By Mouth, 2 times a day, with food, # 28 tablet, 0 Refills, Maintenance, 12/25/22 13:07:00 EDT, Tablet, [facility] #[id number], Partial fill upon patient request if the prescription is for a schedule II opioid drug., 170.18, cm... Start Date: 12/25/22 Stop Date: 01/08/23 Status: Ordered nabumetone 750 mg oral tablet See Instructions, TAKE 1 TABLET BY MOUTH TWICE DAILY FOR 14 DAYS WITH FOOD, # 28 tablet, 0 Refills,Maintenance, 01/08/23 11:58:00 EDT, [facility] #[id number], 170.18, cm, 12/25/22 12:55:00 EDT,Height Start Date: 01/08/23 Status: Ordered omeprazole 40 mg oral enteric coated capsule See Instructions, TAKE 1 CAPSULE BY MOUTH DAILY, # 30 capsule, 0 Refills, Maintenance, 01/08/23 12:03:00 EDT, [facility] #[id number], 170.18, cm, 12/25/22 12:55:00 EDT, Height Start Date: 01/08/23 Status: Ordered omeprazole 40 mg oral enteric coated capsule 1 capsule = 40 mg, By Mouth, Daily, # 30 capsule, 2 Refills, Maintenance, 12/09/21 12:05:00 EDT, Lina, [facility]/pharmacy #[id number], Partial fill upon patient request if the prescription is for a schedule II opioid drug., 170.18, cm, 11/28/21 7:49:00 EDT,... Start Date: 12/09/21 Status: Ordered riboflavin 400 mg oral capsule 1 capsule = 400 mg, By Mouth, Daily, # 100 capsule, 0 Refills, Maintenance, 06/19/21 17:00:00 EDT, Capsule, [facility] #[id number], Partial fill upon patient request, 170.18, cm, 05/24/21 8:16:00 EST, Height, 132.5, kg, 09/01/20 13:04:00 EDT, Dry... Start Date: 06/19/21 Status: Ordered rizatriptan 10 mg oral tablet 1 tablet = 10 mg, By Mouth, Daily, PRN for migraine headache, may repeat dose every 2 hours up to amaximum of 3, # 12 tablet, 0 Refills, Acute 03/13/23 21:00:00 EST, 01/11/23 7:03:00 EDT, Tablet, [facility] #[id number], Partial fill upon patient... Start Date: 01/11/23 [...] 11 Refills, Maintenance, 01/05/23 9:38:00 EDT, Solution, [facility]/pharmacy #[id number], Partial fill upon patient request ifthe prescription [...] Dates Health Status Cl inical Service Informant Annual physical exam Discharge Diagnosis 01/11/23 T2DM (type 2 diabetes mellitus) Discharge Diagnosis 01/11/23 Morbid obesity with BMI of 45.0-49.9, adult Discharge Diagnosis 01/11/23 Vital Signs Most recent to oldest [Reference Range]: 1 Height 170.18 cm (01/11/23 6:51 AM) Weight 128.1 kg (01/11/23 6:51 AM) Oxygen Saturation [94-100 %] 100 % (01/11/23 6:51 AM) Pulse Rate [55-90 bpm] 80 bpm (01/11/23 6:51 AM) Body Mass Index [18.5-24.99 kg/m2] 44.23 kg/m2 *>HHI* (01/11/23 6:51 AM) Blood Pressure [90-138/55-84 mm Hg] 131/ 70mm Hg (01/11/23 6:51 AM) Blood pressure sites Arm, right (01/11/23 6:51 AM) Weight Obtained Via Standing scale (01/11/23 6:51 AM) Social History Social History Type Response Smoking Status Never smoker entered on: 08/23/15 Sex Note * Arlyn Salazar: PERFORM, SIGN, VERIFY Event Display: Patient Education/Instruction Authored Date: [id number] [facility] *[facility] Mccormikc Clinical Summary Name SANDRA RAYMOND Age 32 Years 1990 PCP Fidelia Cordova NP PCP Visit Date 01/11/2023 06:45:00 Additional Instructions: Scheduled Appointments?? Future Appointments ?No Future Appointments Scheduled Follow-Up Instructions ?? With: Address: When: Fidelia Cordova NP Within 1 year Comments: CPE With: Address: When: Fidelia Cordova NP Within 1 month Comments: DMII 20 minutes Diagnosis Anxiety disorder, unspecified; Migraine, unspecified, not intractable, without status migrainosus Medications: Please continue your medications until treatment is completed or stopped by your provider. Discuss any questions related to medications with your provider. New Medications [facility] #[id number], [address] [place] [phone], [phone] Rizatriptan (rizatriptan 10 mg oral tablet) 1 tab(s) Oral Daily as needed for migraine headache. may repeat dose every 2 hours up to a maximum of 3. Refills: 0. Next Dose: Medications to Continue with No Changes [facility] #[id number], [address] [place] [phone], [phone] Escitalopram (escitalopram 5 mg oral tablet) 1 tab(s) Oral Daily. Refills: 5. Next Dose: These medications were not printed or sent to your pharmacy Acetaminophen (acetaminophen 500 mg oral capsule) 2 capsule Oral every 4 hours as needed for fever. Next Dose: Betamethasone Topical (betamethasone topical dipropionate 0.05% ointment) APPLY TO AFFECTED AREA TWICE A DAY. Refills: 0. Next Dose: Bisacodyl (Dulcolax 5 mg oral enteric coated tablet) 1 tablet By Mouth Daily as needed for constipation; as needed as needed for constipation. Refills: 0. Next Dose: dulaglutide (Trulicity Pen 0.75 mg/0.5 mL subcutaneous solution) 0.5 Milliliter Subcutaneous Injection every week. rotate injection sites. Refills: 11. Next Dose: Durable Medical Equipment (Free Style Lite Lancets) Use to test 1 time daily and as needed. Dx: E11.9. Refills: 50. Next Dose: Durable Medical Equipment (Freestyle amrita 2 CGM) Freestyle amrita 2 CGM reader. Refills: 0. Next Dose: Durable Medical Equipment (FreeStyle Amrita 2 Sensors) Dx E.65 Check blood sugar 4-5 times a day.. Refills: 11. Next Dose: Durable Medical Equipment (Freestyle amrita 2 sensors) Please provide 30 days supple freestyle libre2 sensors to be changed every 14 days. Refills: 6. Next Dose: Durable Medical Equipment (Freestyle Lite Monitor) Check blood sugar in the morning, hold insulin if lower than 70. Refills: 0. Next Dose: Durable Medical Equipment (Freestyle Lite Test Strips) Use to test 1 time daily and as needed. Dx: E11.9. Refills: 50. Next Dose: Durable Medical Equipment (Glucometer one device.) Glucometer one device. Use the test 4 times a day. Free to change between brands.. Refills: 0. Next Dose: Durable Medical Equipment (Test strips 100) Test strips 100 test blood sugar 4 times a day change as need the device type. Refills: 0. Next Dose: Insulin Glargine (Lantus Solostar Pen 100 units/mL subcutaneous solution) Start with 10 units Subcutaneous Injection Daily for three days. Then, increase by 2 unites every three days until fasting blood sugar is less than 120. Do not exceed 80 units daily.. Refills: 11. Next Dose: Metformin (MetFORMIN (Eqv-Glucophage XR) 500 mg oral tablet, extended release) 1 tablet By Mouth 3 times a day 90 days supply. Refills: 3. Next Dose: Miscellaneous Rx (Freestyle Amrita 14 day sensor) Freestyle Amrita 14 day sensor. Refills: 11. Next Dose: Nabumetone (nabumetone 750 mg oral tablet) TAKE 1 TABLET BY MOUTH TWICE DAILY FOR 14 DAYS WITH FOOD. Refills: 0. Next Dose: Nabumetone (nabumetone 750 mg oral tablet) 1 tab(s) Oral twice a day for 14 Days. with food. Refills: 0. Next Dose: Omeprazole (omeprazole 40 mg oral enteric coated capsule) TAKE 1 CAPSULE BY MOUTH DAILY. Refills: 0. Next Dose: Omeprazole (omeprazole 40 mg oral enteric coated capsule) 1 capsule Oral Daily. Refills: 2. Next Dose: Riboflavin (riboflavin 400 mg oral capsule) 1 capsule Oral Daily. Refills: 0. Next Dose: Allergy Info:?? NKA Medications Given This Visit Future Orders ?No future orders Vital Signs Height 170.18 cm Weight 128.1 kg BMI 44.23 kg/m2 Blood Pressure 131 mm Hg/70 mm Hg Temperature Pulse Rate 80 bpm Respiratory Rate 02 Sat Mode of Delivery 100 %/ You can now view a summary of your hospital visit from the comfort of your home through a free online portal called [employer]. [employer] is a website that allows you to securely view your medical information including discharge summary, medications and follow-up visits. ??You can alsosend a secure electronic message to your doctor???s office to request appointments, renew medications or just ask a question. You can enroll at [email or web address] or register during your next office visit. Disclaimer:?? The information provided is of a general nature and is intended to be used in conjunction with the recommendations and advice of your health care practitioner. ??Every effort has been made to ensure that the information provided is accurate and complete at the time it is provided to you however, as your needs change, or, as new ??information becomes available, different or additional instructions may be required. If you have questions, please consult with your primary care provider or pharmacist, as appropriate. ??This information is not intended to serve as substitution for assessment and evaluation by a qualified health care provider. If you do not have a primary care provider, you may find a [facility] provider by calling [facility] [employer] Link at [phone]. [facility], in keeping with [facility] guidance, no longer requires face masks for staff, patientsor visitors in most situations. Similar to time spent indoors at other locations, there is the chance that you were exposed to respiratory viruses during your time with us (such as flu or COVID-19).? If you develop symptoms concerning for a viral respiratory infection, please seek testing (and treatment if indicated) from your medical provider or home test kit. For information about the plan of care including goals and instructions for your diagnosis, please see the patient education orders section of this document. Patient Education Materials?? The content of this educational material or handout may have been modified, supplemented, or adapted from its original content and format to support your individualized medical care. Patient Care team information Care Team Personnel Name: Dru Bonilla RN Position: [facility] RN Member Role: Primary Care Nurse Name: Fidelia Cordova NP Position: [facility] PCO Associate Professional Member Role: PCP Address: Address: [address] [place] [id number]- Care Team Related Persons Name: JUAN CARLOS RAYMOND Address: home [address] [place] [id number] Name: MEL RAYMOND Address: [address] [address]
--- OUTSIDE RECORDS SUMMARY | 2023-05-22 16:31 | XMS_ITS | Continuity of Care Document ---
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 Name Role Phone Art ONEAL, Fidelia Good Primary Care Physician [phone] Encounter [facility] Date(s): 01/10/23 - 02/09/23 [facility] Adult [address] [place] [address]- Allergies, Adverse Reactions, Alerts No Known Allergies Immunizations Given and Recorded Vaccine Date Status Refusal Reason [id number] 12y+ bivalent booster vax 12/16/21 Recorded influenza [...] 27 92 G iven 1Result Comment: [facility]: [id number] 2Result Comment: von 3Admin Note: vis 10/24/2006 [...] Note: DAY UNKNOWN 21Admin Note: DAY UNKNOWN Admin Note: DAY UNKNOWN [...] Gm, 0 Refills, Maintenance, 02/06/23 12:58:00 EDT, [facility]ORE [id number], 15, APPLY TO AFFECTED AREA TWICE A DAY, 170.18, cm, 01/11/23 6:51:00 EDT, Height Start Date: 02/06/23 Status: Ordered Dulcolax 5 mg oral enteric coated tablet See Instructions, PRN as needed for constipation, 1 tablet By Mouth Daily as needed for constipation, # 15 tablet, 0 Refills, Maintenance, 09/15/22 14:42:00 EDT, CR Tablet, [facility]/pharmacy #[id number], Partial fill upon patient request if the prescription is f... Start Date: 09/15/22 Status: Ordered escitalopram 5 mg oral tablet 1 tablet = 5 mg, By Mouth, Daily, # 30 tablet, 5 Refills, Maintenance, 01/11/23 7:04:00 EDT, Tablet, [facility] #[id number], Partial fill upon patient request if the [...] Refills, Maintenance, 01/08/23 12:02:00 EDT, ER Tablet, [facility] #[id number], Partial fill upon patient request if the prescription is for a schedule II opioid . Start Date: 01/08/23 Status: Ordered nabumetone 750 mg oral tablet 1 tablet = 750 mg, By Mouth, 2 times a day, with food, # 28 tablet, 0 Refills, Maintenance, 12/25/22 13:07:00 EDT, Tablet, [facility] #[id number], Partial fill upon patient request if the prescription is for a schedule II opioid drug., 170.18, cm... Start Date: 12/25/22 Stop Date: 01/08/23 Status: Ordered nabumetone 750 mg oral tablet See Instructions, TAKE 1 TABLET BY MOUTH TWICE DAILY FOR 14 DAYS WITH FOOD, # 28 tablet, 0 Refills,Maintenance, 01/08/23 11:58:00 EDT, [facility] #[id number], 170.18, cm, 12/25/22 12:55:00 EDT,Height Start Date: 01/08/23 Status: Ordered omeprazole 40 mg oral enteric coated capsule See Instructions, TAKE 1 CAPSULE BY MOUTH DAILY, # 30 capsule, 11 Refills, Maintenance, 02/06/23 18:08:00 EDT, [facility]/pharmacy #[id number], 170.18, cm, 01/11/23 6:51:00 EDT, Height Start Date: 02/06/23 Status: Ordered riboflavin 400 mg oral capsule 1 capsule = 400 mg, By Mouth, Daily, # 100 capsule, 0 Refills, Maintenance, 06/19/21 17:00:00 EDT, Capsule, [facility] #[id number], Partial fill upon patient request, 170.18, cm, 05/24/21 8:16:00 EST, Height, 132.5, kg, 09/01/20 13:04:00 EDT, Dry... Start Date: 06/19/21 Status: Ordered rizatriptan 10 mg oral tablet 1 tablet = 10 mg, By Mouth, Daily, PRN for migraine headache, may repeat dose every 2 hours up to amaximum of 3, # 12 tablet, 0 Refills, Acute 03/13/23 21:00:00 EST, 01/11/23 7:03:00 EDT, Tablet, [facility] #[id number], Partial fill upon patient... Start Date: 01/11/23 [...] 11 Refills, Maintenance, 01/05/23 9:38:00 EDT, Solution, [facility]/pharmacy #[id number], Partial fill upon patient request ifthe [...] Team Personnel Name: Dru Bonilla RN Position: [facility] RN Member Role: Primary Care Nurse Name: Fidelia Cordova NP Position: [facility] PCO Associate Professional Member Role: PCP Address: Address: [address] [place] [phone]- Care Team Related Persons Name: JUAN CARLOS RAYMOND Address: [address] [place] [address] Name: MEL RAYMOND Address: [address] [place] [address]
--- OUTSIDE RECORDS SUMMARY | 2023-05-22 16:31 | XMS_ITS | Continuity of Care Document ---
Author Name Unknown Organization [facility] Ezio Cristofer lt Address [address] [place] [address]- Care Team Providers Care Microphone Operator Name Role Phone Art ONEAL, Fidelia Good Primary Care Physician Encounter [facility] [place] [place] Date(s): 12/25/22 - 01/01/23 [facility] Adult [address] [place] [address]- Encounter Diagnosis Neck pain(Discharge Diagnosis) - 12/25/22 Attending Physician: Not on Staff, Attending MD Allergies, Adverse Reactions, Alerts No Known Allergies Immunizations Given and Recorded Vaccine Date Status Refusal Reason [id number] 12y+ bivalent booster vax 12/16/21 Recorded influenza [...] (oldterm) 27 92 G iven 1Result Comment: [facility]: [id number] 2Result Comment: von 3Admin Note: vis 10/24/2006 [...] Gm, 0 Refills, Maintenance, 10/24/22 8:42:00 EDT, [id number], 15, APPLY TO AFFECTED AREA TWICE A DAY, 170.18, cm, 09/15/22 14:56:00 EDT, Height Start Date: 10/24/22 Status: Ordered Dulcolax 5 mg oral enteric coated tablet See Instructions, PRN as needed for constipation, 1 tablet By Mouth Daily as needed for constipation, # 15 tablet, 0 Refills, Maintenance, 09/15/22 14:42:00 EDT, CR Tablet, [facility]/pharmacy #[id number], Partial fill upon patient request if the prescription is f... Start Date: 09/15/22 Status: Ordered escitalopram 5 mg oral tablet 1 tablet = 5 mg, By Mouth, Daily, # 30 tablet, 5 Refills, Maintenance, 08/22/21 7:58:00 EDT, Tablet, [facility]/pharmacy #[id number], Partial fill upon patient [...] Refills, Maintenance, 05/19/22 12:00:00 EST, ER Tablet, [facility]/pharmacy #[id number], Partial fill upon patient request if the prescription is for a schedule II opioid drug., 170.... Start Date: 05/19/22 Status: Ordered nabumetone 750 mg oral tablet 1 tablet = 750 mg, By Mouth, 2 times a day, with food, # 28 tablet, 0 Refills, Maintenance, 12/25/22 13:07:00 EDT, Tablet, [facility] #[id number], Partial fill upon patient request if the prescription is for a schedule II opioid drug., 170.18, cm... Start Date: 12/25/22 Stop Date: 01/08/23 Status: Ordered omeprazole 40 mg oral enteric coated capsule 1 capsule = 40 mg, By Mouth, Daily, # 30 capsule, 2 Refills, Maintenance, 12/09/21 12:05:00 EDT, ECCapsule, [facility]/pharmacy #[id number], Partial fill upon patient request if the prescription is for a schedule II opioid drug., 170.18, cm, 11/28/21 7:49:00 EDT,... Start Date: 12/09/21 Status: Ordered riboflavin 400 mg oral capsule 1 capsule = 400 mg, By Mouth, Daily, # 100 capsule, 0 Refills, Maintenance, 06/19/21 17:00:00 EDT, Capsule, [facility] #[id number], Partial fill upon patient request, 170.18, cm, [...] Dates Health Status Clini ji Service Informant Neck pain Discharge Diagnosis 12/25/22 Vital Signs Most recent to oldest [Reference Range]: 1 Height 170.18 cm (12/25/22 12:55 PM) Weight 130.1 kg (12/25/22 12:55 PM) Oxygen Saturation [94-100 %] 99 % (12/25/22 12:55 PM) Pulse Rate [55-90 bpm] 96 bpm *H* (12/25/22 12:55 PM) Body Mass Index [18.5-24.99 kg/m2] 44.92 kg/m2 *>HHI* (12/25/22 12:55 PM) Blood Pressure [90-138/55-84 mm Hg] 124/ 82mm Hg (12/25/22 12:55 PM) Respiratory Rate [16-30 br/min] 20 br/mi n (12/25/22 12:55 PM) Temperature [96.8-100.4 DegF] 98.0 DegF (12/25/22 12:55 PM) Mode of Delivery (Oxygen) Room air (12/25/22 12:55 PM) Blood pressure sites Arm, right (12/25/22 12:55 PM) Temperature Route Oral (12/25/22 12:55 PM) Weight Obtained Via Standing scale (12/25/22 12:55 PM) Social History Social History Type Response Smoking Status Never smoker entered on: 08/23/15 Sex Patient Care team information Care Team Personnel Name: Irene RN, Dru Position: [facility] RN Member Role: Primary Care Nurse Name: Fidelia Cordova NP Position: [facility] PCO Associate Professional Member Role: PCP Address: Address: [address] [place] [phone]- Care Team Related Persons Name: JUAN CARLOS RAYMOND Address: home [address] [place] [id number] Name: MEL RAYMOND Address: home [address] [place] [address]
--- OUTSIDE RECORDS SUMMARY | 2023-05-22 16:31 | XMS_ITS | Continuity of Care Document ---
Author Name Unknown Organization [facility] Shabbir Holguin Cristofer lt Address [address] [place] [address]- Care Team Providers Care Advisory Internship Name Role Phone Art ONEAL, Fidelia Good Primary Care Physician [phone] [facility] [place] Date(s): 04/05/23 - 05/05/23 [facility] Adult [address] [place] [address]- Attending Physician: Katie Pineda Admitting Physician: AdmKatie vickers Referring Physician: Admtr, ArLaurie Allergies, Adverse Reactions, Alerts No Known Allergies Immunizations Given and Recorded Vaccine Date Status Refusal Reason [id number] 12y+ bivalent booster vax 12/16/21 Recorded influenza [...] (oldterm) 27 92 G iven 1Result Comment: [facility]: [id number] 2Result Comment: von 3Admin Note: vis 10/24/2006 [...] Gm, 0 Refills, Maintenance, 02/06/23 12:58:00 EDT, [facility], 15, APPLY TO AFFECTED AREA TWICE A DAY, 170.18, cm, 01/11/23 6:51:00 EDT, Height Start Date: 02/06/23 Status: Ordered Dulcolax 5 mg oral enteric coated tablet See Instructions, PRN as needed for constipation, 1 tablet By Mouth Daily as needed for constipation, # 15 tablet, 0 Refills, Maintenance, 09/15/22 14:42:00 EDT, CR Tablet, [facility]/pharmacy #[id number], Partial fill upon patient request if the prescription is f... Start Date: 09/15/22 Status: Ordered escitalopram 5 mg oral tablet 1 tablet = 5 mg, By Mouth, Daily, # 30 tablet, 5 Refills, Maintenance, 01/11/23 7:04:00 EDT, Tablet, [facility] #[id number], Partial fill upon patient request if the [...] Refills, Maintenance, 01/08/23 12:02:00 EDT, ER Tablet, [facility] #[id number], Partial fill upon patient request if the prescription is for a schedule II opioid . Start Date: 01/08/23 Status: Ordered nabumetone 750 mg oral tablet 1 tablet = 750 mg, By Mouth, 2 times a day, with food, # 28 tablet, 0 Refills, Maintenance, 12/25/22 13:07:00 EDT, Tablet, [facility] #[id number], Partial fill upon patient request if the prescription is for a schedule II opioid drug., 170.18, cm... Start Date: 12/25/22 Stop Date: 01/08/23 Status: Ordered nabumetone 750 mg oral tablet See Instructions, TAKE 1 TABLET BY MOUTH TWICE DAILY FOR 14 DAYS WITH FOOD, # 28 tablet, 0 Refills,Maintenance, 01/08/23 11:58:00 EDT, [facility] #[id number], 170.18, cm, 12/25/22 12:55:00 EDT,Height Start Date: 01/08/23 Status: Ordered omeprazole 40 mg oral enteric coated capsule See Instructions, TAKE 1 CAPSULE BY MOUTH DAILY, # 30 capsule, 11 Refills, Maintenance, 02/06/23 18:08:00 EDT, [facility]/pharmacy #[id number], 170.18, cm, 01/11/23 6:51:00 EDT, Height Start Date: 02/06/23 Status: Ordered riboflavin 400 mg oral capsule 1 capsule = 400 mg, By Mouth, Daily, # 100 capsule, 0 Refills, Maintenance, 06/19/21 17:00:00 EDT, Capsule, [facility] #[id number], Partial fill upon patient request, 170.18, cm, [...] 11 Refills, Maintenance, 01/05/23 9:38:00 EDT, [facility], [id number], Partial fill upon patient request ifthe [...] Event Display: Ultrasound Pelvis, Non- Authored Date: Patient Care team information Care Team Personnel Name: Irene WALTON, Dru Position: S RN Member Role: Primary Care Nurse Name: Fidelia Cordova NP Position: [facility] PCO Associate Professional Member Role: PCP Address: Address: [address] [place] [address]- Care Team Related Persons Name: JUAN CARLOS RAYMOND Address: home [address] [place] [address] Name: MEL RAYMOND Address: home [address] [place] [address]
--- OUTSIDE RECORDS SUMMARY | 2023-05-22 16:31 | XMS_ITS | Continuity of Care Document ---
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 Role Phone Art ONEAL, Fidelia Good Primary Care Physician Encounter [facility] Date(s): 01/05/23 - 02/04/23 [facility] Adult [address] [place] [address]- Allergies, Adverse Reactions, Alerts No Known Allergies Immunizations Given and Recorded Vaccine Date Status Refusal Reason [id number] 12y+ bivalent booster vax 12/16/21 Recorded influenza [...] (oldterm) 27 92 G iven 1Result Comment: [facility]: [id number] 2Result Comment: von 3Admin Note: vis 10/24/2006 [...] Gm, 0 Refills, Maintenance, 10/24/22 8:42:00 EDT, [facility] STORE 31781, 15, APPLY TO AFFECTED AREA TWICE A DAY, 170.18, cm, 09/15/22 14:56:00 EDT, Height Start Date: 10/24/22 Status: Ordered Dulcolax 5 mg oral enteric coated tablet See Instructions, PRN as needed for constipation, 1 tablet By Mouth Daily as needed for constipation, # 15 tablet, 0 Refills, Maintenance, 09/15/22 14:42:00 EDT, CR Tablet, [facility]/pharmacy #[id number], Partial fill upon patient request if the prescription is f... Start Date: 09/15/22 Status: Ordered escitalopram 5 mg oral tablet 1 tablet = 5 mg, By Mouth, Daily, # 30 tablet, 5 Refills, Maintenance, 01/11/23 7:04:00 EDT, Tablet, [facility] #[id number], Partial fill upon patient request if the [...] Refills, Maintenance, 01/08/23 12:02:00 EDT, ER Tablet, [facility] #[id number], Partial fill upon patient request if the prescription is for a schedule II opioid . Start Date: 01/08/23 Status: Ordered nabumetone 750 mg oral tablet 1 tablet = 750 mg, By Mouth, 2 times a day, with food, # 28 tablet, 0 Refills, Maintenance, 12/25/22 13:07:00 EDT, Tablet, [facility] #[id number], Partial fill upon patient request if the prescription is for a schedule II opioid drug., 170.18, cm... Start Date: 12/25/22 Stop Date: 01/08/23 Status: Ordered nabumetone 750 mg oral tablet See Instructions, TAKE 1 TABLET BY MOUTH TWICE DAILY FOR 14 DAYS WITH FOOD, # 28 tablet, 0 Refills,Maintenance, 01/08/23 11:58:00 EDT, [facility] #[id number], 170.18, cm, 12/25/22 12:55:00 EDT,Height Start Date: 01/08/23 Status: Ordered omeprazole 40 mg oral enteric coated capsule See Instructions, TAKE 1 CAPSULE BY MOUTH DAILY, # 30 capsule, 0 Refills, Maintenance, 01/08/23 12:03:00 EDT, [facility] #[id number], 170.18, cm, 12/25/22 12:55:00 EDT, Height Start Date: 01/08/23 Status: Ordered omeprazole 40 mg oral enteric coated capsule 1 capsule = 40 mg, By Mouth, Daily, # 30 capsule, 2 Refills, Maintenance, 12/09/21 12:05:00 EDT, [facility]/pharmacy #[id number], Partial fill upon patient request if the prescription is for a schedule II opioid drug., 170.18, cm, 11/28/21 7:49:00 EDT,... Start Date: 12/09/21 Status: Ordered riboflavin 400 mg oral capsule 1 capsule = 400 mg, By Mouth, Daily, # 100 capsule, 0 Refills, Maintenance, 06/19/21 17:00:00 EDT, Capsule, [facility] #[id number], Partial fill upon patient request, 170.18, cm, 05/24/21 8:16:00 EST, Height, 132.5, kg, 09/01/20 13:04:00 EDT, Dry... Start Date: 06/19/21 Status: Ordered rizatriptan 10 mg oral tablet 1 tablet = 10 mg, By Mouth, Daily, PRN for migraine headache, may repeat dose every 2 hours up to amaximum of 3, # 12 tablet, 0 Refills, Acute 03/13/23 21:00:00 EST, 01/11/23 7:03:00 EDT, Tablet, [facility] #[id number], Partial fill upon patient... Start Date: 01/11/23 [...] 11 Refills, Maintenance, 01/05/23 9:38:00 EDT, Solution, [facility]/pharmacy #[id number], Partial fill upon patient [...] Team Personnel Name: Irene WALTON, Dru Position: [facility] RN Member Role: Primary Care Nurse Name: Fidelia Cordova NP Position: [facility] PCO Associate Professional Member Role: PCP Address: Address: [address] [place] [address]- Care Team Related Persons Name: MANDI JUAN CARLOS Address: home [address] [place] [id number] Name: MEL RAYMOND Address: [address] [address]
--- OUTSIDE RECORDS SUMMARY | 2023-05-22 16:32 | XMS_ITS | Continuity of Care Document ---
Author Name Unknown Organization 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 Name Role Phone Art ONEAL, Fidelia Good Primary Care Physician Encounter [facility] Date(s): 04/04/23 - 05/04/23 [facility] Adult [address] [place] [address]- Allergies, Adverse Reactions, Alerts No Known Allergies Immunizations Given and Recorded Vaccine Date Status Refusal Reason [id number] 12y+ bivalent booster vax 12/16/21 Recorded influenza [...] (oldterm) 27 92 G iven 1Result Comment: [facility]: [id number] 2Result Comment: von 3Admin Note: vis 10/24/2006 [...] Gm, 0 Refills, Maintenance, 02/06/23 12:58:00 EDT, [facility] STORE 56397, 15, APPLY TO AFFECTED AREA TWICE A DAY, 170.18, cm, 01/11/23 6:51:00 EDT, Height Start Date: 02/06/23 Status: Ordered Dulcolax 5 mg oral enteric coated tablet See Instructions, PRN as needed for constipation, 1 tablet By Mouth Daily as needed for constipation, # 15 tablet, 0 Refills, Maintenance, 09/15/22 14:42:00 EDT, CR Tablet, [facility]/pharmacy #[id number], Partial fill upon patient request if the prescription is f... Start Date: 09/15/22 Status: Ordered escitalopram 5 mg oral tablet 1 tablet = 5 mg, By Mouth, Daily, # 30 tablet, 5 Refills, Maintenance, 01/11/23 7:04:00 EDT, Tablet, [facility] #[id number], Partial fill upon patient request if the [...] Refills, Maintenance, 01/08/23 12:02:00 EDT, ER Tablet, [facility] #[id number], Partial fill upon patient request if the prescription is for a schedule II opioid . Start Date: 01/08/23 Status: Ordered nabumetone 750 mg oral tablet 1 tablet = 750 mg, By Mouth, 2 times a day, with food, # 28 tablet, 0 Refills, Maintenance, 12/25/22 13:07:00 EDT, Tablet, [facility] #[id number], Partial fill upon patient request if the prescription is for a schedule II opioid drug., 170.18, cm... Start Date: 12/25/22 Stop Date: 01/08/23 Status: Ordered nabumetone 750 mg oral tablet See Instructions, TAKE 1 TABLET BY MOUTH TWICE DAILY FOR 14 DAYS WITH FOOD, # 28 tablet, 0 Refills,Maintenance, 01/08/23 11:58:00 EDT, [facility] #[id number], 170.18, cm, 12/25/22 12:55:00 EDT,Height Start Date: 01/08/23 Status: Ordered omeprazole 40 mg oral enteric coated capsule See Instructions, TAKE 1 CAPSULE BY MOUTH DAILY, # 30 capsule, 11 Refills, Maintenance, 02/06/23 18:08:00 EDT, [id number], 170.18, cm, 01/11/23 6:51:00 EDT, Height Start Date: 02/06/23 Status: Ordered riboflavin 400 mg oral capsule 1 capsule = 400 mg, By Mouth, Daily, # 100 capsule, 0 Refills, Maintenance, 06/19/21 17:00:00 EDT, Capsule, [facility] #[id number], Partial fill upon patient request, 170.18, cm, [...] Associate Professional Member Role: PCP Address: Address: [address] [place] [id number] Care Team Related Persons Name: JUAN CARLOS RAYMOND Address: home [address] [place] [address] Name: MEL RAYMOND Address: [address] [address]
--- OUTSIDE RECORDS SUMMARY | 2023-05-22 16:32 | XMS_ITS | Continuity of Care Document ---
Author Name Unknown Organization [facility] Address [address] [place] [address]- Care Team Providers Care Forensic Manager Name Role Phone Art ONEAL, Fidelia Good Primary Care Physician Encounter [facility] Date(s): 04/11/23 - 05/11/[address] [address] Attending Physician: AdmKatie vickers Admitting Physician: AdmtrKatie Referring Physician: Admtr, Ar8 Allergies, Adverse Reactions, Alerts No Known Allergies Immunizations Given and Recorded Vaccine Date Status Refusal Reason [id number] 12y+ bivalent booster vax 12/16/21 Recorded influenza [...] 6 92 Given Varicella Virus Vaccine 7 7/19/10 Given Varicella Virus Vaccine 8 10/06/93 Given [...] (oldterm) 27 92 G iven 1Result Comment: [facility]: [id number] 2Result Comment: von 3Admin Note: vis 10/24/2006 [...] Note: DAY UNKNOWN Admin Note: DAY UNKNOWN 22Admin Note: DAY UNKNOWN [...] Gm, 0 Refills, Maintenance, 02/06/23 12:58:00 EDT, [facility], 15, APPLY TO AFFECTED AREA TWICE A DAY, 170.18, cm, 01/11/23 6:51:00 EDT, Height Start Date: 02/06/23 Status: Ordered Dulcolax 5 mg oral enteric coated tablet See Instructions, PRN as needed for constipation, 1 tablet By Mouth Daily as needed for constipation, # 15 tablet, 0 Refills, Maintenance, 09/15/22 14:42:00 EDT, CR Tablet, [facility]/pharmacy #[id number], Partial fill upon patient request if the prescription is f... Start Date: 09/15/22 Status: Ordered escitalopram 5 mg oral tablet 1 tablet = 5 mg, By Mouth, Daily, # 30 tablet, 5 Refills, Maintenance, 01/11/23 7:04:00 EDT, Tablet, [facility] #[id number], Partial fill upon patient request if the [...] Refills, Maintenance, 01/08/23 12:02:00 EDT, ER Tablet, [facility] #[id number], Partial fill upon patient request if the prescription is for a schedule II opioid . Start Date: 01/08/23 Status: Ordered nabumetone 750 mg oral tablet 1 tablet = 750 mg, By Mouth, 2 times a day, with food, # 28 tablet, 0 Refills, Maintenance, 12/25/22 13:07:00 EDT, Tablet, [facility] #[id number], Partial fill upon patient request if the prescription is for a schedule II opioid drug., 170.18, cm... Start Date: 12/25/22 Stop Date: 01/08/23 Status: Ordered nabumetone 750 mg oral tablet See Instructions, TAKE 1 TABLET BY MOUTH TWICE DAILY FOR 14 DAYS WITH FOOD, # 28 tablet, 0 Refills,Maintenance, 01/08/23 11:58:00 EDT, [facility] #[id number], 170.18, cm, 12/25/22 12:55:00 EDT,Height Start Date: [...] 0 Refills, Maintenance, 06/19/21 17:00:00 EDT, Capsule, [facility] #[id number], Partial fill upon patient request, 170.18, cm, [...] Team Personnel Name: Dru Bonilla RN Position: [facility] RN Member Role: Primary Care Nurse Name: Fidelia Cordova NP Position: [facility] PCO Associate Professional Member Role: PCP Address: Address: [address] [place] [phone]- Care Team Related Persons Name: JUAN CARLOS RAYMOND Address: home [address] [place] [address] Name: MEL RAYMOND Address: [address] [address]
--- OUTSIDE RECORDS SUMMARY | 2023-05-22 16:32 | XMS_ITS | Continuity of Care Document ---
Author Name Unknown Organization [facility] Allen Cristofer lt Address [address] [place] [address]- Care Team Providers Care Credit Coordinator Name Role Phone Art ONEAL, Fidelia Good Primary Care Physician Encounter [facility] Date(s): 02/05/23 - 03/07/23 [facility] Adult [address] [place] [address]- Allergies, Adverse Reactions, Alerts No Known Allergies Immunizations Given and Recorded Vaccine Date Status Refusal Reason [id number] 12y+ bivalent booster vax 12/16/21 Recorded influenza [...] (oldterm) 27 92 G iven 1Result Comment: [facility]: [id number] 2Result Comment: von 3Admin Note: vis 10/24/2006 [...] Gm, 0 Refills, Maintenance, 02/06/23 12:58:00 EDT, [facility] STORE 26773, 15, APPLY TO AFFECTED AREA TWICE A DAY, 170.18, cm, 01/11/23 6:51:00 EDT, Height Start Date: 02/06/23 Status: Ordered Dulcolax 5 mg oral enteric coated tablet See Instructions, PRN as needed for constipation, 1 tablet By Mouth Daily as needed for constipation, # 15 tablet, 0 Refills, Maintenance, 09/15/22 14:42:00 EDT, CR Tablet, [facility]/pharmacy #[id number], Partial fill upon patient request if the prescription is f... Start Date: 09/15/22 Status: Ordered escitalopram 5 mg oral tablet 1 tablet = 5 mg, By Mouth, Daily, # 30 tablet, 5 Refills, Maintenance, 01/11/23 7:04:00 EDT, Tablet, [facility] #[id number], Partial fill upon patient request if the [...] Refills, Maintenance, 01/08/23 12:02:00 EDT, ER Tablet, [facility] #[id number], Partial fill upon patient request if the prescription is for a schedule II opioid . Start Date: 01/08/23 Status: Ordered nabumetone 750 mg oral tablet 1 tablet = 750 mg, By Mouth, 2 times a day, with food, # 28 tablet, 0 Refills, Maintenance, 12/25/22 13:07:00 EDT, Tablet, [facility] #[id number], Partial fill upon patient request if the prescription is for a schedule II opioid drug., 170.18, cm... Start Date: 12/25/22 Stop Date: 01/08/23 Status: Ordered nabumetone 750 mg oral tablet See Instructions, TAKE 1 TABLET BY MOUTH TWICE DAILY FOR 14 DAYS WITH FOOD, # 28 tablet, 0 Refills,Maintenance, 01/08/23 11:58:00 EDT, [facility] #[id number], 170.18, cm, 12/25/22 12:55:00 EDT,Height Start Date: 01/08/23 Status: Ordered omeprazole 40 mg oral enteric coated capsule See Instructions, TAKE 1 CAPSULE BY MOUTH DAILY, # 30 capsule, 11 Refills, Maintenance, 02/06/23 18:08:00 EDT, [facility]/pharmacy #[id number], 170.18, cm, 01/11/23 6:51:00 EDT, Height Start Date: 02/06/23 Status: Ordered riboflavin 400 mg oral capsule 1 capsule = 400 mg, By Mouth, Daily, # 100 capsule, 0 Refills, Maintenance, 06/19/21 17:00:00 EDT, Capsule, [facility] #[id number], Partial fill upon patient request, 170.18, cm, 05/24/21 8:16:00 EST, Height, 132.5, kg, 09/01/20 13:04:00 EDT, Dry... Start Date: 06/19/21 Status: Ordered rizatriptan 10 mg oral tablet 1 tablet = 10 mg, By Mouth, Daily, PRN for migraine headache, may repeat dose every 2 hours up to amaximum of 3, # 12 tablet, 0 Refills, Acute 03/13/23 21:00:00 EST, 01/11/23 7:03:00 EDT, Tablet, [facility] #[id number], Partial fill upon patient... Start Date: 01/11/23 [...] 11 Refills, Maintenance, 01/05/23 9:38:00 EDT, Solution, [facility]/pharmacy #[id number], Partial fill upon patient request ifthe [...] Associate Professional Member Role: PCP Address: Address: [address] [place] [address]- Care Team Related Persons Name: JUAN CARLOS RAYMOND Address: home [address] [place] [address] Name: MEL RAYMOND Address: home [address] [place] [address]
--- OUTSIDE RECORDS SUMMARY | 2023-05-22 16:32 | XMS_ITS | Continuity of Care Document ---
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 Role Phone Art ONEAL, Fidelia Good Primary Care Physician [facility] Date[facility]): [facility]23 - 02/04/23 [facility] Adult [address] [place] [address]- Allergies, Adverse Reactions, Alerts No Known Allergies Immunizations Given and Recorded Vaccine Date Status Refusal Reason [id number] 12y+ bivalent booster vax 12/16/21 Recorded influenza [...] (oldterm) 27 92 G iven 1Result Comment: [facility]: 06228-670-70 2Result Comment: von 3Admin Note: vis 10/24/2006 [...] Gm, 0 Refills, Maintenance, 10/24/22 8:42:00 EDT, [facility] STORE [id number], 15, APPLY TO AFFECTED AREA TWICE A DAY, 170.18, cm, 09/15/22 14:56:00 EDT, Height Start Date: 10/24/22 Status: Ordered Dulcolax 5 mg oral enteric coated tablet See Instructions, PRN as needed for constipation, 1 tablet By Mouth Daily as needed for constipation, # 15 tablet, 0 Refills, Maintenance, 09/15/22 14:42:00 EDT, CR Tablet, [facility]/pharmacy #[id number], Partial fill upon patient request if the prescription is f... Start Date: 09/15/22 Status: Ordered escitalopram 5 mg oral tablet 1 tablet = 5 mg, By Mouth, Daily, # 30 tablet, 5 Refills, Maintenance, 01/11/23 7:04:00 EDT, Tablet, [facility] #[id number], Partial fill upon patient request if the [...] Refills, Maintenance, 01/08/23 12:02:00 EDT, ER Tablet, [facility] #[id number], Partial fill upon patient request if the prescription is for a schedule II opioid . Start Date: 01/08/23 Status: Ordered nabumetone 750 mg oral tablet 1 tablet = 750 mg, By Mouth, 2 times a day, with food, # 28 tablet, 0 Refills, Maintenance, 12/25/22 13:07:00 EDT, Tablet, [facility] #[id number], Partial fill upon patient request if the prescription is for a schedule II opioid drug., 170.18, cm... Start Date: 12/25/22 Stop Date: 01/08/23 Status: Ordered nabumetone 750 mg oral tablet See Instructions, TAKE 1 TABLET BY MOUTH TWICE DAILY FOR 14 DAYS WITH FOOD, # 28 tablet, 0 Refills,Maintenance, 01/08/23 11:58:00 EDT, [facility] #[id number], 170.18, cm, 12/25/22 12:55:00 EDT,Height Start Date: 01/08/23 Status: Ordered omeprazole 40 mg oral enteric coated capsule See Instructions, TAKE 1 CAPSULE BY MOUTH DAILY, # 30 capsule, 0 Refills, Maintenance, 01/08/23 12:03:00 EDT, [facility] #[id number], 170.18, cm, 12/25/22 12:55:00 EDT, Height Start Date: 01/08/23 Status: Ordered omeprazole 40 mg oral enteric coated capsule 1 capsule = 40 mg, By Mouth, Daily, # 30 capsule, 2 Refills, Maintenance, 12/09/21 12:05:00 EDT, [facility]/pharmacy #[id number], Partial fill upon patient request if the prescription is for a schedule II opioid drug., 170.18, cm, 11/28/21 7:49:00 EDT,... Start Date: 12/09/21 Status: Ordered riboflavin 400 mg oral capsule 1 capsule = 400 mg, By Mouth, Daily, # 100 capsule, 0 Refills, Maintenance, 06/19/21 17:00:00 EDT, Capsule, [facility] #[id number], Partial fill upon patient request, 170.18, cm, 05/24/21 8:16:00 EST, Height, 132.5, kg, 09/01/20 13:04:00 EDT, Dry... Start Date: 06/19/21 Status: Ordered rizatriptan 10 mg oral tablet 1 tablet = 10 mg, By Mouth, Daily, PRN for migraine headache, may repeat dose every 2 hours up to amaximum of 3, # 12 tablet, 0 Refills, Acute 03/13/23 21:00:00 EST, 01/11/23 7:03:00 EDT, Tablet, [facility] #[id number], Partial fill upon patient... Start Date: 01/11/23 [...] 11 Refills, Maintenance, 01/05/23 9:38:00 EDT, Solution, [facility]/pharmacy #[id number], Partial fill [...] Team Personnel Name: Irene WALTON, Dru Position: [facility] RN Member Role: Primary Care Nurse Name: Fidelia Cordova NP Position: [facility] PCO Associate Professional Member Role: PCP Address: Address: [address] [place] [address]- Care Team Related Persons Name: MANDI JUAN CARLOS Address: home [address] [place] [id number] Name: MEL RAYMOND Address: [address] [address]
--- OUTSIDE RECORDS SUMMARY | 2023-05-22 16:32 | XMS_ITS | Continuity of Care Document ---
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 Name Role Phone Art ONEAL, Fidelia Good Primary Care Physician [facility] Date[facility]s): 04/04/23 - 05/04/23 [facility] Adult [address] [place] [address]- Allergies, Adverse Reactions, Alerts No Known Allergies Immunizations Given and Recorded Vaccine Date Status Refusal Reason [id number] 12y+ bivalent booster vax 12/16/21 Recorded influenza [...] (oldterm) 27 92 G iven 1Result Comment: [facility]: 05423-504-26 2Result Comment: von 3Admin Note: vis 10/24/2006 [...] Gm, 0 Refills, Maintenance, 02/06/23 12:58:00 EDT, [facility] STORE 54891, 15, APPLY TO AFFECTED AREA TWICE A DAY, 170.18, cm, 01/11/23 6:51:00 EDT, Height Start Date: 02/06/23 Status: Ordered Dulcolax 5 mg oral enteric coated tablet See Instructions, PRN as needed for constipation, 1 tablet By Mouth Daily as needed for constipation, # 15 tablet, 0 Refills, Maintenance, 09/15/22 14:42:00 EDT, CR Tablet, [facility]/pharmacy #[id number], Partial fill upon patient request if the prescription is f... Start Date: 09/15/22 Status: Ordered escitalopram 5 mg oral tablet 1 tablet = 5 mg, By Mouth, Daily, # 30 tablet, 5 Refills, Maintenance, 01/11/23 7:04:00 EDT, Tablet, [facility] #[id number], Partial fill upon patient request if the [...] Refills, Maintenance, 01/08/23 12:02:00 EDT, ER Tablet, [facility] #[id number], Partial fill upon patient request if the prescription is for a schedule II opioid . Start Date: 01/08/23 Status: Ordered nabumetone 750 mg oral tablet 1 tablet = 750 mg, By Mouth, 2 times a day, with food, # 28 tablet, 0 Refills, Maintenance, 12/25/22 13:07:00 EDT, Tablet, [facility] #[id number], Partial fill upon patient request if the prescription is for a schedule II opioid drug., 170.18, cm... Start Date: 12/25/22 Stop Date: 01/08/23 Status: Ordered nabumetone 750 mg oral tablet See Instructions, TAKE 1 TABLET BY MOUTH TWICE DAILY FOR 14 DAYS WITH FOOD, # 28 tablet, 0 Refills,Maintenance, 01/08/23 11:58:00 EDT, [facility] #[id number], 170.18, cm, 12/25/22 12:55:00 EDT,Height Start Date: [...] 0 Refills, Maintenance, 06/19/21 17:00:00 EDT, Capsule, [facility] #[id number], Partial fill upon patient request, 170.18, cm, [...] Team Personnel Name: Dru Bonilla RN Position: [facility] RN Member Role: Primary Care Nurse Name: Fidelia Cordova NP Position: [facility] PCO Associate Professional Member Role: PCP Address: Address: [address] [place] [id number] Care Team Related Persons Name: JUAN CARLOS RAYMOND Address: home [address] [place] [phone] Name: MEL RAYMOND Address: [address] [address]
--- OUTSIDE RECORDS SUMMARY | 2023-05-22 16:32 | XMS_ITS | Continuity of Care Document ---
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 Name Role Phone Art ONEAL, Fidelia Good Primary Care Physician [phone] [facility]counter [facility] Date(s): 01/09/23 - 01/16/23 [facility] Adult [address] [place] [address]- Attending Physician: Not on Staff, Attending MD Allergies, Adverse Reactions, Alerts No Known Allergies Immunizations Given and Recorded Vaccine Date Status Refusal Reason [id number] 12y+ bivalent booster vax 12/16/21 Recorded influenza [...] 1Result Comment: [facility]: 86377-832-60 2Result Comment: von 3Admin Note: vis 10/24/2006 [...] Gm, 0 Refills, Maintenance, 10/24/22 8:42:00 EDT, [facility] STORE 94197, 15, APPLY TO AFFECTED AREA TWICE A DAY, 170.18, cm, 09/15/22 14:56:00 EDT, Height Start Date: 10/24/22 Status: Ordered Dulcolax 5 mg oral enteric coated tablet See Instructions, PRN as needed for constipation, 1 tablet By Mouth Daily as needed for constipation, # 15 tablet, 0 Refills, Maintenance, 09/15/22 14:42:00 EDT, CR Tablet, [facility]/pharmacy #0858, Partial fill upon patient request if the prescription is f... Start Date: 09/15/22 Status: Ordered escitalopram 5 mg oral tablet 1 tablet = 5 mg, By Mouth, Daily, # 30 tablet, 5 Refills, Maintenance, 01/11/23 7:04:00 EDT, Tablet, [facility] #[id number], Partial fill upon patient request if the [...] Refills, Maintenance, 01/08/23 12:02:00 EDT, ER Tablet, [facility] #[id number], Partial fill upon patient request if the prescription is for a schedule II opioid . Start Date: 01/08/23 Status: Ordered nabumetone 750 mg oral tablet 1 tablet = 750 mg, By Mouth, 2 times a day, with food, # 28 tablet, 0 Refills, Maintenance, 12/25/22 13:07:00 EDT, Tablet, [facility] #[id number], Partial fill upon patient request if the prescription is for a schedule II opioid drug., 170.18, cm... Start Date: 12/25/22 Stop Date: 01/08/23 Status: Ordered nabumetone 750 mg oral tablet See Instructions, TAKE 1 TABLET BY MOUTH TWICE DAILY FOR 14 DAYS WITH FOOD, # 28 tablet, 0 Refills,Maintenance, 01/08/23 11:58:00 EDT, [facility] #[id number], 170.18, cm, 12/25/22 12:55:00 EDT,Height Start Date: 01/08/23 Status: Ordered omeprazole 40 mg oral enteric coated capsule See Instructions, TAKE 1 CAPSULE BY MOUTH DAILY, # 30 capsule, 0 Refills, Maintenance, 01/08/23 12:03:00 EDT, [facility] #[id number], 170.18, cm, 12/25/22 12:55:00 EDT, Height Start Date: 01/08/23 Status: Ordered omeprazole 40 mg oral enteric coated capsule 1 capsule = 40 mg, By Mouth, Daily, # 30 capsule, 2 Refills, Maintenance, 12/09/21 12:05:00 EDT, [facility]/pharmacy #0843, Partial fill upon patient request if the prescription is for a schedule II opioid drug., 170.18, cm, 11/28/21 7:49:00 EDT,... Start Date: 12/09/21 Status: Ordered riboflavin 400 mg oral capsule 1 capsule = 400 mg, By Mouth, Daily, # 100 capsule, 0 Refills, Maintenance, 06/19/21 17:00:00 EDT, Capsule, [facility] #[id number], Partial fill upon patient request, 170.18, cm, 05/24/21 8:16:00 EST, Height, 132.5, kg, 09/01/20 13:04:00 EDT, Dry... Start Date: 06/19/21 Status: Ordered rizatriptan 10 mg oral tablet 1 tablet = 10 mg, By Mouth, Daily, PRN for migraine headache, may repeat dose every 2 hours up to amaximum of 3, # 12 tablet, 0 Refills, Acute 03/13/23 21:00:00 EST, 10/05/23 7:03:00 EDT, Tablet, [facility] #[id number], Partial fill upon patient... Start Date: 01/11/23 [...] 11 Refills, Maintenance, 01/05/23 9:38:00 EDT, Solution, [facility]/pharmacy #[id number], Partial fill upon patient request [...] T2DM (type 2 diabetes mellitus) Confirmed Active Vital Signs Most recent to oldest [Reference Range]: 1 Height 170.18 cm (01/09/23 2:59 PM) Weight 128.4 kg (01/09/23 2:59 PM) Oxygen Saturation [94-100 %] 100 % (01/09/23 2:59 PM) Pulse Rate [55-90 bpm] 82 bpm (01/09/23 2:59 PM) Body Mass Index [18.5-24.99 kg/m2] 44.34 kg/m2 *>HHI* (01/09/23 2:59 PM) Blood Pressure [90-138/55-84 mm Hg] 117/ 71mm Hg (01/09/23 2:59 PM) Blood pressure sites Arm, right (01/09/23 2:59 PM) Weight Obtained Via Standing scale (01/09/23 2:59 PM) Social History Social History Type Response Smoking Status Never smoker entered on: 08/23/15 Sex Patient Care team information Care Team Personnel Name: Irene RN, Dru Position: S RN Member Role: Primary Care Nurse Name: Fidelia Cordova NP Position: [facility] PCO Associate Professional Member Role: PCP Address: Address: [address] [place] [phone]- Care Team Related Persons Name: JUAN CARLOS RAYMOND Address: home [address] [place] [id number] Name: MEL RAYMOND Address: [address] [address]
--- OUTSIDE RECORDS SUMMARY | 2023-05-22 16:32 | XMS_ITS | Continuity of Care Document ---
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 Role Phone Art ONEAL, Fidelia Good Primary Care Physician [phone] Encounter [facility] Date(s): 04/05/23 - 05/11/[address] [address] Attending Physician: Inessa Dukes Admitting Physician: Inessa Dukes Referring Physician: Inessa Dukes Allergies, Adverse Reactions, Alerts No Known Allergies Immunizations Given and Recorded Vaccine Date Status Refusal Reason [id number] 12y+ bivalent booster vax 12/16/21 Recorded influenza [...] (oldterm) 27 92 G iven 1Result Comment: [facility]: 55265-772-35 2Result Comment: von 3Admin Note: vis 10/24/2006 [...] Gm, 0 Refills, Maintenance, 02/06/23 12:58:00 EDT, [facility] STORE 16112, 15, APPLY TO AFFECTED AREA TWICE A DAY, 170.18, cm, 01/11/23 6:51:00 EDT, Height Start Date: 02/06/23 Status: Ordered Dulcolax 5 mg oral enteric coated tablet See Instructions, PRN as needed for constipation, 1 tablet By Mouth Daily as needed for constipation, # 15 tablet, 0 Refills, Maintenance, 09/15/22 14:42:00 EDT, CR Tablet, [facility]/pharmacy #[id number], Partial fill upon patient request if the prescription is f... Start Date: 09/15/22 Status: Ordered escitalopram 5 mg oral tablet 1 tablet = 5 mg, By Mouth, Daily, # 30 tablet, 5 Refills, Maintenance, 01/11/23 7:04:00 EDT, Tablet, [facility] #[id number], Partial fill upon patient request if the [...] Refills, Maintenance, 01/08/23 12:02:00 EDT, ER Tablet, [facility] #[id number], Partial fill upon patient request if the prescription is for a schedule II opioid . Start Date: 01/08/23 Status: Ordered nabumetone 750 mg oral tablet 1 tablet = 750 mg, By Mouth, 2 times a day, with food, # 28 tablet, 0 Refills, Maintenance, 12/25/22 13:07:00 EDT, Tablet, [facility] #[id number], Partial fill upon patient request if the prescription is for a schedule II opioid drug., 170.18, cm... Start Date: 12/25/22 Stop Date: 01/08/23 Status: Ordered nabumetone 750 mg oral tablet See Instructions, TAKE 1 TABLET BY MOUTH TWICE DAILY FOR 14 DAYS WITH FOOD, # 28 tablet, 0 Refills,Maintenance, 01/08/23 11:58:00 EDT, [facility] #[id number], 170.18, cm, 12/25/22 12:55:00 EDT,Height Start Date: 01/08/23 Status: Ordered omeprazole 40 mg oral enteric coated capsule See Instructions, TAKE 1 CAPSULE BY MOUTH DAILY, # 30 capsule, 11 Refills, Maintenance, 02/06/23 18:08:00 EDT, [facility]/pharmacy #[id number], 170.18, cm, 01/11/23 6:51:00 EDT, Height Start Date: 02/06/23 Status: Ordered riboflavin 400 mg oral capsule 1 capsule = 400 mg, By Mouth, Daily, # 100 capsule, 0 Refills, Maintenance, 06/19/21 17:00:00 EDT, Capsule, [facility] #[id number], Partial fill upon patient request, 170.18, cm, [...] mL, 11 Refills, Maintenance, 01/05/23 9:38:00 EDT, Shira, [facility] #[id number], Partial fill upon patient request [...] Team Personnel Name: Dru Bonilla RN Position: [facility] RN Member Role: Primary Care Nurse Name: Fidelia Cordova NP Position: [facility] PCO Associate Professional Member Role: PCP Address: Address: [address] [place] [phone]- Care Team Related Persons Name: JUAN CARLOS RAYMOND Address: home [address] [place] [phone] Name: MEL RAYMOND Address: home [address] [place] [address]
--- OUTSIDE RECORDS SUMMARY | 2023-05-22 16:33 | XMS_ITS | Continuity of Care Document ---
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 Phone Art ONEAL, Fidelia Good Primary Care Physician [facility]): 02[facility]06/23 - 03/08/23 [facility] Adult [address] [place] [address]- Allergies, Adverse Reactions, Alerts No Known Allergies Immunizations Given and Recorded Vaccine Date Status Refusal Reason [id number] 12y+ bivalent booster vax 12/16/21 Recorded influenza [...] (oldterm) 27 92 G iven 1Result Comment: [facility]: 25782-373-75 2Result Comment: von 3Admin Note: vis 10/24/2006 [...] Gm, 0 Refills, Maintenance, 02/06/23 12:58:00 EDT, [facility] STORE 77634, 15, APPLY TO AFFECTED AREA TWICE A [...] 5 Refills, Maintenance, 01/11/23 7:04:00 EDT, Tablet, [facility] #[id number], Partial fill upon patient request if the [...] Refills, Maintenance, 01/08/23 12:02:00 EDT, ER Tablet, [facility] #55484, Partial fill upon patient request if the prescription is for a schedule II opioid . Start Date: 01/08/23 Status: Ordered nabumetone 750 mg oral tablet 1 tablet = 750 mg, By Mouth, 2 times a day, with food, # 28 tablet, 0 Refills, Maintenance, 12/25/22 13:07:00 EDT, Tablet, [facility] #[id number], Partial fill upon patient request if the prescription is for a schedule II opioid drug., 170.18, cm... Start Date: 12/25/22 Stop Date: 01/08/23 Status: Ordered nabumetone 750 mg oral tablet See Instructions, TAKE 1 TABLET BY MOUTH TWICE DAILY FOR 14 DAYS WITH FOOD, # 28 tablet, 0 Refills,Maintenance, 01/08/23 11:58:00 EDT, [facility] #[id number], 170.18, cm, 12/25/22 12:55:00 EDT,Height Start Date: 01/08/23 Status: Ordered omeprazole 40 mg oral enteric coated capsule See Instructions, TAKE 1 CAPSULE BY MOUTH DAILY, # 30 capsule, 11 Refills, Maintenance, 02/06/23 18:08:00 EDT, [facility]/pharmacy #[id number], 170.18, cm, 01/11/23 6:51:00 EDT, Height Start Date: 02/06/23 Status: Ordered riboflavin 400 mg oral capsule 1 capsule = 400 mg, By Mouth, Daily, # 100 capsule, 0 Refills, Maintenance, 06/19/21 17:00:00 EDT, Capsule, [facility] #[id number], Partial fill upon patient request, 170.18, cm, 05/24/21 8:16:00 EST, Height, 132.5, kg, 09/01/20 13:04:00 EDT, Dry... Start Date: 06/19/21 Status: Ordered rizatriptan 10 mg oral tablet 1 tablet = 10 mg, By Mouth, Daily, PRN for migraine headache, may repeat dose every 2 hours up to amaximum of 3, # 12 tablet, 0 Refills, Acute 03/13/23 21:00:00 EST, 01/11/23 7:03:00 EDT, Tablet, [facility] #52077, Partial fill upon patient... Start Date: 01/11/23 [...] 11 Refills, Maintenance, 01/05/23 9:38:00 EDT, Solution, [facility]/pharmacy #[id number], Partial fill upon patient request ifthe [...] Team Personnel Name: Dru Bonilla RN Position: [facility] RN Member Role: Primary Care Nurse Name: Fidelia Cordova NP Position: [facility] PCO Associate Professional Member Role: PCP Address: Address: [address] [place] [phone]- Care Team Related Persons Name: JUAN CARLOS RAYMOND Address: home [address] [place] [address] Name: MEL RAYMOND Address: home [address] [place] [address]
--- OUTSIDE RECORDS SUMMARY | 2023-05-22 16:33 | XMS_ITS | Continuity of Care Document ---
Author Name Unknown Organization [facility] Ezio Cristofer lt Address [address] [place] [address]- Care Team Providers Care Health Information Provider Name Role Phone Art ONEAL, Fidelia Good Primary Care Physician [phone] [facility] Date(s): 02/06/23 - 03/08/23 [facility] Adult [address] [place] [address]- Allergies, Adverse Reactions, Alerts No Known Allergies Immunizations Given and Recorded Vaccine Date Status Refusal Reason [id number] 12y+ bivalent booster vax 12/16/21 Recorded influenza [...] (oldterm) 27 92 G iven 1Result Comment: [facility]: 33013-054-23 2Result Comment: von 3Admin Note: vis 10/24/2006 [...] Gm, 0 Refills, Maintenance, 02/06/23 12:58:00 EDT, [facility] ST[facility] 31881, 15, APPLY TO AFFECTED AREA TWICE A DAY, 170.18, cm, 01/11/23 6:51:00 EDT, Height Start Date: 02/06/23 Status: Ordered Dulcolax 5 mg oral enteric coated tablet See Instructions, PRN as needed for constipation, 1 tablet By Mouth Daily as needed for constipation, # 15 tablet, 0 Refills, Maintenance, 09/15/22 14:42:00 EDT, CR Tablet, [facility]/pharmacy #0843, Partial fill upon patient request if the prescription is f... Start Date: 09/15/22 Status: Ordered escitalopram 5 mg oral tablet 1 tablet = 5 mg, By Mouth, Daily, # 30 tablet, 5 Refills, Maintenance, 01/11/23 7:04:00 EDT, Tablet, [email or web address] #[id number], Partial fill upon patient request if the [...] Refills 0, Tot. Refills 0, Maintenance, [facility], 10/27/21 13:59:00 EDT, Supply, [...] Refills, Maintenance, 01/08/23 12:02:00 EDT, ER Tablet, [facility] #55110, Partial fill upon patient request if the prescription is for a schedule II opioid . Start Date: 01/08/23 Status: Ordered nabumetone 750 mg oral tablet 1 tablet = 750 mg, By Mouth, 2 times a day, with food, # 28 tablet, 0 Refills, Maintenance, 12/25/22 13:07:00 EDT, Tablet, [facility] #24973, Partial fill upon patient request if the prescription is for a schedule II opioid drug., 170.18, cm... Start Date: 12/25/22 Stop Date: 01/08/23 Status: Ordered nabumetone 750 mg oral tablet See Instructions, TAKE 1 TABLET BY MOUTH TWICE DAILY FOR 14 DAYS WITH FOOD, # 28 tablet, 0 Refills,Maintenance, 01/08/23 11:58:00 EDT, [facility] #[id number], 170.18, cm, 12/25/22 12:55:00 EDT,Height Start Date: 01/08/23 Status: Ordered omeprazole 40 mg oral enteric coated capsule See Instructions, TAKE 1 CAPSULE BY MOUTH DAILY, # 30 capsule, 11 Refills, Maintenance, 02/06/23 18:08:00 EDT, [facility]/pharmacy #0843, 170.18, cm, 01/11/23 6:51:00 EDT, Height Start Date: 02/06/23 Status: Ordered riboflavin 400 mg oral capsule 1 capsule = 400 mg, By Mouth, Daily, # 100 capsule, 0 Refills, Maintenance, 06/19/21 17:00:00 EDT, Capsule, [facility] #[id number], Partial fill upon patient request, 170.18, cm, 05/24/21 8:16:00 EST, Height, 132.5, kg, 09/01/20 13:04:00 EDT, Dry... Start Date: 06/19/21 Status: Ordered rizatriptan 10 mg oral tablet 1 tablet = 10 mg, By Mouth, Daily, PRN for migraine headache, may repeat dose every 2 hours up to amaximum of 3, # 12 tablet, 0 Refills, Acute 03/13/23 21:00:00 EST, 01/11/23 7:03:00 EDT, Tablet, [facility] #[id number], Partial fill upon patient... Start Date: 01/11/23 [...] 11 Refills, Maintenance, 01/05/23 9:38:00 EDT, Solution, [facility]/pharmacy #0843, Partial fill upon patient request ifthe [...] Team Personnel Name: Dru Bonilla RN Position: [facility] RN Member Role: Primary Care Nurse Name: Fidelia Cordova NP Position: [facility] PCO Associate Professional Member Role: PCP Address: Address: [address] [place] [phone]- Care Team Related Persons Name: JUAN CARLOS RAYMOND Address: home [address] [place] [address] Name: MEL RAYMOND Address: home [address] [place] [address]
--- OUTSIDE RECORDS SUMMARY | 2023-05-22 16:33 | XMS_ITS | Continuity of Care Document ---
Author Name Unknown Organization [facility] Ezio Cristofer lt Address [address] [place] [address]- Care Team Providers Care Color Checker Roving Or Yarn Name Role Phone Art ONEAL, Fidelia Good Primary Care Physician [phone] [facility] Date[facility] 02[facility]23 - 03/08/23 [facility] Adult [address] [place] [address]- Allergies, Adverse Reactions, Alerts No Known Allergies Immunizations Given and Recorded Vaccine Date Status Refusal Reason [id number] 12y+ bivalent booster vax 12/16/21 Recorded influenza [...] (oldterm) 27 92 G iven 1Result Comment: [facility] [place]: [id number] 2Result Comment: von 3Admin Note: vis 10/24/2006 [...] Gm, 0 Refills, Maintenance, 02/06/23 12:58:00 EDT, [facility] STORE [id number], 15, APPLY TO AFFECTED AREA TWICE A DAY, 170.18, cm, 01/11/23 6:51:00 EDT, Height Start Date: 02/06/23 Status: Ordered Dulcolax 5 mg oral enteric coated tablet See Instructions, PRN as needed for constipation, 1 tablet By Mouth Daily as needed for constipation, # 15 tablet, 0 Refills, Maintenance, 09/15/22 14:42:00 EDT, CR Tablet, [facility]/pharmacy #[id number], Partial fill upon patient request if the prescription is f... Start Date: 09/15/22 Status: Ordered escitalopram 5 mg oral tablet 1 tablet = 5 mg, By Mouth, Daily, # 30 tablet, 5 Refills, Maintenance, 01/11/23 7:04:00 EDT, Tablet, [facility] #[id number], Partial fill upon patient request if the [...] Refills, Maintenance, 01/08/23 12:02:00 EDT, ER Tablet, [facility] #[id number], Partial fill upon patient request if the prescription is for a schedule II opioid . Start Date: 01/08/23 Status: Ordered nabumetone 750 mg oral tablet 1 tablet = 750 mg, By Mouth, 2 times a day, with food, # 28 tablet, 0 Refills, Maintenance, 12/25/22 13:07:00 EDT, Tablet, [facility] #[id number], Partial fill upon patient request if the prescription is for a schedule II opioid drug., 170.18, cm... Start Date: 12/25/22 Stop Date: 01/08/23 Status: Ordered nabumetone 750 mg oral tablet See Instructions, TAKE 1 TABLET BY MOUTH TWICE DAILY FOR 14 DAYS WITH FOOD, # 28 tablet, 0 Refills,Maintenance, 01/08/23 11:58:00 EDT, [facility] #[id number], 170.18, cm, 12/25/22 12:55:00 EDT,Height Start Date: 01/08/23 Status: Ordered omeprazole 40 mg oral enteric coated capsule See Instructions, TAKE 1 CAPSULE BY MOUTH DAILY, # 30 capsule, 11 Refills, Maintenance, 02/06/23 18:08:00 EDT, [facility]/pharmacy #[id number], 170.18, cm, 01/11/23 6:51:00 EDT, Height Start Date: 02/06/23 Status: Ordered riboflavin 400 mg oral capsule 1 capsule = 400 mg, By Mouth, Daily, # 100 capsule, 0 Refills, Maintenance, 06/19/21 17:00:00 EDT, Capsule, [facility] #[id number], Partial fill upon patient request, 170.18, cm, 05/24/21 8:16:00 EST, Height, 132.5, kg, 09/01/20 13:04:00 EDT, Dry... Start Date: 06/19/21 Status: Ordered rizatriptan 10 mg oral tablet 1 tablet = 10 mg, By Mouth, Daily, PRN for migraine headache, may repeat dose every 2 hours up to amaximum of 3, # 12 tablet, 0 Refills, Acute 03/13/23 21:00:00 EST, 01/11/23 7:03:00 EDT, Tablet, [facility] #[id number], Partial fill upon patient... Start Date: 01/11/23 [...] 11 Refills, Maintenance, 01/05/23 9:38:00 EDT, Solution, [facility]/pharmacy #[id number], Partial fill upon patient request [...] Team Personnel Name: Dru Bonilla RN Position: [facility] RN Member Role: Primary Care Nurse Name: Fidelia Cordova NP Position: [facility] PCO Associate Professional Member Role: PCP Address: Address: [address] [place] [id number]- Care Team Related Persons Name: JUAN CARLOS RAYMOND Address: home [address] [place] [address] Name: MEL RAYMOND Address: home [address] [place] [address]
--- OUTSIDE RECORDS SUMMARY | 2023-05-22 16:34 | XMS_ITS | Continuity of Care Document ---
Author Name Unknown Organization [facility] Ezio Cristofer lt Address [address] [place] [address]- Care Team Providers Care Balance And Hairspring Assembler Name Role Phone Art ONEAL, Fidelia Good Primary Care Physician [phone] [facility] Date[facility]s): 04/03/23 - 05/03/23 [facility] Adult [address] [place] [address]- Allergies, Adverse Reactions, Alerts No Known Allergies Immunizations Given and Recorded Vaccine Date Status Refusal Reason [id number] 12y+ bivalent booster vax 12/16/21 Recorded influenza [...] (oldterm) 27 92 G iven 1Result Comment: [facility]: [id number] 2Result Comment: von 3Admin Note: vis 10/24/2006 [...] Gm, 0 Refills, Maintenance, 02/06/23 12:58:00 EDT, [facility] STORE 50305, 15, APPLY TO AFFECTED AREA TWICE A DAY, 170.18, cm, 01/11/23 6:51:00 EDT, Height Start Date: 02/06/23 Status: Ordered Dulcolax 5 mg oral enteric coated tablet See Instructions, PRN as needed for constipation, 1 tablet By Mouth Daily as needed for constipation, # 15 tablet, 0 Refills, Maintenance, 09/15/22 14:42:00 EDT, CR Tablet, [facility]/pharmacy #[id number], Partial fill upon patient request if the prescription is f... Start Date: 09/15/22 Status: Ordered escitalopram 5 mg oral tablet 1 tablet = 5 mg, By Mouth, Daily, # 30 tablet, 5 Refills, Maintenance, 01/11/23 7:04:00 EDT, Tablet, [facility] #[id number], Partial fill upon patient request if the [...] Refills, Maintenance, 01/08/23 12:02:00 EDT, ER Tablet, [facility] #[id number], Partial fill upon patient request if the prescription is for a schedule II opioid . Start Date: 01/08/23 Status: Ordered nabumetone 750 mg oral tablet 1 tablet = 750 mg, By Mouth, 2 times a day, with food, # 28 tablet, 0 Refills, Maintenance, 12/25/22 13:07:00 EDT, Tablet, [facility] #53616, Partial fill upon patient request if the prescription is for a schedule II opioid drug., 170.18, cm... Start Date: 12/25/22 Stop Date: 01/08/23 Status: Ordered nabumetone 750 mg oral tablet See Instructions, TAKE 1 TABLET BY MOUTH TWICE DAILY FOR 14 DAYS WITH FOOD, # 28 tablet, 0 Refills,Maintenance, 01/08/23 11:58:00 EDT, [facility] #[id number], 170.18, cm, 12/25/22 12:55:00 EDT,Height Start Date: [...] 0 Refills, Maintenance, 06/19/21 17:00:00 EDT, Capsule, [facility] #60124, Partial fill upon patient request, 170.18, cm, [...] Team Personnel Name: Dru Bonilla RN Position: [facility] RN Member Role: Primary Care Nurse Name: Fidelia Cordova NP Position: [facility] PCO Associate Professional Member Role: PCP Address: Address: [address] [place] [id number] Care Team Related Persons Name: JUAN CARLOS RAYMOND Address: home [address] [place] [id number] Name: MEL RAYMOND Address: [address] [address]
--- OUTSIDE RECORDS SUMMARY | 2023-05-22 16:34 | XMS_ITS | Continuity of Care Document ---
Author Name Unknown Organization [facility] Address [address] [place] [address]- Care Team Providers Care Resource Room Teacher Name Role Phone Fidelia Cordova NP Primary Care Physician Encounter [facility] Date(s): 01/10/23 - 02/09/23 [facility] [address] [place], [place] [address] Allergies, Adverse Reactions, Alerts No Known Allergies Immunizations Given and Recorded Vaccine Date Status Refusal Reason [id number] 12y+ bivalent booster vax 12/16/21 Recorded influenza [...] Comment: [facility]: [id number] 2Result Comment: von 3Admin Note: vis 10/24/2006 [...] Gm, 0 Refills, Maintenance, 02/06/23 12:58:00 EDT, [facility] STORE 98212, 15, APPLY TO AFFECTED AREA TWICE A DAY, 170.18, cm, 01/11/23 6:51:00 EDT, Height Start Date: 02/06/23 Status: Ordered Dulcolax 5 mg oral enteric coated tablet See Instructions, PRN as needed for constipation, 1 tablet By Mouth Daily as needed for constipation, # 15 tablet, 0 Refills, Maintenance, 09/15/22 14:42:00 EDT, CR Tablet, [facility]/pharmacy #[id number], Partial fill upon patient request if the prescription is f... Start Date: 09/15/22 Status: Ordered escitalopram 5 mg oral tablet 1 tablet = 5 mg, By Mouth, Daily, # 30 tablet, 5 Refills, Maintenance, 01/11/23 7:04:00 EDT, Tablet, [facility] #[id number], Partial fill upon patient request if the [...] Refills, Maintenance, 01/08/23 12:02:00 EDT, ER Tablet, [facility] #[id number], Partial fill upon patient request if the prescription is for a schedule II opioid . Start Date: 01/08/23 Status: Ordered nabumetone 750 mg oral tablet 1 tablet = 750 mg, By Mouth, 2 times a day, with food, # 28 tablet, 0 Refills, Maintenance, 12/25/22 13:07:00 EDT, Tablet, [facility] #08450, Partial fill upon patient request if the prescription is for a schedule II opioid drug., 170.18, cm... Start Date: 12/25/22 Stop Date: 01/08/23 Status: Ordered nabumetone 750 mg oral tablet See Instructions, TAKE 1 TABLET BY MOUTH TWICE DAILY FOR 14 DAYS WITH FOOD, # 28 tablet, 0 Refills,Maintenance, 01/08/23 11:58:00 EDT, [facility] #[id number], 170.18, cm, 12/25/22 12:55:00 EDT,Height Start Date: 01/08/23 Status: Ordered omeprazole 40 mg oral enteric coated capsule See Instructions, TAKE 1 CAPSULE BY MOUTH DAILY, # 30 capsule, 11 Refills, Maintenance, 02/06/23 18:08:00 EDT, [facility]/pharmacy #[id number], 170.18, cm, 01/11/23 6:51:00 EDT, Height Start Date: 02/06/23 Status: Ordered riboflavin 400 mg oral capsule 1 capsule = 400 mg, By Mouth, Daily, # 100 capsule, 0 Refills, Maintenance, 06/19/21 17:00:00 EDT, Capsule, [facility] #[id number], Partial fill upon patient request, 170.18, cm, 05/24/21 8:16:00 EST, Height, 132.5, kg, 09/01/20 13:04:00 EDT, Dry... Start Date: 06/19/21 Status: Ordered rizatriptan 10 mg oral tablet 1 tablet = 10 mg, By Mouth, Daily, PRN for migraine headache, may repeat dose every 2 hours up to amaximum of 3, # 12 tablet, 0 Refills, Acute 03/13/23 21:00:00 EST, 01/11/23 7:03:00 EDT, Tablet, [facility] #[id number], Partial fill upon patient... Start Date: 01/11/23 [...] Refills, Maintenance, 01/05/23 9:38:00 EDT, Solution, [facility]/pharmacy #[id number], Partial fill upon patient [...] Team Personnel Name: Dru Bonilla RN Position: [facility] RN Member Role: Primary Care Nurse Name: Fidelia Cordova NP Position: [facility] PCO Associate Professional Member Role: PCP Address: Address: [address] [place] [address]- Care Team Related Persons Name: JUAN CARLOS RAYMOND Address: [address] [place] [address] Name: MEL RAYMOND Address: [address] [place] [address]
--- OUTSIDE RECORDS SUMMARY | 2023-05-22 16:34 | XMS_ITS | Continuity of Care Document ---
Author Name Unknown Organization [facility] Ezio Cristofer lt Address [address] [place] [address]- Care Team Providers Care Croze Cutter Helper Name Role Phone Art ONEAL, Fidelia Good Primary Care Physician [phone] [facility] Date(s): 02/06/23 - 03/08/23 [facility] Adult [address] [place] [address]- Allergies, Adverse Reactions, Alerts No Known Allergies Immunizations Given and Recorded Vaccine Date Status Refusal Reason [id number] 12y+ bivalent booster vax 12/16/21 Recorded influenza [...] (oldterm) 27 92 G iven 1Result Comment: [facility]: [id number] 2Result Comment: von 3Admin Note: vis 10/24/2006 [...] 0 Refills, Maintenance, 02/06/23 12:58:00 EDT, [facility] STORE 76825, 15, APPLY TO AFFECTED AREA TWICE A DAY, 170.18, cm, 01/11/23 6:51:00 EDT, Height Start Date: 02/06/23 Status: Ordered Dulcolax 5 mg oral enteric coated tablet See Instructions, PRN as needed for constipation, 1 tablet By Mouth Daily as needed for constipation, # 15 tablet, 0 Refills, Maintenance, 09/15/22 14:42:00 EDT, CR Tablet, [facility]/pharmacy #[id number], Partial fill upon patient request if the prescription is f... Start Date: 09/15/22 Status: Ordered escitalopram 5 mg oral tablet 1 tablet = 5 mg, By Mouth, Daily, # 30 tablet, 5 Refills, Maintenance, 01/11/23 7:04:00 EDT, Tablet, [facility] #[id number], Partial fill upon patient request if the [...] Refills, Maintenance, 01/08/23 12:02:00 EDT, ER Tablet, [facility] #[id number], Partial fill upon patient request if the prescription is for a schedule II opioid . Start Date: 01/08/23 Status: Ordered nabumetone 750 mg oral tablet 1 tablet = 750 mg, By Mouth, 2 times a day, with food, # 28 tablet, 0 Refills, Maintenance, 12/25/22 13:07:00 EDT, Tablet, [facility] #06005, Partial fill upon patient request if the prescription is for a schedule II opioid drug., 170.18, cm... Start Date: 12/25/22 Stop Date: 01/08/23 Status: Ordered nabumetone 750 mg oral tablet See Instructions, TAKE 1 TABLET BY MOUTH TWICE DAILY FOR 14 DAYS WITH FOOD, # 28 tablet, 0 Refills,Maintenance, 01/08/23 11:58:00 EDT, [facility] #[id number], 170.18, cm, 12/25/22 12:55:00 EDT,Height Start Date: 01/08/23 Status: Ordered omeprazole 40 mg oral enteric coated capsule See Instructions, TAKE 1 CAPSULE BY MOUTH DAILY, # 30 capsule, 11 Refills, Maintenance, 02/06/23 18:08:00 EDT, [facility]/pharmacy #[id number], 170.18, cm, 01/11/23 6:51:00 EDT, Height Start Date: 02/06/23 Status: Ordered riboflavin 400 mg oral capsule 1 capsule = 400 mg, By Mouth, Daily, # 100 capsule, 0 Refills, Maintenance, 06/19/21 17:00:00 EDT, Capsule, [facility] #90185, Partial fill upon patient request, 170.18, cm, 05/24/21 8:16:00 EST, Height, 132.5, kg, 09/01/20 13:04:00 EDT, Dry... Start Date: 06/19/21 Status: Ordered rizatriptan 10 mg oral tablet 1 tablet = 10 mg, By Mouth, Daily, PRN for migraine headache, may repeat dose every 2 hours up to amaximum of 3, # 12 tablet, 0 Refills, Acute 03/13/23 21:00:00 EST, 01/11/23 7:03:00 EDT, Tablet, [facility] #[id number], Partial fill upon patient... Start Date: 01/11/23 [...] 11 Refills, Maintenance, 01/05/23 9:38:00 EDT, Solution, [facility]/pharmacy #[id number], Partial fill upon patient [...] Team Personnel Name: Dru Bonilla RN Position: [facility] RN Member Role: Primary Care Nurse Name: Fidelia Cordova NP Position: [facility] PCO Associate Professional Member Role: PCP Address: Address: [address] [place] [address]- Care Team Related Persons Name: JUAN CARLOS RAYMOND Address: [address] [place] [address] Name: MEL RAYMOND Address: [address] [place] [address]
--- OUTSIDE RECORDS SUMMARY | 2023-05-22 16:35 | XMS_ITS | Continuity of Care Document ---
Author Name Unknown Organization [facility] Ezio Cristofer lt Address [address] [place] [address]- Care Team Providers Care Storeroom Keeper Name Role Phone Art ONEAL, Fidelia Good Primary Care Physician [facility] Date(s): 12/25/22 - 01/24/23 [facility] Adult [address] [place] [address]- Allergies, Adverse Reactions, Alerts No Known Allergies Immunizations Given and Recorded Vaccine Date Status Refusal Reason [id number] 12y+ bivalent booster vax 12/16/21 Recorded influenza [...] (oldterm) 27 92 G iven 1Result Comment: [facility]: [id number] 2Result Comment: von 3Admin Note: vis 10/24/2006 [...] Gm, 0 Refills, Maintenance, 10/24/22 8:42:00 EDT, [facility]ORE 37106, 15, APPLY TO AFFECTED AREA TWICE A DAY, 170.18, cm, 09/15/22 14:56:00 EDT, Height Start Date: 10/24/22 Status: Ordered Dulcolax 5 mg oral enteric coated tablet See Instructions, PRN as needed for constipation, 1 tablet By Mouth Daily as needed for constipation, # 15 tablet, 0 Refills, Maintenance, 09/15/22 14:42:00 EDT, CR Tablet, [facility]/pharmacy #0843, Partial fill upon patient request if the prescription is f... Start Date: 09/15/22 Status: Ordered escitalopram 5 mg oral tablet 1 tablet = 5 mg, By Mouth, Daily, # 30 tablet, 5 Refills, Maintenance, 01/11/23 7:04:00 EDT, Tablet, [facility] #[id number], Partial fill upon patient request if the [...] Height Start Date: 01/16/23 Status: Ordered [facility]Style Amriat 2 Sensors See Instructions, # 2 each, [...] Refills, Maintenance, 01/08/23 12:02:00 EDT, ER Tablet, [facility] #[id number], Partial fill upon patient request if the prescription is for a schedule II opioid . Start Date: 01/08/23 Status: Ordered nabumetone 750 mg oral tablet 1 tablet = 750 mg, By Mouth, 2 times a day, with food, # 28 tablet, 0 Refills, Maintenance, 12/25/22 13:07:00 EDT, Tablet, [facility] #[id number], Partial fill upon patient request if the prescription is for a schedule II opioid drug., 170.18, cm... Start Date: 12/25/22 Stop Date: 01/08/23 Status: Ordered nabumetone 750 mg oral tablet See Instructions, TAKE 1 TABLET BY MOUTH TWICE DAILY FOR 14 DAYS WITH FOOD, # 28 tablet, 0 Refills,Maintenance, 01/08/23 11:58:00 EDT, [facility] #[id number], 170.18, cm, 12/25/22 12:55:00 EDT,Height Start Date: 01/08/23 Status: Ordered omeprazole 40 mg oral enteric coated capsule See Instructions, TAKE 1 CAPSULE BY MOUTH DAILY, # 30 capsule, 0 Refills, Maintenance, 01/08/23 12:03:00 EDT, [facility] #34044, 170.18, cm, 12/25/22 12:55:00 EDT, Height Start Date: 01/08/23 Status: Ordered omeprazole 40 mg oral enteric coated capsule 1 capsule = 40 mg, By Mouth, Daily, # 30 capsule, 2 Refills, Maintenance, 12/09/21 12:05:00 EDT, [facility]/pharmacy #0843, Partial fill upon patient request if the prescription is for a schedule II opioid drug., 170.18, cm, 11/28/21 7:49:00 EDT,... Start Date: 12/09/21 Status: Ordered riboflavin 400 mg oral capsule 1 capsule = 400 mg, By Mouth, Daily, # 100 capsule, 0 Refills, Maintenance, 06/19/21 17:00:00 EDT, Capsule, [facility] #[id number], Partial fill upon patient request, 170.18, cm, 05/24/21 8:16:00 EST, Height, 132.5, kg, 09/01/20 13:04:00 EDT, Dry... Start Date: 06/19/21 Status: Ordered rizatriptan 10 mg oral tablet 1 tablet = 10 mg, By Mouth, Daily, PRN for migraine headache, may repeat dose every 2 hours up to amaximum of 3, # 12 tablet, 0 Refills, Acute 03/13/23 21:00:00 EST, 01/11/23 7:03:00 EDT, Tablet, [facility] #[id number], Partial fill upon patient... Start Date: 01/11/23 [...] 11 Refills, Maintenance, 01/05/23 9:38:00 EDT, Solution, [facility]/pharmacy #[id number], Partial fill upon patient request ifthe [...] Team Personnel Name: Irene WALTON, Dru Position: [facility] RN Member Role: Primary Care Nurse Name: Fidelia Cordova NP Position: [facility] PCO Associate Professional Member Role: PCP Address: Address: [address] [place] [phone]- Care Team Related Persons Name: MANDI JUAN CARLOS Address: home [address] [place] [id number] Name: MEL RAYMOND Address: [address] [address]
--- OUTSIDE RECORDS SUMMARY | 2023-05-22 16:35 | XMS_ITS | Continuity of Care Document ---
Author Name Unknown Organization [facility] Shabbir Holguin Cristofer lt Address [address] [place] [address]- Care Team Providers Care Terra Cotta Roofer Name Role Phone Art NOEAL, Fidelia Good Primary Care Physician [phone] [facility] Date(s): 01/11/23 - 03/15/23 [facility] [address] [place] [address]- Attending Physician: Fidelia Cordova NP Referring Physician: Miguel Arrieta MD Allergies, Adverse Reactions, Alerts No Known Allergies Immunizations Given and Recorded Vaccine Date Status Refusal Reason [id number] 12y+ bivalent booster vax 12/16/21 Recorded influenza [...] iven 1Result Comment: [facility]: [id number] 2Result Comment: von 3Admin Note: vis 10/24/2006 [...] Refills, Maintenance, 02/06/23 12:58:00 EDT, [facility], 15, APPLY TO AFFECTED AREA TWICE A [...] 5 Refills, Maintenance, 01/11/23 7:04:00 EDT, Tablet, [facility] #62086, Partial fill upon patient request if the [...] Refills, Maintenance, 01/08/23 12:02:00 EDT, ER Tablet, [facility] #42800, Partial fill upon patient request if the prescription is for a schedule II opioid . Start Date: 01/08/23 Status: Ordered nabumetone 750 mg oral tablet 1 tablet = 750 mg, By Mouth, 2 times a day, with food, # 28 tablet, 0 Refills, Maintenance, 12/25/22 13:07:00 EDT, Tablet, [facility] #42518, Partial fill upon patient request if the prescription is for a schedule II opioid drug., 170.18, cm... Start Date: 12/25/22 Stop Date: 01/08/23 Status: Ordered nabumetone 750 mg oral tablet See Instructions, TAKE 1 TABLET BY MOUTH TWICE DAILY FOR 14 DAYS WITH FOOD, # 28 tablet, 0 Refills,Maintenance, 01/08/23 11:58:00 EDT, [facility] #[id number], 170.18, cm, 12/25/22 12:55:00 EDT,Height Start Date: 01/08/23 Status: Ordered omeprazole 40 mg oral enteric coated capsule See Instructions, TAKE 1 CAPSULE BY MOUTH DAILY, # 30 capsule, 11 Refills, Maintenance, 02/06/23 18:08:00 EDT, [facility]/pharmacy #[id number], 170.18, cm, 01/11/23 6:51:00 EDT, Height Start Date: 02/06/23 Status: Ordered riboflavin 400 mg oral capsule 1 capsule = 400 mg, By Mouth, Daily, # 100 capsule, 0 Refills, Maintenance, 06/19/21 17:00:00 EDT, Capsule, [facility] #[id number], Partial fill upon patient request, 170.18, cm, [...] Team Personnel Name: Dru Bonilla RN Position: [facility] RN Member Role: Primary Care Nurse Name: Fidelia Cordova NP Position: [facility] PCO Associate Professional Member Role: PCP Address: Address: [address] [place] [phone]- Care Team Related Persons Name: JUAN CARLOS RAYMOND Address: home [address] [place] [address] Name: MEL RAYMOND Address: [address] [address]
--- OUTSIDE RECORDS SUMMARY | 2023-05-22 16:36 | XMS_ITS | Continuity of Care Document ---
Author Name Unknown Organization [facility] Cristofer lt Address [address] [place] [address]- Care Team Providers Care Equestrian Trainer Name Role Phone Art ONEAL, Fidelia Good Primary Care Physician Encounter [facility] Date(s): 04/05/23 - 04/12/23 [facility] Adult [address] [place] [address]- Encounter Diagnosis BPPV (benign paroxysmal positional vertigo)(Discharge Diagnosis) - 04/05/23 Attending Physician: Inessa Dukes Allergies, Adverse Reactions, Alerts No Known Allergies Immunizations Given and Recorded Vaccine Date Status Refusal Reason [id number] 12y+ bivalent booster vax 12/16/21 Recorded influenza [...] (oldterm) 27 92 G iven 1Result Comment: [facility]: 08724-704-83 2Result Comment: von 3Admin Note: vis 10/24/2006 [...] Gm, 0 Refills, Maintenance, 02/06/23 12:58:00 EDT, [id number], 15, APPLY TO AFFECTED AREA TWICE A DAY, 170.18, cm, 01/11/23 6:51:00 EDT, Height Start Date: 02/06/23 Status: Ordered Dulcolax 5 mg oral enteric coated tablet See Instructions, PRN as needed for constipation, 1 tablet By Mouth Daily as needed for constipation, # 15 tablet, 0 Refills, Maintenance, 09/15/22 14:42:00 EDT, CR Tablet, [facility]/pharmacy #[id number], Partial fill upon patient request if the prescription is f... Start Date: 09/15/22 Status: Ordered escitalopram 5 mg oral tablet 1 tablet = 5 mg, By Mouth, Daily, # 30 tablet, 5 Refills, Maintenance, 01/11/23 7:04:00 EDT, Tablet, [facility] #[id number], Partial fill upon patient request if the [...] 01/09/23 15:... Start Date: 01/09/23 Status: Ordered meclizine 25 mg oral tablet 1 tablet = 25 mg, By Mouth, 3 times a day, PRN for dizziness, # 30 tablet, 0 Refills, Acute 04/18/23 8:15:00 EST, 04/05/23 8:25:00 EST, Tablet, [facility]/pharmacy #[id number], Partial fill upon patient request if the prescription is for a schedule II opioid drug.... Start Date: 04/05/23 Stop Date: 04/18/23 Status: Ordered MetFORMIN (Eqv-Glucophage XR) 500 mg oral tablet, extended release See Instructions, 1 tablet By Mouth 3 times a day 90 days supply, # 270 tablet, 3 Refills, Maintenance, 01/08/23 12:02:00 EDT, ER Tablet, [facility] #[id number], Partial fill upon patient request if the prescription is for a schedule II opioid drRenetta. Start Date: 01/08/23 Status: Ordered nabumetone 750 mg oral tablet 1 tablet = 750 mg, By Mouth, 2 times a day, with food, # 28 tablet, 0 Refills, Maintenance, 12/25/22 13:07:00 EDT, Tablet, [facility] #[id number], Partial fill upon patient request if the prescription is for a schedule II opioid drug., 170.18, cm... Start Date: 12/25/22 Stop Date: 01/08/23 Status: Ordered nabumetone 750 mg oral tablet See Instructions, TAKE 1 TABLET BY MOUTH TWICE DAILY FOR 14 DAYS WITH FOOD, # 28 tablet, 0 Refills,Maintenance, 01/08/23 11:58:00 EDT, [facility] #[id number], 170.18, cm, 12/25/22 12:55:00 EDT,Height Start Date: 01/08/23 Status: Ordered omeprazole 40 mg oral enteric coated capsule See Instructions, TAKE 1 CAPSULE BY MOUTH DAILY, # 30 capsule, 11 Refills, Maintenance, 02/06/23 18:08:00 EDT, [facility]/pharmacy #[id number], 170.18, cm, 01/11/23 6:51:00 EDT, Height Start Date: 02/06/23 Status: Ordered riboflavin 400 mg oral capsule 1 capsule = 400 mg, By Mouth, Daily, # 100 capsule, 0 Refills, Maintenance, 06/19/21 17:00:00 EDT, Capsule, [facility] #[id number], Partial fill upon patient request, 170.18, cm, [...] Effective Dates Health Status Clinical Service Informant BPPV (benign paroxysmal positional vertigo) Discharge Diagnosis 04/05/23 Vital Signs Most recent to oldest [Reference Range]: 1 Height 170.18 cm (04/05/23 8:17 AM) Weight 128.8 kg (04/05/23 8:17 AM) Oxygen Saturation [94-100 %] 97 % (04/05/23 8:17 AM) Pulse Rate [55-90 bpm] 80 bpm (04/05/23 8:17 AM) Body Mass Index [18.5-24.99 kg/m2] 44.47 kg/m2 *>HHI* (04/05/23 8:17 AM) Blood Pressure [90-138/55-84 mm Hg] 135/ 72mm Hg (04/05/23 8:17 AM) Respiratory Rate [16-30 br/min] 16 br/mi n (04/05/23 8:17 AM) Temperature [96.8-100.4 DegF] 97.6 DegF (04/05/23 8:17 AM) Mode of Delivery (Oxygen) Room air (04/05/23 8:17 AM) Blood pressure sites Arm, right (04/05/23 8:17 AM) Temperature Route Axillary (04/05/23 8:17 AM) Weight Obtained Via Standing scale (04/05/23 8:17 AM) Social History Social History Type Response Smoking Status Never smoker entered on: 08/23/15 Sex Patient Care team information Care Team Personnel Name: Irene RN, Dru Position: [facility] RN Member Role: Primary Care Nurse Name: Fidelia Cordova NP Position: [facility] PCO Associate Professional Member Role: PCP Address: Address: [address] [place] [phone]- Care Team Related Persons Name: JUAN CARLOS RAYMOND Address: home [address] [place] [id number] Name: MEL RAYMOND Address: home [address] [place] [address]
--- OUTSIDE RECORDS SUMMARY | 2023-05-22 16:36 | XMS_ITS | Continuity of Care Document ---
Author Name Unknown Organization [facility] Ezio Cristofer lt Address [address] [place] [address]- Care Team Providers Care Floor Director Name Role Phone Art ONEAL, Fidelia Good Primary Care Physician [facility] Date(s): 04/03/23 - 05/03/23 [facility] Adult [address] [place] [address]- Allergies, Adverse Reactions, Alerts No Known Allergies Immunizations Given and Recorded Vaccine Date Status Refusal Reason [id number] 12y+ bivalent booster vax 12/16/21 Recorded influenza [...] (oldterm) 27 92 G iven 1Result Comment: [facility]: [id number] 2Result Comment: von 3Admin Note: vis 10/24/2006 [...] Gm, 0 Refills, Maintenance, 02/06/23 12:58:00 EDT, [facility] STORE [id number], 15, APPLY TO AFFECTED AREA TWICE A DAY, 170.18, cm, 01/11/23 6:51:00 EDT, Height Start Date: 02/06/23 Status: Ordered Dulcolax 5 mg oral enteric coated tablet See Instructions, PRN as needed for constipation, 1 tablet By Mouth Daily as needed for constipation, # 15 tablet, 0 Refills, Maintenance, 09/15/22 14:42:00 EDT, CR Tablet, [facility]/pharmacy #[id number], Partial fill upon patient request if the prescription is f... Start Date: 09/15/22 Status: Ordered escitalopram 5 mg oral tablet 1 tablet = 5 mg, By Mouth, Daily, # 30 tablet, 5 Refills, Maintenance, 01/11/23 7:04:00 EDT, Tablet, [facility] #[id number], Partial fill upon patient request if the [...] Refills, Maintenance, 01/08/23 12:02:00 EDT, ER Tablet, [facility] #[id number], Partial fill upon patient request if the prescription is for a schedule II opioid . Start Date: 01/08/23 Status: Ordered nabumetone 750 mg oral tablet 1 tablet = 750 mg, By Mouth, 2 times a day, with food, # 28 tablet, 0 Refills, Maintenance, 12/25/22 13:07:00 EDT, Tablet, [facility] #[id number], Partial fill upon patient request if the prescription is for a schedule II opioid drug., 170.18, cm... Start Date: 12/25/22 Stop Date: 01/08/23 Status: Ordered nabumetone 750 mg oral tablet See Instructions, TAKE 1 TABLET BY MOUTH TWICE DAILY FOR 14 DAYS WITH FOOD, # 28 tablet, 0 Refills,Maintenance, 01/08/23 11:58:00 EDT, [facility] #[id number], 170.18, cm, 12/25/22 12:55:00 EDT,Height Start Date: [...] 0 Refills, Maintenance, 06/19/21 17:00:00 EDT, Capsule, [facility] #[id number], Partial fill upon patient request, 170.18, cm, [...] Team Personnel Name: Dru Bonilla RN Position: [facility] RN Member Role: Primary Care Nurse Name: Fidelia Cordova NP Position: [facility] PCO Associate Professional Member Role: PCP Address: Address: [address] [place] [id number] Care Team Related Persons Name: JUAN CARLOS RAYMOND Address: home [address] [place] [phone] Name: MEL RAYMOND Address: [address] [address]
--- OUTSIDE RECORDS SUMMARY | 2023-05-22 16:36 | XMS_ITS | Continuity of Care Document ---
Author Name Unknown Organization [facility] Ezio Cristofer lt Address [address] [place] [address]- Care Team Providers Care Cat Operator Name Role Phone Art ONEAL, Fidelia Good Primary Care Physician [phone] Encounter [facility] Date(s): 01/05/23 - 02/04/23 [facility] Adult [address] [place] [address]- Allergies, Adverse Reactions, Alerts No Known Allergies Immunizations Given and Recorded Vaccine Date Status Refusal Reason [id number] 12y+ bivalent booster vax 12/16/21 Recorded influenza [...] (oldterm) 27 92 G iven 1Result Comment: [facility]: [id number] 2Result Comment: von 3Admin Note: vis 10/24/2006 [...] Gm, 0 Refills, Maintenance, 10/24/22 8:42:00 EDT, [facility] STORE 48516, 15, APPLY TO AFFECTED AREA TWICE A DAY, 170.18, cm, 09/15/22 14:56:00 EDT, Height Start Date: 10/24/22 Status: Ordered Dulcolax 5 mg oral enteric coated tablet See Instructions, PRN as needed for constipation, 1 tablet By Mouth Daily as needed for constipation, # 15 tablet, 0 Refills, Maintenance, 09/15/22 14:42:00 EDT, CR Tablet, [facility]/pharmacy #[id number], Partial fill upon patient request if the prescription is f... Start Date: 09/15/22 Status: Ordered escitalopram 5 mg oral tablet 1 tablet = 5 mg, By Mouth, Daily, # 30 tablet, 5 Refills, Maintenance, 01/11/23 7:04:00 EDT, Tablet, [facility] #[id number], Partial fill upon patient request if the [...] Refills, Maintenance, 01/08/23 12:02:00 EDT, ER Tablet, [facility] #[id number], Partial fill upon patient request if the prescription is for a schedule II opioid . Start Date: 01/08/23 Status: Ordered nabumetone 750 mg oral tablet 1 tablet = 750 mg, By Mouth, 2 times a day, with food, # 28 tablet, 0 Refills, Maintenance, 12/25/22 13:07:00 EDT, Tablet, [facility] #[id number], Partial fill upon patient request if the prescription is for a schedule II opioid drug., 170.18, cm... Start Date: 12/25/22 Stop Date: 01/08/23 Status: Ordered nabumetone 750 mg oral tablet See Instructions, TAKE 1 TABLET BY MOUTH TWICE DAILY FOR 14 DAYS WITH FOOD, # 28 tablet, 0 Refills,Maintenance, 01/08/23 11:58:00 EDT, [facility] #[id number], 170.18, cm, 12/25/22 12:55:00 EDT,Height Start Date: 01/08/23 Status: Ordered omeprazole 40 mg oral enteric coated capsule See Instructions, TAKE 1 CAPSULE BY MOUTH DAILY, # 30 capsule, 0 Refills, Maintenance, 01/08/23 12:03:00 EDT, [facility] #[id number], 170.18, cm, 12/25/22 12:55:00 EDT, Height Start Date: 01/08/23 Status: Ordered omeprazole 40 mg oral enteric coated capsule 1 capsule = 40 mg, By Mouth, Daily, # 30 capsule, 2 Refills, Maintenance, 12/09/21 12:05:00 EDT, [facility]/pharmacy #[id number], Partial fill upon patient request if the prescription is for a schedule II opioid drug., 170.18, cm, 11/28/21 7:49:00 EDT,... Start Date: 12/09/21 Status: Ordered riboflavin 400 mg oral capsule 1 capsule = 400 mg, By Mouth, Daily, # 100 capsule, 0 Refills, Maintenance, 06/19/21 17:00:00 EDT, Capsule, [facility] #[id number], Partial fill upon patient request, 170.18, cm, 05/24/21 8:16:00 EST, Height, 132.5, kg, 09/01/20 13:04:00 EDT, Dry... Start Date: 06/19/21 Status: Ordered rizatriptan 10 mg oral tablet 1 tablet = 10 mg, By Mouth, Daily, PRN for migraine headache, may repeat dose every 2 hours up to amaximum of 3, # 12 tablet, 0 Refills, Acute 03/13/23 21:00:00 EST, 01/11/23 7:03:00 EDT, Tablet, [facility] #[id number], Partial fill upon patient... Start Date: 01/11/23 [...] 11 Refills, Maintenance, 01/05/23 9:38:00 EDT, Solution, [facility]/pharmacy #[id number], Partial fill upon [...] Team Personnel Name: Dru Bonilla RN Position: [facility] RN Member Role: Primary Care Nurse Name: Fidelia Cordova NP Position: [facility] PCO Associate Professional Member Role: PCP Address: Address: [address] [place] [address]- Care Team Related Persons Name: RAYMOND, JUAN CARLOS Address: home [address] [place] [address] Name: MEL RAYMOND Address: [address] [address]
--- OUTSIDE RECORDS SUMMARY | 2023-05-22 16:36 | XMS_ITS | Continuity of Care Document ---
Author Name Unknown Organization [facility] Ezio Cristofer lt Address [address] [place] [address]- Care Team Providers Care Steward/Stewardess Bath Name Role Phone Art ONEAL, Fidelia Good Primary Care Physician [facility] Date(s): 12/25/22 - 01/24/23 [facility] Adult [address] [place] [address]- Allergies, Adverse Reactions, Alerts No Known Allergies Immunizations Given and Recorded Vaccine Date Status Refusal Reason [id number] 12y+ bivalent booster vax 12/16/21 Recorded influenza [...] iven 1Result Comment: [facility]: [id number] 2Result Comment: von 3Admin Note: vis 10/24/2006 [...] Gm, 0 Refills, Maintenance, 10/24/22 8:42:00 EDT, [facility] STORE 71208, 15, APPLY TO AFFECTED AREA TWICE A DAY, 170.18, cm, 09/15/22 14:56:00 EDT, Height Start Date: 10/24/22 Status: Ordered Dulcolax 5 mg oral enteric coated tablet See Instructions, PRN as needed for constipation, 1 tablet By Mouth Daily as needed for constipation, # 15 tablet, 0 Refills, Maintenance, 09/15/22 14:42:00 EDT, CR Tablet, [facility]/pharmacy #[id number], Partial fill upon patient request if the prescription is f... Start Date: 09/15/22 Status: Ordered escitalopram 5 mg oral tablet 1 tablet = 5 mg, By Mouth, Daily, # 30 tablet, 5 Refills, Maintenance, 01/11/23 7:04:00 EDT, Tablet, [facility] #[id number], Partial fill upon patient request if the [...] Refills, Maintenance, 01/08/23 12:02:00 EDT, ER Tablet, [facility] #[id number], Partial fill upon patient request if the prescription is for a schedule II opioid . Start Date: 01/08/23 Status: Ordered nabumetone 750 mg oral tablet 1 tablet = 750 mg, By Mouth, 2 times a day, with food, # 28 tablet, 0 Refills, Maintenance, 12/25/22 13:07:00 EDT, Tablet, [facility] #[id number], Partial fill upon patient request if the prescription is for a schedule II opioid drug., 170.18, cm... Start Date: 12/25/22 Stop Date: 01/08/23 Status: Ordered nabumetone 750 mg oral tablet See Instructions, TAKE 1 TABLET BY MOUTH TWICE DAILY FOR 14 DAYS WITH FOOD, # 28 tablet, 0 Refills,Maintenance, 01/08/23 11:58:00 EDT, [facility] #[id number], 170.18, cm, 12/25/22 12:55:00 EDT,Height Start Date: 01/08/23 Status: Ordered omeprazole 40 mg oral enteric coated capsule See Instructions, TAKE 1 CAPSULE BY MOUTH DAILY, # 30 capsule, 0 Refills, Maintenance, 01/08/23 12:03:00 EDT, [facility] #[id number], 170.18, cm, 12/25/22 12:55:00 EDT, Height Start Date: 01/08/23 Status: Ordered omeprazole 40 mg oral enteric coated capsule 1 capsule = 40 mg, By Mouth, Daily, # 30 capsule, 2 Refills, Maintenance, 12/09/21 12:05:00 EDT, [facility]/pharmacy #[id number], Partial fill upon patient request if the prescription is for a schedule II opioid drug., 170.18, cm, 11/28/21 7:49:00 EDT,... Start Date: 12/09/21 Status: Ordered riboflavin 400 mg oral capsule 1 capsule = 400 mg, By Mouth, Daily, # 100 capsule, 0 Refills, Maintenance, 06/19/21 17:00:00 EDT, Capsule, [facility] #[id number], Partial fill upon patient request, 170.18, cm, 05/24/21 8:16:00 EST, Height, 132.5, kg, 09/01/20 13:04:00 EDT, Dry... Start Date: 06/19/21 Status: Ordered rizatriptan 10 mg oral tablet 1 tablet = 10 mg, By Mouth, Daily, PRN for migraine headache, may repeat dose every 2 hours up to amaximum of 3, # 12 tablet, 0 Refills, Acute 03/13/23 21:00:00 EST, 01/11/23 7:03:00 EDT, Tablet, [facility] #[id number], Partial fill upon patient... Start Date: 01/11/23 [...] 11 Refills, Maintenance, 01/05/23 9:38:00 EDT, Solution, [facility]/pharmacy #[id number], Partial fill upon patient request ifthe [...] Team Personnel Name: Irene WALTON, Dru Position: [facility] RN Member Role: Primary Care Nurse Name: Fidelia Cordova NP Position: [facility] PCO Associate Professional Member Role: PCP Address: Address: [address] [place] [phone]- Care Team Related Persons Name: MANDI JUAN CARLOS Address: [address] [address] Name: MEL RAYMOND Address: [place] [address]
--- OUTSIDE RECORDS SUMMARY | 2023-05-22 16:36 | XMS_ITS | Continuity of Care Document ---
Author Name Unknown Organization [facility] Ezio Cristofer lt Address [address] [place] [address]- Care Team Providers Care Job Recruiter Name Role Phone Art ONEAL, Fidelia Good Primary Care Physician [facility] Date(s): 01/08/23 - 02/07/23 [facility] [place] Adult [address] [place] [address]- Allergies, Adverse Reactions, Alerts No Known Allergies Immunizations Given and Recorded Vaccine Date Status Refusal Reason [id number] 12y+ bivalent booster vax 12/16/21 Recorded influenza [...] (oldterm) 27 92 G iven 1Result Comment: [facility]: [id number] 2Result Comment: von 3Admin Note: vis 10/24/2006 [...] Gm, 0 Refills, Maintenance, 02/06/23 12:58:00 EDT, [facility] STORE 32701, 15, APPLY TO AFFECTED AREA TWICE A [...] 5 Refills, Maintenance, 01/11/23 7:04:00 EDT, Tablet, [facility] #[id number], Partial fill upon patient request if the [...] Refills, Maintenance, 01/08/23 12:02:00 EDT, ER Tablet, [facility] #[id number], Partial fill upon patient request if the prescription is for a schedule II opioid . Start Date: 01/08/23 Status: Ordered nabumetone 750 mg oral tablet 1 tablet = 750 mg, By Mouth, 2 times a day, with food, # 28 tablet, 0 Refills, Maintenance, 12/25/22 13:07:00 EDT, Tablet, [facility] #[id number], Partial fill upon patient request if the prescription is for a schedule II opioid drug., 170.18, cm... Start Date: 12/25/22 Stop Date: 01/08/23 Status: Ordered nabumetone 750 mg oral tablet See Instructions, TAKE 1 TABLET BY MOUTH TWICE DAILY FOR 14 DAYS WITH FOOD, # 28 tablet, 0 Refills,Maintenance, 01/08/23 11:58:00 EDT, [facility] #[id number], 170.18, cm, 12/25/22 12:55:00 EDT,Height Start Date: 01/08/23 Status: Ordered omeprazole 40 mg oral enteric coated capsule See Instructions, TAKE 1 CAPSULE BY MOUTH DAILY, # 30 capsule, 11 Refills, Maintenance, 02/06/23 18:08:00 EDT, [facility]/pharmacy #[id number], 170.18, cm, 01/11/23 6:51:00 EDT, Height Start Date: 02/06/23 Status: Ordered riboflavin 400 mg oral capsule 1 capsule = 400 mg, By Mouth, Daily, # 100 capsule, 0 Refills, Maintenance, 06/19/21 17:00:00 EDT, Capsule, [facility] #[id number], Partial fill upon patient request, 170.18, cm, 05/24/21 8:16:00 EST, Height, 132.5, kg, 09/01/20 13:04:00 EDT, Dry... Start Date: 06/19/21 Status: Ordered rizatriptan 10 mg oral tablet 1 tablet = 10 mg, By Mouth, Daily, PRN for migraine headache, may repeat dose every 2 hours up to amaximum of 3, # 12 tablet, 0 Refills, Acute 03/13/23 21:00:00 EST, 01/11/23 7:03:00 EDT, Tablet, [facility] #[id number], Partial fill upon patient... Start Date: 01/11/23 [...] Team Personnel Name: Dru Bonilla RN Position: [facility] RN Member Role: Primary Care Nurse Name: Fidelia Cordova NP Position: [facility] PCO Associate Professional Member Role: PCP Address: Address: [address] [place] [phone]- Care Team Related Persons Name: JUAN CARLOS RAYMOND Address: home [address] [place] [address] Name: MEL RAYMOND Address: home [address] [place] [address]
--- OUTSIDE RECORDS SUMMARY | 2023-05-22 16:36 | XMS_ITS | Continuity of Care Document ---
Author Name Unknown Organization [facility] Ezio Cristofer lt Address [address] [place] [address]- Care Team Providers Care Machine Wood Sander Name Role Phone Art ONEAL, Fidelia Good Primary Care Physician Encounter [facility] Date(s): 02/13/23 - 03/15/23 [facility]io Adult [address] [place] [address]- Attending Physician: AdmKatie vickers Admitting Physician: AdmKatie vickers Referring Physician: Admtr, ArLaurie Allergies, Adverse Reactions, Alerts No Known Allergies Immunizations Given and Recorded Vaccine Date Status Refusal Reason [id number] 12y+ bivalent booster vax 12/16/21 Recorded influenza [...] 27 92 G iven 1Result Comment: [facility]: [id number] 2Result Comment: von 3Admin Note: vis 10/24/2006 [...] Gm, 0 Refills, Maintenance, 02/06/23 12:58:00 EDT, [facility] 89848, 15, APPLY TO AFFECTED AREA TWICE A DAY, 170.18, cm, 01/11/23 6:51:00 EDT, Height Start Date: 02/06/23 Status: Ordered Dulcolax 5 mg oral enteric coated tablet See Instructions, PRN as needed for constipation, 1 tablet By Mouth Daily as needed for constipation, # 15 tablet, 0 Refills, Maintenance, 09/15/22 14:42:00 EDT, CR Tablet, [facility]/pharmacy #[id number], Partial fill upon patient request if the prescription is f... Start Date: 09/15/22 Status: Ordered escitalopram 5 mg oral tablet 1 tablet = 5 mg, By Mouth, Daily, # 30 tablet, 5 Refills, Maintenance, 01/11/23 7:04:00 EDT, Tablet, [facility] #[id number], Partial fill upon patient request if the [...] Refills, Maintenance, 01/08/23 12:02:00 EDT, ER Tablet, [facility] #[id number], Partial fill upon patient request if the prescription is for a schedule II opioid . Start Date: 01/08/23 Status: Ordered nabumetone 750 mg oral tablet 1 tablet = 750 mg, By Mouth, 2 times a day, with food, # 28 tablet, 0 Refills, Maintenance, 12/25/22 13:07:00 EDT, Tablet, [facility] #[id number], Partial fill upon patient request if the prescription is for a schedule II opioid drug., 170.18, cm... Start Date: 12/25/22 Stop Date: 01/08/23 Status: Ordered nabumetone 750 mg oral tablet See Instructions, TAKE 1 TABLET BY MOUTH TWICE DAILY FOR 14 DAYS WITH FOOD, # 28 tablet, 0 Refills,Maintenance, 01/08/23 11:58:00 EDT, [facility] #[id number], 170.18, cm, 12/25/22 12:55:00 EDT,Height Start Date: 01/08/23 Status: Ordered omeprazole 40 mg oral enteric coated capsule See Instructions, TAKE 1 CAPSULE BY MOUTH DAILY, # 30 capsule, 11 Refills, Maintenance, 02/06/23 18:08:00 EDT, [facility]/pharmacy #[id number], 170.18, cm, 01/11/23 6:51:00 EDT, Height Start Date: 02/06/23 Status: Ordered riboflavin 400 mg oral capsule 1 capsule = 400 mg, By Mouth, Daily, # 100 capsule, 0 Refills, Maintenance, 06/19/21 17:00:00 EDT, Capsule, [facility] #[id number], Partial fill upon patient request, 170.18, cm, [...] Care Nurse Name: Fidelia Cordova NP Position: [facility] PCO Associate Professional Member Role: PCP Address: Address: [address] [place] [address]- Care Team Related Persons Name: JUAN CARLOS RAYMOND Address: [address] [place] [address] Name: MEL RAYMOND Address: home [address] [place] [address]
== END 2023-05-22 16:48 | disposition home or self-care (01) ==
PROVIDERS: PCP Nurse Practitioner Family; Visit Provider Internal Medicine
DX: J06.9 Acute upper respiratory infection, unspecified (principal); J02.9 Acute pharyngitis, unspecified
CPT/HCPCS: 87880; 99213

== ENCOUNTER 2023-07-31 10:09 | Outpatient (AMB) | payer OTHER, SELFPAY ==
--- OUTSIDE RECORDS SUMMARY | 2023-07-31 10:12 | XMS_ITS | Continuity of Care Document ---
Author Organization [facility] Shabbir Holguin Cristofer Address [address] [place] [address]- Care Team Providers Care Easement Man Name Role Phone Art ONEAL, Fidelia Good Primary Care Physician Encounter [facility] Date(s): 06/08/23 - 07/08/23 [facility] Shabbir Holguin Adult [address] [place] [address]- Allergies, Adverse Reactions, Alerts No Known Allergies Immunizations Given and Recorded Vaccine Date Status Refusal Reason [id number] 12y+ bivalent booster vax 12/16/21 Recorded influenza [...] 27 92 G iven 1Result Comment: [facility]: [id number] 2Result Comment: von 3Admin Note: vis 10/24/2006 [...] DAY, # 15 Gm, 0 Refills, Maintenance, 06/08/23 17:17:00 EST, [facility]/pharmacy #[id number], 15, APPLY TO AFFECTED AREA TWICE A DAY, 170.18, cm, 04/05/23 8:17:00 EST, Height Start Date: 06/08/23 Status: Ordered Dulcolax 5 mg oral enteric [...] 5 Refills, Maintenance, 01/11/23 7:04:00 EDT, Tablet, [facility] #[id number], Partial fill upon patient request if the [...] Refills, Maintenance, 01/08/23 12:02:00 EDT, ER Tablet, [facility] #[id number], Partial fill upon patient request if the prescription is for a schedule II opioid . Start Date: 01/08/23 Status: Ordered nabumetone 750 mg oral tablet 1 tablet = 750 mg, By Mouth, 2 times a day, with food, # 28 tablet, 0 Refills, Maintenance, 12/25/22 13:07:00 EDT, Tablet, [facility] #[id number], Partial fill upon patient request if the prescription is for a schedule II opioid drug., 170.18, cm... Start Date: 12/25/22 Stop Date: 01/08/23 Status: Ordered nabumetone 750 mg oral tablet See Instructions, TAKE 1 TABLET BY MOUTH TWICE DAILY FOR 14 DAYS WITH FOOD, # 28 tablet, 0 Refills,Maintenance, 01/08/23 11:58:00 EDT, [facility] #[id number], 170.18, cm, 12/25/22 12:55:00 EDT,Height Start Date: [...] 0 Refills, Maintenance, 06/19/21 17:00:00 EDT, Capsule, [facility] #[id number], Partial fill upon patient request, 170.18, cm, [...] Team Personnel Name: Dru Bonilla RN Position: [facility] RN Member Role: Primary Care Nurse Name: Fidelia Cordova NP Position: [facility] PCO Associate Professional Member Role: PCP Address: Address: [address] [place] [id number] Care Team Related Persons Name: JUAN CARLOS RAYMOND Address: home [address] [place] [id number] Name: MEL RAYMOND Address: [address] [address]
[2023-07-31 10:27] VITALS: BP 120/76; PULSE 79; TEMP 36.2; O2SAT 98; BMI 44.3
--- NOTE | 2023-07-31 10:27 | AM.OFFWIN_ITS ---
Intake Vital Signs 07/31/23 10:27 Height 5 ft 7 in Weight 283 lb BMI 44.3 BP 120/76 Blood Pressure Location Lt brachial Position Sitting Pulse 79 Pulse Source Pulse Oximeter Temp 97.1 F Temp Source Temporal Artery Scan Pulse Oximetry (%) 98 Oxygen Delivery Method Room Air Intake Visit Reasons: EP chest congestion throat/ear/sinus pain Intake Note: pt is here today for chest congestion throat ear sinus pain started yesterday Patient Tobacco Use Status: Never used Tobacco Allergies No Known Allergies Allergy (Verified 07/31/23 10:35) Do you need a note to return to daycare/school/sports/work: Yes HPI HPI Comments History of Present Illness Details 33-year-old female presents today compla ining of cough and nasal congestion the last 24 hours. 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 [facility], [facility] Medical History Diabetes Social History Patient Tobacco Use Status: Never used Tobacco Review of Systems Const All systems reviewed & are unremarkable except as noted in HPI and below Reports no additional complaints Eyes Reports no additional complaints ENT Reports nasal congestion and Reports post nasal drip Card Reports no additional complaints Resp Reports chest congestion and Reports cough GI Reports no additional complaints Physical Exam Vital Signs: Last Vital Signs Temp 97.1 F 07/31/23 10:27 Pulse 79 07/31/23 10:27 BP 120/76 07/31/23 10:27 Pulse Ox 98 07/31/23 10:27 Oxygen Delivery Method Room Air 07/31/23 10:27 BMI result Body Mass Index 44.3 HEENT Head: Yes normal to inspection, Yes normocephalic and Yes atraumatic Ears: hearing grossly normal bilaterally, TM's normal bilaterally and EAC's normal General nose exam: Normal external nose present Face and sinus: Yes normal facial exam Throat: Yes posterior oropharynx normal Resp Effort & Inspection: normal respiratory effort Auscultation: clear to auscultation bilaterally Cardio Rate: regular rate Rhythm: regular rhythm Heart sounds: S1 normal heart sound present and S2 normal heart sound present Assessment & Plan Assessment & Plan (1) Cough: Code(s): R05.9 - Cough, unspecified Plan: The patient was given Tessalon Perles for her cough. Viral culture will be sent to the lab. And a note to excuse for work for a few days. Plan See plan Medications: New benzonatate 100 mg PO Q4H PRN 14 caps 0RF cough Coding Level of Care Code Est Pt Level 3 (28982) Diagnoses Cough R05.9
== END 2023-07-31 11:02 | disposition home or self-care (01) ==
PROVIDERS: PCP Nurse Practitioner Family; Visit Provider Physician Assistant Medical
DX: R05.9 Cough, unspecified (principal)
CPT/HCPCS: 99213

== ENCOUNTER 2023-07-31 11:54 | Outpatient (REF) | payer OTHER, SELFPAY ==
[2023-07-31 14:11] LABS: Influenza A PCR NEGATIVE (Negative); Influenza B PCR NEGATIVE (Negative); Resp Syncy Virus RNA Qual PCR NEGATIVE (Negative); SARS COV2 PCR INHOUSE NEGATIVE (Negative)
== END 2023-07-31 11:55 | disposition home or self-care (01) ==
LOC: HO.LAB 11:54
PROVIDERS: Visit Provider Physician Assistant Medical
DX: R05.9 Cough, unspecified (principal)
CPT/HCPCS: 0241U

== ENCOUNTER 2023-10-18 09:00 | Outpatient (AMB) | payer OTHER, SELFPAY ==
--- NOTE | 2023-10-18 09:02 | AM.OFFWIN_ITS ---
Intake Vital Signs 10/18/23 09:03 Height 5 ft 7 in Weight 276 lb BMI 43.2 BP 116/78 Blood Pressure Location Rt brachial Position Sitting Pulse 88 Pulse Source Pulse Oximeter Temp 98.8 F Temp Source Oral Pulse Oximetry (%) 97 Oxygen Delivery Method Room Air Intake Visit Reasons: EP cough Intake Note: pt here c/o cough and chest tightness. Started Sunday night Patient Tobacco Use Status: Never used Tobacco Allergies No Known Allergies Allergy (Verified 10/18/23 09:02) Do you need a note to return to daycare/school/sports/work: Yes HPI HPI Comments History of Present Illness Details 33 y/o female patient who presents to [facility] in clinic with c/o cough since Sunday. [facility] Medical History Diabetes Social History Patient Tobacco Use Status: Never used Tobacco Review of Systems Const All systems reviewed & are unremarkable except as noted in HPI and below Physical Exam Vital Signs: Last Vital Signs Temp 98.8 F 10/18/23 09:03 Pulse 88 10/18/23 09:03 BP 116/78 10/18/23 09:03 Pulse Ox 97 10/18/23 09:03 Oxygen Delivery Method Room Air 10/18/23 09:03 BMI result Body Mass Index 43.2 Const General: comfortable and no acute distress Nutritional Appearance: obese Orientation/consciousness: patient oriented x3 HEENT Head: Yes normocephalic Ears: external ears normal and TM abnormal bulging bilateral and with fluid behind the TM bilateral General nose exam: Abnormal mucous membranes and turbinates present pale Face and sinus: Yes sinuses nontender Mouth: moist mucous membranes Throat: Yes posterior oropharynx normal Resp Effort & Inspection: normal respiratory effort and able to speak in complete sentences Auscultation: clear to auscultation bilaterally, no crackles, no rales, no rhonchi and no wheezes Cardio Rate: regular rate Rhythm: regular rhythm Neuro General: patient oriented x3, gait normal and moves all extremities Psych Speech and movement: Normal speech and movement present Assessment & Plan Assessment & Plan (1) Cough: Code(s): R05.9 - Cough, unspecified Qualifiers: Cough type: acute Qualified Code(s): R05.1 - Acute cough Plan: Take Z-pack as directed OTC cough remedies Rest and hydrate with warm fluids and honey Medications: New benzonatate 100 mg PO TID 90 caps 0RF R05.1 - Acute cough azithromycin 500 mg PO DAILY 3 days 3 tabs 0RF R05.1 - Acute cough Discontinued benzonatate Discontinued Reason: Patient Completed Course 100 mg PO Q4H PRN 14 caps 0RF cough azithromycin (Zithromax) Discontinued Reason: Patient Completed Course take 500 mg today (day 1), then 250 mg for 4 days (days 2-5) PO 6 tabs 0RF Coding Level of Care Code Est Pt Level 3 (82401) Diagnoses Acute cough R05.1 Cough type: acute Time Spent (min) 15
[2023-10-18 09:03] VITALS: BP 116/78; PULSE 88; TEMP 37.1; O2SAT 97; BMI 43.2
--- OUTSIDE RECORDS SUMMARY | 2023-10-18 09:03 | XMS_ITS | Continuity of Care Document ---
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 Name Role Phone Art ONEAL, Fidelia Good Primary Care Physician Encounter [facility] Date(s): 08/02/23 - 08/09/23 [facility] Shabbir Muñozley Adult [address] [place] [address]- Encounter Diagnosis Cough(Discharge Diagnosis) - 08/02/23 Acute sinusitis, unspecified(Discharge Diagnosis) - 08/02/23 Rash(Discharge Diagnosis) - 08/02/23 Attending Physician: Jocelyn Koch NP Referring Physician: Art ONEAL, Fidelia Good Allergies, Adverse Reactions, Alerts No Known Allergies Immunizations Given and Recorded Vaccine Date Status Refusal Reason [id number] 12y+ bivalent booster vax 12/16/21 Recorded influenza [...] 92 G iven 1Result Comment: [facility]: [id number] 2Result Comment: von 3Admin Note: vis 10/24/2006 [...] opioid drug. Start Date: 08/23/20 Status: Ordered amoxicillin 500 mg oral tablet 1 tablet = 500 mg, By Mouth, 3 times a day, for 10 days, # 30 tablet, 0 Refills, Acute 08/12/23 10:05:00 EDT, 08/02/23 10:05:00 EDT, Tablet, [facility]/pharmacy #[id number], Partial fill upon patient request if the prescription is for a schedule II opioid drug., 1... Start Date: 08/02/23 Stop Date: 08/12/23 Status: Ordered Basaglar KwikPen 100 units/mL subcutaneous [...] Gm, 0 Refills, Maintenance, 06/08/23 17:17:00 EST, [facility]/pharmacy #[id number], 15, APPLY TO AFFECTED AREA TWICE A DAY, 170.18, cm, 04/05/23 8:17:00 EST, Height Start Date: 06/08/23 Status: Ordered Dulcolax 5 mg oral enteric coated tablet See Instructions, PRN as needed for constipation, 1 tablet By Mouth Daily as needed for constipation, # 15 tablet, 0 Refills, Maintenance, 09/15/22 14:42:00 EDT, CR Tablet, [facility]/pharmacy #[id number], Partial fill upon patient request if the prescription is f... Start Date: 09/15/22 Status: Ordered escitalopram 5 mg oral tablet 1 tablet = 5 mg, By Mouth, Daily, # 30 tablet, 5 Refills, Maintenance, 01/11/23 7:04:00 EDT, Tablet, [facility] #[id number], Partial fill upon patient request if the [...] Refills, Maintenance, 01/08/23 12:02:00 EDT, ER Tablet, [facility] #[id number], Partial fill upon patient request if the prescription is for a schedule II opioid dr... Start Date: 01/08/23 Status: Ordered nabumetone 750 mg oral tablet 1 tablet = 750 mg, By Mouth, 2 times a day, with food, # 28 tablet, 0 Refills, Maintenance, 12/25/22 13:07:00 EDT, Tablet, [facility] #[id number], Partial fill upon patient request if the prescription is for a schedule II opioid drug., 170.18, cm... Start Date: 12/25/22 Stop Date: 01/08/23 Status: Ordered nabumetone 750 mg oral tablet See Instructions, TAKE 1 TABLET BY MOUTH TWICE DAILY FOR 14 DAYS WITH FOOD, # 28 tablet, 0 Refills,Maintenance, 01/08/23 11:58:00 EDT, [facility] #[id number], 170.18, cm, 12/25/22 12:55:00 EDT,Height Start Date: 01/08/23 Status: Ordered omeprazole 40 mg oral enteric coated capsule See Instructions, TAKE 1 CAPSULE BY MOUTH DAILY, # 30 capsule, 11 Refills, Maintenance, 02/06/23 18:08:00 EDT, [facility]/pharmacy #[id number], 170.18, cm, 01/11/23 6:51:00 EDT, Height Start Date: 02/06/23 Status: Ordered riboflavin 400 mg oral capsule 1 capsule = 400 mg, By Mouth, Daily, # 100 capsule, 0 Refills, Maintenance, 06/19/21 17:00:00 EDT, Capsule, [facility] #[id number], Partial fill upon patient request, 170.18, cm, [...] Effective Dates Health Status Clinical Service Informant Cough Discharge Diagnosis 08/02/23 Acute sinusitis, unspecified Discharge Diagnosis 08/02/23 Rash Discharge Diagnosis 08/02/23 Vital Signs Most recent to oldest [Reference Range]: 1 Height 170.18 cm (08/02/23 9:51 AM) Weight 127.4 kg (08/02/23 9:51 AM) Oxygen Saturation [94-100 %] 99 % (08/02/23 9:51 AM) Pulse Rate [55-90 bpm] 84 bpm (08/02/23 9:51 AM) Body Mass Index [18.5-24.99 kg/m2] 43.99 kg/m2 *>HHI* (08/02/23 9:51 AM) Blood Pressure [90-138/55-84 mm Hg] 110/ 72mm Hg (08/02/23 9:51 AM) Respiratory Rate [16-30 br/min] 16 br/mi n (08/02/23 9:51 AM) Mode of Delivery (Oxygen) Room air (08/02/23 9:51 AM) Blood pressure sites Arm, right (08/02/23 9:51 AM) Weight Obtained Via Standing scale (08/02/23 9:51 AM) Social History Social History Type Response Smoking Status Never smoker entered on: 08/23/15 Sex Patient Care team information Care Team Personnel Name: Irene RN, Dru Position: [facility] RN Member Role: Primary Care Nurse Name: Fidelia Cordova NP Position: [facility] PCO Associate Professional Member Role: PCP Address: Address: [address] [place] [id number]- Care Team Related Persons Name: JUAN CARLOS RAYMOND Address: home [address] [place] [id number] Name: MEL RAYMOND Address: home [address] [place] [address]
--- OUTSIDE RECORDS SUMMARY | 2023-10-18 09:03 | XMS_ITS | Continuity of Care Document ---
Author Organization [facility] Holgu[facility] Cristofer lt Address [address] [place] [address]- Care Team Providers Care Hydrographer Name Role Phone Art ONEAL, Fidelia Good Primary Care Physician [phone] Encounter [facility] Date(s): 09/28/23 - 10/05/23 [facility] Holguin Adult [address] [place] [address]- Attending Physician: Fidelia Cordova NP Referring Physician: Meenakshi OLEARY, Miguel Bowser Allergies, Adverse Reactions, Alerts No Known Allergies Immunizations Given and Recorded Vaccine Date Status Refusal Reason [id number] 12y+ bivalent booster vax 12/16/21 Recorded influenza [...] iven 1Result Comment: [facility]: [id number] 2Result Comment: von 3Admin Note: vis 10/24/2006 [...] Gm, 0 Refills, Maintenance, 06/08/23 17:17:00 EST, [facility]acy #[id number], 15, APPLY TO AFFECTED AREA TWICE [...] 5 Refills, Maintenance, 01/11/23 7:04:00 EDT, Tablet, [facility] #[id number], Partial fill upon patient request if the [...] Weight Start Date: 04/12/21 Status: Ordered Freestyle amriat 2 CGM Freestyle amrita 2 CGM, See [...] Refills, Maintenance, 01/08/23 12:02:00 EDT, ER Tablet, [facility] #[id number], Partial fill upon patient request if the prescription is for a schedule II opioid dr... Start Date: 01/08/23 Status: Ordered nabumetone 750 mg oral tablet 1 tablet = 750 mg, By Mouth, 2 times a day, with food, # 28 tablet, 0 Refills, Maintenance, 12/25/22 13:07:00 EDT, Tablet, [facility] #[id number], Partial fill upon patient request if the prescription is for a schedule II opioid drug., 170.18, cm... Start Date: 12/25/22 Stop Date: 01/08/23 Status: Ordered nabumetone 750 mg oral tablet See Instructions, TAKE 1 TABLET BY MOUTH TWICE DAILY FOR 14 DAYS WITH FOOD, # 28 tablet, 0 Refills,Maintenance, 01/08/23 11:58:00 EDT, [facility] #[id number], 170.18, cm, 12/25/22 12:55:00 EDT,Height Start Date: 01/08/23 Status: Ordered omeprazole 40 mg oral enteric coated capsule See Instructions, TAKE 1 CAPSULE BY MOUTH DAILY, # 30 capsule, 11 Refills, Maintenance, 02/06/23 18:08:00 EDT, [facility]/pharmacy #[id number], 170.18, cm, 01/11/23 6:51:00 EDT, Height Start Date: 02/06/23 Status: Ordered Ozempic 2 mg/1.5 mL (0.25 mg or 0.5 mg dose) subcutaneous solution = 0.25 mg, Subcutaneous Injection, Every week, rotate injection sites, # 1 each, 0 Refills, Maintenance, 09/28/23 9:44:00 EDT, Solution, [facility] #[id number], Partial fill upon patient request if the prescription is for a schedule II opioid drug., 0.25... Start Date: 09/28/23 Status: Ordered riboflavin 400 mg oral capsule 1 capsule = 400 mg, By Mouth, Daily, # 100 capsule, 0 Refills, Maintenance, 06/19/21 17:00:00 EDT, Capsule, [facility] #[id number], Partial fill upon patient request, 170.18, cm, 05/24/21 8:16:00 EST, Height, 132.5, kg, 09/01/20 13:04:00 EDT, Dry... Start Date: 06/19/21 Status: Ordered Test strips 100 Test strips 100, See Instructions, # 1 box, Refills 0, Tot. Refills 0, Maintenance, Test strips 100test blood sugar 4 times a day change as need the device type, 01/25/19 12:10:59 EDT, Compound Start Date: 01/25/19 Status: Ordered triamcinolone 0.05% topical ointment 1 application, Topically, 2 times a day, apply to back of arms twice daily to affected area apply athin film, # 430 Gm, 0 Refills, Acute 11/17/23 21:00:00 EDT, 09/28/23 9:59:00 EDT, Ointment, [id number], Partial fill upon patient request i... Start Date: 09/28/23 Stop Date: 11/17/23 Status: Ordered Problem List Condition Confirmation Course [...] oldest [Reference Range]: 1 Height 170.18 cm (09/28/23 9:37 AM) Weight 126.9 kg (09/28/23 9:37 AM) Oxygen Saturation [94-100 %] 100 % (09/28/23 9:37 AM) Pulse Rate [55-90 bpm] 86 bpm (09/28/23 9:37 AM) Body Mass Index [18.5-24.99 kg/m2] 43.82 kg/m2 *>HHI* (09/28/23 9:37 AM) Blood Pressure [90-138/55-84 mm Hg] 139/ 71mm Hg *H* (09/28/23 9:37 AM) Blood pressure sites Arm, right (09/28/23 9:37 AM) Weight Obtained Via Standing scale (09/28/23 9:37 AM) Social History Social History Type Response Smoking Status Never smoker entered on: 08/23/15 Sex Note * Loly Sauceda: PERFORM Event Display: Patient Education/Instruction Authored Date: [id number] Ambulatory Adult Visit Summary [facility] Adult [facility] [address], [place] [id number] Name: SANDRA RAYMOND : 1990?? Visit: 09/28/2023 09:34?? Ambulatory Visit Instructions ?? Your Care Team Primary Care Provider Fidelia Cordova NP? This Visit Provider Fidelia Cordova NP Your Diagnosis Type 2 diabetes mellitus Rash Vitals Signs Pulse Rate: 86 bpm Height: 170.18 cm Systolic Blood Pressure:??139 mm Hg??High Weight: 126.9 kg Diastolic Blood Pressure: 71 mm Hg Body Mass Index:??43.82 kg/m2??Critical Oxygen Saturation: 100 % Body surface area: 2.45 What to do next Scheduled Follow-Up Appointments Sunday 1:50 PM EDT ?? With: Fidelia Cordova NP Where: [address] [address]- Status: Pending Follow-Up Appointments Follow Up with??Fidelia Cordova NP Why: 3 weeks telehealth 20 mins?DMII Where: [address] [place] [address]- Medications The list below reflects the information in our records and provided by you today along with any changes made during this visit. Please continue your medications until treatment is completed or stopped by your provider. If this is different from the information you have or there are other questions,please contact the prescribing provider. What How Much When Why Instructions New semaglutide (Ozempic 2 mg/ 1.5 mL (0.25 mg or 0.5 mg dose) subcutaneous solution) 0.25 Milligram Subcutaneous Injection Every week Type 2 diabetes mellitus rotate injection sites ?? Pickup at [facility] #[id number] New Triamcinolone Topical (triamcinolone 0.05% topical ointment) 1 zulay Topically Twice a day Rash apply to back of arms twice daily to affected area apply a thin film ?? Pickup at [facility] #[id number] Unchanged Acetaminophen (acetaminophen 500 mg oral capsule) 2 capsule Oral Every 4 hours as needed for for fever Unchanged Betamethasone Topical (betamethasone topical dipropionate 0.05% ointment) See instructions Rash APPLY TO AFFECTED AREA TWICE A DAY ?? Unchanged Bisacodyl (Dulcolax 5 mg oral enteric coated tablet) See instructions Constipation 1 tablet By Mouth Daily as needed for constipation, As needed for as needed for constipation ?? Unchanged Durable Medical Equipment (Free Style Lite Lancets) See instructions Use to test 1 time daily and as needed. ?? Dx: E11.9 ?? Unchanged Durable Medical Equipment (Freestyle amrita 2 CGM) See instructions Freestyle amrita 2 CGM reader ?? Unchanged Durable Medical Equipment (FreeStyle Amrita 2 Sensors) See instructions Dx E.65 Check blood sugar 4-5 times a day. ?? Unchanged Durable Medical Equipment (Freestyle amrita 2 sensors) See instructions Please provide 30 days supple freestyle amrita 2 sensors to be changed every 14 days ?? Unchanged Durable Medical Equipment (Freestyle Lite Monitor) See instructions Check blood sugar in the morning, hold insulin if lower than 70 ?? Unchanged Durable Medical Equipment (Freestyle Lite Test Strips) See instructions Type 2 diabetes mellitus Use to test 1 time daily and as needed. ?? Dx: E11.9 ?? Unchanged Durable Medical Equipment (Glucometer one device.) See instructions Glucometer one device. Use the test 4 times a day. Free to change between brands. ?? Unchanged Durable Medical Equipment (Test strips 100) See instructions Test strips 100 test blood sugar 4 times a day change as need the device type ?? Unchanged Escitalopram (escitalopram 5 mg oral tablet) 1 tab(s) Oral Daily Anxiety and depression Unchanged Insulin Glargine (Basaglar KwikPen 100 units/ mL subcutaneous solution) See instructions T2DM (type 2 diabetes mellitus) Subcutaneous Infusion Daily rotate injection sites. Start with 10 units insulin, inject subcutaneously daily at bedtime. Increase by 2 units every 3 days until fasting blood sugar is under 120. Do not exceed 80 units. ?? Unchanged Insulin Glargine (Lantus Solostar Pen 100 units/ mL subcutaneous solution) See instructions Uncontrolled diabetes mellitus with hyperglycemia Start with 10 units Subcutaneous Injection Daily for three days. Then, increase by 2 unites every three days until fasting blood sugar is less than 120. ?? Do not exceed 80 units daily. ?? Unchanged Metformin (MetFORMIN (Eqv-Glucophage XR) 500 mg oral tablet, extended release) See instructions Diabetes mellitus 1 tablet By Mouth 3 times a day 90 days supply ?? Unchanged Miscellaneous Rx (Freestyle Amrita 14 day sensor) See instructions Freestyle Amrita 14 day sensor ?? Unchanged Miscellaneous Rx (FREESTYLE AMRITA 2 SENSOR) See instructions USE TO CHECK SUGAR FOUR TIMES DAILY TO FIVE TIMES DAILY ?? Unchanged Nabumetone (nabumetone 750 mg oral tablet) See instructions TAKE 1 TABLET BY MOUTH TWICE DAILY FOR 14 DAYS WITH FOOD ?? Unchanged Nabumetone (nabumetone 750 mg oral tablet) 1 tab(s) Oral Twice a day Duration: 14 Days with food ?? Unchanged Omeprazole (omeprazole 40 mg oral enteric coated capsule) See instructions Chronic GERD TAKE 1 CAPSULE BY MOUTH DAILY ?? Unchanged Riboflavin (riboflavin 400 mg oral capsule) 1 capsule Oral Daily Migraine - infrequent Pharmacy Information [facility] #[id number]: [address] [place] [address] [phone] ?? What How Much When Why Comments Stop Taking dulaglutide (Trulicity Pen 0.75 mg/ 0.5 mL subcutaneous solution) 0.5 Milliliter Subcutaneous Injection Every week Uncontrolled diabetes mellitus with hyperglycemia rotate injection sites ?? Test Performed Below is a partial list of the tests performed during your Visit. You may have had other tests and procedures not included in this list. Please discuss all test results with your provider. POC HBA1C ([facility]) Lab Test Results Below is a partial list of the most recent Laboratory test results done during your Visit. You may have had other tests and procedures not included in this list. Please discuss all test results with your provider. Test Name Test Result Date/Time POC HBA1C ([facility]) 6.2 % 09/28/2023 09:48 EDT Medications and Immunizations Administered Medications Given During Visit No medications given during this visit.?? Allergies (NKA means No Known Allergies) NKA Common Emergency Awareness Tips IS IT A STROKE? Act FAST and Check for these signs: FACE Does the face look uneven? ARM Does one arm drift down? SPEECH Does their speech sound strange? TIME Call at any sign of stroke ?? Heart Attack Signs Chest discomfort: Most heart attacks involve discomfort in the center of the chest and lasts more than a few minutes, or goes away and comes back. It can feel like uncomfortable pressure, squeezing, fullness or pain. Discomfort in upper body: Symptoms can include pain or discomfort in one or both arms, back, neck, jaw or stomach. Shortness of breath: With or without discomfort. Other signs: Breaking out in a cold sweat, nausea, or lightheaded. Remember, MINUTES DO MATTER. If you experience any of these heart attack warning signs, call to get immediate medical attention! ?? Smoking can increase your chances of developing chronic health problems and can cause harmful effects to other family members in your house. If you smoke, you are strongly encouraged to quit. Please call [facility] Link at [phone] or [phone] ([phone]) or log in to [email or web address] for referrals to smoking cessation programs. ?? The National Suicide Prevention Hotline is available 30/10 if you or someone you know needs to find a reason to keep living. By calling 3-131-098-Truist (6518) you'll be connected to a skilled, trained counselor at a crisis center in your area. [facility] Portal You can view and manage your care through the patient portal or by using a health care zulay of your choosing. [employer] is a website that allows you to securely view your medical information including your hospital discharge summary, office visit summaries, medications and follow-up visits. You can also request appointments, renew medications, and request access to your medical information using a health care zulay of your choosing, or just ask a question. You can enroll at [email or web address] or register during your next office visit. [facility], in keeping with [facility] guidance, no longer requires face masks for staff, patientsor visitors in most situations. Similiar to time spent indoors at other locations, there is the chance that you were exposed to repiratory viruses during your time with us (such as flu or COVID-19). If you develop symptoms concerning for a viral respiratory infection, please seek testing (and treatment if indicated) from your medical provider or home test kit. ?? Disclaimer: The information provided is of a general nature and is intended to be used in conjunction with the recommendations and advice of your health care practitioner. Every effort has been made to ensure that the information provided is accurate and complete at the time it is provided to you however, as your needs change, or, as new information becomes available, different or additional instructions may be required. ?? If you have questions, please consult with your primary care provider or pharmacist, as appropriate. This information is not intended to serve as substitution for assessment and evaluation by a qualified health care provider. If you do not have a primary care provider, you may find a [facility] provider by calling [facility] at [phone]. Patient Care team information Care Team Personnel Name: Dru Bonilla RN Position: S RN Member Role: Primary Care Nurse Name: Fidelia Cordova NP Position: [facility] PCO Associate Professional Member Role: PCP Address: Address: [address] [place] [id number] Care Team Related Persons Name: JUAN CARLOS RAYMOND Address: [address] [address] Name: MEL RAYMOND Address: [place] [address]
--- OUTSIDE RECORDS SUMMARY | 2023-10-18 09:04 | XMS_ITS | Continuity of Care Document ---
Author Organization [facility] Cristofer lt Address [address] [place] [address]- Care Team Providers Care Dry Dip Worker Name Role Phone Art ONEAL, Fidelia Good Primary Care Physician [place] [facility] [place] 08/02/23 - 10/07/23 [facility] Adult [address] [place] [address]- Attending Physician: Fidelia Cordova NP Allergies, Adverse Reactions, Alerts No Known Allergies Immunizations Given and Recorded Vaccine Date Status Refusal Reason [id number] 12y+ bivalent booster vax 12/16/21 Recorded influenza [...] 8 10/06/93 Given Meningococcal Conjugate Vaccine 9 7/9/10 Given Tet/Diphth/Acel, Pertussis (oldterm) 10 10/22/08 G [...] 27 92 G iven 1Result Comment: [facility]: [id number] 2Result Comment: von 3Admin Note: vis 10/24/2006 [...] Gm, 0 Refills, Maintenance, 06/08/23 17:17:00 EST, [facility]/pharmacy #[id number], 15, APPLY TO AFFECTED AREA TWICE [...] 5 Refills, Maintenance, 01/11/23 7:04:00 EDT, Tablet, [facility] #[id number], Partial fill upon patient request if the [...] Refills, Maintenance, 01/08/23 12:02:00 EDT, ER Tablet, [facility] #[id number], Partial fill upon patient request if the prescription is for a schedule II opioid drRenetta. Start Date: 01/08/23 Status: Ordered nabumetone 750 mg oral tablet 1 tablet = 750 mg, By Mouth, 2 times a day, with food, # 28 tablet, 0 Refills, Maintenance, 12/25/22 13:07:00 EDT, Tablet, [facility] #[id number], Partial fill upon patient request if the prescription is for a schedule II opioid drug., 170.18, cm... Start Date: 12/25/22 Stop Date: 01/08/23 Status: Ordered nabumetone 750 mg oral tablet See Instructions, TAKE 1 TABLET BY MOUTH TWICE DAILY FOR 14 DAYS WITH FOOD, # 28 tablet, 0 Refills,Maintenance, 01/08/23 11:58:00 EDT, [facility] #[id number], 170.18, cm, 12/25/22 12:55:00 EDT,Height Start Date: [...] 0 Refills, Maintenance, 09/28/23 9:44:00 EDT, Solution, [facility]/pharmacy #[id number], Partial fill upon patient request if the prescription is for a schedule II opioid drug., 0.25... Start Date: 09/28/23 Status: Ordered riboflavin 400 mg oral capsule 1 capsule = 400 mg, By Mouth, Daily, # 100 capsule, 0 Refills, Maintenance, 06/19/21 17:00:00 EDT, Capsule, [facility][id number], Partial fill upon patient request, 170.18, cm, [...] Associate Professional Member Role: PCP Address: Address: [address] [place] [address]- Care Team Related Persons Name: JUAN CARLOS RAYMOND Address: home [address] [place] [id number] Name: MEL RAYMOND Address: home [address] [place] [address]
== END 2023-10-18 09:39 | disposition home or self-care (01) ==
PROVIDERS: PCP Nurse Practitioner Family; Visit Provider Nurse Practitioner Family
DX: R05.1 Acute cough (principal)
CPT/HCPCS: 99213

== ENCOUNTER 2024-01-08 08:40 | Emergency (ER) | payer OTHER, SELFPAY ==
--- NOTE | ~2024-01-08 | US_ITS ---
EXAMINATION: US RETROPERITONEAL LIMITED, LEFT(RENAL ONLY) CLINICAL INFORMATION: Left flank pain, hematuria, question ureteral stone. COMPARISON: CT abdomen 08/30/2022. Renal ultrasound 03/25/2021 TECHNIQUE: Ultrasound left kidney FINDINGS: LEFT KIDNEY: 7.7 x 4.8 x 5.1 cm (SAG x AP x TRV). The kidney is normal in size, contour, and echogenicity. Renal cortical thickness is normal. No calculi or focal parenchymal lesions. No hydronephrosis. US/US renal LT IMPRESSION: Unremarkable left renal ultrasound. No calculi demonstrated. No hydronephrosis. Further evaluation with CT scan as clinically indicated. Electronically signed by: Jaden Mulligan MD 01/08/2024 12:36 PM EDT
[2024-01-08 08:51] VITALS: BP 132/61; PULSE 78; RESP 18; TEMP 36.6; O2SAT 98; BMI 43.8
--- OUTSIDE RECORDS SUMMARY | 2024-01-08 09:02 | XMS_ITS | Continuity of Care Document ---
Author Organization [facility] Primary [facility] [place] Address [address] [place] [address]- Care Team Providers Care Second Vp Hr Assessment Name Role Phone Art ONEAL, Fidelia Good Primary Care Physician Encounter [facility] Date(s): 10/08/23 - 11/07/23 [facility] Care [facility] [address] [place] [place], [place] [address] Allergies, Adverse Reactions, Alerts No Known Allergies Immunizations Given and Recorded Vaccine Date Status Refusal Reason [id number] 12y+ bivalent booster vax 12/16/21 Recorded influenza [...] 1Result Comment: [facility]: [id number] 2Result Comment: von 3Admin Note: vis 10/24/2006 [...] Gm, 0 Refills, Maintenance, 06/08/23 17:17:00 EST, [facility]/pharmacy #[id number], 15, APPLY TO AFFECTED AREA [...] 5 Refills, Maintenance, 01/11/23 7:04:00 EDT, Tablet, [facility] #[id number], Partial fill upon patient request if the [...] Refills, Maintenance, 01/08/23 12:02:00 EDT, ER Tablet, [facility] #[id number], Partial fill upon patient request if the prescription is for a schedule II opioid dr... Start Date: 01/08/23 Status: Ordered nabumetone 750 mg oral tablet 1 tablet = 750 mg, By Mouth, 2 times a day, with food, # 28 tablet, 0 Refills, Maintenance, 12/25/22 13:07:00 EDT, Tablet, [facility] #[id number], Partial fill upon patient request if the prescription is for a schedule II opioid drug., 170.18, cm... Start Date: 12/25/22 Stop Date: 01/08/23 Status: Ordered nabumetone 750 mg oral tablet See Instructions, TAKE 1 TABLET BY MOUTH TWICE DAILY FOR 14 DAYS WITH FOOD, # 28 tablet, 0 Refills,Maintenance, 01/08/23 11:58:00 EDT, [facility] #[id number], 170.18, cm, 12/25/22 12:55:00 EDT,Height Start Date: [...] 0 Refills, Maintenance, 06/19/21 17:00:00 EDT, Capsule, [facility] #[id number], Partial fill upon patient request, 170.18, cm, 05/24/21 8:16:00 EST, Height, 132.5, kg, 09/01/20 13:04:00 EDT, Dry... Start Date: 06/19/21 Status: Ordered semaglutide 0.5 mg/0.5 mL (0.5 mg dose) subcutaneous solution = 0.5 mg, Subcutaneous Injection, Every week, for 4 week(s), in the abdomen, thigh, or upper arm, #2 mL, 5 Refills, Acute 04/04/24 13:48:00 EST, 10/19/23 13:48:00 EDT, Solution, [facility] #[id number], Partial fill upon patient request if the prescriptio... Start Date: 10/19/23 Stop Date: 04/04/24 Status: Ordered Test strips 100 Test strips [...] Team Personnel Name: Dru Bonilla RN Position: [facility] RN Member Role: Primary Care Nurse Name: Fidelia Cordova NP Position: [facility] PCO Associate Professional Member Role: PCP Address: Address: [address] [place] [id number] Care Team Related Persons Name: JUAN CARLOS RAYMOND Address: home [address] [place] [id number] Name: MEL RAYMOND Address: home [address] [place] [id number]
--- OUTSIDE RECORDS SUMMARY | 2024-01-08 09:03 | XMS_ITS | Continuity of Care Document ---
Author Organization [facility] Address [address] [place] [address]- Care Team Providers Care Project Finance Analyst Name Role Phone Maxime ONEAL, Tamara Garcia Primary Care Physician Encounter [facility] Date(s): 10/24/23 - 11/23/23 [facility] Adult [address] [place] [address]- Allergies, Adverse Reactions, Alerts No Known Allergies Immunizations Given and Recorded Vaccine Date Status Refusal Reason [id number] 12y+ bivalent booster vax 12/16/21 Recorded influenza [...] 27 92 G iven 1Result Comment: [facility]: [id number] 2Result Comment: von 3Admin Note: vis 10/24/2006 [...] Gm, 0 Refills, Maintenance, 06/08/23 17:17:00 EST, [facility]/pharmacy #[id number], 15, APPLY TO AFFECTED AREA TWICE A DAY, 170.18, cm, 04/05/23 8:17:00 EST, Height Start Date: 06/08/23 Status: Ordered Dulcolax 5 mg oral enteric coated tablet See Instructions, PRN as needed for constipation, 1 tablet By Mouth Daily as needed for constipation, # 15 tablet, 0 Refills, Maintenance, 09/15/22 14:42:00 EDT, CR Tablet, [facility]/pharmacy #[id number], Partial fill upon patient request if the prescription is f... Start Date: 09/15/22 Status: Ordered escitalopram 5 mg oral tablet 1 tablet = 5 mg, By Mouth, Daily, # 30 tablet, 5 Refills, Maintenance, 01/11/23 7:04:00 EDT, Tablet, [facility] #[id number], Partial fill upon patient request if the [...] Refills, Maintenance, 01/08/23 12:02:00 EDT, ER Tablet, [facility] #[id number], Partial fill upon patient request if the prescription is for a schedule II opioid . Start Date: 01/08/23 Status: Ordered omeprazole 40 mg oral enteric coated capsule See Instructions, TAKE 1 CAPSULE BY MOUTH DAILY, # 30 capsule, 11 Refills, Maintenance, 02/06/23 18:08:00 EDT, [facility]/pharmacy #[id number], 170.18, cm, 01/11/23 6:51:00 EDT, Height Start Date: 02/06/23 Status: Ordered riboflavin 400 mg oral capsule 1 capsule = 400 mg, By Mouth, Daily, # 100 capsule, 0 Refills, Maintenance, 06/19/21 17:00:00 EDT, Capsule, [facility] #[id number], Partial fill upon patient request, 170.18, cm, 05/24/21 8:16:00 EST, Height, 132.5, kg, 09/01/20 13:04:00 EDT, Dry... Start Date: 06/19/21 Status: Ordered semaglutide 0.5 mg/0.5 mL (0.5 mg dose) subcutaneous solution = 0.5 mg, Subcutaneous Injection, Every week, for 4 week(s), in the abdomen, thigh, or upper arm, #2 mL, 5 Refills, Acute 04/04/24 13:48:00 EST, 10/19/23 13:48:00 EDT, Solution, [id number], Partial fill upon patient request if the prescriptio... Start Date: 10/19/23 Stop Date: 04/04/24 Status: Ordered Test strips 100 Test strips 100, See Instructions, # 1 box, Refills 0, Tot. Refills 0, Maintenance, Test strips 100test blood sugar 4 times a day change as need the device type, 01/25/19 12:10:59 EDT, Compound Start Date: 01/25/19 Status: Ordered triamcinolone 0.1% topical cream 1 application, Topically, 2 times a day, # 60 Gm, 0 Refills, Maintenance, 11/16/23 10:32:00 EDT, Cream, [id number], Partial fill upon patient request if the prescription is for a schedule II opioid drug., 1 application Topically 2 times a day,... Start Date: 11/16/23 Status: Ordered triamcinolone 0.1% topical cream 1 application, Topically, 2 times a day, # 60 Gm, 0 Refills, Maintenance, 11/16/23 10:36:00 EDT, Cream, [id number], Partial fill upon patient request if the prescription is for a schedule II opioid drug., 1 application Topically 2 times a day,... Start Date: 11/16/23 Status: Ordered Problem List Condition Confirmation Course [...] Care team information Care Team Personnel Name: Maxime ONEAL, Tamara Garcia Position: [facility] Associate Professional Member Role: PCP Address: Address: [address] [place] [id number] Name: Dru Bonilla RN Position: [facility] RN Member Role: Primary Care Nurse Care Team Related Persons Name: JUAN CARLOS RAYMOND Address: home [address] [place] [id number] Name: MEL RAYMOND Address: [address] [address]
--- OUTSIDE RECORDS SUMMARY | 2024-01-08 09:03 | XMS_ITS | Continuity of Care Document ---
Author Organization [facility] Address [address] [place] [address]- Care Team Providers Care On Air Director Name Role Phone Art ONEAL, Fidelia Good Primary Care Physician Encounter [facility] [id number] Date(s): 10/25/23 - 11/01/23 [facility] [address] [place] [address]- Attending Physician: Aliza Parrish MD Referring Physician: Fidelia Cordova NP Allergies, Adverse Reactions, Alerts No Known Allergies Immunizations Given and Recorded Vaccine Date Status Refusal Reason [id number] 12y+ bivalent booster vax 12/16/21 Recorded influenza [...] 1Result Comment: [facility]: [id number] 2Result Comment: von 3Admin Note: vis 10/24/2006 [...] Gm, 0 Refills, Maintenance, 06/08/23 17:17:00 EST, [facility]/pharmacy #[id number], 15, APPLY TO AFFECTED AREA TWICE A DAY, 170.18, cm, 04/05/23 8:17:00 EST, Height Start Date: 06/08/23 Status: Ordered Dulcolax 5 mg oral enteric coated tablet See Instructions, PRN as needed for constipation, 1 tablet By Mouth Daily as needed for constipation, # 15 tablet, 0 Refills, Maintenance, 09/15/22 14:42:00 EDT, CR Tablet, [facility]/pharmacy #[id number], Partial fill upon patient request if the prescription is f... Start Date: 09/15/22 Status: Ordered escitalopram 5 mg oral tablet 1 tablet = 5 mg, By Mouth, Daily, # 30 tablet, 5 Refills, Maintenance, 01/11/23 7:04:00 EDT, Tablet, [facility] #[id number], Partial fill upon patient request if the [...] Refills, Maintenance, 01/08/23 12:02:00 EDT, ER Tablet, [facility] #[id number], Partial fill upon patient request if the prescription is for a schedule II opioid dr... Start Date: 01/08/23 Status: Ordered nabumetone 750 mg oral tablet 1 tablet = 750 mg, By Mouth, 2 times a day, with food, # 28 tablet, 0 Refills, Maintenance, 12/25/22 13:07:00 EDT, Tablet, [facility] #[id number], Partial fill upon patient request if the prescription is for a schedule II opioid drug., 170.18, cm... Start Date: 12/25/22 Stop Date: 01/08/23 Status: Ordered nabumetone 750 mg oral tablet See Instructions, TAKE 1 TABLET BY MOUTH TWICE DAILY FOR 14 DAYS WITH FOOD, # 28 tablet, 0 Refills,Maintenance, 01/08/23 11:58:00 EDT, [facility] #[id number], 170.18, cm, 12/25/22 12:55:00 EDT,Height Start Date: 01/08/23 Status: Ordered omeprazole 40 mg oral enteric coated capsule See Instructions, TAKE 1 CAPSULE BY MOUTH DAILY, # 30 capsule, 11 Refills, Maintenance, 02/06/23 18:08:00 EDT, [facility]/pharmacy #[id number], 170.18, cm, 01/11/23 6:51:00 EDT, Height Start Date: 02/06/23 Status: Ordered riboflavin 400 mg oral capsule 1 capsule = 400 mg, By Mouth, Daily, # 100 capsule, 0 Refills, Maintenance, 06/19/21 17:00:00 EDT, Capsule, [facility] #[id number], Partial fill upon patient request, 170.18, cm, 05/24/21 8:16:00 EST, Height, 132.5, kg, 09/01/20 13:04:00 EDT, Dry... Start Date: 06/19/21 Status: Ordered semaglutide 0.5 mg/0.5 mL (0.5 mg dose) subcutaneous solution = 0.5 mg, Subcutaneous Injection, Every week, for 4 week(s), in the abdomen, thigh, or upper arm, #2 mL, 5 Refills, Acute 04/04/24 13:48:00 EST, 10/19/23 13:48:00 EDT, Solution, [facility]/pharmacy #[id number], Partial fill upon patient request if [...] oldest [Reference Range]: 1 Height 170.18 cm (10/25/23 4:08 PM) Oxygen Saturation [94-100 %] 100 % (10/25/23 4:08 PM) Pulse Rate [55-90 bpm] 63 bpm (10/25/23 4:08 PM) Blood Pressure [90-138/55-84 mm Hg] 139/ 91mm Hg *H* (10/25/23 4:08 PM) Respiratory Rate [16-30 br/min] 18 br/mi n (10/25/23 4:08 PM) Temperature [96.8-100.4 DegF] 96.4 DegF *L* (10/25/23 4:08 PM) Temperature Route Temporal (10/25/23 4:08 PM) Social History Social History Type Response Smoking Status Never smoker entered on: 08/23/15 Sex Patient Care team information Care Team Personnel Name: Irene WALTON, Dru Position: S RN Member Role: Primary Care Nurse Name: Fidelia Cordova NP Position: [facility] PCO Associate Professional Member Role: PCP Address: Address: [address] [place] [address]- Care Team Related Persons Name: JUAN CARLOS RAYMOND Address: home [address] [place] [id number] Name: MEL RAYMOND Address: home [address] [place] [id number]
--- OUTSIDE RECORDS SUMMARY | 2024-01-08 09:03 | XMS_ITS | Continuity of Care Document ---
Author Organization [facility] Address [address] [place] [address]- Care Team Providers Care Foil Operator Name Role Phone Art ONEAL, Fidelia Good Primary Care Physician Encounter [facility] Date(s): 10/08/23 - 11/07/23 [facility] [address] [place], [place] [address] Allergies, Adverse Reactions, Alerts No Known Allergies Immunizations Given and Recorded Vaccine Date Status Refusal Reason [id number] 12y+ bivalent booster vax 12/16/21 Recorded influenza [...] G iven 1Result Comment: [facility]: [id number] 2Result Comment: von 3Admin Note: vis 10/24/2006 [...] Gm, 0 Refills, Maintenance, 06/08/23 17:17:00 EST, [facility]/pharmacy #[id number], 15, APPLY TO AFFECTED AREA TWICE A DAY, 170.18, cm, 04/05/23 8:17:00 EST, Height Start Date: 06/08/23 Status: Ordered Dulcolax 5 mg oral enteric coated tablet See Instructions, PRN as needed for constipation, 1 tablet By Mouth Daily as needed for constipation, # 15 tablet, 0 Refills, Maintenance, 09/15/22 14:42:00 EDT, CR Tablet, [facility]/pharmacy #[id number], Partial fill upon patient request if the prescription is f... Start Date: 09/15/22 Status: Ordered escitalopram 5 mg oral tablet 1 tablet = 5 mg, By Mouth, Daily, # 30 tablet, 5 Refills, Maintenance, 01/11/23 7:04:00 EDT, Tablet, [facility] #[id number], Partial fill upon patient request if the [...] Refills, Maintenance, 01/08/23 12:02:00 EDT, ER Tablet, [facility] #[id number], Partial fill upon patient request if the prescription is for a schedule II opioid dr... Start Date: 01/08/23 Status: Ordered nabumetone 750 mg oral tablet 1 tablet = 750 mg, By Mouth, 2 times a day, with food, # 28 tablet, 0 Refills, Maintenance, 12/25/22 13:07:00 EDT, Tablet, [facility] #[id number], Partial fill upon patient request if the prescription is for a schedule II opioid drug., 170.18, cm... Start Date: 12/25/22 Stop Date: 01/08/23 Status: Ordered nabumetone 750 mg oral tablet See Instructions, TAKE 1 TABLET BY MOUTH TWICE DAILY FOR 14 DAYS WITH FOOD, # 28 tablet, 0 Refills,Maintenance, 01/08/23 11:58:00 EDT, [facility] #[id number], 170.18, cm, 12/25/22 12:55:00 EDT,Height Start Date: [...] 0 Refills, Maintenance, 06/19/21 17:00:00 EDT, Capsule, [facility] #[id number], Partial fill upon patient request, 170.18, cm, 05/24/21 8:16:00 EST, Height, 132.5, kg, 09/01/20 13:04:00 EDT, Dry... Start Date: 06/19/21 Status: Ordered semaglutide 0.5 mg/0.5 mL (0.5 mg dose) subcutaneous solution = 0.5 mg, Subcutaneous Injection, Every week, for 4 week(s), in the abdomen, thigh, or upper arm, #2 mL, 5 Refills, Acute 04/04/24 13:48:00 EST, 10/19/23 13:48:00 EDT, Solution, [facility]/pharmacy #[id number], Partial fill upon patient request if [...] Team Personnel Name: Dru Bonilla RN Position: [facility] RN Member Role: Primary Care Nurse Name: Fidelia Cordova NP Position: [facility] PCO Associate Professional Member Role: PCP Address: Address: [address] [place] [id number] Care Team Related Persons Name: JUAN CARLOS RAYMOND Address: home [address] [place] [address] Name: MEL RYAMOND Address: [address] [address]
--- OUTSIDE RECORDS SUMMARY | 2024-01-08 09:04 | XMS_ITS | Continuity of Care Document ---
Author Organization [facility]ofer Address [address] [place] [address]- Care Team Providers Care Children'S Service Supervisor Name Role Phone Art ONEAL, Fidelia Good Primary Care Physician Encounter [facility] Date(s): 10/19/23 - 10/26/23 [facility] Adult [address] [place] [address]- Encounter Diagnosis T2DM (type 2 diabetes mellitus)(Discharge Diagnosis) - 10/19/23 Attending Physician: Miguel Arrieta MD Allergies, Adverse Reactions, Alerts No Known Allergies Immunizations Given and Recorded Vaccine Date Status Refusal Reason [id number] 12y+ bivalent booster vax 12/16/21 Recorded influenza [...] (oldterm) 27 92 G iven 1Result Comment: [facility]: [id number] 2Result Comment: von 3Admin Note: vis 10/24/2006 [...] Gm, 0 Refills, Maintenance, 06/08/23 17:17:00 EST, [facility]/pharmacy #[id number], 15, APPLY TO AFFECTED AREA TWICE A DAY, 170.18, cm, 04/05/23 8:17:00 EST, Height Start Date: 06/08/23 Status: Ordered Dulcolax 5 mg oral enteric coated tablet See Instructions, PRN as needed for constipation, 1 tablet By Mouth Daily as needed for constipation, # 15 tablet, 0 Refills, Maintenance, 09/15/22 14:42:00 EDT, CR Tablet, [facility]/pharmacy #[id number], Partial fill upon patient request if the prescription is f... Start Date: 09/15/22 Status: Ordered escitalopram 5 mg oral tablet 1 tablet = 5 mg, By Mouth, Daily, # 30 tablet, 5 Refills, Maintenance, 01/11/23 7:04:00 EDT, Tablet, [facility] #[id number], Partial fill upon patient request if the [...] EDT, Compound Start Date: 01/25/19 Status: Ordered hydrocortisone/neomycin/polymyxin B otic 1%-0.35%-14930 u/ml solution 2 drops, Ears, Both, 4 times a day, for 7 days, right ear, # 10 mL, 0 Refills, Acute 11/01/23 17:01:00 EDT, 10/25/23 17:01:00 EDT, Solution, [facility]/pharmacy #[id number], Partial fill upon patient request if the prescription is for a schedule II opioid drug., 2... Start Date: 10/25/23 Stop Date: 11/01/23 Status: Ordered Lantus Solostar Pen 100 units/mL [...] Refills, Maintenance, 01/08/23 12:02:00 EDT, ER Tablet, [facility] #[id number], Partial fill upon patient request if the prescription is for a schedule II opioid dr... Start Date: 01/08/23 Status: Ordered nabumetone 750 mg oral tablet 1 tablet = 750 mg, By Mouth, 2 times a day, with food, # 28 tablet, 0 Refills, Maintenance, 12/25/22 13:07:00 EDT, Tablet, [facility] #[id number], Partial fill upon patient request if the prescription is for a schedule II opioid drug., 170.18, cm... Start Date: 12/25/22 Stop Date: 01/08/23 Status: Ordered nabumetone 750 mg oral tablet See Instructions, TAKE 1 TABLET BY MOUTH TWICE DAILY FOR 14 DAYS WITH FOOD, # 28 tablet, 0 Refills,Maintenance, 01/08/23 11:58:00 EDT, [facility] #[id number], 170.18, cm, 12/25/22 12:55:00 EDT,Height Start Date: 01/08/23 Status: Ordered omeprazole 40 mg oral enteric coated capsule See Instructions, TAKE 1 CAPSULE BY MOUTH DAILY, # 30 capsule, 11 Refills, Maintenance, 02/06/23 18:08:00 EDT, [facility]/pharmacy #[id number], 170.18, cm, 01/11/23 6:51:00 EDT, Height Start Date: 02/06/23 Status: Ordered riboflavin 400 mg oral capsule 1 capsule = 400 mg, By Mouth, Daily, # 100 capsule, 0 Refills, Maintenance, 06/19/21 17:00:00 EDT, Capsule, [facility] #[id number], Partial fill upon patient request, 170.18, cm, [...] 1 application, Topically, 2 times a day, for 10 days, apply a thin film to rash on face to affectedarea, # 430 Gm, 0 Refills, Acute 10/29/23 13:54:00 EDT, 10/19/23 13:54:00 EDT, Ointment, [id number], Partial fill upon patient request if the... Start Date: 10/19/23 Stop Date: 10/29/23 Status: Ordered Problem List Condition Confirmation Course [...] T2DM (type 2 diabetes mellitus) Discharge Diagnosis 10/19/23 Vital Signs Most recent to oldest [Reference Range]: 1 Height 170.18 cm (10/19/23 1:44 PM) Social History Social History Type Response Smoking Status Never smoker entered on: 08/23/15 Sex Note * Dania Guzman: PERFORM Event Display: Patient Education/Instruction Authored Date: [id number] Ambulatory Adult Visit Summary [facility] [address] [place] [address] Name: SANDRA RAYMOND : 1990?? Visit: 10/19/2023 13:46?? Ambulatory Visit Instructions ?? Your Care Team Primary Care Provider Fidelia Cordova NP? This Visit Provider Fidelia Cordova NP Your Diagnosis T2DM (type 2 diabetes mellitus) Rash Vitals Signs Height: 170.18 cm Medications The list below reflects the information in our records and provided by you today along with any changes made during this visit. Please continue your medications until treatment is completed or stopped by your provider. If this is different from the information you have or there are other questions,please contact the prescribing provider. What How Much When Why Instructions Changed Triamcinolone Topical (triamcinolone 0.05% topical ointment) 1 zulay Topically Twice a day Rash Duration: 10 Days apply a thin film to rash on face to affected area ?? Pickup at [facility]/pharmacy #[id number] Changed semaglutide (semaglutide 0.5 mg/ 0.5 mL (0.5 mg dose) subcutaneous solution) 0.5 Milligram Subcutaneous Injection Every week T2DM (type 2 diabetes mellitus) Duration: 4 week(s) in the abdomen, thigh, or upper arm ?? Pickup at [facility]/pharmacy #0843 Unchanged Acetaminophen (acetaminophen 500 mg oral capsule) [...] Daily Anxiety and depression Unchanged Insulin Glargine (Lantus Solostar Pen 100 [...] Oral Daily Migraine - infrequent [facility]acy Information [id number]: [address], [place] [id number] [phone] Medications and Immunizations Administered Medications Given During [...] are strongly encouraged to quit. Please call [facility] [employer] Link at [phone] or [phone] ([phone]) or log in to [email or web address] for referrals to smoking cessation programs. ?? The National Suicide Prevention Hotline is available 30/10 if you or someone you know needs to find a reason to keep living. By calling 3-123-558-Revaluate (8889) you'll be connected to a skilled, trained counselor at a crisis center in your area. [facility] [employer] Portal You can view and manage your care through the patient portal or by using a health care zulay of your choosing. [employer] is a website that allows you to securely view your medical information including your hospital discharge summary, office visit summaries, medications and follow-up visits. You can also request appointments, renew medications, and request access to your medical information using a health care zulay of your choosing, or just ask a question. You can enroll at [email or web address] or register during your next office visit. [facility], in keeping with [facility] guidance, no longer requires face masks [...] primary care provider, you may find a [facility] provider by calling [facility] at [phone]. Patient Care team information Care Team Personnel Name: Dru Bonilla RN Position: [facility] RN Member Role: Primary Care Nurse Name: Fidelia Cordova NP Position: [facility] PCO Associate Professional Member Role: PCP Address: Address: [address] [place] [id number] Care Team Related Persons Name: JUAN CARLOS RAYMOND Address: [address] [address] Name: MEL RAYMOND Address: [address] [address]
--- OUTSIDE RECORDS SUMMARY | 2024-01-08 09:04 | XMS_ITS | Continuity of Care Document ---
Author Organization [facility] Address [address] [place] [address]- Care Team Providers Care Rn Clinical Documentation Specialist Name Role Phone Maxime ONEAL, Tamara Garcia Primary Care Physician [phone] [place] [facility] [place](s): 10/24/23 - 11/23/23 [facility] Adult [address] [place] [address]- Allergies, Adverse Reactions, Alerts No Known Allergies Immunizations Given and Recorded Vaccine Date Status Refusal Reason [id number] 12y+ bivalent booster vax 12/16/21 Recorded influenza [...] (oldterm) 27 92 G iven 1Result Comment: [facility]: [id number] 2Result Comment: von 3Admin Note: vis 10/24/2006 [...] Gm, 0 Refills, Maintenance, 06/08/23 17:17:00 EST, [facility]/pharmacy #[id number], 15, APPLY TO AFFECTED AREA TWICE A DAY, 170.18, cm, 04/05/23 8:17:00 EST, Height Start Date: 06/08/23 Status: Ordered Dulcolax 5 mg oral enteric coated tablet See Instructions, PRN as needed for constipation, 1 tablet By Mouth Daily as needed for constipation, # 15 tablet, 0 Refills, Maintenance, 09/15/22 14:42:00 EDT, CR Tablet, [facility]/pharmacy #[id number], Partial fill upon patient request if the prescription is f... Start Date: 09/15/22 Status: Ordered escitalopram 5 mg oral tablet 1 tablet = 5 mg, By Mouth, Daily, # 30 tablet, 5 Refills, Maintenance, 01/11/23 7:04:00 EDT, Tablet, [facility] #[id number], Partial fill upon patient request if the [...] Refills, Maintenance, 01/08/23 12:02:00 EDT, ER Tablet, [facility] #[id number], Partial fill upon patient request if the prescription is for a schedule II opioid . Start Date: 01/08/23 Status: Ordered omeprazole 40 mg oral enteric coated capsule See Instructions, TAKE 1 CAPSULE BY MOUTH DAILY, # 30 capsule, 11 Refills, Maintenance, 02/06/23 18:08:00 EDT, [facility]/pharmacy #[id number], 170.18, cm, 01/11/23 6:51:00 EDT, Height Start Date: 02/06/23 Status: Ordered riboflavin 400 mg oral capsule 1 capsule = 400 mg, By Mouth, Daily, # 100 capsule, 0 Refills, Maintenance, 06/19/21 17:00:00 EDT, Capsule, [facility] #[id number], Partial fill upon patient request, 170.18, cm, [...] Care team information Care Team Personnel Name: Tamara Swartz NP Position: [facility] PCO Associate Professional Member Role: PCP Address: Address: [address] [place] [id number] Name: Dru Bonilla RN Position: [facility] RN Member Role: Primary Care Nurse Care Team Related Persons Name: JUAN CARLOS RAYMOND Address: [address] [address] Name: MEL RAYMOND Address: [address] [address]
--- OUTSIDE RECORDS SUMMARY | 2024-01-08 09:05 | XMS_ITS | Continuity of Care Document ---
Author Organization KARMEN Holguin Cristofer Address [address] [place] [address]- Care Team Providers Care Cable Layer Name Role Phone Maxime ONEAL, Tamara Garcia Primary Care Physician Encounter [facility] Date(s): 11/11/23 - 12/13/23 [facility] Ezio Adult [address] [place] [address]- Attending Physician: Art ONEAL, Fidelia Good Referring Physician: Meenakshi OLEARY, Miguel Bowser Allergies, Adverse Reactions, Alerts No Known Allergies Immunizations Given and Recorded Vaccine Date Status Refusal Reason [id number] 12y+ bivalent booster vax 12/16/21 Recorded influenza [...] G iven 1Result Comment: [facility]: 94102-423-36 2Result Comment: von 3Admin Note: vis 10/24/2006 [...] Gm, 0 Refills, Maintenance, 06/08/23 17:17:00 EST, [facility]/pharmacy #[id number], 15, APPLY TO AFFECTED AREA TWICE A DAY, 170.18, cm, 04/05/23 8:17:00 EST, Height Start Date: 06/08/23 Status: Ordered Dulcolax 5 mg oral enteric coated tablet See Instructions, PRN as needed for constipation, 1 tablet By Mouth Daily as needed for constipation, # 15 tablet, 0 Refills, Maintenance, 09/15/22 14:42:00 EDT, CR Tablet, [facility]/pharmacy #[id number], Partial fill upon patient request if the prescription is f... Start Date: 09/15/22 Status: Ordered escitalopram 5 mg oral tablet 1 tablet = 5 mg, By Mouth, Daily, # 30 tablet, 5 Refills, Maintenance, 01/11/23 7:04:00 EDT, Tablet, [facility] #[id number], Partial fill upon patient request if the [...] Refills, Maintenance, 01/08/23 12:02:00 EDT, ER Tablet, [facility] #[id number], Partial fill upon patient request if the prescription is for a schedule II opioid . Start Date: 01/08/23 Status: Ordered omeprazole 40 mg oral enteric coated capsule See Instructions, TAKE 1 CAPSULE BY MOUTH DAILY, # 30 capsule, 11 Refills, Maintenance, 02/06/23 18:08:00 EDT, [facility]/pharmacy #[id number], 170.18, cm, 01/11/23 6:51:00 EDT, Height Start Date: 02/06/23 Status: Ordered riboflavin 400 mg oral capsule 1 capsule = 400 mg, By Mouth, Daily, # 100 capsule, 0 Refills, Maintenance, 06/19/21 17:00:00 EDT, Capsule, [facility] #[id number], Partial fill upon patient request, 170.18, cm, [...] Team Personnel Name: Tamara Swartz NP Position: [facility] PCO Associate Professional Member Role: PCP Address: Address: [address] [place] [id number] Name: Dru Bonilla RN Position: [facility] RN Member Role: Primary Care Nurse Care Team Related Persons Name: JUAN CARLOS RAYMOND Address: [address] [address] Name: MEL RAYMOND Address: [address] [address]
--- OUTSIDE RECORDS SUMMARY | 2024-01-08 09:05 | XMS_ITS | Continuity of Care Document ---
Author Organization [facility]ARM[facility] Holguin Cristof[facility] Address [address] [place] [address]- Care Team Providers Care Agricultural Technician Name Role Phone Maxime ONEAL, Tamara Garcia Primary Care Physician Encounter [facility] Date(s): 11/05/23 - 12/05/23 [facility] Shabbir Muñozley Adult [address] [place] [address]- Allergies, Adverse Reactions, Alerts No Known Allergies Immunizations Given and Recorded Vaccine Date Status Refusal Reason [id number] 12y+ bivalent booster vax 12/16/21 Recorded influenza [...] (oldterm) 27 92 G iven 1Result Comment: [facility]: [id number] 2Result Comment: von 3Admin Note: vis 10/24/2006 [...] Gm, 0 Refills, Maintenance, 06/08/23 17:17:00 EST, [facility]/pharmacy #[id number], 15, APPLY TO AFFECTED AREA TWICE A DAY, 170.18, cm, 04/05/23 8:17:00 EST, Height Start Date: 06/08/23 Status: Ordered Dulcolax 5 mg oral enteric coated tablet See Instructions, PRN as needed for constipation, 1 tablet By Mouth Daily as needed for constipation, # 15 tablet, 0 Refills, Maintenance, 09/15/22 14:42:00 EDT, CR Tablet, [facility]/pharmacy #[id number], Partial fill upon patient request if the prescription is f... Start Date: 09/15/22 Status: Ordered escitalopram 5 mg oral tablet 1 tablet = 5 mg, By Mouth, Daily, # 30 tablet, 5 Refills, Maintenance, 01/11/23 7:04:00 EDT, Tablet, [facility] #[id number], Partial fill upon patient request if the [...] Refills, Maintenance, 01/08/23 12:02:00 EDT, ER Tablet, [facility] #[id number], Partial fill upon patient request if the prescription is for a schedule II opioid . Start Date: 01/08/23 Status: Ordered omeprazole 40 mg oral enteric coated capsule See Instructions, TAKE 1 CAPSULE BY MOUTH DAILY, # 30 capsule, 11 Refills, Maintenance, 02/06/23 18:08:00 EDT, [facility]/pharmacy #[id number], 170.18, cm, 01/11/23 6:51:00 EDT, Height Start Date: 02/06/23 Status: Ordered riboflavin 400 mg oral capsule 1 capsule = 400 mg, By Mouth, Daily, # 100 capsule, 0 Refills, Maintenance, 06/19/21 17:00:00 EDT, Capsule, [facility] #[id number], Partial fill upon patient request, 170.18, cm, [...] Team Personnel Name: Tamara Swartz NP Position: [facility] PCO Associate Professional Member Role: PCP Address: Address: [address] [place] [id number] Name: Dru Bonilla RN Position: [facility] RN Member Role: Primary Care Nurse Care Team Related Persons Name: JUAN CARLOS RAYMOND Address: [address] [address] Name: MEL RAYMOND Address: [address] [address]
--- OUTSIDE RECORDS SUMMARY | 2024-01-08 09:05 | XMS_ITS | Continuity of Care Document ---
Author Organization KARM[facility] Holguin Cristofer Address [address] [place] [address]- Care Team Providers Care Rewinder Operator Helper Name Role Phone Maxime ONEAL, Tamara Garcia Primary Care Physician [phone] Encounter [facility] Date(s): 10/24/23 - 11/23/23 [facility] Ezio Adult [address] [place] [address]- Allergies, Adverse Reactions, Alerts No Known Allergies Immunizations Given and Recorded Vaccine Date Status Refusal Reason [id number] 12y+ bivalent booster vax 12/16/21 Recorded influenza [...] (oldterm) 27 92 G iven 1Result Comment: [facility]: [id number] 2Result Comment: von 3Admin Note: vis 10/24/2006 [...] Gm, 0 Refills, Maintenance, 06/08/23 17:17:00 EST, [facility]/pharmacy #[id number], 15, APPLY TO AFFECTED AREA TWICE A DAY, 170.18, cm, 04/05/23 8:17:00 EST, Height Start Date: 06/08/23 Status: Ordered Dulcolax 5 mg oral enteric coated tablet See Instructions, PRN as needed for constipation, 1 tablet By Mouth Daily as needed for constipation, # 15 tablet, 0 Refills, Maintenance, 09/15/22 14:42:00 EDT, CR Tablet, [facility]/pharmacy #[id number], Partial fill upon patient request if the prescription is f... Start Date: 09/15/22 Status: Ordered escitalopram 5 mg oral tablet 1 tablet = 5 mg, By Mouth, Daily, # 30 tablet, 5 Refills, Maintenance, 01/11/23 7:04:00 EDT, Tablet, [facility] #[id number], Partial fill upon patient request if the [...] Refills, Maintenance, 01/08/23 12:02:00 EDT, ER Tablet, [facility] #[id number], Partial fill upon patient request if the prescription is for a schedule II opioid . Start Date: 01/08/23 Status: Ordered omeprazole 40 mg oral enteric coated capsule See Instructions, TAKE 1 CAPSULE BY MOUTH DAILY, # 30 capsule, 11 Refills, Maintenance, 02/06/23 18:08:00 EDT, [facility]/pharmacy #[id number], 170.18, cm, 01/11/23 6:51:00 EDT, Height Start Date: 02/06/23 Status: Ordered riboflavin 400 mg oral capsule 1 capsule = 400 mg, By Mouth, Daily, # 100 capsule, 0 Refills, Maintenance, 06/19/21 17:00:00 EDT, Capsule, [facility] #[id number], Partial fill upon patient request, 170.18, cm, [...] Personnel Name: Maxime ONEAL, Tamara Garcia Position: [facility] PCO Associate Professional Member Role: PCP Address: Address: [address] [place] [id number] Name: Dru Bonilla RN Position: [facility] RN Member Role: Primary Care Nurse Care Team Related Persons Name: JUAN CARLOS RAYMOND Address: home [address] [place] [id number] Name: MEL RAYMOND Address: [address] [address]
--- OUTSIDE RECORDS SUMMARY | 2024-01-08 09:06 | XMS_ITS | Continuity of Care Document ---
Author Organization KARMEN Holguin Cristofer Address [address] [place] [address]- Care Team Providers Care Naphtha Washing System Operator Name Role Phone Art ONEAL, Fidelia Good Primary Care Physician [phone] Encounter [facility] Date(s): 09/30/23 - 10/30/23 [facility] Shabbir Holguin Adult [address] [place] [address]- Allergies, Adverse Reactions, Alerts No Known Allergies Immunizations Given and Recorded Vaccine Date Status Refusal Reason [id number] 12y+ bivalent booster vax 12/16/21 Recorded influenza [...] iven 1Result Comment: [facility]: [id number] 2Result Comment: von 3Admin Note: vis 10/24/2006 [...] Gm, 0 Refills, Maintenance, 06/08/23 17:17:00 EST, [facility]/pharmacy #[id number], 15, APPLY TO AFFECTED AREA TWICE A DAY, 170.18, cm, 04/05/23 8:17:00 EST, Height Start Date: 06/08/23 Status: Ordered Dulcolax 5 mg oral enteric coated tablet See Instructions, PRN as needed for constipation, 1 tablet By Mouth Daily as needed for constipation, # 15 tablet, 0 Refills, Maintenance, 09/15/22 14:42:00 EDT, CR Tablet, [facility]/pharmacy #[id number], Partial fill upon patient request if the prescription is f... Start Date: 09/15/22 Status: Ordered escitalopram 5 mg oral tablet 1 tablet = 5 mg, By Mouth, Daily, # 30 tablet, 5 Refills, Maintenance, 01/11/23 7:04:00 EDT, Tablet, [facility] #[id number], Partial fill upon patient request if the [...] morning, hold insulin if lower than 70, 10/19/19 12:27:01 EDT, Compound Start Date: 01/25/19 Status: [...] Date: 01/25/19 Status: Ordered hydrocortisone/neomycin/polymyxin B otic 1%-0.35%-12898 u/ml solution 2 drops, Ears, Both, 4 times a day, for 7 days, right ear, # 10 mL, 0 Refills, Acute 11/01/23 17:01:00 EDT, 10/25/23 17:01:00 EDT, Solution, [facility]/pharmacy #[id number], Partial fill upon [...] Refills, Maintenance, 01/08/23 12:02:00 EDT, ER Tablet, [facility] #[id number], Partial fill upon patient request if the prescription is for a schedule II opioid dr... Start Date: 01/08/23 Status: Ordered nabumetone 750 mg oral tablet 1 tablet = 750 mg, By Mouth, 2 times a day, with food, # 28 tablet, 0 Refills, Maintenance, 12/25/22 13:07:00 EDT, Tablet, [facility] #[id number], Partial fill upon patient request if the prescription is for a schedule II opioid drug., 170.18, cm... Start Date: 12/25/22 Stop Date: 01/08/23 Status: Ordered nabumetone 750 mg oral tablet See Instructions, TAKE 1 TABLET BY MOUTH TWICE DAILY FOR 14 DAYS WITH FOOD, # 28 tablet, 0 Refills,Maintenance, 01/08/23 11:58:00 EDT, [facility] #[id number], 170.18, cm, 12/25/22 12:55:00 EDT,Height Start Date: [...] 0 Refills, Maintenance, 06/19/21 17:00:00 EDT, Capsule, [facility] #[id number], Partial fill upon patient request, 170.18, cm, [...] Name: Dru Bonilla RN Position: [facility] RN Member Role: Primary Care Nurse Name: Fidelia Cordova NP Position: [facility] PCO Associate Professional Member Role: PCP Address: Address: [address] [place] [address]- Care Team Related Persons Name: JUAN CARLOS RAYMOND Address: [address] [address] Name: MEL RAYMOND Address: [address] [address]
--- OUTSIDE RECORDS SUMMARY | 2024-01-08 09:06 | XMS_ITS | Continuity of Care Document ---
Author Organization [facility] Address [address] [facility] [place] [address]- Care Team Providers Care Interpreter Deaf Name Role Phone Maxime ONEAL, Tamara Garcia Primary Care Physician Encounter 11/16/23 - 11/23/23 [facility] [address], [address] [place] [address]- Attending Physician: Sergey Velarde MD Admitting Physician: Sergey Velarde MD Referring Physician: Sergey Velarde MD Allergies, Adverse Reactions, Alerts No Known Allergies Immunizations Given and Recorded Vaccine Date Status Refusal Reason [id number] 12y+ bivalent booster vax 12/16/21 Recorded influenza [...] (oldterm) 27 92 G iven 1Result Comment: [facility]: [id number] 2Result Comment: von 3Admin Note: vis 10/24/2006 [...] Gm, 0 Refills, Maintenance, 06/08/23 17:17:00 EST, [facility]/pharmacy #[id number], 15, APPLY TO AFFECTED AREA TWICE [...] 5 Refills, Maintenance, 01/11/23 7:04:00 EDT, Tablet, [facility] #[id number], Partial fill upon patient request if the [...] Refills, Maintenance, 01/08/23 12:02:00 EDT, ER Tablet, [facility] #[id number], Partial fill upon patient request if the [...] 0 Refills, Maintenance, 06/19/21 17:00:00 EDT, Capsule, [facility] #[id number], Partial fill upon patient request, 170.18, cm, [...] T2DM (type 2 diabetes mellitus) Confirmed Active Results Radiology Reports * Exam Date Time Procedure Performing Provider Status 11/16/23 10:53 AM Chest 2 Views Frontal and Lat Galen , A pril; Auth (Verified) Notes: (Chest 2 Views Frontal and Lat) Reason For Exam: Cough RESULT: Chest 2 Views Frontal and Lat Chest 2 Views Frontal and Lat Reason: Cough COMPARISON: None. FINDINGS: Slightly limited examination due to the patient's body habitus and underpenetration. LINES AND TUBES: None. LUNGS AND PLEURA: Clear lungs. Normal pulmonary vascularity. No pleural effusion. No pneumothorax. HEART, MEDIASTINUM AND CARLA: Heart is normal in size. Normal mediastinal and hilar contour. BONES AND SOFT TISSUES: No acute abnormality. IMPRESSION: No acute abnormality. WSN: [id number] Ordering Physician: Sergey Velarde Dictated By: Rosas Piper MD, V Dictated Date/Time: 11/16/23 10:55 a Reviewed By: Rosas Piper MD, V Signed By: Rosas Piper MD, V Signed Date/Time: 11/16/23 10:55 am Transcribed By: JOCY Transcribed Date/Time: 11/16/23 10:54 am Social History Social History Type Response Smoking Status Never smoker entered on: 08/23/15 Sex Patient Care team information Care Team Personnel Name: Tamara Swartz NP Position: [facility] PCO Associate Professional Member Role: PCP Address: Address: [address] [place] [address]- Name: Dru Bonilla RN Position: [facility] RN Member Role: Primary Care Nurse Care Team Related Persons Name: JUAN CARLOS RAYMOND Address: home [address] [place] [id number] Name: MEL RAYMOND Address: home [address] [facility] [place] [address]
--- OUTSIDE RECORDS SUMMARY | 2024-01-08 09:06 | XMS_ITS | Continuity of Care Document ---
Author Organization KARMEN Holguin Cristofer lt Address [address] [place] [address]- Care Team Providers Care Pipe Cleaner Name Role Phone Mxaime ONEAL, Tamara Garcia Primary Care Physician [place] [facility] Date(s): 10/25/23 - 11/24/23 [facility] Ezio Adult [address] [place] [address]- Allergies, Adverse Reactions, Alerts No Known Allergies Immunizations Given and Recorded Vaccine Date Status Refusal Reason [id number] 12y+ bivalent booster vax 12/16/21 Recorded influenza [...] 92 G iven 1Result Comment: [facility]: [id number] 2Result Comment: von 3Admin Note: vis 10/24/2006 [...] 0 Refills, Maintenance, 06/08/23 17:17:00 EST, [facility]/pharmacy #[id number], 15, APPLY TO AFFECTED AREA TWICE A DAY, 170.18, cm, 04/05/23 8:17:00 EST, Height Start Date: 06/08/23 Status: Ordered Dulcolax 5 mg oral enteric coated tablet See Instructions, PRN as needed for constipation, 1 tablet By Mouth Daily as needed for constipation, # 15 tablet, 0 Refills, Maintenance, 09/15/22 14:42:00 EDT, CR Tablet, [facility]/pharmacy #[id number], Partial fill upon patient request if the prescription is f... Start Date: 09/15/22 Status: Ordered escitalopram 5 mg oral tablet 1 tablet = 5 mg, By Mouth, Daily, # 30 tablet, 5 Refills, Maintenance, 01/11/23 7:04:00 EDT, Tablet, [facility] #[id number], Partial fill upon patient request if the [...] Refills, Maintenance, 01/08/23 12:02:00 EDT, ER Tablet, [facility] #[id number], Partial fill upon patient request if the prescription is for a schedule II opioid . Start Date: 01/08/23 Status: Ordered omeprazole 40 mg oral enteric coated capsule See Instructions, TAKE 1 CAPSULE BY MOUTH DAILY, # 30 capsule, 11 Refills, Maintenance, 02/06/23 18:08:00 EDT, [facility]/pharmacy #[id number], 170.18, cm, 01/11/23 6:51:00 EDT, Height Start Date: 02/06/23 Status: Ordered riboflavin 400 mg oral capsule 1 capsule = 400 mg, By Mouth, Daily, # 100 capsule, 0 Refills, Maintenance, 06/19/21 17:00:00 EDT, Capsule, [facility] #[id number], Partial fill upon patient request, 170.18, cm, [...] Personnel Name: Maxime ONEAL, Tamara Garcia Position: [facility] PCO Associate Professional Member Role: PCP Address: Address: [address] [place] [id number] Name: Dru Bonilla RN Position: [facility] RN Member Role: Primary Care Nurse Care Team Related Persons Name: JUAN CARLOS RAYMOND Address: home [address] [place] [id number] Name: MEL RAYMOND Address: [address] [address]
--- OUTSIDE RECORDS SUMMARY | 2024-01-08 09:06 | XMS_ITS | Continuity of Care Document ---
Author Organization [facility] Ezio Cristofer Address [address] [place] [address]- Care Team Providers Care Youth Director Name Role Phone Maxime ONEAL, Tamara Garcia Primary Care Physician [phone] Encounter [facility] Date(s): 11/16/23 - 11/23/23 [facility] Ezio Adult [address] [place] [address]- Attending Physician: Sergey Velarde MD Allergies, Adverse Reactions, Alerts No Known Allergies Immunizations Given and Recorded Vaccine Date Status Refusal Reason [id number] 12y+ bivalent booster vax 12/16/21 Recorded influenza [...] 27 92 G iven 1Result Comment: [facility]: 34986-245-11 2Result Comment: von 3Admin Note: vis 10/24/2006 [...] Gm, 0 Refills, Maintenance, 06/08/23 17:17:00 EST, [facility]/pharmacy #[id number], 15, APPLY TO AFFECTED AREA TWICE A DAY, 170.18, cm, 04/05/23 8:17:00 EST, Height Start Date: 06/08/23 Status: Ordered Dulcolax 5 mg oral enteric coated tablet See Instructions, PRN as needed for constipation, 1 tablet By Mouth Daily as needed for constipation, # 15 tablet, 0 Refills, Maintenance, 09/15/22 14:42:00 EDT, CR Tablet, [facility]/pharmacy #[id number], Partial fill upon patient request if the prescription is f... Start Date: 09/15/22 Status: Ordered escitalopram 5 mg oral tablet 1 tablet = 5 mg, By Mouth, Daily, # 30 tablet, 5 Refills, Maintenance, 01/11/23 7:04:00 EDT, Tablet, [facility] #[id number], Partial fill upon patient request if the [...] Refills, Maintenance, 01/08/23 12:02:00 EDT, ER Tablet, [facility] #[id number], Partial fill upon patient request if the prescription is for a schedule II opioid . Start Date: 01/08/23 Status: Ordered omeprazole 40 mg oral enteric coated capsule See Instructions, TAKE 1 CAPSULE BY MOUTH DAILY, # 30 capsule, 11 Refills, Maintenance, 02/06/23 18:08:00 EDT, [facility]/pharmacy #[id number], 170.18, cm, 01/11/23 6:51:00 EDT, Height Start Date: 02/06/23 Status: Ordered riboflavin 400 mg oral capsule 1 capsule = 400 mg, By Mouth, Daily, # 100 capsule, 0 Refills, Maintenance, 06/19/21 17:00:00 EDT, Capsule, [facility] #[id number], Partial fill upon patient request, 170.18, cm, [...] oldest [Reference Range]: 1 Height 170.18 cm (11/16/23 10:16 AM) Weight 128.2 kg (11/16/23 10:16 AM) Oxygen Saturation [94-100 %] 99 % (11/16/23 10:16 AM) Pulse Rate [55-90 bpm] 81 bpm (11/16/23 10:16 AM) Body Mass Index [18.5-24.99 kg/m2] 44.27 kg/m2 *>HHI* (11/16/23 10:16 AM) Blood Pressure [90-138/55-84 mm Hg] 133/ 76mm Hg (11/16/23 10:16 AM) Temperature [96.8-100.4 DegF] 98.2 DegF (11/16/23 10:16 AM) Blood pressure sites Arm, right (11/16/23 10:16 AM) Temperature Route Oral (11/16/23 10:16 AM) Weight Obtained Via Standing scale (11/16/23 10:16 AM) Social History Social History Type Response Smoking Status Never smoker entered on: 08/23/15 Sex Note * Anabel Goodwin: PERFORM Event Display: Patient Education/Instruction Authored Date: Ambulatory Adult Visit Summary [facility] [address] [place] [address] Name: SANDRA RAYMOND : 1990?? Visit: 11/16/2023 10:12?? Ambulatory Visit Instructions ?? Your Care Team Primary Care Provider Tamara Swartz NP? This Visit Provider Sergey Velarde MD Your Diagnosis Cough Dermatitis Vitals Signs Temperature: 98.2 DegF Height: 170.18 cm Pulse Rate: 81 bpm Weight: 128.2 kg Systolic Blood Pressure: 133 mm Hg Body Mass Index:??44.27 kg/m2??Critical Diastolic Blood Pressure: 76 mm Hg Body surface area: 2.46 Oxygen Saturation: 99 % ?? Medications The list below reflects the information in our records and provided by you today along with any changes made during this visit. Please continue your medications until treatment is completed or stopped by your provider. If this is different from the information you have or there are other questions,please contact the prescribing provider. What How Much When Why Instructions New Triamcinolone Topical (triamcinolone 0.1% topical cream) 1 zulay Topically Twice a day Pickup at [facility]/pharmacy #[id number] New Triamcinolone Topical (triamcinolone 0.1% topical cream) 1 zulay Topically Twice a day Pickup at [facility]/pharmacy #[id number] Unchanged Acetaminophen (acetaminophen 500 mg oral [...] DAILY TO FIVE TIMES DAILY ?? Unchanged Omeprazole (omeprazole 40 mg oral enteric coated capsule) See instructions Chronic GERD TAKE 1 CAPSULE BY MOUTH DAILY ?? Unchanged Riboflavin (riboflavin 400 mg oral capsule) 1 capsule Oral Daily Migraine - infrequent Unchanged semaglutide (semaglutide 0.5 mg/ 0.5 mL (0.5 mg dose) subcutaneous solution) 0.5 Milligram Subcutaneous Injection Every week T2DM (type 2 diabetes mellitus) Duration: 4 week(s) in the abdomen, thigh, or upper arm ?? Pharmacy Information [facility]/pharmacy #[id number]: [address], [place] [id number] [phone] ?? What How Much When Comments Stop Taking Nabumetone (nabumetone 750 mg oral tablet) See instructions TAKE 1 TABLET BY MOUTH TWICE DAILY FOR 14 DAYS WITH FOOD ?? Stop Taking Nabumetone (nabumetone 750 mg oral tablet) 1 tab(s) Oral Twice a day Duration: 14 Days with food ?? Medications and Immunizations Administered Medications Given During [...] are strongly encouraged to quit. Please call [employer] at [phone] or [phone] ([phone]) or log in to [email or web address] for referrals to smoking cessation programs. ?? The National Suicide Prevention Hotline is available 30/10 if you or someone you know needs to find a reason to keep living. By calling 8-211-088-[employer] (3547) you'll be connected to a skilled, trained counselor at a crisis center in your area. [facility] [facility] Portal You can view and manage your care through the patient portal or by using a health care zulay of your choosing. [employer] is a website that allows you to securely view your medical information including your hospital discharge summary, office visit summaries, medications and follow-up visits. You can also request appointments, renew medications, and request access to your medical information using a health care zulay of your choosing, or just ask a question. You can enroll at [email or web address] or register during your next office visit. [facility], in keeping with [facility] guidance, no longer requires face masks for [...] primary care provider, you may find a [facility] provider by calling [facility] at [phone]. Patient Care team information Care Team Personnel Name: Tamara Swartz NP Position: [facility] PCO Associate Professional Member Role: PCP Address: Address: [address] [place] [id number] Name: Dru Bonilla RN Position: [facility] RN Member Role: Primary Care Nurse Care Team Related Persons Name: JUAN CARLOS RAYMOND Address: [address] [address] Name: MEL RAYMOND Address: [address] [address]
--- OUTSIDE RECORDS SUMMARY | 2024-01-08 09:06 | XMS_ITS | Continuity of Care Document ---
Author Organization [facility] Address [address] [place] [address]- Care Team Providers Care Bowling Alley Attendant Name Role Phone Maxime ONEAL, Tamara Garcia Primary Care Physician [place] [id number] Date(s): 10/25/23 - 11/24/23 [facility] [address] [place] [address]- Attending Physician: Katie Pineda Admitting Physician: Katie Pineda Referring Physician: AdmtrKatie Allergies, Adverse Reactions, Alerts No Known Allergies Immunizations Given and Recorded Vaccine Date Status Refusal Reason [id number] 12y+ bivalent booster vax 12/16/21 Recorded influenza [...] iven 1Result Comment: [facility]: [id number] 2Result Comment: von 3Admin Note: vis 10/24/2006 [...] 5 Refills, Maintenance, 01/11/23 7:04:00 EDT, Tablet, [facility] #[id number], Partial fill upon patient request if the [...] Refills, Maintenance, 01/08/23 12:02:00 EDT, ER Tablet, [facility] #[id number], Partial fill upon patient request if the prescription is for a schedule II opioid . Start Date: 01/08/23 Status: Ordered omeprazole 40 mg oral enteric coated capsule See Instructions, TAKE 1 CAPSULE BY MOUTH DAILY, # 30 capsule, 11 Refills, Maintenance, 02/06/23 18:08:00 EDT, [facility]/pharmacy #[id number], 170.18, cm, 01/11/23 6:51:00 EDT, Height Start Date: 02/06/23 Status: Ordered riboflavin 400 mg oral capsule 1 capsule = 400 mg, By Mouth, Daily, # 100 capsule, 0 Refills, Maintenance, 06/19/21 17:00:00 EDT, Capsule, [facility] #[id number], Partial fill upon patient request, 170.18, cm, [...] Team Personnel Name: Tamara Swartz NP Position: [facility] PCO Associate Professional Member Role: PCP Address: Address: [address] [place] [id number] Name: Dru Bonilla RN Position: [facility] RN Member Role: Primary Care Nurse Care Team Related Persons Name: JUAN CARLOS RAYMOND Address: [address] [address] Name: MEL RAYMOND Address: [address] [address]
--- OUTSIDE RECORDS SUMMARY | 2024-01-08 09:07 | XMS_ITS | Continuity of Care Document ---
Author Organization [facility] Holguin Cristofer Address [address] [place] [address]- Care Team Providers Care Cage Shift Manager Name Role Phone Maxime ONEAL, Tamara Garcia Primary Care Physician [phone] [place] [facility] [place] 11/16/23 - 12/16/23 [facility] Shabbir Holguin Adult [address] [place] [address]- Attending Physician: AdmKatie vickers Admitting Physician: Admtr, Katie Referring Physician: Admtr, Ar8 Allergies, Adverse Reactions, Alerts No Known Allergies Immunizations Given and Recorded Vaccine Date Status Refusal Reason [id number] 12y+ bivalent booster vax 12/16/21 Recorded influenza [...] 27 92 G iven 1Result Comment: [facility]: [id number] 2Result Comment: von 3Admin Note: vis 10/24/2006 [...] Gm, 0 Refills, Maintenance, 06/08/23 17:17:00 EST, [facility]/pharmacy #[id number], 15, APPLY TO AFFECTED AREA TWICE A DAY, 170.18, cm, 04/05/23 8:17:00 EST, Height Start Date: 06/08/23 Status: Ordered Dulcolax 5 mg oral enteric coated tablet See Instructions, PRN as needed for constipation, 1 tablet By Mouth Daily as needed for constipation, # 15 tablet, 0 Refills, Maintenance, 09/15/22 14:42:00 EDT, CR Tablet, [facility]/pharmacy #[id number], Partial fill upon patient request if the prescription is f... Start Date: 09/15/22 Status: Ordered escitalopram 5 mg oral tablet 1 tablet = 5 mg, By Mouth, Daily, # 30 tablet, 5 Refills, Maintenance, 01/11/23 7:04:00 EDT, Tablet, [facility] #[id number], Partial fill upon patient request if the [...] Refills, Maintenance, 01/08/23 12:02:00 EDT, ER Tablet, [facility] #[id number], Partial fill upon patient request if the prescription is for a schedule II opioid drRenetta. Start Date: 01/08/23 Status: Ordered omeprazole 40 mg oral enteric coated capsule See Instructions, TAKE 1 CAPSULE BY MOUTH DAILY, # 30 capsule, 11 Refills, Maintenance, 02/06/23 18:08:00 EDT, [facility]/pharmacy #[id number], 170.18, cm, 01/11/23 6:51:00 EDT, Height Start Date: 02/06/23 Status: Ordered riboflavin 400 mg oral capsule 1 capsule = 400 mg, By Mouth, Daily, # 100 capsule, 0 Refills, Maintenance, 06/19/21 17:00:00 EDT, Capsule, [facility] #[id number], Partial fill upon patient request, 170.18, cm, [...] Personnel Name: Maxime ONEAL, Tamara Garcia Position: [facility] PCO Associate Professional Member Role: PCP Address: Address: [address] [place] [address]- Name: Irene WALTON, Dru Position: [facility] RN Member Role: Primary Care Nurse Care Team Related Persons Name: JUAN CARLOS RAYMOND Address: home [address] [place] [address] Name: MEL RAYMOND Address: home [address] [place] [address]
--- OUTSIDE RECORDS SUMMARY | 2024-01-08 09:07 | XMS_ITS | Continuity of Care Document ---
Author Organization [facility] Holguin Cristofer lt Address [address] [place] [address]- Care Team Providers Care Resource Specialist Teacher Name Role Phone Maxime ONEAL, Tamara Garcia Primary Care Physician [phone] Encounter [facility] Date(s): 11/11/23 - 12/11/23 [facility] Ezio Adult [address] [place] [address]- Allergies, Adverse Reactions, Alerts No Known Allergies Immunizations Given and Recorded Vaccine Date Status Refusal Reason [id number] 12y+ bivalent booster vax 12/16/21 Recorded influenza [...] G iven 1Result Comment: [facility]: [id number] 2Result Comment: von 3Admin Note: vis 10/24/2006 [...] Gm, 0 Refills, Maintenance, 06/08/23 17:17:00 EST, [facility]acy #[id number], 15, APPLY TO AFFECTED AREA TWICE A DAY, 170.18, cm, 04/05/23 8:17:00 EST, Height Start Date: 06/08/23 Status: Ordered Dulcolax 5 mg oral enteric coated tablet See Instructions, PRN as needed for constipation, 1 tablet By Mouth Daily as needed for constipation, # 15 tablet, 0 Refills, Maintenance, 09/15/22 14:42:00 EDT, CR Tablet, [facility]/pharmacy #[id number], Partial fill upon patient request if the prescription is f... Start Date: 09/15/22 Status: Ordered escitalopram 5 mg oral tablet 1 tablet = 5 mg, By Mouth, Daily, # 30 tablet, 5 Refills, Maintenance, 01/11/23 7:04:00 EDT, Tablet, [facility] #[id number], Partial fill upon patient request if the [...] Refills, Maintenance, 01/08/23 12:02:00 EDT, ER Tablet, [facility] #[id number], Partial fill upon patient request if the prescription is for a schedule II opioid . Start Date: 01/08/23 Status: Ordered omeprazole 40 mg oral enteric coated capsule See Instructions, TAKE 1 CAPSULE BY MOUTH DAILY, # 30 capsule, 11 Refills, Maintenance, 02/06/23 18:08:00 EDT, [facility]/pharmacy #[id number], 170.18, cm, 01/11/23 6:51:00 EDT, Height Start Date: 02/06/23 Status: Ordered riboflavin 400 mg oral capsule 1 capsule = 400 mg, By Mouth, Daily, # 100 capsule, 0 Refills, Maintenance, 06/19/21 17:00:00 EDT, Capsule, [facility] #[id number], Partial fill upon patient request, 170.18, cm, [...] Personnel Name: Maxime ONEAL, Tamara Garcia Position: [facility] PCO Associate Professional Member Role: PCP Address: Address: [address] [place] [id number] Name: Dru Bonilla RN Position: [facility] RN Member Role: Primary Care Nurse Care Team Related Persons Name: JUAN CARLOS RAYMOND Address: home [address] [place] [address] Name: MEL RAYMOND Address: [address] [address]
--- OUTSIDE RECORDS SUMMARY | 2024-01-08 09:08 | XMS_ITS | Continuity of Care Document ---
Author Organization [facility] Holgu[facility] Cristofer Address [address] [place] [address]- Care Team Providers Care Diet Technician Registered Name Role Phone Art ONEAL, Fidelia Good Primary Care Physician [phone] Encounter [facility] Date(s): 09/18/23 - 10/18/23 [facility] Shabbir Muñozley Adult [address] [place] [address]- Allergies, Adverse Reactions, Alerts No Known Allergies Immunizations Given and Recorded Vaccine Date Status Refusal Reason [id number] 12y+ bivalent booster vax 12/16/21 Recorded influenza [...] G iven 1Result Comment: [facility]: [id number] 2Result Comment: von 3Admin Note: vis 10/24/2006 [...] Gm, 0 Refills, Maintenance, 06/08/23 17:17:00 EST, [facility]/pharmacy #[id number], 15, APPLY TO AFFECTED AREA TWICE A DAY, 170.18, cm, 04/05/23 8:17:00 EST, Height Start Date: 06/08/23 Status: Ordered Dulcolax 5 mg oral enteric coated tablet See Instructions, PRN as needed for constipation, 1 tablet By Mouth Daily as needed for constipation, # 15 tablet, 0 Refills, Maintenance, 09/15/22 14:42:00 EDT, CR Tablet, [facility]/pharmacy #[id number], Partial fill upon patient request if the prescription is f... Start Date: 09/15/22 Status: Ordered escitalopram 5 mg oral tablet 1 tablet = 5 mg, By Mouth, Daily, # 30 tablet, 5 Refills, Maintenance, 01/11/23 7:04:00 EDT, Tablet, [facility] #[id number], Partial fill upon patient request if the [...] Refills, Maintenance, 01/08/23 12:02:00 EDT, ER Tablet, [facility] #[id number], Partial fill upon patient request if the prescription is for a schedule II opioid dr... Start Date: 01/08/23 Status: Ordered nabumetone 750 mg oral tablet 1 tablet = 750 mg, By Mouth, 2 times a day, with food, # 28 tablet, 0 Refills, Maintenance, 12/25/22 13:07:00 EDT, Tablet, [facility] #[id number], Partial fill upon patient request if the prescription is for a schedule II opioid drug., 170.18, cm... Start Date: 12/25/22 Stop Date: 01/08/23 Status: Ordered nabumetone 750 mg oral tablet See Instructions, TAKE 1 TABLET BY MOUTH TWICE DAILY FOR 14 DAYS WITH FOOD, # 28 tablet, 0 Refills,Maintenance, 01/08/23 11:58:00 EDT, [facility] #[id number], 170.18, cm, 12/25/22 12:55:00 EDT,Height Start Date: 01/08/23 Status: Ordered omeprazole 40 mg oral enteric coated capsule See Instructions, TAKE 1 CAPSULE BY MOUTH DAILY, # 30 capsule, 11 Refills, Maintenance, 02/06/23 18:08:00 EDT, [facility]/pharmacy #[id number], 170.18, cm, 01/11/23 6:51:00 EDT, Height Start Date: 02/06/23 Status: Ordered Ozempic 2 mg/1.5 mL (0.25 mg or 0.5 mg dose) subcutaneous solution = 0.25 mg, Subcutaneous Injection, Every week, rotate injection sites, # 1 each, 0 Refills, Maintenance, 09/28/23 9:44:00 EDT, Solution, [facility]/pharmacy #[id number], Partial fill upon patient request if the prescription is for a schedule II opioid drug., 0.25... Start Date: 09/28/23 Status: Ordered riboflavin 400 mg oral capsule 1 capsule = 400 mg, By Mouth, Daily, # 100 capsule, 0 Refills, Maintenance, 06/19/21 17:00:00 EDT, Capsule, [facility] #[id number], Partial fill upon patient request, 170.18, cm, [...] Associate Professional Member Role: PCP Address: Address: [address] [place] [address]- Care Team Related Persons Name: JUAN CARLOS RAYMOND Address: home [address] [place] [address] Name: MEL RAYMOND Address: home [address] [place] [address]
--- OUTSIDE RECORDS SUMMARY | 2024-01-08 09:08 | XMS_ITS | Continuity of Care Document ---
Author Organization [facility] Holgu[facility] Cristofer lt Address [address] [place] [address]- Care Team Providers Care Ship Pilot Name Role Phone Maxime ONEAL, Tamara Garcia Primary Care Physician [phone] Encounter [facility] Date(s): 11/13/23 - 12/13/23 [facility] Ezio Adult [address] [place] [address]- Allergies, Adverse Reactions, Alerts No Known Allergies Immunizations Given and Recorded Vaccine Date Status Refusal Reason [id number] 12y+ bivalent booster vax 12/16/21 Recorded influenza [...] Comment: [facility]: [id number] 2Result Comment: von 3Admin Note: vis 10/24/2006 [...] 5 Refills, Maintenance, 01/11/23 7:04:00 EDT, Tablet, [facility] #[id number], Partial fill upon patient request if the [...] Refills, Maintenance, 01/08/23 12:02:00 EDT, ER Tablet, [facility] #[id number], Partial fill upon patient request if the [...] 0 Refills, Maintenance, 06/19/21 17:00:00 EDT, Capsule, [facility] #[id number], Partial fill upon patient request, 170.18, cm, [...] Garcia Position: [facility] PCO Associate Professional Member Role: PCP Address: Address: [address] [place] [id number] Name: Dru Bonilla RN Position: [facility] RN Member Role: Primary Care Nurse Care Team Related Persons Name: JUAN CARLOS RAYMOND Address: home [address] [place] [address] Name: MEL RAYMOND Address: [address] [address]
[2024-01-08 09:14] LABS: Hematocrit 38.3 % (37.0-47.0); Mean Corpuscular HGB Conc 33.9 g/dl (31.0-35.0); Mean Corpuscular Volume 85.5 fL (80.0-98.0); Mean Platelet Volume 10.5 fL (9.4-12.3); Platelet Count 309 X10*3/uL (160-400); Red Blood Count 4.48 X10*6/uL (4.20-5.50); Red Cell Distribution Width 12.8 % (11.0-16.0); White Blood Count 7.5 X10*3/uL (4.8-10.8)
[2024-01-08 09:21] LABS: Appearance Urine Cloudy; Color Urine Orange; Glucose Urine UA Negative (Negative); Leukocyte Esterase Urine Large (3+) (Negative); Nitrite Urine Positive (Negative); Specific Gravity - Urine 1.015 (1.005-1.025); UMIC TRIGGER UACC YES; Urine Blood Large (3+) (Negative); Urine Ketones Negative (Negative); Urine Protein Trace mg/dL (Neg-Trace)
[2024-01-08 09:24] LABS: Bacteria Urine 1+ (None Seen); Hyaline Casts Urine 0-2 /LPF (0-2); RBC Urine >20 /HPF (0-2); UACC Culture Trigger YES
[2024-01-08 09:28] LABS: Anion Gap 11 (12-20); Blood Urea Nitrogen 14 mg/dL (9-16); Calcium 9.2 mg/dL (8.4-10.2); Carbon Dioxide 22 mmol/L (22-29); Chloride 111 mmol/L (96-108); Creatinine Clr Calc Pharmacy 150.5; Estimated Glomerular Filt Rate > 60; Glucose Random 152 mg/dL (60-115); Sodium 140 mmol/L (135-145)
--- NOTE | 2024-01-08 10:11 | ED.GENADULT ---
HPI - General Adult General Chief complaint: Abdominal Pain Stated complaint: back pain quest kidney Time Seen by Provider: 01/08/24 10:11 History of Present Illness ED Provider: Linda RIOS narrative: The patient is a 33-year-old female who says that she has had some urinary discomfort over the last week. Today she developed hematuria and left flank pain. She has a history of kidney stones and she thinks the pain on the left side is somewhat like a previous kidney stone. No definite fever. She has had nausea. Related Data Home Medications ?Medication ?Instructions ?Recorded ?Confirmed pen needle, diabetic 32 gauge x #50 ea 08/25/20 05/22/23 omeprazole 40 mg capsule,delayed 40 mg PO DAILY 12/22/22 05/22/23 release etonogestrel 68 mg subdermal subdermal 05/22/23 05/22/23 implant (Nexplanon) semaglutide 0.25 mg or 0.5 mg (2 mg subcut 10/18/23 mg/3 mL) subcutaneous pen injector (Ozempic) Previous Rx's ?Medication ?Instructions ?Recorded acetaminophen 500 mg tablet 1,000 mg (2 x 500 mg) PO QID PRN 08/18/20 (Tylenol Extra Strength) fever or pain #14 tabs azithromycin 500 mg tablet 500 mg PO DAILY 3 days #3 tabs 10/18/23 benzonatate 100 mg capsule 100 mg PO TID #90 caps 10/18/23 sulfamethoxazole 800 1 tab PO BID #14 tabs 01/08/24 mg-trimethoprim 160 mg tablet Allergies Allergy/AdvReac Type Severity Reaction Status Date / Time No Known Allergies Allergy Verified 01/08/24 08:52 Review of Systems Review of Systems: Yes all other systems are reviewed and are negative [facility] Past Medical History Medical History Diabetes Social History Social History Patient Tobacco Use Status: Never used Tobacco Advance Directives: No Do you have a plan to hurt others: No Plan Physical Exam ED Vital Signs: Vital Signs - 24 hr 01/08/24 08:51 01/08/24 10:33 01/08/24 13:29 Temperature 97.8 F 98.3 F Pulse Rate 78 58 68 Respiratory Rate 18 18 16 Blood Pressure 132/61 135/79 115/62 Pulse Oximetry 98 100 98 Oxygen Delivery Method Room Air Room Air Room Air 01/08/24 13:34 Temperature 98.3 F Pulse Rate 68 Respiratory Rate 16 Blood Pressure 115/62 Pulse Oximetry 98 Oxygen Delivery Method Room Air BMI result Body Mass Index 43.8 Const Other: The patient is awake, alert, pleasant, cooperative. She does not appear in obvious distress or seem toxic. HENMT Other: Face is symmetrical. Mucous membranes moist. Eyes General: appearance normal, both eyes and all related structures Neck Neck: Yes full ROM Resp Effort & Inspection: normal respiratory effort Auscultation: clear to auscultation bilaterally Cardio Rate: regular rate Rhythm: regular rhythm Heart sounds: S1 normal heart sound present and S2 normal heart sound present GI Other: Abdomen is soft and nontender Back/Spine/Pelvis Other: Mild left CVA percussion tenderness. Skin Other: Skin is dry and unremarkable Neuro Other: The patient is awake, alert, pleasant, cooperative. Mental status is normal. Demeanor is nontoxic. Cranial nerves are grossly intact. She moves her extremities normally and appropriately. Extrem Other: No calf swelling or tenderness Medications Administered Discontinued Medications Generic Name Dose Route Start Last Admin Trade Name Freq PRN Reason Stop Dose Admin Sodium Chloride 1,000 mls @ 999 mls/hr 01/08/24 10:30 01/08/24 12:41 Ns IV 01/08/24 11:30 Infused .Q1H1M RUDDY Infusion Ketorolac Tromethamine 10 mg 01/08/24 10:16 01/08/24 10:36 Ketorolac Tromethamine 15 Mg/Ml Vial IVPUSH 01/08/24 10:17 10 mg ONCE ONE Administration Metoclopramide HCl 10 mg 01/08/24 10:16 01/08/24 10:36 Metoclopramide Hcl 10 Mg/2 Ml Vial IVPUSH 01/08/24 10:17 10 mg ONCE ONE Administration Trimethoprim/Sulfamethoxazole 1 tab 01/08/24 13:11 01/08/24 13:28 Sulfamethox/Trimeth 800/160 Tablet PO 01/08/24 13:12 1 tab ONCE ONE Administration Medical Decision Making Medical Decision Making MDM Narrative: The patient is a 33-year-old who apparently has a history of kidney stones. She presents with urinary symptoms of several days duration and today she also had left flank pain. She did not look particularly uncomfortable or seem obviously in distress or acutely ill. Her urinalysis is potentially consistent with a UTI. She also had some hematuria. Her last CT of the abdomen and pelvis performed at this hospital was last year. This showed no kidney stones in the left kidney. I obtained a left renal ultrasound today that shows no findings suspicious for ureteral obstruction. Clinically the patient could have mild pyelonephritis although she has a normal white count and only a minimally abnormal CRP. I doubt that she has a kidney stone on this occasion and I doubt that she has an infected obstructive ureteral stone. Whether she truly has pyelonephritis is also somewhat questionable. She will be started on a 7 day course of Bactrim. She should return if worse. Lab Data 01/08/24 09:05 01/08/24 09:05 Labs: Lab Results 01/08/24 Range/Units 09:05 WBC 7.5 (4.8-10.8) X10*3/uL RBC 4.48 (4.20-5.50) X10*6/uL Hgb 13.0 (12.0-16.0) g/dl Hct 38.3 (37.0-47.0) % MCV 85.5 (80.0-98.0) fL MCH 29.0 (27.0-33.0) pg MCHC 33.9 (31.0-35.0) g/dl RDW 12.8 (11.0-16.0) % Plt Count 309 (160-400) X10*3/uL MPV 10.5 (9.4-12.3) fL Absolute Nucleated RBC 0.000 (0.0-0.012) X10*3/uL Nucleated RBC % (auto) 0.0 (0.0-0.2) /100WBC Sodium 140 (135-145) mmol/L Potassium 4.0 (3.3-5.1) mmol/L Chloride 111 H (96-108) mmol/L Carbon Dioxide 22 (22-29) mmol/L Anion Gap 11 L (12-20) BUN 14 (9-16) mg/dL Creatinine 0.75 (0.5-1.4) mg/dL Estim Creat Clear Calc 150.5 Estimated GFR > 60 Random Glucose 152 H (60-115) mg/dL Calcium 9.2 (8.4-10.2) mg/dL C-Reactive Protein 0.68 H (< or = 0.50) mg/dL Urine Color [place] A Urine Appearance Cloudy Urine pH 5.0 (5.0-9.0) Ur Specific [place] 1.015 (1.005-1.025) Urine Protein Trace (Neg-Trace) mg/dL Urine Glucose (UA) Negative (Negative) mg/dL Urine Ketones Negative (Negative) mg/dL Urine Blood Large (3+) H (Negative) Urine Nitrite Positive H (Negative) Ur Leukocyte Esterase Large (3+) H (Negative) Urine RBC >20 H (0-2) /HPF Urine WBC 6-10 H (0-5) /HPF Ur Squamous Epith Cells 6-10 (0-2) /HPF Urine Bacteria 1+ (None Seen) Hyaline Casts 0-2 (0-2) /LPF Urine Test NEGATIVE (NEGATIVE) Discharge Plan Discharge Clinical Impression: Urinary tract infection, Left flank pain Patient Disposition: Home, Self-Care Additional Instructions: You have been started on an antibiotic, sulfamethoxazole-trimethoprim. This antibiotic was also known as Bactrim. Please take this antibiotic 2 times a day. Next dose this evening. You may use ibuprofen and acetaminophen as needed for discomfort. Drink lot of fluids. Please follow up with your regular doctor. Return to the emergency room if significantly worse. Prescriptions: New sulfamethoxazole-trimethoprim 800-160 mg tablet 1 tab PO BID Qty: 14 0RF No Action acetaminophen [Tylenol Extra Strength] 500 mg tablet 1,000 mg PO QID PRN (Reason: fever or pain) Qty: 14 0RF Nexplanon 68 mg implant subdermal Ozempic 0.25 mg or 0.5 mg (2 mg/3 mL) pen injector subcut benzonatate 100 mg capsule 100 mg PO TID Qty: 90 0RF azithromycin 500 mg tablet 500 mg PO DAILY 3 Days Qty: 3 0RF omeprazole 40 mg capsule,delayed release(DR/EC) 40 mg PO DAILY (DME) pen needle, diabetic 32 gauge x 5/32 needle See Rx Instructions .ROUTE .MEDSUPPLY Qty: 50 Rx Instructions: As directed Referrals: Fidelia Cordova CNP [Primary Care Provider] - (UTI) Interventions: ED Discharge Assessment Last Done: 01/08/24 13:34 Discharge Date/Time: 01/08/24 13:35 Print Language: Bermudian
[2024-01-08 10:27] LABS: UPreg QC Valid YES; Urine Pregnancy NEGATIVE (NEGATIVE)
[2024-01-08 10:33] VITALS: BP 135/79; PULSE 58; RESP 18; O2SAT 100
[2024-01-08 10:35] LABS: C Reactive Protein 0.68 mg/dL (< or = 0.50)
[2024-01-08] MEDS: 0.9 % Sodium Chloride 1,000 ML 999 ML IV (10:36)
[2024-01-08] MEDS: Metoclopramide HCl 10 MG/2 ML VIAL IVPUSH (10:36)
[2024-01-08] MEDS: Ketorolac Tromethamine 15 MG/ML VIAL 10 MG IVPUSH (10:36)
--- NOTE | 2024-01-08 11:10 | PC.NURSE ---
Pt given warm blanket, denies complaints. Awaiting US at this time.
--- NOTE | 2024-01-08 11:28 | PC.NURSE ---
US at the bedside at this time.
[2024-01-08] MEDS: Sulfamethox/Trimeth 800/160 TABLET 1 TAB PO (13:28)
[2024-01-08 13:29] VITALS: BP 115/62; PULSE 68; RESP 16; TEMP 36.8; O2SAT 98
[2024-01-08 13:34] VITALS: BP 115/62; PULSE 68; RESP 16; TEMP 36.8; O2SAT 98
== END 2024-01-08 13:35 | disposition home or self-care (01) ==
PROVIDERS: Emergency Provider Emergency Medicine; PCP Nurse Practitioner Family
DX: N39.0 Urinary tract infection, site not specified (principal); R10.9 Unspecified abdominal pain; E11.9 Type 2 diabetes mellitus without complications
CPT/HCPCS: 36415; 76775; 80048; 81001; 81025; 85027; 86140; 87086; 96361; 96374; 96375; 99284; J1885; J2765

== ENCOUNTER 2024-11-18 10:15 | Emergency (ER) | payer OTHER, SELFPAY ==
[2024-11-18 10:18] VITALS: BP 137/82; PULSE 82; RESP 18; TEMP 36.3; O2SAT 98; BMI 37.4
--- NOTE | 2024-11-18 10:20 | ED.GENADULT ---
HPI - General Adult General Chief complaint: Abdominal Pain Stated complaint: Abd pain, dehydration Time Seen by Provider: 11/18/24 10:57 Source: patient Mode of arrival: ambulatory Limitations: no limitations History of Present Illness ED Provider: Dr. Nerissa Hinton HPI narrative: Patient comes to the emergency room complaining of 2 days of nausea and diarrhea. Patient states that she has Zofran at home and therefore has not vomited. However, patient states that anything that she eats, it goes right through her system and gets diarrhea. Denies any significant abdominal pain. Patient states that she tried taking 2 tablets of loperamide in a 24 hour period without any relief. Patient states that any time that she gets up, she feels a bit lightheaded but recovers quickly. Patient denies any chest pain or shortness of breath. Patient denies fever or chills. States that occasionally she has mild dysuria, no flank pain. Related Data Home Medications ?Medication ?Instructions ?Recorded ?Confirmed pen needle, diabetic 32 gauge x #50 ea 08/25/20 05/22/23 omeprazole 40 mg capsule,delayed 40 mg PO DAILY 12/22/22 05/22/23 release etonogestrel 68 mg subdermal subdermal 05/22/23 05/22/23 implant (Nexplanon) semaglutide 0.25 mg or 0.5 mg (2 mg subcut 10/18/23 mg/3 mL) subcutaneous pen injector (Ozempic) Previous Rx's ?Medication ?Instructions ?Recorded acetaminophen 500 mg tablet 1,000 mg (2 x 500 mg) PO QID PRN 08/18/20 (Tylenol Extra Strength) fever or pain #14 tabs azithromycin 500 mg tablet 500 mg PO DAILY 3 days #3 tabs 10/18/23 benzonatate 100 mg capsule 100 mg PO TID #90 caps 10/18/23 sulfamethoxazole 800 1 tab PO BID #14 tabs 01/08/24 mg-trimethoprim 160 mg tablet diphenoxylate-atropine 2.5 1 tab PO BID PRN diarrhea #7 tabs 11/18/24 mg-0.025 mg tablet (Lomotil) nitrofurantoin 100 mg PO BID 7 days #14 caps 11/18/24 monohydrate/macrocrystals 100 mg capsule (Macrobid) Allergies Allergy/AdvReac Type Severity Reaction Status Date / Time No Known Allergies Allergy Verified 11/18/24 10:19 Review of Systems Review of Systems: Constitutional : No Weight loss, No Fever, No Chills, No Night Sweats, No Fatigue, No Malaise ENT/Mouth : No Hearing loss, No Ear Pain, No Nasal Congestion, No Sinus Pain, No Hoarseness, No sore throat, No Rhinorrhea, No Swallowing Difficulty Eyes: No Eye Pain, No Swelling, No Redness, No Foreign Body, No Discharge, No Vision Changes Cardiovascular : No Chest Pain, No SOB, No Dyspnea on Exertion, No Orthopnea, No Edema, No Palpitations Respiratory : No Cough, No Sputum, No Wheezing, No Smoke Exposure, No Dyspnea Gastrointestinal : Complaining of nausea, no vomiting due to taking Zofran, diffuse diarrhea, diffuse abdominal cramping Genitourinary : no irregular bleeding, No Dysuria, No Urinary Frequency, No Hematuria, No Urinary Incontinence, No Urgency, No Flank Pain, No Urinary Flow Changes, No Hesitancy Musculoskeletal : No joint pain, No Myalgias, No Joint Swelling Skin : No Skin Lesions, No rash Neuro : No Weakness, No Numbness, No Paresthesias, No Loss of Consciousness, No Dizziness, No Headache Psych : No Anxiety/Panic, No Depression, No SI/HI/AH/VH, No Social Issues, Heme/Lymph: No Bruising, No Bleeding,No Lymphadenopathy Endocrine : No Polyuria, No Polydipsia, No Temperature Intolerance PMFSH Past Medical History Medical History Diabetes Social History Social History Patient Tobacco Use Status: Never used Tobacco Advance Directives: No Advance Directives Information Provided: Yes Do you have a plan to hurt others: No Plan Patient : No Physical Exam ED Exam Exam: Appearance: Alert. Oriented X3. No acute distress. Well-appearing Eyes: Pupils equal, round and reactive to light. ENT: Pharynx normal. Dry oral mucosa Neck: Normal inspection. Neck supple. No lymph nodes noted. No crepitus CVS: Normal heart rate and rhythm. Pulses normal. Normal S1 and S2 Respiratory: No respiratory distress. Breath sounds normal. No Wheezing. No rales Abdomen: Soft and nontender. No rigidity. No distention. No rebound, no guarding Skin: Skin warm and dry. Normal skin color. Normal skin turgor. Extremities: No lower extremity edema. No Lacerations. No Rash Neuro: Oriented X 3. No motor deficit. No sensory deficit. Moving all extremities. No slurred speech. CN 2 through 12 grossly intact Psych: calm, cooperative, normal affect Vital Signs: Vital Signs - 24 hr 11/18/24 10:18 11/18/24 12:00 11/18/24 12:31 Temperature 97.3 F Pulse Rate 82 87 82 Respiratory Rate 18 16 Blood Pressure 137/82 132/74 122/53 L Pulse Oximetry 98 97 Oxygen Delivery Method Room Air Room Air 11/18/24 12:39 11/18/24 12:39 Temperature Pulse Rate 76 87 Respiratory Rate Blood Pressure 129/66 132/74 Pulse Oximetry Oxygen Delivery Method BMI result Body Mass Index 37.4 Course Course Course Narrative: Rapid medical examination performed in triage by Marbella Benoit PA-C. Patient is a 34 year old assigned female at presenting to the emergency department with abdominal pain and diarrhea. Detailed physical exam and review of systems are deferred to the sql report writer. Labs ordered. Patient placed back in the waiting room pending room availability and results. Medications Administered Discontinued Medications Generic Name Dose Route Start Last Admin Trade Name Freq PRN Reason Stop Dose Admin Diphenoxylate HCl/Atropine 1 tab 11/18/24 11:27 11/18/24 12:04 Diphenoxylate/Atrop 2.5/0.025 Tablet PO 11/18/24 11:28 1 tab ONCE ONE Administration Lactated Ringer's 1,000 mls @ 999 mls/hr 11/18/24 11:30 11/18/24 12:03 Lr IV 11/18/24 12:30 999 mls/hr .Q1H1M RUDDY Administration Prochlorperazine Edisylate 10 mg 11/18/24 11:27 11/18/24 12:04 Prochlorperazine Edisylate 10 Mg/2 Ml Vial IVPUSH 11/18/24 11:28 10 mg ONCE ONE Administration Medical Decision Making Medical Decision Making [facility] Narrative: My interpretation of labs: No significant abnormality in patient's hematology or chemistry, LFTs within normal limits, hCG negative The abdominal physical exam is reassuring, patient did not have any abdominal pain in any of the quadrants, no rebound or guarding, no CVA tenderness Urinalysis is positive for leukocyte esterase and bacteria. I reviewed patient's prior microbiology results, patient has had negative growth. However, given patient's symptoms, we will go ahead and treat as UTI. Pyelonephritis not suspected. Sepsis not suspected Patient was given the 1st dose of Macrobid in the ED On physical exam, patient's seems to be a bit dehydrated, patient receiving IV fluids Patient states that with the medication that we gave her here (Lomotil), she has not had any further episodes of diarrhea. Discussed with the patient that this medication Orthostatic vitals were negative EKG: Normal sinus rhythm, heart rate 75, no ST segment depression or elevation, no T-wave inversion, QTC 417 Overall, patient states that she has not abdominal pain, no diarrhea, no nausea or vomiting, patient states that she feels much better. CT scan was considered. However, patient had significant improvement with p.o. medication, CT scan is not indicated at this time Differential Diagnosis Differential Diagnoses: The differential diagnosis associated with the presentation includes (Patient likely has a viral syndrome, versus gastritis, enteritis) Lab Data MDM Lab Attestation statement: I reviewed the patient's lab results. 11/18/24 10:29 11/18/24 10:29 Labs: Lab Results 11/18/24 11/18/24 Range/Units 10:29 11:40 WBC 9.3 (4.8-10.8) X10*3/uL RBC 4.58 (4.20-5.50) X10*6/uL Hgb 13.9 (12.0-16.0) g/dl Hct 40.1 (37.0-47.0) % MCV 87.6 (80.0-98.0) fL MCH 30.3 (27.0-33.0) pg MCHC 34.7 (31.0-35.0) g/dl RDW 12.4 (11.0-16.0) % Plt Count 304 (160-400) X10*3/uL MPV 11.2 (9.4-12.3) fL Immature Gran % (Auto) 0.2 (0.0-0.4) % Neut % (Auto) 75.1 H (45-73) % Lymph % (Auto) 17.1 L (20-40) % [place] % (Auto) 4.4 (2-11) % Eos % (Auto) 3.0 (0-4) % Baso % (Auto) 0.2 (0-2) % Lymph # (Auto) 1.6 (1.2-4.9) X10*3/uL [place] # (Auto) 0.4 (0.1-1.2) X10*3/uL Eos # (Auto) 0.3 (0.0-0.4) X10*3/uL Baso # (Auto) 0.0 (0.0-0.2) X10*3/uL Abs Immat Gran (auto) 0.02 (0.00-0.03) X10*3/uL Absolute Neuts (auto) 7.0 (2.0-8.3) x10*3/uL Absolute Nucleated RBC 0.000 (0.0-0.012) X10*3/uL Nucleated RBC % (auto) 0.0 (0.0-0.2) /100WBC Sodium 139 (135-145) mmol/L Potassium 3.9 (3.3-5.1) mmol/L Chloride 107 (96-108) mmol/L Carbon Dioxide 24 (22-29) mmol/L Anion Gap 12 (12-20) BUN 14 (9-16) mg/dL Creatinine 0.69 (0.5-1.4) mg/dL Estim Creat Clear Calc 148.4 Estimated GFR > 60 Random Glucose 102 (60-115) mg/dL Calcium 9.0 (8.4-10.2) mg/dL Magnesium 1.6 (1.6-2.6) mg/dL Total Bilirubin 0.5 (0.0-1.0) mg/dL AST 24 (5-31) U/L ALT 26 (0-31) U/L Alkaline Phosphatase 94 (39-117) U/L Total Protein 7.2 (6.5-8.0) g/dL Albumin 4.4 (3.5-5.0) g/dL Beta HCG, Quant < 2 mIU/mL Urine Color Yellow Urine Appearance Clear Urine pH 5.5 (5.0-9.0) Ur Specific [place] 1.025 (1.005-1.025) Urine Protein Negative (Neg-Trace) mg/dL Urine Glucose (UA) Negative (Negative) mg/dL Urine Ketones Trace (Negative) mg/dL Urine Blood Negative (Negative) Urine Nitrite Negative (Negative) Ur Leukocyte Esterase Small (1+) H (Negative) Urine RBC 0-2 (0-2) /HPF Urine WBC 11-20 H (0-5) /HPF Ur Squamous Epith Cells 6-10 (0-2) /HPF Urine Bacteria 1+ (None Seen) Hyaline Casts 0-2 (0-2) /LPF Independent Interpretation I performed an independent interpretation of an: EKG Critical Care Time Critical Care Time Critical Care Time: Yes Total Critical Care Time: 35 Attestation: I have personally provided critical care time. Time includes review of lab data, radiology results, discussion with consultants, and monitoring for potential decompensation. Intervention performed as documented. Discharge Plan Discharge Clinical Impression: Abdominal pain, Diarrhea, UTI (urinary tract infection) Patient Disposition: Home, Self-Care Instructions: Urinary Tract Infection in Women (ED), Abdominal Pain (ED) Additional Instructions: Please follow-up with your primary care physician tomorrow. If you have any worsening or new symptoms, please return to the emergency room or call 911 Prescriptions: New nitrofurantoin monohyd/m-cryst [Macrobid] 100 mg capsule 100 mg PO BID 7 Days Qty: 14 0RF Rx Instructions: must administer with a meal/food diphenoxylate-atropine [Lomotil] 2.5-0.025 mg tablet 1 tab PO BID PRN (Reason: diarrhea) Qty: 7 0RF No Action acetaminophen [Tylenol Extra Strength] 500 mg tablet 1,000 mg PO QID PRN (Reason: fever or pain) Qty: 14 0RF sulfamethoxazole-trimethoprim 800-160 mg tablet 1 tab PO BID Qty: 14 0RF Nexplanon 68 mg implant subdermal Ozempic 0.25 mg or 0.5 mg (2 mg/3 mL) pen injector subcut benzonatate 100 mg capsule 100 mg PO TID Qty: 90 0RF azithromycin 500 mg tablet 500 mg PO DAILY 3 Days Qty: 3 0RF omeprazole 40 mg capsule,delayed release(DR/EC) 40 mg PO DAILY (DME) pen needle, diabetic 32 gauge x 5/32 needle See Rx Instructions [facility] Rx Instructions: As directed Stand Alone Forms: Work/School Release Print Language: Upper Sorbian
[2024-11-18 10:38] LABS: MANUAL DIFF FLAG NO
[2024-11-18 10:53] LABS: Hematocrit 40.1 % (37.0-47.0); Hemoglobin 13.9 g/dl (12.0-16.0); Imm Gran Abs Auto 0.02 X10*3/uL (0.00-0.03); Imm Gran Pct Auto 0.2 % (0.0-0.4); Lymphocytes Absolute Auto 1.6 X10*3/uL (1.2-4.9); Mean Corpuscular HGB Conc 34.7 g/dl (31.0-35.0); Mean Corpuscular Hemoglobin 30.3 pg (27.0-33.0); Mean Corpuscular Volume 87.6 fL (80.0-98.0); NRBC Abs Auto 0.000 X10*3/uL (0.0-0.012); NRBC Pct Auto 0.0 /100WBC (0.0-0.2); Platelet Count 304 X10*3/uL (160-400); Red Blood Count 4.58 X10*6/uL (4.20-5.50); White Blood Count 9.3 X10*3/uL (4.8-10.8)
[2024-11-18 11:05] LABS: Alanine Aminotransferase 26 U/L (0-31); Albumin Level 4.4 g/dL (3.5-5.0); Alkaline Phosphatase 94 U/L (39-117); Anion Gap 12 (12-20); Aspartate Amino Transferase 24 U/L (5-31); Blood Urea Nitrogen 14 mg/dL (9-16); Calcium 9.0 mg/dL (8.4-10.2); Carbon Dioxide 24 mmol/L (22-29); Chloride 107 mmol/L (96-108); Creatinine Clr Calc Pharmacy 148.4; Estimated Glomerular Filt Rate > 60; Magnesium 1.6 mg/dL (1.6-2.6); Potassium 3.9 mmol/L (3.3-5.1); Sodium 139 mmol/L (135-145); Total Protein 7.2 g/dL (6.5-8.0)
--- NOTE | 2024-11-18 11:28 | ECG_ITS ---
Test Reason : ABDOMINAL PAIN Blood Pressure : */* mmHG Vent. Rate : 75 BPM Atrial Rate : 75 BPM P-R Int : 184 ms QRS Dur : 84 ms QT Int : 374 ms P-R-T Axes : 51 4 20 degrees QTcB Int : 417 ms Normal sinus rhythm Normal ECG When compared with ECG of 16-Oct-2018 00:58, No significant change was found Referred By: Nerissa Hinton Electronically Signed By: Durga Thompson
[2024-11-18 11:54] LABS: Appearance Urine Clear; Glucose Urine UA Negative (Negative); PH 5.5 (5.0-9.0); Specific Gravity - Urine 1.025 (1.005-1.025); UMIC TRIGGER UACC YES
[2024-11-18 11:57] LABS: UACC Culture Trigger YES
[2024-11-18 12:00] VITALS: BP 132/74; PULSE 87; RESP 16; O2SAT 97
[2024-11-18] MEDS: Lactated Ringers 1,000 ML 999 ML IV (12:03)
--- OUTSIDE RECORDS SUMMARY | 2024-11-18 12:26 | XMS_ITS | Clinical Summary ---
Author Organization [facility] Address [address] [place] [address] Phone Care Team Providers Care Afternoon Nanny Name Role Phone Kita Tubbs MD Primary Care Provider [phone] Allergies No known active allergies Encounters Date Type Department Care Team Description 11/17/2024 2:36 PM EDT - 11/17/2024 11:24 PM EDT Emergency [facility] Emergency [address] [place] [address] Isiah Staley MD Discharge Disposition: Home or Self Care from Last 3 Months Surgical History Surgery Date Site/Laterality Comments OTHER SURGICAL HISTORY PROCEDURE: DENIES PREVIOUS SURGERY Medical History Medical History Date Comments Obese DX:Obese Family History Medical History Relation Name Comments Diabetes Maternal Grandmother Hyperlipidemia Maternal Grandmother Hypertension Maternal Grandmother Relation Name Status Comments Brother 1 Alive Brother 2 Alive Father Alive Maternal Grandfather Maternal Grandmother Alive Mother Alive Paternal Grandfather Alive Paternal Grandmother Alive Social History Tobacco Use Types Packs/Day Years Used Date Smoking Tobacco: Never Smokeless Tobacco: Never Alcohol Use Standard Drinks/Week Comments Yes 0 (1 standard drink = 0.6 oz pur e alcohol) Comments Unknown Sex and Gender Information Value Date Recorded Sex Assigned at Not on file Legal Sex Female 4:57 PM EST Gender Identity Not on file Sexual Orientation Not on file Obstetrics History Last Filed Vital Signs Vital Sign Reading Time Taken Comments Blood Pressure 127/75 11/17/2024 2:54 PM EDT Pulse 82 11/17/2024 2:54 PM EDT Temperature 36.6 C (97.9 F) 11/17/2024 2:54 PM EDT Respiratory Rate 18 11/17/2024 2:54 PM EDT Oxygen Saturation 98% 11/17/2024 2:54 PM EDT Inhaled Oxygen Concentration - - Weight 109 kg (240 lb) 11/17/2024 2:54 PM EDT Height 170.2 cm (5' 7 ) 11/17/2024 2:54 PM EDT Body Mass Index 37.59 11/17/2024 2:54 PM EDT Plan of Treatment Health Maintenance Due Date Last Done Comments Diabetes: Annual Foot Exam 2002 Diabetes: Annual Retina Eye Exam 2002 Hepatitis B Vaccines (1 of 3 - 19+ 3-dose series) 2011 Cervical Cancer Screening: Pap Smear 2013 Diabetes: Annual GFR (Glomerular Filtration Rate) 11/12/2019 11/11/2018 Hepatitis C Screening 03/08/2022 Social Influencers of Health Screening 03/08/2022 Cholesterol Screening (Lipid Panel) 11/12/2023 11/11/2018, 11/11/2018 Depression Screening 04/09/2024 Diabetes: Annual Urine Albumin-Creatinine Ratio (uACR) 11/18/2024 04/01/2019 Diabetes: Blood Sugar Control Test (HGBA1C) 11/18/2024 04/01/2019 Influenza Vaccine (#1) 2024 12/28/2023, 2020 DTaP,Tdap,and Td Vaccines (3 - Td or Tdap) 10/15/2030 10/15/2020, 11/11/2018 HIV Screening Completed 11/11/2018 Pneumococcal Vaccine: Pediatrics (0 to 5 Years) and At-Risk Patients (6 to 49 Years) Aged Out 04/01/2019 No longer eligible based on patient's age to complete this topic COVID-19 Vaccine Completed 12/28/2023, 12/2021, 01/17/2021, Additional history exists HIB Vaccines Aged Out No longer eligi ble based on patient's age to complete this topic HPV Vaccines Aged Out No longer eligi ble based on patient's age to complete this topic Hepatitis A Vaccines Aged Out No long er eligible based on patient's age to complete this topic IPV Vaccines Aged Out No longer eligi ble based on patient's age to complete this topic MMR Vaccines Aged Out No longer eligi ble based on patient's age to complete this topic Meningococcal ACWY Vaccine Aged Out N o longer eligible based on patient's age to complete this topic Meningococcal B Vaccine Aged Out No l onger eligible based on patient's age to complete this topic RSV Immunization Patients Under 20 months Aged Out No longer eligible based on patient's age to complete this topic Varicella Vaccines Aged Out No longer eligible based on patient's age to complete this topic Insurance [employer] Care Teams Afternoon Nanny Relationship Specialty Start Date End Date Kita Tubbs MD [address] [place] [address], [address] [place] [address] PCP - General 02/07/15
--- OUTSIDE RECORDS SUMMARY | 2024-11-18 12:26 | XMS_ITS | Clinical Summary ---
Author Organization [facility] Address [address] [address] Care Team Providers Care Floor Manager Name Role Phone Estelle Biggs AIR DEFENSE CONTROL OFFICER-C Primary Care Provider + Source Comments PLEASE NOTE, if this patient is a minor, it may be UNLAWFUL to discuss sensitive information that is contained in these records (such as FAMILY PLANNING, MENTAL HEALTH or SUBSTANCE ABUSE) with the minor patient's parent or other person without the patient's specific authorization.[facility] Allergies No known active allergies Medications hydrOXYzine HCl (ATARAX) 25 mg tabletIndicatio ns:Anxiety Take 1 Tab by mouth 3 (three) times daily as needed for anxiety or sleep 60 Tab 1 10/27/19 19 Active traZODone (DESYREL) 50 mg tabletIndicatio ns:Other insomnia Take 1 Tab by mouth nightly at bedtime 30 Tab 2 11/12/19 19 Active methocarbamol (ROBAXIN) 750 mg tabletIndicatio ns:Acute bilateral low back pain without sciatica Take 1 Tab by mouth 3 (three) times daily 12 Tab 01/14/20 19 Active insulin lispro (ADMELOG SOLOSTAR U-100 INSULIN) 100 unit/mL injectionIndica tions:Uncontrol led type 2 diabetes mellitus with complication, without long-term current use of insulin Inject subcutaneously TID before meals 2 - 14 units up to 42 units daily 12 mL 5 01/29/20 19 Active flash glucose scanning reader (FREESTYLE JONO 14 DAY READER) miscIndications :Uncontrolled type 2 diabetes mellitus with complication, without long-term current use of insulin 1 Each by miscellaneous route 4 (four) times daily before meals and nightly FREESTYLE JONO 14 DAY READER 1 Each 03/03/20 19 Active mirtazapine (REMERON) 15 mg tabletIndicatio ns:Insomnia, unspecified type,Anxiety Take 1 Tab by mouth nightly at bedtime 30 Tab 2 04/01/20 19 Active naproxen (NAPROSYN) 500 mg tabletIndicatio ns:Posterior neck pain,Acute pain of right shoulder,Right arm pain Take 1 Tab by mouth 2 (two) times daily as needed (pain) Take with food. No refills 30 Tab 09/17/19 20 Active LANTUS SOLOSTAR U-100 INSULIN 100 unit/mL (3 mL)Indications: Uncontrolled type 2 diabetes mellitus with complication, without long-term current use of insulin INJECT 50 UNITS SUBCUTANEOUSLY EVERY MORNING AND INJECT 15 UNITS AT BEDTIME 30 mL 3 10/23/19 20 Active cyclobenzaprine (FLEXERIL) 5 mg tabletIndicatio ns:Costochondra l chest pain Take 1 Tab by mouth 3 (three) times daily as needed for muscle spasms 30 Tab 12/05/19 20 Active omeprazole (PRILOSEC) [address] capsuleIndicati ons:Epigastric pain Take 1 Cap by mouth every morning before breakfast 30 Cap 12/05/19 20 Active lancets (FREESTYLE LANCETS) 28 gaugeIndication s:Uncontrolled type 2 diabetes mellitus with complication, without long-term current use of insulin Test blood sugars TID w/meals DX: Z79.4 FREESTYLE LANCETS 100 Each 11 02/19/20 20 Active metFORMIN (GLUCOPHAGE-XR) 500 mg 24 hr tabletIndicatio ns:Uncontrolled type 2 diabetes mellitus with complication, without long-term current use of insulin Take 1 Tab by mouth 3 (three) times daily with meals 90 Tab 1 02/19/20 20 Active flash glucose sensor (FREESTYLE JONO 14 DAY SENSOR) kitIndications: Uncontrolled type 2 diabetes mellitus with complication, without long-term current use of insulin Inject 1 Each into the skin every 14 (fourteen) days JONO SENSOR KIT 2 Kit 11 03/22/20 20 Active BD ZAYNAB 2ND GEN PEN NEEDLE 32 gauge x 5/32 ndleIndications :Uncontrolled type 2 diabetes mellitus with complication, without long-term current use of insulin USE 1 NEEDLE 4 TIMES A DAY 100 Each 5 12/20/20 21 Active FREESTYLE PRECISION MISAEL STRIPS stripsIndicatio ns:Uncontrolled type 2 diabetes mellitus with complication, without long-term current use of insulin USE 1 STRIP NEEDED UP TO 2 TIMES A DAY WHEN PROMPTED BY JONO DEVICE FOR HIGH OR LOW BLOOD SUGAR 100 Each 2 04/21/19 22 Active Active Problems Problem Noted Date Diagnosed Date Uncontrolled type 2 diabetes mellitus with complication, without long-term current use of insulin 01/28/2019 Overview (01/28/2019): Recent DKA went to [facility] was admitted Thursday January 24, 2019 sent out lantus 20 units given freestyle lite glucometer History of Holter monitoring 01/07/2019 Immunizations Immunization Administration Dates Next Due PNEUMOCOCCAL POLYSACCHARIDE PPV23 (Pneumovax 23) 04/01/2019 TDAP 11/11/2018 Family History Medical History Relation Name Comments No Known Problems Brother No Known Problems Father Cancer Maternal Grandfather STOMACH CA Diabetes Maternal Grandmother Heart Problems Maternal Grandmother Hypertension Maternal Grandmother Heart Problems Mother Heart Problems Paternal Grandfather Stroke Paternal Grandfather Hypertension Paternal Grandmother No Known Problems Sister Relation Name Status Comments Brother Father Maternal Grandfather Maternal Grandmother Other Mother Alive Paternal Grandfather Paternal Grandmother Alive Sister Social History Tobacco Use Types Packs/Day Years Used Date Smoking Tobacco: Never Smokeless Tobacco: Never Tobacco Cessation:Counseling Given: Yes Alcohol Use Standard Drinks/Week Comments Not Currently 0 (1 standard drink = 0.6 oz pur e alcohol) Social Connections Answer Date Recorded Connectedness 0 12/29/2023 Financial Resource Strain Answer Date R ecorded Financial Resource Strain 0 2018 Stress Answer Date Recorded Stress 0 11/29/2018 Physical Activity Answer Date Recorded Physical Activity 0 11/29/2018 Food Insecurity Answer Date Recorded Food 0 01/03/2024 Transportation Needs Answer Date Record ed Transportation 0 11/29/2018 Housing Stability Answer Date Recorded Housing 0 11/29/2018 Safety and Environment Answer Date Keyur rded Safety 0 11/29/2018 Utilities Answer Date Recorded Utilities 0 11/29/2018 Employment Answer Date Recorded Stress 0 12/29/2023 Comments No Sex and Gender Information Value Date Recorded Sex Assigned at Female 10/26/2018 9:57 AM PDT Legal Sex Female 10:59 AM PDT Gender Identity Female 10/26/2018 9:57 AM PDT Sexual Orientation Straight 10/26/2018 9: 57 AM PDT Last Filed Vital Signs Vital Sign Reading Time Taken Comments Blood Pressure 110/80 06/20/2019 9:24 AM EDT Pulse 84 06/20/2019 9:24 AM EDT Temperature 36.7 C (98 F) 05/19/2019 12:52 PM EST Respiratory Rate 18 06/20/2019 9:24 AM EDT Oxygen Saturation 99% 04/10/2019 3:23 PM EST Inhaled Oxygen Concentration - - Weight 126.6 kg (279 lb) 06/20/2019 9:24 AM EDT Height 170.2 cm (5' 7 ) 06/20/2019 9:24 AM EDT Body Mass Index 43.7 06/20/2019 9:24 AM EDT Plan of Treatment Health Maintenance Due Date Last Done Comments Anxiety Screening 1992 Dental Examination 1992 HPV Screening 1992 Hepatitis C Screening 1992 Pap + HPV 1992 Tobacco Screening 1992 Relationship Safety Screening/Counseling 2007 Imm-Hepatitis B (1 of 3 - 19 + 3-dose series) 2011 Cervical Cancer Screening 2013 Pap Smear 2013 Retinopathy Screening 09/18/2019 09/17/2018 Hemoglobin A1c 10/01/2019 04/01/2019, 01/08, 11/11/2018 Serum Creatinine 11/12/2019 11/11/2018 Imm-Pneumococcal (2 of 2 - PCV) 04/01/2020 9 Urine Albumin Creatinine Rat io Screening 04/01/2020 04/01/2019 Diabetes Foot Exam 04/10/2020 04/10/2019, 04/10/2019 Hypertension Screening (#1) 06/19/2022 Lipid Screening 11/12/2023 11/11/2018 [id number] ( - season) 2023 Alcohol and Drug Screen 04/09/2024 11/11/2018 Depression Annual Screen 04/09/2024 11/11/2018 Imm-Influenza (#1) 2024 Imm-DTaP/Tdap/Td (2 - Td or Tdap) 11/11/2028 019 HIV Screening Completed 11/11/2018 Cervical Ablation/Cold-Knife Conization Discontinued Cervical Cryotherapy Discontinued Colposcopy Discontinued Endometrial Biopsy Discontinued Excision/Leep Discontinued HPV Genotyping Discontinued Vaginal Pap Discontinued Vulvoscopy Discontinued Goals Goal Patient Goal Type Associated Problems Recent Progress Patient-Stated? Author Use [employer]) website for meal Planning Case Management No Bakari Sarabia RN Note: What:Use [employer]) web site for meal planning. How Much: 1 sitting When: How Often: Once a week Where: home With whom: mom Start Date: 05/15/2019 Follow-Up Date: 06/11/2019 [address] Way to Follow-Up: In person Diabetes Management: Nutrition Goal Diet On track( 020 1:23 PM [facility]) No Bakari Sarabia RN Note: What: Healthy Grains (Brown rice) How Much: 1 cup When: Dinner How Often: 3x/week (, W Sun) Where: Home/ out With whom: Mom Start Date: Follow-Up Date: 04/04/[address] to Follow-Up: Procedures Procedure Name Priority Date/Time Associated Diagnosis Comments HEMOGLOBIN GLYCOSYLATED A1C Routine 04/01/2019 11:02 AM EST Uncontrolled type 2 diabetes mellitus with complication, without long-term current use of insulin ([facility]) MICROALBUMIN/CREATININ E RATIO, URINE, RANDOM Routine 04/01/2019 10:57 AM EST Uncontrolled type 2 diabetes mellitus with complication, without long-term current use of insulin ([facility]) ANTIBODY HIV-1&HIV-2 SINGLE RESULT Routine 11/11/2018 11:32 AM EDT Annual physical exam COMPREHENSIVE METABOLIC PANEL Routine 11/11/2018 11:32 AM EDT Annual physical exam LIPID PANEL Routine 11/11/2018 11:32 AM EDT Annual physical exam from Last 3 Months or Most Recently Relevant to Health Maintenance Results * HEMOGLOBIN, GLYCOSYLATED (A1C) (04/01/2019 11:02 AM EST) GLYCATED HEMOGLOBIN A1C 5.7 <6.5 % [facility] ESTIMATED AVERAGE GLUCOSE 117 mg/dL [facility] Blood specimen (specimen) Blood / Unknown 04/01/2019 11:02 AM EST 04/01/2019 11:33 AM EST [facility] - 04/01/2019 9:15 PM EST [employer], [place] [address] Customer Service Rep - Chyna Moreira MD PT ID [id number] ORD# [id number] Nenita Bazan PA-C LAB - BLOOD DRAW Final Result Performing Organization Address City/[facility]/[place] [address], [place] [phone] * MICROALBUMIN/CREATININE RATIO, URINE, RANDOM (04/01/2019 10:57 AM EST) CREATININE, RANDOM URINE 200 mg/dL [facility] MICROALBUMIN, RANDOM 14.8 0.0 - 29.0 mg/L [facility] MICROALB/CRE RATIO RANDOM 7.4 0.0 - 30.0 mg/G [facility] Urine specimen (specimen) Urine specimen / Unknown 04/01/2019 10:57 AM EST 04/01/2019 11:33 AM EST Narrative [facility] - 04/01/2019 4:10 PM EST [employer], a member of [address] [address] Customer Service Rep - Chyna Moreira MD PT ID [id number] ORD# [id number] Nenita Bazan PA-C LAB URINE AMBULATORY Edited Re sult - Final Performing Organization Address City/[facility]/[place] [address], [place] [phone] * HIV-1 & HIV-2 ANTIBODIES (11/11/2018 11:32 AM EDT) Pathologist [facility] HIV 1 AND 2 ANTIBODY SCREEN NEGATIVE NEGATIVE [facility] Comment: This assay is a 4th generation assay allowing for earlier detection of HIV infection by detecting the presence of the HIV-1 p24 antigen as well as the traditional antibodies to HIV type 1 (including group O) and type 2. Use of a 4th generation assay is the current CDC recommendation for HIV screening. Blood specimen (specimen) Blood / Unknown 11/11/2018 11:32 AM EDT 11/11/2018 11:38 AM EDT Narrative [facility] - 11/11/2018 4:37 PM EDT [employer], [place] [address] Customer Service Rep - Chyna Moreira MD PT ID [id number] ORD# [id number] Nenita Bazan PA-C LAB - [place] [address], * (ABNORMAL) LIPID PANEL (11/11/2018 11:32 AM EDT) [facility] CHOLESTEROL 178 0 - 200 mg/dL [facility] TRIGLYCERIDES 145 0 - 150 mg/dL [facility] HDL CHOLESTEROL 42 >40 mg/dL [facility] LDL CALCULATED 107(H) 0 - 100 mg/dL [facility] TC-HDLC RATIO 4.2 0 - 4.4 mg/dL [facility] Blood specimen (specimen) Blood / Unknown 11/11/2018 11:32 AM EDT 11/11/2018 11:38 AM EDT Narrative [facility] - 11/11/2018 3:52 PM EDT [employer], [place] [address] Customer Service Rep - Chyna Moreira MD PT ID [id number] ORD# [id number] Nenita Bazan PA-C LAB - BLOOD DRAW Final Result [facility] [address] [place] [address], * (ABNORMAL) COMPRE METAB PANEL (CMP) (11/11/2018 11:32 AM EDT) GLUCOSE 155(H) 70 - 100 mg/dL [facility] Comment:Reference range appl icable to fasting specimens only BUN 10 5 - 25 mg/dL [facility] CREAT 0.80 0.5 - 1.1 mg/dL [facility] GLOMERULAR FILTRATION RATE > 60 [facility] Comment: If patient is -Egyptian, multiply result by 1.21 Chronic Kidney Disease: < 60 ml/min/1.73 square meters Kidney Failure: < 15 ml/min/1.73 square meters SODIUM 140 133 - 145 mmol/L [facility] POTASSIUM 3.9 3.5 - 5.5 mmol/L [facility] CHLORIDE 108 96 - 110 mmol/L [facility] CO2 24 21 - 32 mmol/L [facility] ANION GAP 8 3 - 11 [facility] CALCIUM 9.4 8.5 - 10.5 mg/dL [facility] TOTAL PROTEIN 7.1 6.0 - 8.0 G/dL [facility] ALBUMIN 3.9 3.2 - 5.0 G/dL [facility] BILI, TOTAL 0.7 0.0 - 1.4 mg/dL [facility] SGOT 28 10 - 42 U/L [facility] SGPT 41 10 - 60 U/L [facility] ALK PHOS 106 42 - 121 U/L [facility] Blood specimen (specimen) Blood / Unknown 11/11/2018 11:32 AM EDT 11/11/2018 11:38 AM EDT [facility] - 11/11/2018 3:52 PM EDT [facility], a member of [facility] [address] [place] [address] Customer Service Rep - Chyna Moreira MD PT ID [id number] ORD# [id number] Nenita Bazan PA-C LAB - BLOOD DRAW Final Result [employer] [address] [place] [address], from Last 3 Months or Most Recently Relevant to Health Maintenance Insurance [facility] Care Teams Floor Manager Relationship Specialty Start Date End Date Estelle Biggs FNP-C [address] [place] [address] PCP - General 12/21/21
[2024-11-18 12:31] VITALS: BP 122/53; PULSE 82
[2024-11-18 12:39] VITALS: BP 129/66; BP 132/74; PULSE 76; PULSE 87
[2024-11-18 13:13] VITALS: BP 132/74; PULSE 87; RESP 16; TEMP 36.3; O2SAT 97
--- NOTE | 2024-12-01 12:20 | PC.NURSE ---
1000ml Normal saline infused without incident
== END 2024-11-18 13:21 | disposition home or self-care (01) ==
PROVIDERS: Physician Assistant Medical; Emergency Provider Emergency Medicine; PCP Nurse Practitioner Family
DX: N39.0 Urinary tract infection, site not specified (principal); R19.7 Diarrhea, unspecified; R10.9 Unspecified abdominal pain; Z79.899 Other long term (current) drug therapy
CPT/HCPCS: 36415; 80053; 81001; 83735; 84702; 85025; 87086; 93005; 96374; 99284; 99285; J0737; J7120

== ENCOUNTER → 2024-11-18 11:28 | Outpatient (BNV) | payer OTHER, SELFPAY | PROVIDERS: Emergency Provider Emergency Medicine; PCP Nurse Practitioner Family; Visit Provider Internal Medicine Cardiovascular Disease | DX: R10.9 Unspecified abdominal pain (principal) | CPT/HCPCS: 93010 ==

== ENCOUNTER 2024-12-02 05:49 | Emergency (ER) | payer OTHER, SELFPAY ==
--- NOTE | ~2024-12-02 | CT_ITS ---
EXAMINATION: CT ABDOMEN PELVIS WITHOUT IV CONTRAST HISTORY: Left flank pain, history of kidney stones COMPARISON: Comparison is made with the prior examination dated 08/30/2022. TECHNIQUE: CT scan of the abdomen and pelvis was performed without contrast using standard departmental protocol. Coronal and sagittal reformatted images were generated and reviewed. Oral contrast material was not administered per department protocol. This CT exam was performed with one or more of the following dose reduction techniques: automated exposure control, adjustment of the mA and/or kV according to patient size, use of iterative reconstruction technique. DLP: 940 mGy-cm FINDINGS: LOWER CHEST: The visualized lung bases are clear. There is no pleural effusion. CARDIOVASCULATURE: The heart is normal in size. There is no pericardial effusion. LIVER: The liver is normal in size and contour. The liver has an unremarkable unenhanced appearance. GALLBLADDER / BILE DUCTS: The gallbladder is unremarkable. There is no intra or extrahepatic biliary ductal dilatation. SPLEEN: The spleen is enlarged, but has an unremarkable unenhanced appearance. PANCREAS: The pancreas has an unremarkable unenhanced appearance. ADRENAL GLANDS: Unremarkable. KIDNEYS/RETROPERITONEUM: No renal or ureteral calculi are identified. There is no hydronephrosis or hydroureter. LYMPH NODES: No retroperitoneal lymphadenopathy is identified in the abdomen or pelvis. VASCULATURE: The abdominal aorta is normal in caliber. MESENTERY/PERITONEUM: No free fluid. No masses. There is no free intraperitoneal gas. STOMACH: The stomach is unremarkable. SMALL BOWEL: The small bowel is normal in caliber. COLON: The colon is unremarkable. APPENDIX: Normal. URINARY BLADDER/PELVIC ORGANS: The urinary bladder is collapsed, limiting evaluation. The uterus and left ovary have an unremarkable unenhanced appearance. There is a 3.8 cm right ovarian cystic structure. BONES / SOFT TISSUES: There is a small fat-containing umbilical hernia. The bones are intact. CT/CT abdomen pelvis wo IV con IMPRESSION: 1. No evidence of nephrolithiasis or ureteral obstruction. 2. 3.8 cm right ovarian cystic structure. This could be further evaluated with ultrasound. 3. Splenomegaly. Electronically signed by: Pankaj Reddy MD 12/02/2024 09:26 AM EDT
--- NOTE | ~2024-12-02 | US_ITS ---
EXAMINATION: US PELVIC DUPLEX COMPLETE, US PELVIS TRANSABDOMINAL AND TRANSVAGINAL HISTORY: Pelvic pain, rule out right ovarian torsion. COMPARISON: Correlation is made with an unenhanced CT of the pelvis dated 12/02/2024. TECHNIQUE: Transabdominal and endovaginal real-time 2D rodriguez-scale ultrasound was performed. FINDINGS: Uterus: The uterus is normal in size, measuring 8.1 x 3.5 x 4.1 cm. Myometrium has a normal echotexture. There is a 5 x 6 x 6 mm hypoechoic area on the left which could represent a cyst or fibroid. Endometrium: The endometrial stripe measures 9 mm in thickness. Right ovary: The right ovary measures 5.9 x 3.1 x 3.3 cm. There is a 4.4 x 2.8 x 2.7 cm simple cyst. Normal color and spectral Doppler waveforms are noted in the right ovarian artery and vein. Left ovary: The left ovary measures 3.5 x 3.1 x 2.9 cm. The left ovary is normal in size and echotexture. A dominant follicle is noted. Normal color and spectral Doppler waveforms are noted in the left ovarian artery and vein. Pelvic fluid: none. US/US pelvic ovarian doppler IMPRESSION: 4.4 x 2.8 x 2.7 cm right ovarian simple cyst. Normal vascular flow is seen to both ovaries. Electronically signed by: Pankaj Reddy MD 12/02/2024 10:56 AM EDT
--- NOTE | ~2024-12-02 | US_ITS ---
EXAMINATION: US PELVIC DUPLEX COMPLETE, US PELVIS TRANSABDOMINAL AND TRANSVAGINAL HISTORY: Pelvic pain, rule out right ovarian torsion. COMPARISON: Correlation is made with an unenhanced CT of the pelvis dated 12/02/2024. TECHNIQUE: Transabdominal and endovaginal real-time 2D rodriguez-scale ultrasound was performed. FINDINGS: Uterus: The uterus is normal in size, measuring 8.1 x 3.5 x 4.1 cm. Myometrium has a normal echotexture. There is a 5 x 6 x 6 mm hypoechoic area on the left which could represent a cyst or fibroid. Endometrium: The endometrial stripe measures 9 mm in thickness. Right ovary: The right ovary measures 5.9 x 3.1 x 3.3 cm. There is a 4.4 x 2.8 x 2.7 cm simple cyst. Normal color and spectral Doppler waveforms are noted in the right ovarian artery and vein. Left ovary: The left ovary measures 3.5 x 3.1 x 2.9 cm. The left ovary is normal in size and echotexture. A dominant follicle is noted. Normal color and spectral Doppler waveforms are noted in the left ovarian artery and vein. Pelvic fluid: none. US/US pelvic and transvaginal IMPRESSION: 4.4 x 2.8 x 2.7 cm right ovarian simple cyst. Normal vascular flow is seen to both ovaries. Electronically signed by: Pankaj Reddy MD 12/02/2024 10:56 AM EDT
[2024-12-02 05:53] VITALS: BP 126/62; PULSE 82; RESP 16; TEMP 36.4; O2SAT 98; BMI 37.6
--- OUTSIDE RECORDS SUMMARY | 2024-12-02 06:10 | XMS_ITS | Clinical Summary ---
Author Organization [facility] Address [address] [place] [address] Phone Care Team Providers Care Floor Representative Name Role Phone Kita Tbubs MD Primary Care Provider [phone] Allergies No known active allergies Encounters Date Type Department Care Team Description 11/17/2024 2:36 PM EDT - 11/17/2024 11:24 PM EDT Emergency [facility] Emergency [address] [place] [address] Isiah Staley MD Discharge Disposition: [...] complete this topic Insurance [employer] Care Teams Floor Representative Relationship Specialty Start Date End Date Kita Tubbs MD [address] [place] [address], [address] [place] [address] PCP - General 02/07/15
--- OUTSIDE RECORDS SUMMARY | 2024-12-02 06:10 | XMS_ITS | Clinical Summary ---
Author Organization [facility] Address [address] [place] [address] Care Team Providers Care Concreter Name Role Phone Estelle Biggs LAB PACK CHEMIST-C Primary Care Provider + Source Comments PLEASE [...] 01/28/2019 Overview (01/28/2019): Recent DKA went to [facility] was admitted Thursday January 24, 2019 [...] Screening (#1) 06/19/2022 Lipid Screening 11/12/2023 11/11/2018 [id number] ( - season) 2023 Alcohol and Drug [...] Associated Problems Recent Progress Patient-Stated? Author Use [employer]) website for meal Planning Case Management No Bakari Sarabia RN Note: What:Use [employer]) web site for meal planning. How Much: 1 sitting When: How Often: Once a week Where: home With whom: mom Start Date: 05/15/2019 Follow-Up Date: 06/11/2019 Best Way to Follow-Up: In person Diabetes Management: Nutrition Goal Diet On track( 020 1:23 PM [facility]) No Bakari Sarabia RN Note: What: [...] complication, without long-term current use of insulin ([facility]) MICROALBUMIN/CREATININ E RATIO, URINE, RANDOM Routine 04/01/2019 10:57 AM EST Uncontrolled type 2 diabetes mellitus with complication, without long-term current use of insulin ([facility]) ANTIBODY HIV-1&HIV-2 SINGLE RESULT Routine 11/11/2018 11:32 AM EDT Annual physical exam COMPREHENSIVE METABOLIC PANEL Routine 11/11/2018 11:32 AM EDT Annual physical exam LIPID PANEL Routine 11/11/2018 11:32 AM EDT Annual physical exam from Last 3 Months or Most Recently Relevant to Health Maintenance Results * HEMOGLOBIN, GLYCOSYLATED (A1C) (04/01/2019 11:02 AM EST) GLYCATED HEMOGLOBIN A1C 5.7 <6.5 % [facility] ESTIMATED AVERAGE GLUCOSE 117 mg/dL [facility] Blood specimen (specimen) Blood / Unknown 04/01/2019 11:02 AM EST 04/01/2019 11:33 AM EST [facility] - 04/01/2019 9:15 PM EST [employer], [place] [address] Cr[employer] Meat Processor - Chyna Moreira MD PT ID [id number] ORD# [id number] Nenita Bazan PA-C LAB - BLOOD DRAW Final Result Performing Organization Address City/[facility]/ZIP [place] [address], [place] [phone] * MICROALBUMIN/CREATININE RATIO, URINE, RANDOM (04/01/2019 10:57 AM EST) CREATININE, RANDOM URINE 200 mg/dL [facility] MICROALBUMIN, RANDOM 14.8 0.0 - 29.0 mg/L [facility] MICROALB/CRE RATIO RANDOM 7.4 0.0 - 30.0 mg/G [facility] Urine specimen (specimen) Urine specimen / Unknown 04/01/2019 10:57 AM EST 04/01/2019 11:33 AM EST Narrative [facility] - 04/01/2019 4:10 PM EST [employer], a member of [address] [address] Crab Meat Processor - Chyna Moreira MD PT ID [id number] ORD# [id number] Nenita Bazan PA-C LAB URINE AMBULATORY Edited Re sult - Final Performing Organization Address City/[facility]/ZIP Co [place] [address], [place] [phone] * HIV-1 & HIV-2 ANTIBODIES (11/11/2018 11:32 AM EDT) Pathologist [facility] HIV 1 AND 2 ANTIBODY SCREEN NEGATIVE NEGATIVE [facility] Comment: This assay is a [...] AM EDT 11/11/2018 11:38 AM EDT Narrative [facility] - 11/11/2018 4:37 PM EDT [employer], [place] [address] Crab Meat Processor - Chyna Moreira MD PT ID [id number] ORD# [id number] Nenita Bazan PA-C LAB - BLOOD DRAW [place] [address], * (ABNORMAL) LIPID PANEL (11/11/2018 11:32 AM EDT) [facility] CHOLESTEROL 178 0 - 200 mg/dL [facility] TRIGLYCERIDES 145 0 - 150 mg/dL [facility] HDL CHOLESTEROL 42 >40 mg/dL [facility] LDL CALCULATED 107(H) 0 - 100 mg/dL [facility] TC-HDLC RATIO 4.2 0 - 4.4 mg/dL [facility] Blood specimen (specimen) Blood / Unknown 11/11/2018 11:32 AM EDT 11/11/2018 11:38 AM EDT Narrative [facility] - 11/11/2018 3:52 PM EDT [employer], [place] [address] Crab Meat Processor - Chyna Moreira MD PT ID [id number] ORD# [id number] Nenita Bazan PA-C LAB - BLOOD DRAW Final Result [facility] [address] [place] [address], * (ABNORMAL) COMPRE METAB PANEL (CMP) (11/11/2018 11:32 AM EDT) GLUCOSE 155(H) 70 - 100 mg/dL [facility] Comment:Reference range appl icable to fasting specimens only BUN 10 5 - 25 mg/dL [facility] CREAT 0.80 0.5 - 1.1 mg/dL [facility] GLOMERULAR FILTRATION RATE > 60 [facility] Comment: If patient is -Salvadorean, multiply result by 1.21 Chronic Kidney Disease: < 60 ml/min/1.73 square meters Kidney Failure: < 15 ml/min/1.73 square meters SODIUM 140 133 - 145 mmol/L [facility] POTASSIUM 3.9 3.5 - 5.5 mmol/L [facility] CHLORIDE 108 96 - 110 mmol/L [facility] CO2 24 21 - 32 mmol/L [facility] ANION GAP 8 3 - 11 [facility] CALCIUM 9.4 8.5 - 10.5 mg/dL [facility] TOTAL PROTEIN 7.1 6.0 - 8.0 G/dL [facility] ALBUMIN 3.9 3.2 - 5.0 G/dL [facility] BILI, TOTAL 0.7 0.0 - 1.4 mg/dL [facility] SGOT 28 10 - 42 U/L [facility] SGPT 41 10 - 60 U/L [facility] ALK PHOS 106 42 - 121 U/L [facility] Blood specimen (specimen) Blood / Unknown 11/11/2018 11:32 AM EDT 11/11/2018 11:38 AM EDT [facility] - 11/11/2018 3:52 PM EDT [facility], a member of [facility] [address] [place] [address] Crab Meat Processor - Chyna Moreira MD PT ID [id number] ORD# [id number] Nenita Bazan PA-C LAB - BLOOD DRAW Final Result [facility] [address] [place] [address], from Last 3 Months or Most Recently Relevant to Health Maintenance Insurance [facility] Care Teams Concreter Relationship Specialty Start Date End Date Estelle Biggs FNP-C [address] [place] [address] PCP - General 12/21/21
[2024-12-02 06:11] LABS: MANUAL DIFF FLAG NO
[2024-12-02 06:12] LABS: Hematocrit 36.0 % (37.0-47.0); Hemoglobin 12.5 g/dl (12.0-16.0); Imm Gran Abs Auto 0.01 X10*3/uL (0.00-0.03); Imm Gran Pct Auto 0.1 % (0.0-0.4); Lymphocytes Absolute Auto 1.9 X10*3/uL (1.2-4.9); Mean Corpuscular HGB Conc 34.7 g/dl (31.0-35.0); Mean Corpuscular Hemoglobin 30.3 pg (27.0-33.0); Mean Corpuscular Volume 87.2 fL (80.0-98.0); NRBC Abs Auto 0.000 X10*3/uL (0.0-0.012); NRBC Pct Auto 0.0 /100WBC (0.0-0.2); Platelet Count 253 X10*3/uL (160-400); Red Blood Count 4.13 X10*6/uL (4.20-5.50); White Blood Count 9.5 X10*3/uL (4.8-10.8)
[2024-12-02 06:28] LABS: Alanine Aminotransferase 19 U/L (0-31); Albumin Level 4.0 g/dL (3.5-5.0); Alkaline Phosphatase 77 U/L (39-117); Anion Gap 12 (12-20); Aspartate Amino Transferase 20 U/L (5-31); Blood Urea Nitrogen 15 mg/dL (9-16); Calcium 8.7 mg/dL (8.4-10.2); Carbon Dioxide 21 mmol/L (22-29); Chloride 109 mmol/L (96-108); Creatinine Clr Calc Pharmacy 142.5; Estimated Glomerular Filt Rate > 60; Potassium 3.8 mmol/L (3.3-5.1); Sodium 138 mmol/L (135-145); Total Protein 6.2 g/dL (6.5-8.0)
[2024-12-02 06:52] LABS: Appearance Urine Hazy; PH 5.0 (5.0-9.0); Specific Gravity - Urine 1.020 (1.005-1.025); UMIC TRIGGER UACC YES
[2024-12-02 07:09] VITALS: BP 105/53; PULSE 74; RESP 16; TEMP 36.6; O2SAT 98
--- NOTE | 2024-12-02 07:40 | ED.FEMALEGU ---
HPI - Female Genitourinary General Chief complaint: Urogenital-Female Stated complaint: Kidney Stones Time Seen by Provider: 12/02/24 07:32 Source: patient Mode of arrival: ambulatory Limitations: no limitations History of Present Illness ED Provider: DR. Forte HPI Narrative: 34-year-old female came in for evaluation of right flank pain and left upper quadrant abdominal pain started at 04:00, patient been having pressure with urination with dysuria seen at the urgent care 2 weeks ago diagnosed with UTI finished a course of Macrobid, then patient had similar symptoms yesterday seen at urgent Care started on different antibiotic yesterday started to with the letter C, no fever, no chills, no hematuria, no nausea, no vomiting, normal bowel movement with no blood in the stool or urine. No history of intra-abdominal surgery, +passing flatus. Related Data Home Medications ?Medication ?Instructions ?Recorded ?Confirmed pen needle, diabetic 32 gauge x #50 ea 08/25/20 05/22/23 omeprazole 40 mg capsule,delayed 40 mg PO DAILY 12/22/22 05/22/23 release etonogestrel 68 mg subdermal subdermal 05/22/23 05/22/23 implant (Nexplanon) semaglutide 0.25 mg or 0.5 mg (2 mg subcut 10/18/23 mg/3 mL) subcutaneous pen injector (Ozempic) Previous Rx's ?Medication ?Instructions ?Recorded acetaminophen 500 mg tablet 1,000 mg (2 x 500 mg) PO QID PRN 08/18/20 (Tylenol Extra Strength) fever or pain #14 tabs azithromycin 500 mg tablet 500 mg PO DAILY 3 days #3 tabs 10/18/23 benzonatate 100 mg capsule 100 mg PO TID #90 caps 10/18/23 sulfamethoxazole 800 1 tab PO BID #14 tabs 01/08/24 mg-trimethoprim 160 mg tablet diphenoxylate-atropine 2.5 1 tab PO BID PRN diarrhea #7 tabs 11/18/24 mg-0.025 mg tablet (Lomotil) nitrofurantoin 100 mg PO BID 7 days #14 caps 11/18/24 monohydrate/macrocrystals 100 mg capsule (Macrobid) Allergies Allergy/AdvReac Type Severity Reaction Status Date / Time No Known Allergies Allergy Verified 12/02/24 05:53 Review of Systems Review of Systems: All other systems are reviewed and are negative Constitutional: Reports as per HPI and Reports no additional constitutional complaints Eyes: Reports as per HPI and Reports no additional eye complaints Reports system reviewed and no additional complaints, except as documented Cardiovascular: Reports as per HPI and Reports no additional cardiovascular complaints Respiratory: Reports as per HPI and Reports no additional respiratory complaints Gastrointestinal: Reports as per HPI and Reports no additional gastrointestinal complaints Genitourinary: Reports no additional female genitourinary complaints Musculoskeletal: Reports no additional musculoskeletal complaints Skin/Breast: Reports system reviewed and no additional complaints, except as docu Psychiatric: Reports no additional psychiatric complaints Endocrine: Reports no additional endocrine complaints Hematologic/Lymphatic: Reports no additional hematologic/lymphatic complaints Allergic/Immunologic: Reports no additional allergic/immunologic complaints Reports system reviewed and no additional complaints, except as documented and Reports Abnormal speech present [facility] Past Medical History Medical History Diabetes Social History Social History Alcohol intake: current Alcohol intake frequency: holidays/special occasions only Alcohol type: beer and wine Patient Tobacco Use Status: Never used Tobacco Smoked in Last 30 Days: No Use of substances other than those prescribed or required for medical reasons: No Advance Directives: No Advance Directives Information Provided: Yes Patient : No Physical Exam Vital Signs: Vital Signs: Last Vital Signs Temp 97.8 F 12/02/24 07:09 Pulse 75 12/02/24 09:50 Resp 16 12/02/24 09:50 BP 128/75 12/02/24 09:50 Pulse Ox 99 12/02/24 09:50 O2 Del Method Room Air 12/02/24 09:50 BMI result Body Mass Index 37.6 Vital signs have been reviewed and appear to be correct. Blood pressure elevated. Heart rate normal. Respiratory rate normal. Temperature normal. Oxygen saturation normal. Appearance: Alert. Oriented X3. No acute distress. Head: Normal external exam. Normocephalic. Atraumatic. No Villanueva signs noted. No raccoon eyes noted Eyes: PERRLA. EOMI. Conjunctiva and sclera normal. Eyelids normal. ENT: TM's Normal. Pharynx normal. Uvula midline. Moist mucous membranes. No trismus noted. No drooling noted. No muffled voice noted. Neck: Normal inspection. Neck supple. FROM. No adenopathy. Thyroid Normal. No meningeal signs. No neck mass noted. CVS: Normal heart rate and rhythm. Heart sound normal. No murmurs noted. Pulses normal throughout. Respiratory: No respiratory distress. Painless inspiration. Breath sounds normal. No wheezes/rales/rhonchi noted. Chest nontender. No accessory muscle usage noted or decreased air movement noted. Abdomen: Soft, left upper quadrant abdominal tenderness, no rebound tenderness, no guarding. No distention noted. No organomegaly noted. No visible injury noted. Back: Right CVA tenderness. Full range of motion noted. Skin: Skin warm and dry. Normal skin color. Normal skin turgor. No rashes/lesions/lacerations noted. Extremities: No lower extremity edema. Extremities exhibit normal range of motion. Extremities nontender. Neuro: Oriented X 3. Cranial nerve exam: II-XII are grossly intact No motor deficit. No sensory deficit. Reflexes normal. Course Reevaluation(s) Reevaluation #1: 34-year-old female presented with bilateral flank pain and left lower quadrant abdominal pain, CT abdomen pelvis reveals a 3.8 cm right ovarian cyst, patient had pelvic ultrasound which confirmed the cyst without ovarian torsion. Patient is scheduled to see OBGYN at [facility] next month, pain is under better control, patient was instructed to use Tylenol/ibuprofen. Time: 12:48 Medications Administered Discontinued Medications Generic Name Dose Route Start Last Admin Trade Name Freq PRN Reason Stop Dose Admin Ibuprofen 600 mg 12/02/24 11:20 12/02/24 11:24 Ibuprofen 600 Mg Tablet PO 12/02/24 11:21 600 mg ONCE ONE Administration Medical Decision Making Differential Diagnosis Differential Diagnoses: The differential diagnosis associated with the presentation includes (Appendicitis, colitis, diverticulitis, pancreatitis, kidney stone, pyelonephritis, ovarian cyst.) Admission/Observation Consideration of admission/observation: Escalation of care including admission/observation considered Lab Data MDM Lab Attestation statement: I reviewed the patient's lab results. 12/02/24 06:06 12/02/24 06:06 Labs: Lab Results 12/02/24 12/02/24 Range/Units 06:06 06:32 WBC 9.5 (4.8-10.8) X10*3/uL RBC 4.13 L (4.20-5.50) X10*6/uL Hgb 12.5 (12.0-16.0) g/dl Hct 36.0 L (37.0-47.0) % MCV 87.2 (80.0-98.0) fL MCH 30.3 (27.0-33.0) pg MCHC 34.7 (31.0-35.0) g/dl RDW 12.7 (11.0-16.0) % Plt Count 253 (160-400) X10*3/uL MPV 10.7 (9.4-12.3) fL Immature Gran % (Auto) 0.1 (0.0-0.4) % Neut % (Auto) 68.7 (45-73) % Lymph % (Auto) 20.4 (20-40) % [place] % (Auto) 6.8 (2-11) % Eos % (Auto) 3.7 (0-4) % Baso % (Auto) 0.3 (0-2) % Lymph # (Auto) 1.9 (1.2-4.9) X10*3/uL [place] # (Auto) 0.7 (0.1-1.2) X10*3/uL Eos # (Auto) 0.4 (0.0-0.4) X10*3/uL Baso # (Auto) 0.0 (0.0-0.2) X10*3/uL Abs Immat Gran (auto) 0.01 (0.00-0.03) X10*3/uL Absolute Neuts (auto) 6.5 (2.0-8.3) x10*3/uL Absolute Nucleated RBC 0.000 (0.0-0.012) X10*3/uL Nucleated RBC % (auto) 0.0 (0.0-0.2) /100WBC Sodium 138 (135-145) mmol/L Potassium 3.8 (3.3-5.1) mmol/L Chloride 109 H (96-108) mmol/L Carbon Dioxide 21 L (22-29) mmol/L Anion Gap 12 (12-20) BUN 15 (9-16) mg/dL Creatinine 0.72 (0.5-1.4) mg/dL Estim Creat Clear Calc 142.5 Estimated GFR > 60 Random Glucose 119 H (60-115) mg/dL Calcium 8.7 (8.4-10.2) mg/dL Total Bilirubin 0.4 (0.0-1.0) mg/dL AST 20 (5-31) U/L ALT 19 (0-31) U/L Alkaline Phosphatase 77 (39-117) U/L Total Protein 6.2 L (6.5-8.0) g/dL Albumin 4.0 (3.5-5.0) g/dL Beta HCG, Quant < 2 mIU/mL Urine Color [place] Urine Appearance Hazy Urine pH 5.0 (5.0-9.0) Ur Specific [place] 1.020 (1.005-1.025) Urine Protein See Note (Neg-Trace) mg/dL Urine Glucose (UA) See Note (Negative) mg/dL Urine Ketones See Note (Negative) mg/dL Urine Blood Negative (Negative) Urine Nitrite See Note (Negative) Ur Leukocyte Esterase See Note (Negative) Urine RBC 0-2 (0-2) /HPF Urine WBC 0-5 (0-5) /HPF Ur Squamous Epith Cells 0-2 (0-2) /HPF Urine Bacteria Trace (None Seen) Hyaline Casts 0-2 (0-2) /LPF Independent Interpretation I performed an independent interpretation of an: Ultrasound (Pelvic:4.4 x 2.8 x 2.7 cm right ovarian simple cyst. Normal vascular flow is seen to both ovaries.) and CT Scan (Abdomen pelvis:1. No evidence of nephrolithiasis or ureteral obstruction. 2. 3.8 cm right ovarian cystic structure. This could be further evaluated with ultrasound. 3. Splenomegaly.) Radiology Impression Discussion of test interpretation with radiology: I have reviewed the radiologist's reading. Discharge Plan Discharge Clinical Impression: Ovarian cyst Patient Disposition: Home, Self-Care Instructions: Ovarian Cyst (ED) Additional Instructions: Follow-up with your OBGYN. Take [id number] Tylenol and/or ibuprofen every 6 hours if needed for pain. Prescriptions: No Action acetaminophen [Tylenol Extra Strength] 500 mg tablet 1,000 mg PO QID PRN (Reason: fever or pain) Qty: 14 0RF sulfamethoxazole-trimethoprim 800-160 mg tablet 1 tab PO BID Qty: 14 0RF nitrofurantoin monohyd/m-cryst [Macrobid] 100 mg capsule 100 mg PO BID 7 Days Qty: 14 0RF Rx Instructions: must administer with a meal/food diphenoxylate-atropine [Lomotil] 2.5-0.025 mg tablet 1 tab PO BID PRN (Reason: diarrhea) Qty: 7 0RF Nexplanon 68 mg implant subdermal Ozempic 0.25 mg or 0.5 mg (2 mg/3 mL) pen injector subcut benzonatate 100 mg capsule 100 mg PO TID Qty: 90 0RF azithromycin 500 mg tablet 500 mg PO DAILY 3 Days Qty: 3 0RF omeprazole 40 mg capsule,delayed release(DR/EC) 40 mg PO DAILY (DME) pen needle, diabetic 32 gauge x 5/32 needle See Rx Instructions .ROUTE .MEDSUPPLY Qty: 50 Rx Instructions: As directed Stand Alone Forms: Work/School Release Print Language: Nauruan
[2024-12-02 09:50] VITALS: BP 128/75; PULSE 75; RESP 16; O2SAT 99
[2024-12-02 13:03] VITALS: BP 119/70; PULSE 68; RESP 17; TEMP 36.6; O2SAT 100
== END 2024-12-02 13:03 | disposition home or self-care (01) ==
PROVIDERS: Emergency Provider Emergency Medicine
DX: R10.12 Left upper quadrant pain (principal); N83.201 Unspecified ovarian cyst, right side
CPT/HCPCS: 36415; 74176; 76830; 76856; 80053; 81001; 84702; 85025; 93975; 99284

== ENCOUNTER → 2024-12-02 07:39 | Outpatient (BNV) | payer OTHER, SELFPAY | PROVIDERS: Emergency Provider Emergency Medicine; Visit Provider Radiology Diagnostic Radiology | DX: R10.9 Unspecified abdominal pain (principal); N83.291 Other ovarian cyst, right side; Z87.442 Personal history of urinary calculi | CPT/HCPCS: 74176; 76830; 76856; 93975 ==

== ENCOUNTER 2025-03-21 09:31 | Emergency (ER) | payer OTHER, SELFPAY ==
--- NOTE | ~2025-03-21 | XR_ITS ---
CLINICAL HISTORY: post reduction 2 view right shoulder Comparison: Same day radiograph Findings: Postreduction images demonstrate anatomic alignment. No acute fracture. No erosions. No radiopaque foreign body. IMPRESSION: Postreduction images demonstrate anatomic alignment. No acute fracture. This document has been electronically signed by: Radha Adams MD on 03/21/2025 11:33:32
--- NOTE | ~2025-03-21 | XR_ITS ---
CLINICAL HISTORY: injury 2 view right shoulder Comparison: None provided Findings: Anterior dislocation of the humeral head at level of the glenohumeral joint. No erosions. No radiopaque foreign body. IMPRESSION: Anterior dislocation of the humeral head at level of the glenohumeral joint. This document has been electronically signed by: Radha Adams MD on 03/21/2025 10:28:08
[2025-03-21 09:37] VITALS: BP 139/75; PULSE 90; RESP 16; TEMP 35.8; O2SAT 95; BMI 36.8
--- NOTE | 2025-03-21 10:23 | ED_ITS ---
HPI - Extremity Problem General Chief complaint: Extremity Injury, Upper Stated complaint: shoulder dislocation Time Seen by Provider: 03/21/25 09:58 Source: patient Mode of arrival: ambulatory Limitations: no limitations History of Present Illness ED Provider: DR. Forte HPI Narrative: 34-year-old female right hand dominant who is otherwise healthy came in for evaluation of a right shoulder pain after fall. Patient slipped and had a mechanical fall this morning fell on outstretched right shoulder complaining of right shoulder pain unable to move the right shoulder, no head injury, no LOC, no neck pain, no weakness, no numbness, no chest pain, no shortness of breath, no abdominal pain, no back pain, otherwise no other extremities pain. Related Data Home Medications ?Medication ?Instructions ?Recorded ?Confirmed pen needle, diabetic 32 gauge x #50 ea 08/25/20 omeprazole 40 mg capsule,delayed 40 mg PO DAILY 05/22/23 release etonogestrel 68 mg subdermal subdermal 05/22/23 implant (Nexplanon) semaglutide 0.25 mg or 0.5 mg (2 mg subcut 10/18/23 mg/3 mL) subcutaneous pen injector (SoftoCouponic) Previous Rx's ?Medication ?Instructions ?Recorded acetaminophen 500 mg tablet 1,000 mg (2 x 500 mg) PO Q ID PRN 08/18/20 (Tylenol Extra Strength) fever or pain #14 tabs azithromycin 500 mg tablet 500 mg PO DAILY 3 days #3 t abs 10/18/23 benzonatate 100 mg capsule 100 mg PO TID #90 caps 10/07 05/02 sulfamethoxazole 800 1 tab PO BID #14 tabs mg-trimethoprim 160 mg tablet diphenoxylate-atropine 2.5 1 tab PO BID PRN diarrhea # 7 tabs 11/18/24 mg-0.025 mg tablet (Lomotil) nitrofurantoin 100 mg PO BID 7 days #14 cap s 11/18/24 monohydrate/macrocrystals 100 mg capsule (Macrobid) Allergies Allergy/AdvReac Type Severity Reaction Status Date / Time No Known Allergies Allergy Verified 03/21/25 09:37 Review of Systems Review of Systems: All other systems are reviewed and are negative Constitutional: Reports as per HPI and Reports no additional constitutional complaints Eyes: Reports as per HPI and Reports no additional eye complaints Reports system reviewed and no additional complaints, except as documented Cardiovascular: Reports as per HPI and Reports no additional cardiovascular complaints Respiratory: Reports as per HPI and Reports no additional respiratory complaints Gastrointestinal: Reports as per HPI and Reports no additional gastrointestinal complaints Genitourinary: Reports no additional female genitourinary complaints Musculoskeletal: Reports no additional musculoskeletal complaints Skin/Breast: Reports system reviewed and no additional complaints, except as docu Psychiatric: Reports no additional psychiatric complaints Endocrine: Reports no additional endocrine complaints Hematologic/Lymphatic: Reports no additional hematologic/lymphatic complaints Allergic/Immunologic: Reports no additional allergic/immunologic complaints Reports system reviewed and no additional complaints, except as documented and Reports Abnormal speech present [facility] Past Medical History Medical History Diabetes Social History Social History Alcohol intake: current Alcohol intake frequency: holidays/special occasions only Alcohol type: beer and wine Patient Tobacco Use Status: Never used Tobacco Advance Directives: No Advance Directives Information Provided: No Physical Exam Vital Signs: Vital Signs: Last Vital Signs Temp 97.8 F 03/21/25 10:36 Pulse 79 03/21/25 11:30 Resp 18 03/21/25 11:30 BP 141/92 H 03/21/25 11:30 Pulse Ox 99 03/21/25 11:30 O2 Del Method Room Air 03/21/25 10:36 BMI result Body Mass Index 36.8 Vital signs have been reviewed and appear to be correct. Blood pressure elevated. Heart rate normal. Respiratory rate normal. Temperature normal. Oxygen saturation normal. Appearance: Alert. Oriented X3. No acute distress. Head: Normal external exam. Normocephalic. Atraumatic. No Villanueva signs noted. No raccoon eyes noted Eyes: PERRLA. EOMI. Conjunctiva and sclera normal. Eyelids normal. ENT: TM's Normal. Pharynx normal. Uvula midline. Moist mucous membranes. No trismus noted. No drooling noted. No muffled voice noted. Neck: Normal inspection. Neck supple. FROM. No adenopathy. Thyroid Normal. No meningeal signs. No neck mass noted. CVS: Normal heart rate and rhythm. Heart sound normal. No murmurs noted. Pulses normal throughout. Respiratory: No respiratory distress. Painless inspiration. Breath sounds normal. No wheezes/rales/rhonchi noted. Chest nontender. No accessory muscle usage noted or decreased air movement noted. Abdomen: Soft and nontender. Bowel sounds normal in all 4 quadrants. No distention noted. No organomegaly noted. No visible injury noted. Back: No CVA tenderness. Full range of motion noted. Skin: Skin warm and dry. Normal skin color. Normal skin turgor. No rashes/lesions/lacerations noted. Extremities: Right upper extremity: Right shoulder anterior fullness, held in adduction position with tender abduction, neurovascularly intact. Neuro: Oriented X 3. Cranial nerve exam: II-XII are grossly intact No motor deficit. No sensory deficit. Reflexes normal. Course Reevaluation(s) Reevaluation #1: 34-year-old female with right shoulder dislocation after a mechanical fall under conscious sedation right shoulder reduction was performed us postreduction x-ray showing satisfactory reduction. Will continue monitoring and observation after conscious sedation then will discharge home. And follow-up with orthopedic. Time: 11:49 Medications Administered Discontinued Medications Generic Name Dose Route Start Last Admin Trade Name Freq PRN Reason Stop Dose Admin Propofol 100 mg 03/21/25 10:22 03/21/25 10:56 Propofol 200 Mg/20 Ml Vial IVPUSH 03/21/25 10:23 100 mg ONCE ONE Administration Medical Decision Making Differential Diagnosis Differential Diagnoses: The differential diagnosis associated with the presentation includes (Right shoulder fracture, right shoulder dislocation, rotator cuff tendinitis, myofascial shoulder pain, neurovascular impairment.) Admission/Observation Consideration of admission/observation: Escalation of care including admission/observation considered Lab Data MDM Lab Attestation statement: I reviewed the patient's lab results. Independent Interpretation I performed an independent interpretation of an: Plain X-Ray (Right shoulder x- ray: Anterior dislocation of right shoulder.) Radiology Impression Discussion of test interpretation with radiology: I have reviewed the radiologist's reading. Procedures Orthopedic Joint Reduction Joint #1: Time Out Performed: Yes Side: right Joint Reduction Location: shoulder Analgesia: procedural sedation Shoulder Technique Used (if applicable): traction/counter-traction Post-reduction neuro exam: intact Post-reduction vascular: intact Post Reduction X-Ray Obtained: Yes Post Reduction X-Ray Results: reduced Splint Applied: Yes Patient Tolerated Procedure: well Procedural Sedation Indication: fracture/dislocation reduction ASA Class: I Mallampati Class: I Time of Last PO Intake: 03:00 Preparation: environmental monitoring technician applied, pulse oximeter, capnometry used, supplemental O2 applied, reversal agents at bedside, suction/airway equipment at bedside and IV secured IV Propofol dose (mg): 100 Patient Tolerated Procedure: well Complications: none Critical Care Time Critical Care Time Critical Care Time: Yes Total Critical Care Time: 60 Attestation: The patient was critically ill with a high probability of imminent or life- threatening deterioration. I spent greater than 30 minutes of discontinuous time evaluating the patient, delivering critical care at the bedside, discussing evaluating data with consultants. Critical care time does not include time spent performing separately billable procedures or teaching. Time spent performing critical care was 60 minutes. Discharge Plan Discharge Clinical Impression: Anterior dislocation of right shoulder Patient Disposition: Home, Self-Care Instructions: Shoulder Dislocation (ED) Additional Instructions: Take [id number] ibuprofen 200 mg tablet if needed for pain. Prescriptions: No Action acetaminophen [Tylenol Extra Strength] 500 mg tablet 1,000 mg PO QID PRN (Reason: fever or pain) Qty: 14 0RF sulfamethoxazole-trimethoprim 800-160 mg tablet 1 tab PO BID Qty: 14 0RF nitrofurantoin monohyd/m-cryst [Macrobid] 100 mg capsule 100 mg PO BID 7 Days Qty: 14 0RF Rx Instructions: must administer with a meal/food diphenoxylate-atropine [Lomotil] 2.5-0.025 mg tablet 1 tab PO BID PRN (Reason: diarrhea) Qty: 7 0RF Nexplanon 68 mg implant subdermal Ozempic 0.25 mg or 0.5 mg (2 mg/3 mL) pen injector subcut benzonatate 100 mg capsule 100 mg PO TID Qty: 90 0RF azithromycin 500 mg tablet 500 mg PO DAILY 3 Days Qty: 3 0RF omeprazole 40 mg capsule,delayed release(DR/EC) 40 mg PO DAILY (DME) pen needle, diabetic 32 gauge x 5/32 needle See Rx Instructions .ROUTE .MEDSUPPLY Qty: 50 Rx Instructions: As directed Referrals: Alec Dill MD [Physician, Orthopedics] Lala Smith MD [Primary Care Provider, Primary Care] Stand Alone Forms: Work/School Release Print Language: Sinhala
[2025-03-21 10:36] VITALS: BP 151/73; PULSE 78; RESP 18; TEMP 36.6; O2SAT 100
--- OUTSIDE RECORDS SUMMARY | 2025-03-21 10:39 | XMS_ITS | Clinical Summary ---
Author Organization [facility] Address [address] [place] [address] Phone Care Team Providers Care Lead Dental Assistant Name Role Phone Kita Tubbs MD Primary Care Provider [phone] Allergies No known active allergies Surgical History Surgery Date Site/Laterality Comments OTHER [...] on file Sexual Orientation Not on file Last Filed Vital Signs Vital Sign Reading [...] 2011 Cervical Cancer Screening: Pap Smear 2013 HPV Vaccines (1 - 3-dose SCDM series) 2019 Diabetes: Annual GFR (Glomerular Filtration Rate) 11/12/2019 11/11/2018 Hepatitis C Screening 03/08/2022 Social Influencers of Health Screening 03/08/2022 Cholesterol Screening (Lipid Panel) 11/12/2023 11/11/2018, 11/11/2018 Depression Screening 04/09/2024 Diabetes: Annual Urine Albumin-Creatinine Ratio (uACR) 11/18/2024 04/01/2019 Diabetes: Blood Sugar Control Test (HGBA1C) 11/18/2024 04/01/2019 COVID-19 Vaccine ( season) 2024 12/28/2023, 12/16/2021, 01/17/2021, Additional history exists Influenza Vaccine (#1) 2024 12/28/2023, 2020 DTaP,Tdap,and Td Vaccines (3 - Td or Tdap) 10/15/2030 10/15/2020, 11/11/2018 RSV Immunization Adult Patients (1 - 1-dose 75+ series) 2067 HIV Screening Completed 11/11/2018 Pneumococcal Vaccine: Pediatrics (0 to 5 Years) and At-Risk Patients (6 to 49 Years) Aged Out 04/01/2019 No longer eligible based on patient's age to complete this topic HIB Vaccines Aged Out No longer eligi [...] complete this topic Insurance [employer] Care Teams Lead Dental Assistant Relationship Specialty Start Date End Date Kita Tubbs MD [address] [facility] [place] [address] PCP - General 02/07/15
--- OUTSIDE RECORDS SUMMARY | 2025-03-21 10:40 | XMS_ITS | Data Portability ---
Author Organization [place] [facility] Address [address] [place] [address] Care Team Providers Care Waste Picker Name Role Phone [facility] Primary Care Provider [phone] Assessment Encounter Date Assessment Date Assessment LastModified by Organization Details LastModified Time 07/17/2019 07/17/2019 Overview/History :This is a very pleasant 29-year-old female that is a new patient who [facility]. She reports that she has a history of diabetes and gets seasonal allergies, shell stripped frequently in her past. She was cleaning in her basement and staring up a lot of dust on Sunday, she felt that she was having some congestion and sinus pressure due to allergies so she started taking her Zyrtec again. She has been noticing that her throat has been itching, she initially treated this to allergies but then has been noting it has been mostly on the left side only. She contacted [facility] for evaluation to see if she might have an infection. Exam: On exam patient is awake and alert, well appearing. He would not be stable and afebrile. Lung sounds clear auscultation, heart rate regular. Mucous membranes moist, no erythema to the oral pharynx and her tonsils that appear to be slightly enlarged, no exudate appreciated. No lymphadenopathy, no sinus tenderness. DDx considered, but not limited to:Strep throat considered given her history, testing on scene was negative. Viral infection is possible, I would expect more pain and possibly fever. Her itching of her throat is most likely due to underlying seasonal allergies as she is having no other significant symptoms. Work up/Results:Rapid strep negative, throat culture pending Plan/Discussion: I discussed with patient that though she does have some tonsillar enlargement, no other signs of obvious infection. I suggested that she continue conservative management. I have encouraged her to continue to take her Zyrtec daily, she will take this at night because it makes her somewhat drowsy. I have told her if she begins to develop discomfort she can take Tylenol with her Zyrtec. I have encouraged her to continue to push fluids and try drinking tea with honey to help soothe her throat. If she has worsening symptoms she knows to contact her PCP. In order to obtain further information and compare any laboratory results/values, I have accessed patient records on the [facility]. This information was pertinent in my medical decision making today. Proper Personal Protective Equipment (PPE), including gloves, eye protection and masks were donned and doffed appropriately and all equipment cleaned using approved technique with germicidal disposable wipes prior to and after care of this patient according to [facility]'s infection prevention protocols. [email or web address] Not available 07/17/2019 10:52:10 Plan of Treatment Reminders Order Date Submit Date Provider Last Modified By Organization Details Last Modified Time Details Appointments None recorded. Lab rapid strep group A, throat [address] [facility] [address] [facility], [address] [place] [address], [id number], 0 10:52:48 culture, throat - Collected by [facility] 2019 020 [facility] (Centralized Electronic Ordering - All Locations), Patient Can Go To The Location Of Their Choice, [id number] 0 10:29:00 Referral None recorded. Procedures None recorded. Surgeries None recorded. Imaging None recorded. Medication Orders None recorded. Patient TargetsNo targets recorded. Patient Instructions Encounter Date Encounter Id Patient Instructions Last Modified By Organization Details Last Modified Time 07/17/2019 [id number] Please seek care immediately if you develop any of the following symptoms: 1. Uncontrolled fever of at least 101 F or 38.4 C 2. Throat pain that is severe or does not start to improve within 5 to 7 days Call 911 or go to the emergency department if you: 1. Have trouble breathing 2. Cannot control your saliva (drooling) due to difficulty swallowing 3. Have swelling of the neck or tongue 4. Cannot move your neck or have trouble opening your mouth If you have additional concerns or develop a change in your condition between 8am-10pm, please [facility] at [phone] to help navigate your care. [email or web address] Not available 07/17/2019 10:16:13 Reason for Referral None Reported. Results Created Date Observation Date Name Description Value Unit Range Abnormal Flag Note LastModifiedBy Organization Detail LastModifiedTime 07/17/19 20 07/17/2019 rapid strep group A, throa t Strep negati ve Not Available [facility] [address] [place], [address], 07/17/2019 10:16:27 07/17/19 20 07/17/2019 rapid strep group A, throa t Control Visual ized / Valid Not Available [facility] [address], [place], [address], 07/17/2019 10:16:27 07/17/19 20 07/17/2019 cultu re throa t specimen description THROAT SWAB Not Available [facility] (Centralized Electronic Ordering - All Locations) Patient Can Go To The Location Of Their Choice, [id number] 07/19/2019 10:29:00 07/17/19 20 07/17/2019 cultu re throa t special requests NONE Not Available [facility] (Centralized Electronic Ordering - All Locations) Patient Can Go To The Location Of Their Choice, 07/19/2019 10:29:00 07/17/1907/19/2019 cultu re throcasey t culture 4+ NORMAL LM Not Available [facility] (Centralized Electronic Ordering - All Locations) Patient Can Go To The Location Of Their Choice, 07/19/2019 10:29:00 07/17/1907/19/2019 cultu re throa t report status FINAL 2019 Not Available [facility] (Centralized Electronic Ordering - All Locations) Patient Can Go To The Location Of Their Choice, [id number] 07/19/2019 10:29:00 Result Notes None recorded. Medical Equipment None Reported. Allergies No known drug allergies Medications Name Sig Start Date Stop Date Status Note LastModified by Organization Details LastModified Time omeprazole active Not Available Not Av ailable Not Available metformin active Not Available Not Jalyn ilable Not Available Zyrtec active Not Available Not Availa ble Not Available Vitals Date Recorded Respiratory rate Heart rate Oxygen saturation Body temperature Systolic And Diastolic Provider Name and Address Organization Details Last Updated DateTime 0 16 /min 90 /min 100 % 98.6 [degF] 132/82 mm[Hg] Not Available [facility] 0 10:21:02 Social History None recorded. Functional Status None recorded. Mental Status None recorded. Family History Relationship Description Onset Age of this Age Resolved Age Notes LastModified by Organization Details LastModified Time Maternal Grandmother Coronary arterioscler osis [email or web address] Not available 12/2019 10:15:59 Medical History Condition Response Diabetes Y High Cholesterol N Pulmonary Embolism N Cancer N Stroke N Hypertension N Depression N COPD N Asthma N Kidney Disease N Gynecological HistoryNo gynecological history recorded. Obstetrics History GPAL:G 0 P 0 0 0 0 Past Encounters Encounter ID Performer Location Encounter Start Date Encounter Closed Date Diagnosis/Indication Diagnosis SNOMED-CT Code Diagnosis ICD10 Code Diagnosis IMO Codes Diagnosis Note [id number] JEREMY PACE NP [facility] [address] [place] [address] 07/17/2019 10:12:29 07/18/2019 11:58:09 Sore throat 141837049 J02.9 Seasonal allergy 7841751 04 J30.2 Health Concerns Section Related Observation LastModified by Organization Detai ls LastModified Time None Recorded Concern Status LastModified by Organization Details LastModified Time None Recorded Advance Directives Directive None Recorded Payers Insurance Date Sequence Insurance Name Policy Number Policy Lloyd Covered Member ID Lloyd Member ID Guarantor Name 07/17/2019 1 [facility]ICA[facility]) [id number] Nisaly Menjivar [id number] Nisaly Menjivar 07/16/2019 2 [place] Nisaly Menjivar [id number] Nisaly Menjivar 07/18/2019 1 [place] [id number] Nisaly Menjivar [id number] Nisaly Mnejivar 07/18/2019 1 [facility]ICA[facility] H[facility]) [id number] Nisaly Menjivar [id number] Nisaly Menjivar 07/16/2019 1 *SELF PAY* Nisaly Menjivar [id number] Nisaly Menjivar Notes Date Note Type Note Provider Name and Address Organization Details Recorded Time 07/17/2019 text/html General HPI Template - DHReported by Patient This is a 29 year old female that is new to . She has a medical hx significant for diabetes. Pt has been having a sore throat since sunday, she was cleaning in the basement and stirred up a lot of dust. She tells me her allergies were acting up so she started taking her zyrtec daily since sunday with some improvement. She has itch on L side of throat only . She denies pain and is able to eat and drink normally. She has been pushing fluids. No fevers, chills or body aches. She had sinus pressure on sunday but has not had it since then. JEREMY PACE NP [address], [place], [address], [place] [facility] 07/17/2019 10:53:02 OBGyn Episode No OBEpisode recorded.
--- OUTSIDE RECORDS SUMMARY | 2025-03-21 10:40 | XMS_ITS | Data Portability ---
Author Organization [facility], [address] Address [address] [place] [address] Assessment No assessment recorded. Plan of Treatment Reminders Order Date Submit Date Provider Last Modified By Organization Details Last Modified Time Details Appointments None recorded. Lab urinalysis, dipstick 2022 023 [place] [id number]_[facility], [address] [place] [address], [address], 3 14:30:50 test, urine 2022 023 [place] [address]_[facility], [address] [place] [address], [address], 3 14:17:01 Referral emergency medicine referral 2022 023 [email or web address] 1 Not available 3 15:25:21 physical therapist referral 2022 023 [email or web address] 9 Not available 3 10:26:27 Procedures None recorded. Surgeries None recorded. Imaging XR, shoulder, 2 or more view - The patient fell directly onto the left shoulder while working out last night. Pain over scapula, AC joint, deltoid. Decreased AROM in all direction of the shoulder. Tightness with posterior shoulder rotation at 90. No bruising or evidence of dislocation . No numbness in hand. 2022 023 [email or web address] 9 [facility], [address] [place] [address]., [place], [address], 10:26:27 Medication Orders meloxicam 7.5 mg tablet 2022 023 [facility] #[id number], [address] [place], [address], 13:55:27 cyclobenzap rine 10 mg tablet 2022 023 [facility]/Pharmacy #[id number], [address] [place], [address], 13:55:28 Patient TargetsNo targets recorded. Patient Instructions Encounter Date Encounter Id Patient Instructions Last Modified By Organization Details Last Modified Time 05/15/2022 [id number] You are being diagnosed with a Left Shoulder/Neck spasm based on your exam. The x-ray was unremarkable - we will send it to the radiologist to look at - if they see something that I missed then I will call you about their findings. The following are my recommendations to help with your symptoms: 1. Heating pad to the back of the neck/Shoulder 2. Stretch your neck regularly 3. Try to sleep with 1 pillow and support the arm. 4. It is ok to Take Tylenol with what I gave you. You were prescribed Prednisone - Here is some general Information regarding this medication. 1. Make sure you take with Food 2. Do not take right before bedtime -this should be taken during the day because it may make you a little more wired. May keep you from sleeping. 3. Prednisone will increase glucose -so if you are a diabetic then you will need to monitor your glucose closely. Please d/c if glucose goes above 300. 4. Do not take this medication with Ibuprofen You were prescribed a Muscle relaxant - this may make you drowsy. Do not drive with the medication. Also you only have to take this medication as needed. You do not need to complete the full course. Please go immediately to the Emergency room if you develop any: 1. Shortness of breath 2. Coughing up blood 3. Significant chest pain 4. or Dizziness.light headedness Thank you for using [facility]. Please feel free to contact us if you have any questions or concerns. [email or web address] Not available 05/15/2022 10:18:56 Reason for Referral Physical Therapist Referral for Strain of muscle of left shoulder Referring Physician: Debbie Lindsay, Urgent Care, Encounter Date: 05/15/2022 Emergency Medicine Referral for Right lower quadrant pain Referring Physician: Tiffanie Leary, Urgent Care, Encounter Date: 08/30/2022 Results Created Date Observation Date Name Description Value Unit Range Abnormal Flag Note LastModifiedBy Organization Detail LastModifiedTime 08/31/19 23 08/30/2022 pregn sim test, urine Unknown Analyte Normal = Negati ve Not Available [address] [place], [place] [address] [place], [address], 08/30/2022 14:15:35 08/31/19 23 08/30/2022 pregn sim test, urine Unknown Analyte negati ve Not Available [address] [place] [address] [place], [address], 08/30/2022 14:15:35 08/31/19 23 08/30/2022 urina lysis , dipst ick Unknown Analyte Normal = light yellow Not Available [address] [place] [address], [place], [address], 08/30/2022 14:00:37 08/31/19 23 08/30/2022 urina lysis , dipst ick Unknown Analyte Normal = clear Not Available [address] [place] [address] [place], [address], 08/30/2022 14:00:37 08/31/19 23 08/30/2022 urina lysis , dipst ick Unknown Analyte Normal = negati ve Not Available [address] [place] [address], [place], [address], 08/30/2022 14:00:37 08/31/19 23 08/30/2022 urina lysis , dipst ick Unknown Analyte Normal = Negati ve Not Available [address] [address], [place], [address], 08/30/2022 14:00:37 08/31/19 23 08/30/2022 urina lysis , dipst ick Unknown Analyte Normal = Negati ve Not Available [facility] [address], [place], [address], 08/30/2022 14:00:37 08/31/19 23 08/30/2022 urina lysis , dipst ick Unknown Analyte Normal = 1.010, 1.015, 1.020 Not Available raymond bales [address], [place], [address], 08/30/2022 14:00:37 08/31/19 23 08/30/2022 urina lysis , dipst ick Unknown Analyte Normal = Negati ve Not Available [facility] [address], [place], [address], 08/30/2022 14:00:37 08/31/19 23 08/30/2022 urina lysis , dipst ick Unknown Analyte Normal = 6.5, 7.0, 7.5, 8.0 Not Available raymond bales [address], [place], [address], 08/30/2022 14:00:37 08/31/19 23 08/30/2022 urina lysis , dipst ick Unknown Analyte Normal = Negati ve Not Available [facility]mond bales [address], [place], [address], 08/30/2022 14:00:37 08/31/19 23 08/30/2022 urina lysis , dipst ick Unknown Analyte Normal = 0.2, 1.0 Not Available raymond bales [address], [place], [address], 08/30/2022 14:00:37 08/31/19 23 08/30/2022 urina lysis , dipst ick Unknown Analyte Normal = Negati ve Not Available [facility] [address] [place] [address], [place], [address], 08/30/2022 14:00:37 08/31/19 23 08/30/2022 urina lysis , dipst ick Unknown Analyte Normal = Negati ve Not Available [facility], [place], [address], 08/30/2022 14:00:37 08/31/19 23 08/30/2022 urina lysis , dipst ick Unknown Analyte Yellow Not Available lori [address], [place], [address], 08/30/2022 14:00:37 08/31/19 23 08/30/2022 urina lysis , dipst ick Unknown Analyte Clear Not Available lori [address], [place], [address], 08/30/2022 14:00:37 08/31/19 23 08/30/2022 urina lysis , dipst ick Unknown Analyte Negati ve Not Available [facility], [place], [place], [address], 08/30/2022 14:00:37 08/31/19 23 08/30/2022 urina lysis , dipst ick Unknown Analyte Negati ve Not Available raymond pe [address], [place], [address], 08/30/2022 14:00:37 08/31/19 23 08/30/2022 urina lysis , dipst ick Unknown Analyte Negati ve Not Available raymond bales [address], [place], [address], 08/30/2022 14:00:37 08/31/19 23 08/30/2022 urina lysis , dipst ick Unknown Analyte 1.025 Not Available [address], [place], [address], 08/30/2022 14:00:37 08/31/19 23 08/30/2022 urina lysis , dipst ick Unknown Analyte Large Not Available [address], [place], [address], 08/30/2022 14:00:37 08/31/19 23 08/30/2022 urina lysis , dipst ick Unknown Analyte 7.0 Not Available [address], [place], [address], 08/30/2022 14:00:37 08/31/19 23 08/30/2022 urina lysis , dipst ick Unknown Analyte 30 mg/dL Not Available [address], [place], [address], 08/30/2022 14:00:37 08/31/19 23 08/30/2022 urina lysis , dipst ick Unknown Analyte 1.0 E.U./d L Not Available raymond [address], [place], [address], 08/30/2022 14:00:37 08/31/19 23 08/30/2022 urina lysis , dipst ick Unknown Analyte Negati ve Not Available [address], [place], [address], 08/30/2022 14:00:37 08/31/19 23 08/30/2022 urina lysis , dipst ick Unknown Analyte Small Not Available [address], [place], [address], 08/30/2022 14:00:37 05/15/19 23 05/15/2022 XR, shoul peña, 2 or more view No observ ation record ed. [email or web address] [facility] [address] [place], [address], 05/15/2022 22:52:40 05/15/19 23 05/15/2022 XR, shoul peña, 2 or more view No observ ation record ed. [email or web address] [facility] [address] [place], [address], 05/16/2022 13:05:22 Result Notes None recorded. Problems Name Problem SNOMED Code Status Onset Date Resolution Date Notes Provider Name and Address Organization Details Recorded Time Type 2 diabetes mellitus 28083228 Active 023 IRIS JERRYVERTJILLIAN [place], [place] - [facility] 3 09:04:43 Acid reflux 673997349 Active 023 SARAI [place], [place] - [facility] 3 09:04:58 Problem Notes None recorded. Medical Equipment None Reported. Allergies No known drug allergies Medications Name Sig Start Date Stop Date Status Note LastModified by Organization Details LastModified Time cyclobenzapri ne 10 mg tablet Take 1 tablet every day by oral route at bedtime . 08/30 completed Not Available Not Available Not Available meloxicam 7.5 mg tablet Take 1 tablet every day by oral route. 08/30 completed Not Available Not Available Not Available omeprazole active Not Available Not Av ailable Not Available Tylenol active Not Available Not Avail able Not Available metformin active Not Available Not Jalyn ilable Not Available Trulicity active Not Available Not Jalyn ilable Not Available Ozempic active Not Available Not Avail able Not Available Vitals Date Recorded Body height Body mass index (BMI) Body weight Respiratory rate Heart rate Oxygen saturation Body temperature Systolic And Diastolic Provider Name and Address Organization Details Last Updated DateTime 3 170.18 cm 43.5 kg/m2 208841. 68 g 18 /min 74 /min 98 % 97.9 [degF] 122/80 mm[Hg] SARAI Bowser PA - [facility] 3 09:06:52 Date Recorded Body height Body mass index (BMI) Body weight Pain severity - 0-10 verbal numeric rating [Score] - Reported Oxygen saturation Heart rate Respiratory rate Body temperature Systolic And Diastolic Provider Name and Address Organization Details Last Updated DateTime 3 170.18 cm 42.8 kg/m2 600688. 72 g 5 98 % 76 /min 16 /min 97.9 [degF] 127/81 mm[Hg] KELSIE CLEMENSAU PA - [facility] 3 13:58:41 Social History Question Answer Notes LastModified by K[employer] ion Details LastModified Time Tobacco Smoking Status Never Smoker SARAI mancilla PA - [facility] 05/15/2022 09:05:10 What Is Your Water Source? City Information not available 05/15/2022 What Is Your Heat Source? Gas Information not available 05/15/2022 Have You Had Direct Contact, Or Contact During Intimacy, With Monkeypox Rash, Scabs, Or Body Fluids From A Person With Monkeypox? No Information not available 05/15/2022 Have You Recently Traveled Abroad? Yes Information not available 08/30/2022 Sex: Unknown Functional Status Question Answer Note LastModified by Organizat ion Details LastModified Time Do you use any illicit or recreational drugs? No Information not available 05/15/2022 Do you or have you ever used any other forms of tobacco or nicotine? No Information not available 05/15/2022 What is your level of alcohol consumption? Occasional Information not available 05/15/2022 Are you currently employed? Yes Information not available 08/30/2022 Mental Status None recorded. Family History Relationship Description Onset Age of this Age Resolved Age Notes LastModified by Organization Details LastModified Time Father No current problems or disability Not available 09:05:00 Mother No current problems or disability Not available 09:05:00 Medical History No medical history recorded. Gynecological History Statement/Question Response Date of LMP 08/25/2022 Is there any chance of ? No Obstetrics History GPAL:G 0 P 0 0 0 0 Immunizations Vaccine Type Date Status Note Provider Nam e and Address Organization Details Recorded Time COVID-19, mRNA, LNP-S, PF, 30 mcg/0.3 mL dose 1 completed KELSIE ALTAGRACIA null, PA - [facility] 08/30/2022 13:54:57 COVID-19, mRNA, LNP-S, PF, 30 mcg/0.3 mL dose 1 completed KELSIE ALTAGRACIA null, PA - [facility] 08/30/2022 13:54:58 COVID-19, mRNA, LNP-S, PF, 30 mcg/0.3 mL dose 1 completed KELSIE ALTAGRACIA null, PA - [facility] 08/30/2022 13:54:58 COVID-19, mRNA, LNP-S, bivalent, PF, 30 mcg/0.3 mL dose 2 completed KELSIE ALTAGRACIA null, PA - [facility] 08/30/2022 13:54:58 pneumococcal polysaccharide PPV23 9 completed KELSIE ALTAGRACIA null, PA - [facility] 08/30/2022 13:54:58 Tdap 1 completed KELSIE ALTAGRACIA null, PA - [facility] 08/30/2022 13:54:58 Tdap 9 completed KELSIE ALTAGRACIA null, PA - [facility] 08/30/2022 13:54:58 Influenza, split virus, quadrivalent, PF 1 completed KELSIE ALTAGRACIA null, PA - [facility] 08/30/2022 13:54:58 Past Encounters Encounter ID Performer Location Encounter Start Date Encounter Closed Date Diagnosis/Indication Diagnosis SNOMED-CT Code Diagnosis ICD10 Code Diagnosis IMO Codes Diagnosis Note [id number] [facility] [address] [address] 02/08/2015 19:29:33 02/08/2015 20:44:57 [id number] [facility] [address] [place] [address] 11/25/2021 19:12:46 11/25/2021 19:51:42 [id number] [facility] [address] [place] [address] 12/26/2020 11:58:14 12/26/2020 14:27:52 [id number] [facility] [address] [place] [address] 10/23/2014 10:45:26 10/23/2014 12:27:12 [id number] [facility] [place] [address] 08/19/2015 08:22:50 08/19/2015 09:01:10 [id number] [facility] [address] [place] [address] 08/21/2015 09:01:46 08/21/2015 09:41:19 [id number] [facility] [address] [place] [address] 05/11/2015 13:19:46 05/11/2015 16:37:27 [id number] MARE SAMPSON [address] [address] [place] [address] 05/15/2022 08:11:21 05/15/2022 10:26:26 Pain of left shoulder joint 2950674641 2534820 M25.512 No evidence of any fracture or dislocatio n in the x-ray Strain of muscle of left shoulder 9356983936 6399615 S46.912A [id number] Tiffanie Leary MD [address] [address] [place] [address] 08/30/2022 13:29:41 08/30/2022 14:32:49 Urinary symptoms 443336649 R39.9 Hematuria, History Bilateral Kidney stones. Currently with Right lower quadrant tenderness Cant rule out Kidney stones versus other abdominal pathology and needs ER assessment patient agrees to go to [facility] called by Kelsie WALTON Renal colic [id number] N23 ER eval rule out Kidney Stone Microscopic hematuria 19 1941779 R31.29 Right lowe r quadrant pain 614904731 R10.31 ER evaluation Health Concerns Section Related Observation LastModified by Organization Detai ls LastModified Time None Recorded Concern Status LastModified by Organization Details LastModified Time None Recorded Advance Directives Directive None Recorded Payers Insurance Date Sequence Insurance Name Policy Number Policy Lloyd Covered Member ID Lloyd Member ID Guarantor Name 08/30/2022 1 NATALIE [id number] Jone Menjivar [id number] 1 Jone Menjivar Notes Date Note Type Note Provider Name and Address Organization Details Recorded Time 3 text/html ShoulderReported by PatientHPIFor associated symptoms, patient reportspopping/clickingbu t reportsno weakness,no numbness,no tingling,no swelling, andno redness. For source of patient information, patient reportsinformation obtained from patientandpatient arrived at urgent care ambulatory. For hand dominance, patient reportsright. For location, patient reportsleft. For quality, patient reportsachingandstabbing. For severity, patient reportsmoderate. For duration, patient reports2 days. For timing, patient reportsacute. For context, patient reportsfallandsports injury. For aggravating factors, patient reportslifting,carrying, androm. For previous injury, patient reportsno prior injury to affected body part. For alleviating factors, (limited movement).The patient reports that there was pain in the left shoulder when she fell while working out. The patient states that her friend heard a pop. She states that she now has decreased ROM. Very stiff. The patient states that there is no numbness in the left arm. 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 No previous history of injury. MARE SAMPSON [facility] [place], [address], [place] - [facility] 05/20/2022 23:41:23 3 text/html Lower BackReported by PatientHPIFor location, patient reportsright. For quality, patient reportssharpanddeep(comes in wave like pattern). For severity, patient reportsworst pain 7/10. For duration, patient reports4 days. For alleviating factors, patient reportsnothing helps. For aggravating factors, patient reportscannot identify. For associated symptoms, patient reportsno weakness,no numbness,no tingling,no swelling, andno redness. For previous surgery, patient reportsnone. Pain 7/10 unable to find comfortable position. started right lower back and now wrapping around to right lower quadrant. History Bilateral Kidney stones Tiffanie Leary MD [address] [place], [address], [place] - [facility] 08/30/2022 14:34:45 OBGyn Episode No OBEpisode recorded.
[2025-03-21 10:53] VITALS: BP 149/75; PULSE 81
[2025-03-21 10:55] VITALS: BP 168/97; PULSE 82; RESP 14; O2SAT 100
[2025-03-21 11:30] VITALS: BP 141/92; PULSE 79; RESP 18; O2SAT 99
[2025-03-21 11:57] VITALS: BP 141/92; PULSE 79; RESP 18; TEMP 36.8; O2SAT 99
== END 2025-03-21 11:57 | disposition home or self-care (01) ==
PROVIDERS: Emergency Provider Emergency Medicine; PCP Student in an Organized Health Care Education/Training Program
DX: S43.084A Other dislocation of right shoulder joint, initial encounter (principal); M25.511 Pain in right shoulder; W01.0XXA Fall on same level from slipping, tripping and stumbling without subsequent striking against object, initial encounter; Y93.89 Activity, other specified; Y92.89 Other specified places as the place of occurrence of the external cause; Y99.8 Other external cause status
CPT/HCPCS: 23655; 73020; 73030; 96374; 99284; 99285; J2704

== ENCOUNTER → 2025-03-21 09:45 | Outpatient (BNV) | payer OTHER, SELFPAY | PROVIDERS: Emergency Provider Emergency Medicine; PCP Student in an Organized Health Care Education/Training Program; Visit Provider Radiology Diagnostic Radiology | DX: S43.014A Anterior dislocation of right humerus, initial encounter (principal); Z03.89 Encounter for observation for other suspected diseases and conditions ruled out | CPT/HCPCS: 73020; 73030 ==

== ENCOUNTER 2025-03-29 05:52 | Emergency (ER) | payer OTHER, SELFPAY ==
[2025-03-29 05:56] VITALS: BP 132/62; PULSE 73; RESP 16; TEMP 36.6; O2SAT 98; BMI 36.0
--- OUTSIDE RECORDS SUMMARY | 2025-03-29 06:19 | XMS_ITS | Data Portability ---
Author Organization [facility]ell[facility], [address] Address [address] [place] [address] Assessment No assessment recorded. Plan of Treatment Reminders Order Date Submit Date Provider Last Modified By Organization Details Last Modified Time Details Appointments None recorded. Lab urinalysis, dipstick 2022 023 [place] [id number] [address], [address] [place] [address], [address], 3 14:30:50 test, urine 2022 023 [place] [address] [address], [address] [place] [address], [address], 3 14:17:01 Referral emergency medicine referral 2022 [...] hand. 2022 023 [email or web address] 9 [facility], [address] [place] [address]., [place], [address], 10:26:27 Medication Orders meloxicam 7.5 mg tablet 2022 023 [facility] #[id number], [address] [place], [address], 13:55:27 cyclobenzap rine 10 mg tablet 2022 023 [facility] #[id number], [address] [place], [address], 13:55:28 Patient TargetsNo targets recorded. Patient Instructions Encounter Date Encounter Id Patient Instructions Last Modified By Organization Details Last Modified Time 05/15/2022 [id number] You are being diagnosed with a Left [...] or Dizziness.light headedness Thank you for using [facility]. Please feel free to contact us if you have any questions or concerns. [email or web address] Not available 05/15/2022 10:18:56 Reason for Referral [...] Analyte Normal = Negati ve Not Available [address] [place], [place] [address] [place], [address], 08/30/2022 14:15:35 08/31/19 23 08/30/2022 pregn sim test, urine Unknown Analyte negati ve Not Available [address] [place] [address] [place], [address], 08/30/2022 14:15:35 08/31/19 23 08/30/2022 urina lysis , dipst ick Unknown Analyte Normal = light yellow Not Available [address] [place] [address], [place], [address], 08/30/2022 14:00:37 08/31/19 23 08/30/2022 urina lysis , dipst ick Unknown Analyte Normal = clear Not Available [address] [place] [address] [place], [address], 08/30/2022 14:00:37 08/31/19 23 08/30/2022 urina lysis , dipst ick Unknown Analyte Normal = negati ve Not Available [address] [place] [address], [place], [address], 08/30/2022 14:00:37 08/31/19 23 08/30/2022 urina lysis , dipst ick Unknown Analyte Normal = Negati ve Not Available [address] [address], [place], [address], 08/30/2022 14:00:37 08/31/19 23 08/30/2022 urina lysis , dipst ick Unknown Analyte Normal = Negati ve Not Available [facility]mond b[facility] [address], [place], [address], 08/30/2022 14:00:37 08/31/19 23 08/30/2022 urina lysis , dipst ick Unknown Analyte Normal = 1.010, 1.015, 1.020 Not Available raymond bales [address], [place], [address], 08/30/2022 14:00:37 08/31/19 23 08/30/2022 urina lysis , dipst ick Unknown Analyte Normal = Negati ve Not Available [facility] [address], [place], [address], 08/30/2022 14:00:37 08/31/19 23 08/30/2022 urina lysis , dipst ick Unknown Analyte Normal = 6.5, 7.0, 7.5, 8.0 Not Available raymond bales [address], [place], [address], 08/30/2022 14:00:37 08/31/19 23 08/30/2022 urina lysis , dipst ick Unknown Analyte Normal = Negati ve Not Available raymond bales [address], [place], [address], 08/30/2022 14:00:37 08/31/19 23 08/30/2022 urina lysis , dipst ick Unknown Analyte Normal = 0.2, 1.0 Not Available raymond bales [address], [place], [address], 08/30/2022 14:00:37 08/31/19 23 08/30/2022 urina lysis , dipst ick Unknown Analyte Normal = Negati ve Not Available [facility] [address] [place] [address], [place], [address], 08/30/2022 14:00:37 08/31/19 23 08/30/2022 urina lysis , dipst ick Unknown Analyte Normal = Negati ve Not Available [facility], [place], [address], 08/30/2022 14:00:37 08/31/19 23 08/30/2022 urina lysis , dipst ick Unknown Analyte Yellow Not Available lori [address], [place], [address], 08/30/2022 14:00:37 08/31/19 23 08/30/2022 urina lysis , dipst ick Unknown Analyte Clear Not Available lori [address], [place], [address], 08/30/2022 14:00:37 08/31/19 23 08/30/2022 urina lysis , dipst ick Unknown Analyte Negati ve Not Available [facility], [place], [place], [address], 08/30/2022 14:00:37 08/31/19 23 08/30/2022 urina lysis , dipst ick Unknown Analyte Negati ve Not Available raymond pe [address], [place], [address], 08/30/2022 14:00:37 08/31/19 23 08/30/2022 urina lysis , dipst ick Unknown Analyte Negati ve Not Available raymond bales [address], [place], [address], 08/30/2022 14:00:37 08/31/19 23 08/30/2022 urina lysis , dipst ick Unknown Analyte 1.025 Not Available [address], [place], [address], 08/30/2022 14:00:37 08/31/19 23 08/30/2022 urina lysis , dipst ick Unknown Analyte Large Not Available [address], [place], [address], 08/30/2022 14:00:37 08/31/19 23 08/30/2022 urina lysis , dipst ick Unknown Analyte 7.0 Not Available [address], [place], [address], 08/30/2022 14:00:37 08/31/19 23 08/30/2022 urina lysis , dipst ick Unknown Analyte 30 mg/dL Not Available [address]ri[address], [place], [address], 08/30/2022 14:00:37 08/31/19 23 08/30/2022 urina lysis , dipst ick Unknown Analyte 1.0 E.U./d L Not Available raymond [address], [place], [address], 08/30/2022 14:00:37 08/31/19 23 08/30/2022 urina lysis , dipst ick Unknown Analyte Negati ve Not Available [address], [place], [address], 08/30/2022 14:00:37 08/31/19 23 08/30/2022 urina lysis , dipst ick Unknown Analyte Small Not Available [address], [place], [address], 08/30/2022 14:00:37 05/15/19 23 05/15/2022 XR, shoul peña, 2 or more view No observ ation record ed. [facility] [address] [place], [address], 05/15/2022 22:52:40 05/15/19 23 05/15/2022 XR, shoul peña, 2 or more view No observ ation record ed. [email or web address] [facility] [address] [place], [address], 05/16/2022 13:05:22 Result Notes None recorded. Problems Name Problem SNOMED Code Status Onset Date Resolution Date Notes Provider Name and Address Organization Details Recorded Time Type 2 diabetes mellitus 54252090 Active 023 IRIS JERRYVERTJILLIAN [place], [place] - [facility] 3 09:04:43 Acid reflux 426040745 Active 023 SARAI [facility], [place] - [facility] [...] Updated DateTime 3 170.18 cm 43.5 kg/m2 826530. 68 g 18 /min 74 /min 98 [...] Updated DateTime 3 170.18 cm 42.8 kg/m2 607888. 72 g 5 98 % 76 /min 16 /min 97.9 [degF] 127/81 mm[Hg] KELSIE CLEMENSAU PA - [facility] 3 13:58:41 Social History Question Answer Notes LastModified by [email or web address] ion Details LastModified Time Tobacco Smoking Status [...] ICD10 Code Diagnosis IMO Codes Diagnosis Note [id number] [facility] [address] [address] 02/08/2015 19:29:33 02/08/2015 20:44:57 [id number] [facility] [address] [place] [address] 11/25/2021 19:12:46 11/25/2021 19:51:42 [id number] [facility] [address] [place] [address] 12/26/2020 11:58:14 12/26/2020 14:27:52 [id number] [facility] [address] [place] [address] 10/23/2014 10:45:26 10/23/2014 12:27:12 [id number] [facility] [address] [place] [address] 08/19/2015 08:22:50 08/19/2015 09:01:10 [id number] [facility] [address] [place] [address] 08/21/2015 09:01:46 08/21/2015 09:41:19 [id number] [facility] [address] [place] [address] 05/11/2015 13:19:46 05/11/2015 16:37:27 [id number] MARE SAMPSON [facility] [address] [place] [address] 05/15/2022 08:11:21 05/15/2022 10:26:26 Pain of left shoulder joint 1193487214 3344547 M25.512 No evidence of any fracture or dislocatio n in the x-ray Strain of muscle of left shoulder 0698943940 6308236 S46.912A [id number] [place] [address] [address] [place] [address] 08/30/2022 13:29:41 08/30/2022 14:32:49 Urinary symptoms 881359654 R39.9 Hematuria, History Bilateral Kidney stones. Currently with Right lower quadrant tenderness Cant rule out Kidney stones versus other abdominal pathology and needs ER assessment patient agrees to go to [facility] called by Kelsie WALTON Renal colic 3686163 N23 ER eval rule out Kidney Stone Microscopic hematuria 19 5800930 R31.29 Right lowe r quadrant pain 295498717 R10.31 ER evaluation Health Concerns Section Related Observation LastModified by Organization Detai ls LastModified Time None Recorded Concern Status LastModified by Organization Details LastModified Time None Recorded Advance Directives Directive None Recorded Payers Insurance Date Sequence Insurance Name Policy Number Policy Lloyd Covered Member ID Lloyd Member ID Guarantor Name 08/30/2022 1 NATALIE [id number] Jone Menjivar [id number] Jone Menjivar Notes Date Note Type [...] no numbness in the left arm. Normal donations attendant strength. No previous history of injury. MARE SAMPSON [facility] [place], [address], [place] - [facility] 05/20/2022 23:41:23 3 [...] Tiffanie Leary MD [address] [place], [address], [place] - [facility] 08/30/2022 14:34:45 OBGyn Episode No OBEpisode recorded.
--- OUTSIDE RECORDS SUMMARY | 2025-03-29 06:19 | XMS_ITS | Data Portability ---
Author Organization [place] [facility] Address [address] [place] [address] Care Team Providers Care Operations Support Representative Name Role Phone [facility] Primary Care Provider [phone] Assessment Encounter Date Assessment Date Assessment LastModified by Organization Details LastModified Time 07/17/2019 07/17/2019 Overview/History :This is a very pleasant 29-year-old female that is a new patient who [facility]. She reports that she has a history [...] on the left side only. She contacted [facility] for evaluation to see if she might [...] I have accessed patient records on the [facility] [employer] [facility]. This information was pertinent in my medical decision making today. Proper Personal Protective Equipment (PPE), including gloves, eye protection and masks were donned and doffed appropriately and all equipment cleaned using approved technique with germicidal disposable wipes prior to and after care of this patient according to [facility]'s infection prevention protocols. [email or web address] Not available 07/17/2019 10:52:10 Plan of Treatment Reminders Order Date Submit Date Provider Last Modified By Organization Details Last Modified Time Details Appointments None recorded. Lab rapid strep group A, throat 2019 020 [facility] r31 [facility], [address] [place] [address], [address], 0 10:52:48 culture, throat - Collected by [facility] [place] 2019 020 [facility] (Centralized Electronic Ordering - All Locations), Patient Can Go To The Location Of Their Choice, [address] 0 10:29:00 Referral None recorded. Procedures None recorded. Surgeries None recorded. Imaging None recorded. Medication Orders None recorded. Patient TargetsNo targets recorded. Patient Instructions Encounter Date Encounter Id Patient Instructions Last Modified By Organization Details Last Modified Time 07/17/2019 [id number] Please seek care immediately if you develop [...] in your condition between 8am-10pm, please [facility] at [phone] to help navigate your care. Not available 07/17/2019 10:16:13 Reason for Referral None Reported. Results Created Date Observation Date Name Description Value Unit Range Abnormal Flag Note LastModifiedBy Organization Detail LastModifiedTime 07/17/19 20 07/17/2019 rapid strep group A, throa t Strep negati ve Not Available [facility] [address] [place], [address], 07/17/2019 10:16:27 07/17/19 20 07/17/2019 rapid strep group A, throa t Control Visual ized / Valid Not Available [facility] [address], [place], [address], 07/17/2019 10:16:27 07/17/19 20 07/17/2019 cultu re throa t specimen description THROAT SWAB Not Available [facility] (Centralized Electronic Ordering - All Locations) Patient Can Go To The Location Of Their Choice, [address] 07/19/2019 10:29:00 07/17/19 20 07/17/2019 cultu re [...] Go To The Location Of Their Choice, [id number] 07/19/2019 10:29:00 Result Notes None recorded. Medical [...] LastModified Time Maternal Grandmother Coronary arterioscler osis [email or web address] Not available 12/2019 10:15:59 Medical History Condition Response Diabetes Y Cancer N Stroke N Depression N COPD N Asthma N High Cholesterol N Pulmonary Embolism N Hypertension N Kidney Disease N Gynecological HistoryNo gynecological history recorded. Obstetrics History GPAL:G 0 P 0 0 0 0 Past Encounters Encounter ID Performer Location Encounter Start Date Encounter Closed Date Diagnosis/Indication Diagnosis SNOMED-CT Code Diagnosis ICD10 Code Diagnosis IMO Codes Diagnosis Note [id number] JEREMY PACE NP [facility] - HOME [address] [place] [place] [address] 07/17/2019 10:12:29 07/18/2019 11:58:09 Sore throat 741003595 J02.9 Seasonal allergy 8298092 04 J30.2 Health Concerns Section Related Observation LastModified by Organization Detai ls LastModified Time None Recorded Concern Status LastModified by Organization Details LastModified Time None Recorded Advance Directives Directive None Recorded Payers Insurance Date Sequence Insurance Name Policy Number Policy Lloyd Covered Member ID Lloyd Member ID Guarantor Name 07/17/2019 1 [facility]MEDICA[facility] H[facility]) [id number] Nisaly Menjivar [id number] Nisaly Menjivar 07/16/2019 2 [place] Nisaly Menjivar [id number] Nisaly Menjivar 07/18/2019 1 [place] [id number] Nisaly Menjivar [id number] Nisaly Menjivar 07/18/2019 1 [facility] (MEDICA[facility] H[facility]) [id number] Nisaly Menjivar [id number] Nisaly Menjivar 07/16/2019 1 *SELF PAY* Nisaly Menjivar [id number] Nisaly Menjivar Notes Date Note Type Note [...] then. JEREMY PACE NP [address], [place], [address], [place] - [facility] 07/17/2019 10:53:02 OBGyn Episode No OBEpisode recorded.
--- OUTSIDE RECORDS SUMMARY | 2025-03-29 06:19 | XMS_ITS | Clinical Summary ---
Author Organization [facility] Address [address] [place] [address] Phone Care Team Providers Care Administrative Support Clerk Name Role Phone Kita Tubbs MD Primary Care Provider [phone] Allergies No known active allergies Surgical History [...] complete this topic Insurance [employer] Care Teams Administrative Support Clerk Relationship Specialty Start Date End Date Kita Tubbs MD [address] [facility], [address] [place] [address] PCP - General 02/07/15
[2025-03-29 06:31] VITALS: BP 128/72; PULSE 80; RESP 16; TEMP 36.6; O2SAT 99
--- NOTE | 2025-03-29 06:45 | PC.NURSE ---
pt from triage reporting 08/16 right shoulder pain onset x3 hours ago described as burning radiating down right arm. PT reports she had an injury that resulted in dislocation 1 week ago and was seen [place] [facility] [place] she had her shoulder put back into place. PT then began experiencing this new onset pain while lying down in bed.
--- NOTE | 2025-03-29 06:48 | ED.EXTPRO ---
HPI - Extremity Problem General Chief complaint: Extremity Injury, Upper Stated complaint: rt should pain/was dislocated earlier in the wk Time Seen by Provider: 03/29/25 06:47 Related Data Home Medications ?Medication ?Instructions ?Recorded ?Confirmed pen needle, diabetic 32 gauge x #50 ea 08/25/20 05/22/23 omeprazole 40 mg capsule,delayed 40 mg PO DAILY 12/22/22 05/22/23 release etonogestrel 68 mg subdermal subdermal 05/22/23 05/22/23 implant (Nexplanon) semaglutide 0.25 mg or 0.5 mg (2 mg subcut 10/18/23 mg/3 mL) subcutaneous pen injector ([employer]) Previous Rx's ?Medication ?Instructions ?Recorded acetaminophen 500 mg tablet 1,000 mg (2 x 500 mg) PO QID PRN 08/18/20 (Tylenol Extra Strength) fever or pain #14 tabs azithromycin 500 mg tablet 500 mg PO DAILY 3 days #3 tabs 10/18/23 benzonatate 100 mg capsule 100 mg PO TID #90 caps 10/18/23 sulfamethoxazole 800 1 tab PO BID #14 tabs 01/08/24 mg-trimethoprim 160 mg tablet diphenoxylate-atropine 2.5 1 tab PO BID PRN diarrhea #7 tabs 11/18/24 mg-0.025 mg tablet (Lomotil) nitrofurantoin 100 mg PO BID 7 days #14 caps 11/18/24 monohydrate/macrocrystals 100 mg capsule (Macrobid) cyclobenzaprine 10 mg tablet 10 mg PO TID PRN pain, muscle 03/29/25 spasm #15 tabs morphine 15 mg immediate release 15 mg PO Q4-6H PRN pain #14 tabs 03/29/25 tablet Allergies Allergy/AdvReac Type Severity Reaction Status Date / Time No Known Allergies Allergy Verified 03/29/25 05:57 [facility] Past Medical History Medical History Diabetes Social History Social History Alcohol intake: never Patient Tobacco Use Status: Never used Tobacco Smoked in Last 30 Days: No Use of substances other than those prescribed or required for medical reasons: No Advance Directives: No Advance Directives Information Provided: Yes Do you have a plan to hurt others: No Plan Patient : No Physical Exam Vital Signs: Vital Signs: Last Vital Signs Temp 97.9 F 03/29/25 06:31 Pulse 80 03/29/25 06:31 Resp 16 03/29/25 06:31 BP 128/72 03/29/25 06:31 Pulse Ox 99 03/29/25 06:31 O2 Del Method Room Air 03/29/25 06:31 BMI result Body Mass Index 36.0 Discharge Plan Discharge Clinical Impression: Acute pain of right shoulder, Spasm of right trapezius muscle Patient Disposition: Home, Self-Care Additional Instructions: Your exam revealed tenderness and spasm of your right trapezius (neck) muscle with no significant tenderness over the rest of your muscles. The burning sensation that you are feeling is caused by spasm of your trapezius (neck) muscle and inflammation in the right shoulder joint from your recent dislocation. Take ibuprofen 200 mg pills, 2 pills every 6 hours as needed for pain. Take Tylenol (acetaminophen) 500 mg, 2 pills every 6 hours as needed for pain. For pain not relieved by ibuprofen or Tylenol take morphine 15 mg pills, 1 pill every 6 hours as needed for pain. This medication will make you sleepy, do not drive or work while taking this medication. Morphine is a narcotic medication and can be addicting. If you are concerned about addiction you can ask the pharmacist for less pills or do not get this prescription filled. Take Flexeril (cyclobenzaprine) 10 mg pills, 1 pill every 6-8 hours as needed for pain or spasm. ?This medication will make you sleepy. ?Do not drive or work while taking this medication. Apply ice for 15 minutes, wait an hour then use a heating pad on low for 15 minutes, do this 4 to 6 times a day for the next 3-4 days to see if this improves your pain. Follow-up with your doctor in 2 days. Keep your orthopedic appointment as scheduled. Please return to the emergency department if your symptoms get worse or if you develop any symptoms that are concerning to you. Prescriptions: New cyclobenzaprine 10 mg tablet 10 mg PO TID PRN (Reason: pain, muscle spasm) Qty: 15 0RF morphine 15 mg tablet 15 mg PO Q4-6H PRN (Reason: pain) Qty: 14 0RF Rx Instructions: Partial Fill upon patient request. No Action acetaminophen [Tylenol Extra Strength] 500 mg tablet 1,000 mg PO QID PRN (Reason: fever or pain) Qty: 14 0RF sulfamethoxazole-trimethoprim 800-160 mg tablet 1 tab PO BID Qty: 14 0RF nitrofurantoin monohyd/m-cryst [Macrobid] 100 mg capsule 100 mg PO BID 7 Days Qty: 14 0RF Rx Instructions: must administer with a meal/food diphenoxylate-atropine [Lomotil] 2.5-0.025 mg tablet 1 tab PO BID PRN (Reason: diarrhea) Qty: 7 0RF Nexplanon 68 mg implant subdermal Ozempic 0.25 mg or 0.5 mg (2 mg/3 mL) pen injector subcut benzonatate 100 mg capsule 100 mg PO TID Qty: 90 0RF azithromycin 500 mg tablet 500 mg PO DAILY 3 Days Qty: 3 0RF omeprazole 40 mg capsule,delayed release(DR/EC) 40 mg PO DAILY (DME) pen needle, diabetic 32 gauge x 5/32 needle See Rx Instructions .ROUTE .MEDSUPPLY Qty: 50 Rx Instructions: As directed Print Language: Pashto
--- NOTE | 2025-03-29 07:12 | PC.NURSE ---
Assumed care of patient at 0700. Patient resting quietly. No signs of distress. Awaiting dispo. Call guerrier placed within reach - educated how to use. Visitor at the bedside.
[2025-03-29 07:21] VITALS: BP 128/72; PULSE 80; RESP 16; TEMP 36.6; O2SAT 99
== END 2025-03-29 07:22 | disposition home or self-care (01) ==
PROVIDERS: Emergency Provider Emergency Medicine Emergency Medical Services; PCP Student in an Organized Health Care Education/Training Program
DX: G89.11 Acute pain due to trauma (principal); M25.511 Pain in right shoulder; M62.838 Other muscle spasm; E11.9 Type 2 diabetes mellitus without complications
CPT/HCPCS: 99282; 99284